=== PATIENT | female | born 1955 | race Caucasian/White ===

== ENCOUNTER → 2016-05-09 | Outpatient (CLI) | payer OTHER ==
[~2016-05-09] MED LIST: AMLO-114 PO; ATV1 PO; CMD75 PO; CYM30 PO; CYM60 PO; OXYC-57 PO; OXYSR10 PO; [UNRECOGNIZED DRUG - CODE] PO
--- NOTE | 2016-05-09 10:58 | DIAGNOSTIC IMAGING REPORT ---
MRI OF THE LUMBAR SPINE WITHOUT IV CONTRAST CLINICAL HISTORY: Low back pain. COMPARISON STUDY: Abdominal CT dated 10/28/2006. TECHNIQUE: MRI of the lumbar spine is performed utilizing various T1 and T2-weighted sequences in the axial and sagittal planes. IV contrast was not administered for this examination. FINDINGS: Lumbar spine: Vertebral body height is maintained throughout the lumbar spine. There is minimal retrolisthesis of L3-L4 and L4-L5. There is minimal anterolisthesis at L2-L3. There is straightening of the lumbar lordosis. Marrow signal intensity is slightly heterogeneous. Chronic degenerative endplate change is present at L4-L5. Mild degenerative endplate edema is seen at L2-L3. No destructive osseous lesion is identified. The transverse and spinous processes appear intact. There is no evidence of spondylolysis. Schmorl's nodes are identified at L3 and L4. Intervertebral discs: There is degenerative disc desiccation and loss of height seen throughout the lumbar spine. Loss of height is greatest from L2-L3 through L4-L5. Spinal cord: The visualized spinal cord is normal in morphology and signal intensity. The conus medullaris terminates at the T12-L1 interspace. The nerve roots of the cauda equina are normal in morphology. L1-L2: Unremarkable. L2-L3: There is posterior disc bulge. In conjunction with hypertrophy of the ligamentum flavum, there is mild to moderate acquired compromise of the central canal. The minimum AP diameter measures up to 7.5 mm. Facet arthropathy causes minimal left-sided neural foraminal stenosis. L3-L4: There is posterior disc bulge with annular fissure. In conjunction with hypertrophy of the ligamentum flavum, this causes mild to moderate acquired compromise of the central canal. The minimum AP diameter measures 7.5 mm. There is bilateral subarticular stenosis. Facet arthropathy is of no consequence. The neural foramina appear clear. L4-L5: There is posterior disc bulge as well as hypertrophy of the ligamentum flavum. There is no significant acquired compromise of the central canal. There is bilateral subarticular stenosis with possible impingement on the exiting bilateral L4 nerve roots. Facet arthropathy causes moderate left and minimal right neural foraminal stenosis. L5-S1: Facet arthropathy is of no consequence. The central canal and neural foramina are patent. Sacrum: Partially imaged sacrum is normal in morphology and signal intensity. Soft tissues: There is moderate fatty atrophy of the paraspinous musculature. The kidneys demonstrate mild cortical atrophy. No retroperitoneal lymphadenopathy is seen. IMPRESSION: 1. Lumbosacral spondylosis as above with mild multilevel acquired compromise of the central canal. See discussion for detailed [id number] analysis. 2. Degenerative disc disease with mild endplate edema at L2-L3. 3. No destructive bony lesion is identified. Dictated: 05/09/2016 10:35 AM Transcribed: 05/09/2016 10:58 AM [facility] Electronically signed by: Shubham Delarosa M.D. 05/09/2016 11:27 AM Dictated Date/Time: 05/09/2016 10:35 AM
== END | disposition home or self-care (01) ==
PROVIDERS: ATTEND Orthopaedic Surgery Orthopaedic Surgery of the Spine
DX: M54.5 Low back pain (principal); M47.817 Spondylosis without myelopathy or radiculopathy, lumbosacral region; M51.36 Other intervertebral disc degeneration, lumbar region

== ENCOUNTER 2021-03-06 14:09 | Inpatient (IN) ==
[2021-03-06] MEDS ORDERED: dexAMETHasone**PF** 10 MG/ML VIAL IV ONE (14:56)
--- NOTE | 2021-03-06 14:57 | XRay Report ---
SINGLE VIEW CHEST CLINICAL HISTORY: Dyspnea. FINDINGS: 2 AP, portable, upright chest radiographs are compared to study dated 02/18/2009. The cardi omediastinal silhouette is unremarkable. Mild patchy airspace consolidation is seen throughout both l ungs, greatest at the lung bases. No large pleural effusion or pneumothorax is seen. The skeletal str uctures are osteopenic. The bony thorax is grossly intact. Calcific tendinopathy is noted in the left shoulder. IMPRESSION: Multifocal airspace consolidation is typical for pneumonia. Clinical correlation will be required and radiographic follow-up to resolution is recommended. ACT 112: Negative or not required by law. Electronically signed by: Shubham Delarosa M.D. 03/06/2021 2:56 PM
[2021-03-06 15:17] LABS: Hematocrit (blood only) 42.8 % (37-47); Hemoglobin 14.1 g/dL (12.0-16.0); Mean Corpuscular Hemoglobin 27.8 pg (25-34); Mean Corpuscular Hgb Conc 32.9 g/dL (32-36); Mean Corpuscular Volume 84.4 fL (80-100); Mean Platelet Volume 9.9 fL (7.4-10.4); Platelet Count 354 K/uL (130-400); RDW Coefficient of Variation 13.8 % (11.5-14.5); RDW Standard Deviation 42.4 fL (36.4-46.3); Red Blood Count 5.07 M/uL (4.2-5.4); White Blood Count 9.78 K/uL (4.8-10.8)
[2021-03-06 15:26] LABS: Partial Thromboplastin Time 25.3 Seconds (21.0-31.0); Prothrombin Time 10.5 Seconds (9.0-12.0)
[2021-03-06 15:28] LABS: Base Excess VBG 2.7 mEq/L; Oxygen Saturation VBG 66.4 %; pH VBG 7.47 (7.36-7.41)
[2021-03-06 15:35] LABS: Alanine Aminotransferase 37 (12-78); Albumin Level 2.8 gm/dl (3.4-5.0); Aspartate Aminotransferase 44 U/L (15-37); BUN Creatinine Ratio 18.8 (10-20); Blood Urea Nitrogen 24 mg/dl (7-18); Calcium 9.7 mg/dl (8.5-10.1); Carbon Dioxide 27 mmol/L (21-32); Chloride 98 mmol/L (98-107); Est GFR (African American) 49.9 ml/min; Glucose 152 mg/dl (70-99); Magnesium 2.1 mg/dl (1.8-2.4); Potassium 3.2 mmol/L (3.5-5.1); Sodium 134 mmol/L (136-145)
[2021-03-06 15:40] LABS: Albumin Globulin Ratio 0.5 (0.9-2); Alkaline Phosphatase 101 U/L (45-117); Bilirubin,Total 0.8 mg/dl (0.2-1); Globulin 5.7 gm/dl (2.5-4.0); Total Protein 8.5 gm/dl (6.4-8.2); Troponin I < 0.015 ng/ml (0-0.045)
[2021-03-06 15:43] LABS: ALC (manual) 3.65 K/uL (1.2-3.4); Basophils # (manual) 0.09 K/uL (0-0.2); Basophils % (manual) 0.9 %; Eosinophils # (manual) 0.17 K/uL (0-0.5); Eosinophils % (manual) 1.7 %; Lymphocytes # (manual) 2.38 K/uL (1.2-3.4); Lymphocytes % (manual) 24.3 %; Monocytes # (manual) 0.51 K/uL (0.11-0.59); Monocytes % (manual) 5.2 %; Myelocytes # (manual) 0.17 K/uL (0-0); Myelocytes % (manual) 1.7 %; Neutrophils % (manual) 53.2 %; Polychromasia 1+; Reactive Lymphocytes # (manual) 1.27 K/uL
[2021-03-06 15:55] LABS: Influenza A virus by PCR Negative (Neg); Influenza B virus by PCR Negative (Neg); RSV by PCR Negative (Neg)
[2021-03-06 16:02] LABS: SARS CoV2 RNA(COVID-19) InHosp POSITIVE (Negative)
--- NOTE | 2021-03-06 16:17 | Electrocardiogram Report ---
Test Reason : Blood Pressure : / mmHG Vent. Rate : 091 BPM Atrial Rate : 091 BPM P-R Int : 138 ms QRS Dur : 086 ms QT Int : 382 ms P-R-T Axes : 004 -24 004 degrees QTc Int : 469 ms Poor data quality, interpretation may be adversely affected Normal sinus rhythm Low voltage QRS Nonspecific ST and T wave abnormality Abnormal ECG When compared with ECG of 18-FEB-2009 17:23, No significant change was found Confirmed by Yosvany Sawyer ([id number]) on 03/06/2021 4:17:35 PM Referred By: REFERRED SELF Confirmed By:Yosvany Sawyer
[2021-03-06] MEDS ORDERED: OPTIRAY 320 125ml IV ONE (16:47)
--- NOTE | 2021-03-06 17:01 | CT Scan Report ---
CT ANGIOGRAM OF THE CHEST CLINICAL HISTORY: Dyspnea. Covid. COMPARISON STUDY: Chest x-ray dated 03/06/2021. Chest CT dated 10/27/2006. TECHNIQUE: Following the IV administration of 120 cc of Optiray 320, CT angiogram of the chest was pe rformed from the upper abdomen to the thoracic inlet utilizing the pulmonary embolus protocol. Images are reviewed in the axial, sagittal, and coronal planes. 3-D MIPS images are created and assessed. I V contrast was administered without complication. A dose lowering technique was utilized adhering to the principles of ALARA. The examination is degraded by motion artifact. CT DOSE: 684.20 mGycm FINDINGS: Thyroid: Imaged portions of the thyroid gland are normal in size and attenuation. Thoracic aorta: The thoracic aorta is normal in caliber and demonstrates standard 3-vessel arch anato my. No dissection is seen. Pulmonary vasculature: The pulmonary trunk is dilated measuring 3.3 cm diameter. This suggests pulmon brittny artery hypertension. There are no filling defects identified in main, lobar, or proximal segmenta l pulmonary branches to suggest pulmonary embolus. Evaluation of the segmental and subsegmental branc hes is significantly degraded by motion artifact. Heart: The heart is mildly enlarged and without pericardial effusion. Lungs and pleural spaces: Evaluation of the lung parenchyma is degraded by motion artifact. There is multifocal groundglass consolidation with a subpleural and lower lobe predominance. No pleural effusi on is identified. The trachea and central airways are clear. Mediastinum: There are numerous subcentimeter mediastinal lymph nodes, likely reactive. Kecia: Mildly enlarged hilar nodes measure up to 13 mm short axis. Axillae: There is no axillary lymphadenopathy. Upper abdomen: The liver is enlarged and steatotic. Cholecystectomy clips are noted. The spleen appea rs enlarged. There is a small hiatal hernia. Skeletal structures: The skeletal structures are osteopenic. Mild degenerative changes noted in the t horacic spine. No lytic or blastic bony lesions are seen. IMPRESSION: 1. Motion compromised examination. 2. There is no evidence of central pulmonary embolus in the main, lobar, or proximal segmental pulmon brittny arteries. 3. Multifocal airspace consolidation is consistent with the reported history of a viral pneumonia. Ra diographic follow-up to resolution is recommended. 4. Mildly enlarged hilar lymph nodes are likely reactive. ACT 112: Negative or not required by law. Electronically signed by: Shubham Delarosa M.D. 03/06/2021 5:00 PM
--- NOTE | 2021-03-06 18:37 | History & Physical Report ---
Date of Service March 06, 2021 Assessment & Plan (1) Pneumonia due to COVID-19 virus: Plan: Started with symptoms on 02/24 so pt is approximately 10 days into the course. Vaccinated x 2 with Pfizer but not boosted. Developed worsening SOB and weakness over past 24 hours and found to by hypoxic in ED. - Admit to PCU with COVID isolation precautions - O2 titrated to maintain sats - Dexamethasone 6 mg IV daily - Not a candidate for remdesivir based on duration of symptoms - Incentive spirometry/flutter valve - Daily labs, check CRP and procalcitonin tonight (2) Hypoxia: Plan: Due to #1 (3) FRANCISCO (acute kidney injury): Plan: Due to dehydration from limited oral intake - Gentle IVF - Oral intake as tolerated - Follow labs (4) Hypokalemia: Plan: Replete with oral KCl - recheck in AM. Mg normal. (5) Type 2 diabetes mellitus: Plan: Diet-controlled - Diabetic diet - Accuchecks with insulin sliding scale - Consult pharm for glycemic management - A1c in AM (6) Hypertension: Plan: HOLD diuretic due to FRANCISCO/clinical dehydration, otherwise continue home meds (7) Anxiety: Plan: - Continue home meds (8) Fibromyalgia: Plan: - Continue home meds (9) Depression: Plan: - Continue home meds Plan: Pt seen and reviewed with collaborating physician, Dr. Raphael. Plan of care discussed and as outlined above. DVT Prophylaxis: Heparin subQ due to FRANCISCO Code Status: Full Code Serg Gibson PA-C History of Present Illness Chief Complaint: Shortness of breath and weakness Primary Care Provider: Talisha Burciaga MD This is a 65 y/o female with a PMH of diet-controlled DM2, diabetic neuropathy, RSD, fibromyalgia, migraine, HTN, depression/anxiety, obesity and psoriasis who presents with progressive SOB and weakness x 10 days. She started on 02/24 with cold/flu symptoms including nasal congestion, MARROQUIN, body aches, sinus pressure and low-grade fever. Fever worsened the next day and continued intermittent until it seemed to break yesterday. Seen for a telemed visit on 02/25 - provider recommended she get COVID testing and to use supportive measures. Pt had COVID test done last week at [facility] but they apparently lost the test so she never got her results. About 3-4 days into course of symptoms, she developed PADRON which has gradually progressed to being SOB even at rest. She notes occasional w heezing. She feels very weak and tired. Appetite is decreased so she is not eating much, trying to push fluids but having difficulty. Continues to have a cough that is intermittently productive - yellow-green mucus, no hemoptysis. Feels nauseated with coughing fits but no vomiting. Stools are soft but not watery. Using Motrin for fevers/aches but not helping. Had [employer] vaccine for COVID x2 in July. Has not had booster yet. Family had similar symptoms but they're all feeling better now - no specific exposure that she's aware of. Allergies Allergy/AdvReac Type Severity Reaction Status Date / Time fosphenytoin Allergy Mild HIVES Verified 03/21/19 15:58 celecoxib Allergy Unknown ITCHINESS Verified 03/21/19 15:58 warfarin [From Coumadin] AdvReac Severe Hemorrhage Verified 03/21/19 15:58 Home Medications Medication Instructions Recorded Confirmed Type atorvastatin 20 mg tablet 20 mg PO DAILY 03/21/19 03/06/21 History hydrochlorothiazide 25 mg tablet 25 mg PO QAM 03/21/19 03/06/21 History propranolol 20 mg tablet 10 mg PO BID 03/21/19 03/06/21 History clonazepam 0.5 mg tablet 0.5 mg PO DAILY PRN 03/06/21 03/06/21 History cyclobenzaprine 10 mg tablet 10 mg PO TID PRN 03/06/21 03/06/21 History duloxetine 30 mg capsule,delayed 30 mg PO DAILY 03/06/21 03/06/21 History release duloxetine 60 mg capsule,delayed 60 mg PO DAILY 03/06/21 03/06/21 History release lamotrigine 25 mg tablet 50 mg PO DAILY 03/06/21 03/06/21 History mirtazapine 30 mg tablet 15 - 30 mg PO HS PRN 03/06/21 03/06/21 History multivitamin 1 tab PO DAILY 03/06/21 03/06/21 History omeprazole 40 mg capsule,delayed 40 mg PO DAILY 03/06/21 03/06/21 History release tolterodine 4 mg capsule,extended 4 mg PO DAILY 03/06/21 03/06/21 History release 24 hr valsartan 80 mg tablet 80 mg PO DAILY 03/06/21 03/06/21 History Past Med/Surg History Medical History (Updated 03/06/21 @ 19:47 by Loerna Gibson PA-C) Anxiety Depression Diabetic neuropathy Fibromyalgia Hypertension Migraine Obesity Psoriasis Reflex sympathetic dystrophy Type 2 diabetes mellitus Surgical History H/O hernia repair History of cholecystectomy History of repair of rotator cuff Status post bilateral knee replacements Family History Father Diabetes Stroke Grandmother (Paternal) Diabetes Mother Lung disease Social History Smoking Status: Never smoker Hx Alcohol Use: No Preferred Language: German Communication Ability: Effective Visual Impairment: No Limitations Hearing Ability: Normal Current Living Situation Comment: Lives with her daughter and granddaughter Feels Safe at Home: Yes Review of Systems Review of Systems: All systems reviewed & are unremarkable except as noted in HPI & below Constitutional: + fever, + chills, + fatigue and + anorexia Eyes: no diplopia and no worsening vision Ear, Nose, Mouth, Throat: + nasal discharge and + nasal obstruction Respiratory: + cough, + chest congestion, + dyspnea, + dyspnea on exertion and + wheezing; no hemoptysis Cardiovascular: no chest pain, no palpitations, no syncope and no edema Gastrointestinal: + nausea; no abdominal pain, no vomiting and no diarrhea/loose stools Genitourinary: no dysuria, no urinary frequency and no hematuria Musculoskeletal: + myalgia; no back pain and no neck pain Integumentary: no rash and no yellowing of the skin Neurologic: + generalized weakness; no dizziness and no syncope Psychiatric: + depression and + anxiety Physical Exam Constitutional: + obese; no acute distress Eyes: + anicteric sclerae Neck: trachea midline Respiratory: no respiratory distress and no labored breathing Auscultation: + diminished lung sounds; no rales, no rhonchi and no wheezes Cardiovascular: Rate/Rhythm: regular rate and regular rhythm Vessels: dorsalis pedis pulses present and radial pulses present Extremities: no pedal edema Gastrointestinal (Abdomen): Inspection/Auscultation: normal bowel sounds; abdomen not distended Percussion/Palpation: abdomen soft; abdomen nontender Musculoskeletal: Head/Neck/Chest: normocephalic, head atraumatic and neck supple Skin: no rashes and no jaundice Neurologic: moves all extremities; no focal motor deficits and not confused Psychiatric: A+Ox3, euthymic affect Results & Data Results & Data ([facility]) Vital Signs (Past 12 Hours) Vital Signs Temp Pulse Pulse Resp BP BP Pulse Ox 03/06/21 18:00 83 26 H 117/58 L 95 03/06/21 17:30 81 25 H 133/52 L 93 03/06/21 17:00 84 25 H 119/53 L 94 03/06/21 16:30 89 24 109/48 L 93 03/06/21 16:14 83 92 03/06/21 15:10 88 101/52 L 93 03/06/21 14:15 36.5 C 100 H 18 109/59 L 96 Laboratory Results Laboratory Results - last 24 hr 03/06/21 03/06/21 03/06/21 14:54 15:05 15:05 WBC 9.78 RBC 5.07 Hgb 14.1 Hct 42.8 MCV 84.4 MCH 27.8 MCHC 32.9 RDW Std Deviation 42.4 RDW Coeff of Maria Elena 13.8 Plt Count 354 MPV 9.9 Neutrophils % (Manual) 53.2 Lymphocytes % (Manual) 24.3 Reactive Lymphs % (Man) 13.0 Monocytes % (Manual) 5.2 Eosinophils % (Manual) 1.7 Basophils % (Manual) 0.9 Myelocytes % (Man) 1.7 Neutrophils # (Manual) 5.20 Total Absolute Neuts 5.20 Lymphocytes # (Manual) 2.38 Reactive Lymphs # 1.27 Total Abs Lymphocytes 3.65 H Monocytes # (Manual) 0.51 Eosinophils # (Manual) 0.17 Basophils # (Manual) 0.09 Myelocytes # (Manual) 0.17 H Polychromasia 1+ PT 10.5 INR 1.0 APTT 25.3 PTT Ratio 1.0 VBG pH VBG pCO2 VBG pO2 VBG HCO3 VBG O2 Saturation VBG Base Excess Barometric Pressure Sodium Potassium Chloride Carbon Dioxide Anion Gap BUN Creatinine Est Cr Clr Drug Dosing Est GFR ( Amer) Est GFR (Non-Af Amer) BUN/Creatinine Ratio Glucose Calcium Magnesium Total Bilirubin AST ALT Alkaline Phosphatase Troponin I C-Reactive Protein Total Protein Albumin Globulin Albumin/Globulin Ratio Procalcitonin SARS-CoV-2 (PCR) POSITIVE A* Influenza Type A (PCR) Negative Influenza Type B (PCR) Negative RSV (RT-PCR) Negative 03/06/21 03/06/21 03/06/21 15:05 15:05 15:07 WBC RBC Hgb Hct MCV MCH MCHC RDW Std Deviation RDW Coeff of Maria Elena Plt Count MPV Neutrophils % (Manual) Lymphocytes % (Manual) Reactive Lymphs % (Man) Monocytes % (Manual) Eosinophils % (Manual) Basophils % (Manual) Myelocytes % (Man) Neutrophils # (Manual) Total Absolute Neuts Lymphocytes # (Manual) Reactive Lymphs # Total Abs Lymphocytes Monocytes # (Manual) Eosinophils # (Manual) Basophils # (Manual) Myelocytes # (Manual) Polychromasia PT INR APTT PTT Ratio VBG pH 7.47 H VBG pCO2 37 L VBG pO2 34 VBG HCO3 26 VBG O2 Saturation 66.4 VBG Base Excess 2.7 Barometric Pressure 723.3 Sodium 134 L Potassium 3.2 L Chloride 98 Carbon Dioxide 27 Anion Gap 9.0 BUN 24 H Creatinine 1.30 H Est Cr Clr Drug Dosing Not Reportable Est GFR ( Amer) 49.9 Est GFR (Non-Af Amer) 43.0 BUN/Creatinine Ratio 18.8 Glucose 152 H Calcium 9.7 Magnesium 2.1 Total Bilirubin 0.8 AST 44 H ALT 37 Alkaline Phosphatase 101 Troponin I < 0.015 C-Reactive Protein 3.63 H Cancelled Total Protein 8.5 H Albumin 2.8 L Globulin 5.7 H Albumin/Globulin Ratio 0.5 L Procalcitonin SARS-CoV-2 (PCR) Influenza Type A (PCR) Influenza Type B (PCR) RSV (RT-PCR) 03/06/21 15:07 WBC RBC Hgb Hct MCV MCH MCHC RDW Std Deviation RDW Coeff of Maria Elena Plt Count MPV Neutrophils % (Manual) Lymphocytes % (Manual) Reactive Lymphs % (Man) Monocytes % (Manual) Eosinophils % (Manual) Basophils % (Manual) Myelocytes % (Man) Neutrophils # (Manual) Total Absolute Neuts Lymphocytes # (Manual) Reactive Lymphs # Total Abs Lymphocytes Monocytes # (Manual) Eosinophils # (Manual) Basophils # (Manual) Myelocytes # (Manual) Polychromasia PT INR APTT PTT Ratio VBG pH VBG pCO2 VBG pO2 VBG HCO3 VBG O2 Saturation VBG Base Excess Barometric Pressure Sodium Potassium Chloride Carbon Dioxide Anion Gap BUN Creatinine Est Cr Clr Drug Dosing Est GFR ( Amer) Est GFR (Non-Af Amer) BUN/Creatinine Ratio Glucose Calcium Magnesium Total Bilirubin AST ALT Alkaline Phosphatase Troponin I C-Reactive Protein Total Protein Albumin Globulin Albumin/Globulin Ratio Procalcitonin 0.25 SARS-CoV-2 (PCR) Influenza Type A (PCR) Influenza Type B (PCR) RSV (RT-PCR) Diagnostic Findings Chest X-ray 03/06/21 - IMPRESSION: Multifocal airspace consolidation is typical for pneumonia. Clinical correlation will be required and radiographic follow-up to resolution is recommended. Chest CTA 03/06/21 - IMPRESSION: 1. Motion compromised examination. 2. There is no evidence of central pulmonary embolus in the main, lobar, or proximal segmental pulmonary arteries. 3. Multifocal airspace consolidation is consistent with the reported history of a viral pneumonia. Radiographic follow-up to resolution is recommended. 4. Mildly enlarged hilar lymph nodes are likely reactive. Medications Administered Discontinued Medications Dexamethasone Sodium Phosphate (DexamethasonePf 10 Mg/Ml Vial) 6 mg IV NOW ONE Stop: 03/06/21 14:57 Last Admin: 03/06/21 15:06 Dose: 6 mg Documented by: [id number] Ioversol (Optiray 320 125ml) 120 ml IV ONCE ONE Stop: 03/06/21 16:48 Last Admin: 03/06/21 16:48 Dose: 120 ml Documented by: [id number] Potassium Chloride (Potassium Chloride Crtab 20 Meq Tabcr) 40 meq PO NOW STA Stop: 03/06/21 18:51 Last Admin: 03/06/21 19:21 Dose: 40 meq Documented by: [id number] Supervising Physician Co-Signing Physician Notes Patient is a 65-year-old female with history of diabetes mellitus, fibromyalgia, depression and anxiety disorder and other medical problems presents with history of cough, shortness of breath, nasal congestion, headache and generalized body ache associated with low-grade fever since about 10 days duration. She admits to having occasional wheezing. Patient got vaccinated for Covid in July. Please review HPI for complete details of presentation. Blood work suggestive of hyponatremia 134, hypokalemia 3.2, FRANCISCO with creatinine elevated at 1.3. She was found to be hypoxic while in ED and currently on 4 L supplemental oxygen. CRP is elevated at 3.63, procalcitonin 0.25. CTA showed no evidence of PE. Findings suggestive of multifocal pneumonia. On exam patient is obese, no apparent distress, normocephalic atraumatic, EOMI, decreased breath sounds, clear to auscultation, S1-S2, no murmur, no pedal edema, abdomen soft, nontender, normal bowel sounds, alert, awake, oriented, grossly no focal deficits. Patient is admitted for management of acute acute respiratory failure secondary to COVID-19 pneumonia. Agree with starting on dexamethasone. Remdesivir likely not beneficial given duration of symptoms. Continue supplemental oxygen. Encouraged to prone. Pulmonary hygiene. Lasix and nebs as needed. Gentle IV fluids given FRANCISCO. Hold HCTZ for today. Replace potassium supplement. I personally reviewed the record. Patient is interviewed and examined at bedside. Patient's care is coordinated with Lorena Gibson PA-C. Please refer to the documentation above for details of patient's presentation and for discussion of other issues.
[2021-03-06] MEDS ORDERED: POTASSIUM CHLORIDE CRTAB 20 MEQ TABCR PO STA (18:50)
[2021-03-06] MEDS ORDERED: guaiFENesin/DEXTROM SYRUP 200MG/20MG 10ML UDC PO PRN (18:51)
[2021-03-06 19:14] LABS: C Reactive Protein 3.63 mg/dl (0-0.29)
--- NOTE | 2021-03-06 19:46 | Emergency Department Note ---
History of Present Illness General Chief Complaint: Shortness of Breath/Dyspnea Stated Complaint: shortness of breath Time Seen by Provider: 03/06/21 14:55 History of Present Illness Provider Complaint: shortness of breath and cough Onset (ago): day(s) (10) Severity: moderate Consistency/Duration: + progressively worsening Maximum Pain Intensity: 0 Current Pain Intensity: 0 Relieved By: + nothing Exacerbated By: + exertion Associated symptoms: + cough, + sputum production and + chest congestion; no chest pain, no fever, no palpitations, no hemoptysis or no nausea/vomiting HPI Narrative: Patient also reports loss of smell Related Data Home oxygen amount: none Home Medications Medication Instructions Recorded Confirmed Type atorvastatin 20 mg tablet 20 mg PO DAILY 03/21/19 03/06/21 History hydrochlorothiazide 25 mg tablet 25 mg PO QAM 03/21/19 03/06/21 History propranolol 20 mg tablet 10 mg PO BID 03/21/19 03/06/21 History clonazepam 0.5 mg tablet 0.5 mg PO DAILY PRN 03/06/21 03/06/21 History cyclobenzaprine 10 mg tablet 10 mg PO TID PRN 03/06/21 03/06/21 History duloxetine 30 mg capsule,delayed 30 mg PO DAILY 03/06/21 03/06/21 History release duloxetine 60 mg capsule,delayed 60 mg PO DAILY 03/06/21 03/06/21 History release lamotrigine 25 mg tablet 50 mg PO DAILY 03/06/21 03/06/21 History mirtazapine 30 mg tablet 15 - 30 mg PO HS PRN 03/06/21 03/06/21 History multivitamin 1 tab PO DAILY 03/06/21 03/06/21 History omeprazole 40 mg capsule,delayed 40 mg PO DAILY 03/06/21 03/06/21 History release tolterodine 4 mg capsule,extended 4 mg PO DAILY 03/06/21 03/06/21 History release 24 hr valsartan 80 mg tablet 80 mg PO DAILY 03/06/21 03/06/21 History Allergies Allergy/AdvReac Type Severity Reaction Status Date / Time fosphenytoin Allergy Mild HIVES Verified 03/21/19 15:58 celecoxib Allergy Unknown ITCHINESS Verified 03/21/19 15:58 warfarin [From Coumadin] AdvReac Severe Hemorrhage Verified 03/21/19 15:58 Past Med/Surg History Medical History (Updated 03/06/21 @ 19:46 by Lorena Gibson PA-C) Anxiety Depression Diabetic neuropathy Fibromyalgia Hypertension Migraine Obesity Psoriasis Reflex sympathetic dystrophy Type 2 diabetes mellitus Surgical History H/O hernia repair History of cholecystectomy History of repair of rotator cuff Status post bilateral knee replacements Family History Father Diabetes Stroke Grandmother (Paternal) Diabetes Mother Lung disease Social History Smoking Status: Never smoker Hx Alcohol Use: No Preferred Language: Portuguese Communication Ability: Effective Visual Impairment: No Limitations Hearing Ability: Normal Current Living Situation Comment: Lives with her daughter and granddaughter Feels Safe at Home: Yes Review of Systems A total of 10 systems reviewed and were otherwise negative Physical Exam Vital Signs: Vital Signs - 24 hr 03/06/21 14:15 03/06/21 15:10 03/06/21 16:14 Temperature 36.5 C Temperature Source Temporal Artery Sc an Pulse Rate 100 H 83 Pulse Rate [Radial ] 88 Pulse Rhythm [Radi al] Regular Respiratory Rate 18 Blood Pressure 109/59 L Blood Pressure [Le ft Arm] 101/52 L Blood Pressure Kalpana n 75 Blood Pressure Kalpana n [Left Arm] 68 Blood Pressure Pos ition [Left Arm] Pulse Oximetry 96 93 92 Oxygen Delivery Me thod Nasal Cannula Nasal Cannula Nasal Cannula Oxygen Flow Rate 86 4 4 Sepsis Recent Feve r Within 48 Hours No Sepsis New/Unexpla ined Change in Men bryan Status No Sepsis Action Take n by Nursing No Action Required Oxygen Flow Rate - Titration 4 03/06/21 16:30 03/06/21 17:00 03/06/21 17:30 Temperature Temperature Source Pulse Rate Pulse Rate [Radial ] 89 84 81 Pulse Rhythm [Radi al] Respiratory Rate 24 25 H 25 H Blood Pressure Blood Pressure [Le ft Arm] 109/48 L 119/53 L 133/52 L Blood Pressure Kalpana n Blood Pressure Kalpana n [Left Arm] 68 75 79 Blood Pressure Pos ition [Left Arm] Pulse Oximetry 93 94 93 Oxygen Delivery Me thod Nasal Cannula Nasal Cannula Nasal Cannula Oxygen Flow Rate 4 4 4 Sepsis Recent Feve r Within 48 Hours Sepsis New/Unexpla ined Change in Men bryan Status Sepsis Action Take n by Nursing Oxygen Flow Rate - Titration 03/06/21 18:00 03/06/21 19:24 Temperature Temperature Source Pulse Rate Pulse Rate [Radial ] 83 93 H Pulse Rhythm [Radi al] Respiratory Rate 26 H 16 Blood Pressure Blood Pressure [Le ft Arm] 117/58 L 103/75 Blood Pressure Kalpana n Blood Pressure Kalpana n [Left Arm] 77 84 Blood Pressure Pos ition [Left Arm] Semi-fowlers Pulse Oximetry 95 96 Oxygen Delivery Me thod Nasal Cannula Nasal Cannula Oxygen Flow Rate 4 4 Sepsis Recent Feve r Within 48 Hours Sepsis New/Unexpla ined Change in Men bryan Status Sepsis Action Take n by Nursing Oxygen Flow Rate - Titration Physical Exam: Physical Exam GENERAL: She is oriented to person, place, and time. She appears well-developed and well-nourished. She does not appear distressed. HENT: Exam performed. -Head: Normocephalic and atraumatic. -Right Ear: External ear normal. No mastoid tenderness. -Left Ear: External ear normal. No mastoid tenderness. -Mouth/Throat: The oropharynx is clear and moist. No trismus in the jaw. No dental abscesses or uvula swelling. No oropharyngeal exudate or tonsillar abscesses. EYES: Conjunctivae and EOM are normal. Pupils are equal, round, and reactive to light. Right eye exhibits no discharge. Left eye exhibits no discharge. No scleral icterus. NECK: Normal range of motion. Neck supple. No JVD present. No spinous process tenderness present. No carotid bruit present. No rigidity. No tracheal deviation and normal range of motion present. No Brudzinski's sign and no Kernig's sign noted. CV: Normal rate, regular rhythm, normal heart sounds and intact distal pulses. There is no peripheral edema. Palpable radial pulses bue. PULM/CHEST: Rhonchi bilaterally she has no rales. -Chest Wall: She exhibits no tenderness. ABD: The abdomen is soft. Bowel sounds are normal. She has no distension. No mass is present. There is no tenderness. There is no rebound, no guarding, no Choi's sign and no tenderness at McBurney's point. Rovsig negative MUSC/SKEL: Normal range of motion. There is no peripheral edema, tenderness or deformity. LYMPH: No cervical adenopathy. NEURO: She is alert and oriented to person, place, and time. She has normal strength. No cranial nerve deficit or sensory deficit. Coordination and gait normal. GCS eye subscore is 4. GCS verbal subscore is 5. GCS motor subscore is 6. Cerebellar tests wnl. SKIN: Skin is warm and dry. She is not diaphoretic. PSYCH: She has a normal mood and affect. Behavior is normal. Judgment and t hought content normal. Course Course 1455: The patient was evaluated in room D8. A complete history and physical exam was performed Cardiac monitoring: An order was placed for continuous cardiac monitoring. The monitor shows a rate of 90 with sinus rhythm Patient was found to be hypoxic. Patient was placed on supplemental oxygen via nasal cannula which improved her oxygen saturation. High clinical concern for COVID-19, Decadron 6 mg ordered empirically for the patient Will obtain labs and imaging. Patient reports she is not on any blood thinners. 1835: Vital signs stable on supplemental oxygen. Labs are within normal up with exception of a positive COVID-[address] of the chest shows no PE but does show bilateral groundglass opacities. [facility]. Administered Medications Discontinued Medications Dexamethasone Sodium Phosphate (DexamethasonePf 10 Mg/Ml Vial) 6 mg IV NOW ONE Stop: 03/06/21 14:57 Last Admin: 03/06/21 15:06 Dose: 6 mg Documented by: [id number] Ioversol (Optiray 320 125ml) 120 ml IV ONCE ONE Stop: 03/06/21 16:48 Last Admin: 03/06/21 16:48 Dose: 120 ml Documented by: [id number] Potassium Chloride (Potassium Chloride Crtab 20 Meq Tabcr) 40 meq PO NOW STA Stop: 03/06/21 18:51 Last Admin: 03/06/21 19:21 Dose: 40 meq Documented by: [id number] Medical Decision Making Laboratory Data Result diagrams: 03/06/21 15:05 03/06/21 15:05 Lab Results 03/06/21 03/06/21 03/06/21 Range/Units 14:54 15:05 15:05 WBC 9.78 (4.8-10.8) K/uL RBC 5.07 (4.2-5.4) M/uL Hgb 14.1 (12.0-16.0) g/dL Hct 42.8 (37-47) % MCV 84.4 (80-100) fL MCH 27.8 (25-34) pg MCHC 32.9 (32-36) g/dL RDW Std Deviation 42.4 (36.4-46.3) fL RDW Coeff of Maria Elena 13.8 (11.5-14.5) % Plt Count 354 (130-400) K/uL MPV 9.9 (7.4-10.4) fL Neutrophils % (Manual) 53.2 % Lymphocytes % (Manual) 24.3 % Reactive Lymphs % (Man) 13.0 % Monocytes % (Manual) 5.2 % Eosinophils % (Manual) 1.7 % Basophils % (Manual) 0.9 % Myelocytes % (Man) 1.7 % Neutrophils # (Manual) 5.20 (1.4-6.5) K/uL Total Absolute Neuts 5.20 (1.4-6.5) K/uL Lymphocytes # (Manual) 2.38 (1.2-3.4) K/uL Reactive Lymphs # 1.27 K/uL Total Abs Lymphocytes 3.65 H (1.2-3.4) K/uL Monocytes # (Manual) 0.51 (0.11-0.59) K/uL Eosinophils # (Manual) 0.17 (0-0.5) K/uL Basophils # (Manual) 0.09 (0-0.2) K/uL Myelocytes # (Manual) 0.17 H (0-0) K/uL Polychromasia 1+ PT 10.5 (9.0-12.0) Seconds INR 1.0 (0.9-1.1) APTT 25.3 (21.0-31.0) Seconds PTT Ratio 1.0 VBG pH (7.36-7.41) VBG pCO2 (38-50) mmHg VBG pO2 mmHg VBG HCO3 mmol/L VBG O2 Saturation % VBG Base Excess mEq/L Barometric Pressure mm/Hg Sodium (136-145) mmol/L Potassium (3.5-5.1) mmol/L Chloride (98-107) mmol/L Carbon Dioxide (21-32) mmol/L Anion Gap (3-11) BUN (7-18) mg/dl Creatinine (0.6-1.2) mg/dl Est Cr Clr Drug Dosing Est GFR ( Amer) ml/min Est GFR (Non-Af Amer) ml/min BUN/Creatinine Ratio (10-20) Glucose (70-99) mg/dl Calcium (8.5-10.1) mg/dl Magnesium (1.8-2.4) mg/dl Total Bilirubin (0.2-1) mg/dl AST (15-37) U/L ALT (12-78) Alkaline Phosphatase (45-117) U/L Troponin I (0-0.045) ng/ml C-Reactive Protein (0-0.29) mg/dl Total Protein (6.4-8.2) gm/dl Albumin (3.4-5.0) gm/dl Globulin (2.5-4.0) gm/dl Albumin/Globulin Ratio (0.9-2) Procalcitonin (0-0.5) ng/ml SARS-CoV-2 (PCR) POSITIVE A* (Negative) Influenza Type A (PCR) Negative (Neg) Influenza Type B (PCR) Negative (Neg) RSV (RT-PCR) Negative (Neg) 03/06/21 03/06/21 03/06/21 Range/Units 15:05 15:05 15:07 WBC (4.8-10.8) K/uL RBC (4.2-5.4) M/uL Hgb (12.0-16.0) g/dL Hct (37-47) % MCV (80-100) fL MCH (25-34) pg MCHC (32-36) g/dL RDW Std Deviation (36.4-46.3) fL RDW Coeff of Maria Elena (11.5-14.5) % Plt Count (130-400) K/uL MPV (7.4-10.4) fL Neutrophils % (Manual) % Lymphocytes % (Manual) % Reactive Lymphs % (Man) % Monocytes % (Manual) % Eosinophils % (Manual) % Basophils % (Manual) % Myelocytes % (Man) % Neutrophils # (Manual) (1.4-6.5) K/uL Total Absolute Neuts (1.4-6.5) K/uL Lymphocytes # (Manual) (1.2-3.4) K/uL Reactive Lymphs # K/uL Total Abs Lymphocytes (1.2-3.4) K/uL Monocytes # (Manual) (0.11-0.59) K/uL Eosinophils # (Manual) (0-0.5) K/uL Basophils # (Manual) (0-0.2) K/uL Myelocytes # (Manual) (0-0) K/uL Polychromasia PT (9.0-12.0) Seconds INR (0.9-1.1) APTT (21.0-31.0) Seconds PTT Ratio VBG pH 7.47 H (7.36-7.41) VBG pCO2 37 L (38-50) mmHg VBG pO2 34 mmHg VBG HCO3 26 mmol/L VBG O2 Saturation 66.4 % VBG Base Excess 2.7 mEq/L Barometric Pressure 723.3 mm/Hg Sodium 134 L (136-145) mmol/L Potassium 3.2 L (3.5-5.1) mmol/L Chloride 98 (98-107) mmol/L Carbon Dioxide 27 (21-32) mmol/L Anion Gap 9.0 (3-11) BUN 24 H (7-18) mg/dl Creatinine 1.30 H (0.6-1.2) mg/dl Est Cr Clr Drug Dosing Not Reportable Est GFR ( Amer) 49.9 ml/min Est GFR (Non-Af Amer) 43.0 ml/min BUN/Creatinine Ratio 18.8 (10-20) Glucose 152 H (70-99) mg/dl Calcium 9.7 (8.5-10.1) mg/dl Magnesium 2.1 (1.8-2.4) mg/dl Total Bilirubin 0.8 (0.2-1) mg/dl AST 44 H (15-37) U/L ALT 37 (12-78) Alkaline Phosphatase 101 (45-117) U/L Troponin I < 0.015 (0-0.045) ng/ml C-Reactive Protein 3.63 H Cancelled (0-0.29) mg/dl Total Protein 8.5 H (6.4-8.2) gm/dl Albumin 2.8 L (3.4-5.0) gm/dl Globulin 5.7 H (2.5-4.0) gm/dl Albumin/Globulin Ratio 0.5 L (0.9-2) Procalcitonin (0-0.5) ng/ml SARS-CoV-2 (PCR) (Negative) Influenza Type A (PCR) (Neg) Influenza Type B (PCR) (Neg) RSV (RT-PCR) (Neg) 03/06/21 Range/Units 15:07 WBC (4.8-10.8) K/uL RBC (4.2-5.4) M/uL Hgb (12.0-16.0) g/dL Hct (37-47) % MCV (80-100) fL MCH (25-34) pg MCHC (32-36) g/dL RDW Std Deviation (36.4-46.3) fL RDW Coeff of Maria Elena (11.5-14.5) % Plt Count (130-400) K/uL MPV (7.4-10.4) fL Neutrophils % (Manual) % Lymphocytes % (Manual) % Reactive Lymphs % (Man) % Monocytes % (Manual) % Eosinophils % (Manual) % Basophils % (Manual) % Myelocytes % (Man) % Neutrophils # (Manual) (1.4-6.5) K/uL Total Absolute Neuts (1.4-6.5) K/uL Lymphocytes # (Manual) (1.2-3.4) K/uL Reactive Lymphs # K/uL Total Abs Lymphocytes (1.2-3.4) K/uL Monocytes # (Manual) (0.11-0.59) K/uL Eosinophils # (Manual) (0-0.5) K/uL Basophils # (Manual) (0-0.2) K/uL Myelocytes # (Manual) (0-0) K/uL Polychromasia PT (9.0-12.0) Seconds INR (0.9-1.1) APTT (21.0-31.0) Seconds PTT Ratio VBG pH (7.36-7.41) VBG pCO2 (38-50) mmHg VBG pO2 mmHg VBG HCO3 mmol/L VBG O2 Saturation % VBG Base Excess mEq/L Barometric Pressure mm/Hg Sodium (136-145) mmol/L Potassium (3.5-5.1) mmol/L Chloride (98-107) mmol/L Carbon Dioxide (21-32) mmol/L Anion Gap (3-11) BUN (7-18) mg/dl Creatinine (0.6-1.2) mg/dl Est Cr Clr Drug Dosing Est GFR ( Amer) ml/min Est GFR (Non-Af Amer) ml/min BUN/Creatinine Ratio (10-20) Glucose (70-99) mg/dl Calcium (8.5-10.1) mg/dl Magnesium (1.8-2.4) mg/dl Total Bilirubin (0.2-1) mg/dl AST (15-37) U/L ALT (12-78) Alkaline Phosphatase (45-117) U/L Troponin I (0-0.045) ng/ml C-Reactive Protein (0-0.29) mg/dl Total Protein (6.4-8.2) gm/dl Albumin (3.4-5.0) gm/dl Globulin (2.5-4.0) gm/dl Albumin/Globulin Ratio (0.9-2) Procalcitonin 0.25 (0-0.5) ng/ml SARS-CoV-2 (PCR) (Negative) Influenza Type A (PCR) (Neg) Influenza Type B (PCR) (Neg) RSV (RT-PCR) (Neg) Imaging Data Radiologist's Impression: Chest X-Ray 03/06/21 14:20 SINGLE VIEW CHEST CLINICAL HISTORY: Dyspnea. FINDINGS: 2 AP, portable, upright chest radiographs are compared to study dated 02/18/2009. The cardiomediastinal silhouette is unremarkable. Mild patchy airspace consolidation is seen throughout both lungs, greatest at the lung bases. No large pleural effusion or pneumothorax is seen. The skeletal structures are osteopenic. The bony thorax is grossly intact. Calcific tendinopathy is noted in the left shoulder. IMPRESSION: Multifocal airspace consolidation is typical for pneumonia. Clinical correlation will be required and radiographic follow-up to resolution is recommended. ACT 112: Negative or not required by law. Electronically signed by: Shubham Delarosa M.D. 03/06/2021 2:56 PM Chest CTA 03/06/21 14:56 CT ANGIOGRAM OF THE CHEST CLINICAL HISTORY: Dyspnea. Covid. COMPARISON STUDY: Chest x-ray dated 03/06/2021. Chest CT dated 10/27/2006. TECHNIQUE: Following the IV administration of 120 cc of Optiray 320, CT angiogram of the chest was performed from the upper abdomen to the thoracic inlet utilizing the pulmonary embolus protocol. Images are reviewed in the axial, sagittal, and coronal planes. 3-D MIPS images are created and assessed. IV contrast was administered without complication. A dose lowering technique was utilized adhering to the principles of ALARA. The examination is degraded by motion artifact. CT DOSE: 684.20 mGycm FINDINGS: Thyroid: Imaged portions of the thyroid gland are normal in size and attenu ation. Thoracic aorta: The thoracic aorta is normal in caliber and demonstrates standard 3-vessel arch anatomy. No dissection is seen. Pulmonary vasculature: The pulmonary trunk is dilated measuring 3.3 cm diameter. This suggests pulmonary artery hypertension. There are no filling defects identi fied in main, lobar, or proximal segmental pulmonary branches to suggest pulmonary embolus. Evaluation of the segmental and subsegmental branches is significantly degraded by motion artifact. Heart: The heart is mildly enlarged and without pericardial effusion. Lungs and pleural spaces: Evaluation of the lung parenchyma is degraded by motion artifact. There is multifocal groundglass consolidation with a subpleural and lower lobe predominance. No pleural effusion is identified. The trachea and central airways are clear. Mediastinum: There are numerous subcentimeter mediastinal lymph nodes, likely reactive. Kecia: Mildly enlarged hilar nodes measure up to 13 mm short axis. Axillae: There is no axillary lymphadenopathy. Upper abdomen: The liver is enlarged and steatotic. Cholecystectomy clips are noted. The spleen appears enlarged. There is a small hiatal hernia. Skeletal structures: The skeletal structures are osteopenic. Mild degenerative changes noted in the thoracic spine. No lytic or blastic bony lesions are seen. IMPRESSION: 1. Motion compromised examination. 2. There is no evidence of central pulmonary embolus in the main, lobar, or proximal segmental pulmonary arteries. 3. Multifocal airspace consolidation is consistent with the reported history of a viral pneumonia. Radiographic follow-up to resolution is recommended. 4. Mildly enlarged hilar lymph nodes are likely reactive. ACT 112: Negative or not required by law. Electronically signed by: Shubham Delarosa M.D. 03/06/2021 5:00 PM ECG Data Interpretation: Sinus rhythm with rate 91. [place] QRS and QTc intervals within normal limits. No ST elevation or ST depression. [facility] Narrative 1455: The patient was evaluated in room D8. A complete history and physical exam was performed Cardiac monitoring: An order was placed for continuous cardiac monitoring. The monitor shows a rate of 90 with sinus rhythm Patient was found to be hypoxic. Patient was placed on supplemental oxygen via nasal cannula which improved her oxygen saturation. High clinical concern for COVID-19, Decadron 6 mg ordered empirically for the patient Will obtain labs and imaging. Patient reports she is not on any blood thinners. 1835: Vital signs stable on supplemental oxygen. Labs are within normal up with exception of a positive COVID-[address] of the chest shows no PE but does show bilateral groundglass opacities. [facility]. Impression & Plan Hypoxia, Pneumonia due to COVID-19 virus Critical Care Time Critical Care Time: Yes Total Critical Care Time: 46 I have personally spent greater than 46 minutes of critical care time in the direct management of this patient. This includes bedside care, interpretation of diagnostic studies, and testing, discussion with consultants, patient, and family members, and other required patient management activities. This 46 minutes is in excess of all separately billable procedures. Discharge Plan Visit Data Chief Complaint: Shortness of Breath/Dyspnea Stated Complaint: shortness of breath Discharge Problem: Hypoxia, Pneumonia due to COVID-19 virus Patient Disposition: Admitted As Inpatient Forms Stand Alone Forms: My [facility] Prescriptions Prescriptions: No Action atorvastatin 20 mg tablet 20 mg PO DAILY RF: 0 hydrochlorothiazide 25 mg tablet 25 mg PO QAM RF: 0 propranolol 20 mg tablet 10 mg PO BID RF: 0 multivitamin Tablet 1 tab PO DAILY RF: 0 cyclobenzaprine 10 mg Tablet 10 mg PO TID PRN (Reason: Muscle Spasm) RF: 0 tolterodine 4 mg capsule,extended release 24hr 4 mg PO DAILY RF: 0 clonazepam 0.5 mg tablet 0.5 mg PO DAILY PRN (Reason: Anxiety) RF: 0 valsartan 80 mg tablet 80 mg PO DAILY RF: 0 omeprazole 40 mg capsule,delayed release(DR/EC) 40 mg PO DAILY RF: 0 lamotrigine 25 mg tablet 50 mg PO DAILY RF: 0 mirtazapine 30 mg tablet 15 - 30 mg PO HS PRN (Reason: Insomnia) RF: 0 duloxetine 30 mg capsule,delayed release(DR/EC) 30 mg PO DAILY RF: 0 duloxetine 60 mg capsule,delayed release(DR/EC) 60 mg PO DAILY RF: 0 Referrals Referrals: Talisha Burciaga MD [Primary Care Provider] -
[2021-03-06] MEDS ORDERED: CARBOHYDRATES FOR HYPOGLYCEMIA PO PRN (22:01)
[2021-03-06] MEDS ORDERED: GLUCOSE 40% GEL 15 GM TUBE PO PRN (22:01)
[2021-03-06] MEDS ORDERED: GLUCOSE 10 TABS/TUBE PO PRN (22:01)
[2021-03-06] MEDS ORDERED: clonazePAM 0.5 MG TAB PO PRN (22:01)
[2021-03-06] MEDS ORDERED: GLUCAGON FOR INJ 1 MG VIAL SQ PRN (22:01)
[2021-03-06] MEDS ORDERED: SODIUM CHLORIDE 0.9% 1000ML 1,000 ML IV SCH (22:01)
[2021-03-06] MEDS ORDERED: ALBUTEROL HFA 8 GM INHALER INH PRN (22:01)
[2021-03-06] MEDS ORDERED: DEXTROSE 50% 50 ML SYRINGE IV PRN (22:01)
[2021-03-06] MEDS ORDERED: PHARMACY GLYCEMIC MGMT CONSULT PRN (22:01)
[2021-03-06] MEDS ORDERED: PATIENT'S HEIGHT AND/OR WEIGHT NEEDED SCH (23:00)
[2021-03-06] MEDS: PROPRANOLOL HCL 10 MG TAB PO SCH (23:09)
[2021-03-06] MEDS: HEPARIN SOD 5,000 UNIT/0.5 ML VIAL SQ SCH (23:11)
[2021-03-06] MEDS: INSULIN ASPART PER UNIT SC SCH (23:27)
[2021-03-07] MEDS ORDERED: INSULIN ASPART PER UNIT SC ONE (04:00)
[2021-03-07] MEDS: HEPARIN SOD 5,000 UNIT/0.5 ML VIAL SQ SCH ×3 (05:43→20:21)
[2021-03-07 06:35] LABS: Hematocrit (blood only) 40.3 % (37-47); Hemoglobin 13.2 g/dL (12.0-16.0); Mean Corpuscular Hemoglobin 27.8 pg (25-34); Mean Corpuscular Hgb Conc 32.8 g/dL (32-36); Platelet Count 312 K/uL (130-400); RDW Coefficient of Variation 13.8 % (11.5-14.5); RDW Standard Deviation 42.8 fL (36.4-46.3); Red Blood Count 4.74 M/uL (4.2-5.4); White Blood Count 8.58 K/uL (4.8-10.8)
[2021-03-07 06:56] LABS: ALC (manual) 2.32 K/uL (1.2-3.4); ANC (manual) 5.41 K/uL (1.4-6.5); Lymphocytes # (manual) 0.77 K/uL (1.2-3.4); Metamyelocytes # (manual) 0.15 K/uL (0-0); Metamyelocytes % (manual) 1.8 %; Monocytes # (manual) 0.69 K/uL (0.11-0.59); Monocytes % (manual) 8.1 %; Neutrophils # (manual) 5.41 K/uL (1.4-6.5); Neutrophils % (manual) 63.1 %; Reactive Lymphocytes # (manual) 1.54 K/uL
[2021-03-07 07:10] LABS: Albumin Level 2.7 gm/dl (3.4-5.0); BUN Creatinine Ratio 23.2 (10-20); Calcium 9.4 mg/dl (8.5-10.1); Creatinine Clr Calc Pharmacy 67.7 ml/min; Est GFR (African American) 58.4 ml/min; Est GFR (Non-African American) 50.4 ml/min; Potassium 3.5 mmol/L (3.5-5.1)
[2021-03-07 07:12] LABS: Albumin Globulin Ratio 0.5 (0.9-2); Bilirubin,Total 0.9 mg/dl (0.2-1); Globulin 5.3 gm/dl (2.5-4.0)
[2021-03-07 07:27] LABS: Estimated Average Glucose 157 mg/dl; Hemoglobin A1C 7.1 % (4.5-5.6)
[2021-03-07] MEDS: VALSARTAN 80 MG TAB PO SCH (08:34)
[2021-03-07] MEDS: PANTOprazole 40 MG TAB PO SCH (08:34)
[2021-03-07] MEDS: DULoxetine HCL 30 MG CAP PO SCH (08:34)
[2021-03-07] MEDS: TOLTERODINE TARTRATE LA 4 MG CAPCR PO SCH (08:35)
[2021-03-07] MEDS: lamoTRIgine 25 MG TAB PO SCH (08:35)
[2021-03-07] MEDS: ATORVASTATIN 20 MG TAB PO SCH (08:35)
[2021-03-07] MEDS: DULoxetine HCL 60 MG CAP PO SCH (08:35)
[2021-03-07] MEDS: dexAMETHasone 6 MG in SYRINGE 0 ML IV SCH (08:35)
[2021-03-07] MEDS: PROPRANOLOL HCL 10 MG TAB PO SCH ×2 (08:36→20:20)
[2021-03-07] MEDS: INSULIN ASPART PER UNIT SC SCH ×4 (10:10→22:53)
--- NOTE | 2021-03-07 10:20 | Hospitalist Progress Note ---
Date of Service March 07, 2021 Assessment & Plan (1) Acute respiratory failure with hypoxia: (2) Pneumonia due to COVID-19 virus: Plan: Started with symptoms on 02/24 so pt is approximately 10 days into the course. Vaccinated x 2 with Pfizer but not boosted. Developed worsening SOB and weakness over past 24 hours and found to by hypoxic in ED. Continue Dexamethasone 6 mg IV daily Not a candidate for remdesivir based on duration of symptoms Monitor-inflammatory markers Continue oxygen supplementation Educated on incentive spirometry, flutter and self proning (3) FRANCISCO (acute kidney injury): Plan: Due to dehydration from limited oral intake Got IVF Cr improved to 1.14 today from 1.3 on admission Stop IVF Oral intake as tolerated (4) Hypokalemia: Plan: Repleted Monitor (5) Type 2 diabetes mellitus: Plan: Diet-controlled Diabetic diet Accuchecks with insulin sliding scale A1c 7.1 (6) Hypertension: Plan: Continue to hold HCTZ for now Continue other antihypertensive meds (7) Anxiety: (8) Fibromyalgia: (9) Depression: Plan: - Continue home meds Plan: Hep sq for DVT ppx Admission and Anticipated Discharge Date Admission Date: March 06, 2021 Subjective 65-year-old woman with history of diet-controlled, fibromyalgia, migraine, hypertension, depression/anxiety, obesity and psoriasis who presented with progressive worsening shortness of breath and weakness. Patient being managed for acute hypoxic respiratory failure due to COVID-19 pneumonia Patient seen and examined. Patient reports cough, shortness of breath, congestion. Denies any headache, dizziness Reports anorexia subsidence of taste or smell Denies any chest pain Denied nausea, vomiting and abd pain Reported loose stool but not increased frequency Denied dysuria, frequency, urgency Reports weakness Physical Exam Constitutional: + well hydrated and + obese; no acute distress Eyes: PERRL, conjunctivae normal, anicteric sclerae ENMT: external ear and nose normal, oropharynx normal Respiratory: On nasal cannula at 10 L/min. Diminished breath sounds globally Cardiovascular: Rate/Rhythm: regular rate and regular rhythm S1-S2 Gastrointestinal (Abdomen): normal bowel sounds, soft, nontender, no hepatosplenomegaly Musculoskeletal: no cyanosis or clubbing, extremities motor strength 5/5 No pedal edema Neurologic: PERRL, EOMI, accommodation nl, no face palsy, no dysarthria Psychiatric: A+Ox3, euthymic affect Results & Data Results & Data ([facility]) Vital Signs (Past 12 Hours) Vital Signs Temp Pulse Pulse Resp BP Pulse Ox 03/07/21 08:30 90 109/59 L 03/07/21 07:12 36.7 C 76 22 98/61 L 92 03/07/21 03:25 37 C 75 22 112/85 94 03/07/21 02:35 77 03/06/21 23:29 36.8 C 92 H 25 H 140/83 92 Laboratory Results Abnormal lab results 03/06/21 03/06/21 03/06/21 Range/Units 14:54 15:05 15:05 Lymphocytes # (Manual) (1.2-3.4) K/uL Total Abs Lymphocytes 3.65 H (1.2-3.4) K/uL Monocytes # (Manual) (0.11-0.59) K/uL Metamyelocytes # (Man) (0-0) K/uL Myelocytes # (Manual) 0.17 H (0-0) K/uL VBG pH (7.36-7.41) VBG pCO2 (38-50) mmHg Sodium 134 L (136-145) mmol/L Potassium 3.2 L (3.5-5.1) mmol/L BUN 24 H (7-18) mg/dl Creatinine 1.30 H (0.6-1.2) mg/dl BUN/Creatinine Ratio (10-20) Glucose 152 H (70-99) mg/dl POC Glucose (70-99) mg/dl Hemoglobin A1c (4.5-5.6) % AST 44 H (15-37) U/L C-Reactive Protein 3.63 H (0-0.29) mg/dl Total Protein 8.5 H (6.4-8.2) gm/dl Albumin 2.8 L (3.4-5.0) gm/dl Globulin 5.7 H (2.5-4.0) gm/dl Albumin/Globulin Ratio 0.5 L (0.9-2) SARS-CoV-2 (PCR) POSITIVE A* (Negative) 03/06/21 03/06/21 03/07/21 Range/Units 15:05 23:16 04:29 Lymphocytes # (Manual) (1.2-3.4) K/uL Total Abs Lymphocytes (1.2-3.4) K/uL Monocytes # (Manual) (0.11-0.59) K/uL Metamyelocytes # (Man) (0-0) K/uL Myelocytes # (Manual) (0-0) K/uL VBG pH 7.47 H (7.36-7.41) VBG pCO2 37 L (38-50) mmHg Sodium (136-145) mmol/L Potassium (3.5-5.1) mmol/L BUN (7-18) mg/dl Creatinine (0.6-1.2) mg/dl BUN/Creatinine Ratio (10-20) Glucose (70-99) mg/dl POC Glucose 152 H 134 H (70-99) mg/dl Hemoglobin A1c (4.5-5.6) % AST (15-37) U/L C-Reactive Protein (0-0.29) mg/dl Total Protein (6.4-8.2) gm/dl Albumin (3.4-5.0) gm/dl Globulin (2.5-4.0) gm/dl Albumin/Globulin Ratio (0.9-2) SARS-CoV-2 (PCR) (Negative) 03/07/21 03/07/21 03/07/21 Range/Units 05:46 05:46 05:46 Lymphocytes # (Manual) 0.77 L (1.2-3.4) K/uL Total Abs Lymphocytes (1.2-3.4) K/uL Monocytes # (Manual) 0.69 H (0.11-0.59) K/uL Metamyelocytes # (Man) 0.15 H (0-0) K/uL Myelocytes # (Manual) (0-0) K/uL VBG pH (7.36-7.41) VBG pCO2 (38-50) mmHg Sodium (136-145) mmol/L Potassium (3.5-5.1) mmol/L BUN 26 H (7-18) mg/dl Creatinine (0.6-1.2) mg/dl BUN/Creatinine Ratio 23.2 H (10-20) Glucose 122 H (70-99) mg/dl POC Glucose (70-99) mg/dl Hemoglobin A1c 7.1 H (4.5-5.6) % AST (15-37) U/L C-Reactive Protein (0-0.29) mg/dl Total Protein (6.4-8.2) gm/dl Albumin 2.7 L (3.4-5.0) gm/dl Globulin 5.3 H (2.5-4.0) gm/dl Albumin/Globulin Ratio 0.5 L (0.9-2) SARS-CoV-2 (PCR) (Negative) 03/07/21 Range/Units 07:26 Lymphocytes # (Manual) (1.2-3.4) K/uL Total Abs Lymphocytes (1.2-3.4) K/uL Monocytes # (Manual) (0.11-0.59) K/uL Metamyelocytes # (Man) (0-0) K/uL Myelocytes # (Manual) (0-0) K/uL VBG pH (7.36-7.41) VBG pCO2 (38-50) mmHg Sodium (136-145) mmol/L Potassium (3.5-5.1) mmol/L BUN (7-18) mg/dl Creatinine (0.6-1.2) mg/dl BUN/Creatinine Ratio (10-20) Glucose (70-99) mg/dl POC Glucose 110 H (70-99) mg/dl Hemoglobin A1c (4.5-5.6) % AST (15-37) U/L C-Reactive Protein (0-0.29) mg/dl Total Protein (6.4-8.2) gm/dl Albumin (3.4-5.0) gm/dl Globulin (2.5-4.0) gm/dl Albumin/Globulin Ratio (0.9-2) SARS-CoV-2 (PCR) (Negative)
--- NOTE | 2021-03-07 11:46 | Pharmacy Report ---
Pharmacy Glycemic Short Note 2 - Date of Service March 07, 2021 - Glycemic Short BSG Results (Last 24 hours): 03/06/21 03/06/21 03/07/21 15:05 23:16 04:29 Glucose 152 H POC Glucose 152 H 134 H 03/07/21 03/07/21 05:46 07:26 Glucose 122 H POC Glucose 110 H OUTPATIENT ANTIDIABETIC REGIMEN: * Diet controlled * A1c = 7.1% 03/07/21 ASSESSMENT: * Type 2 diabetic, well controlled w/ dietary measures alone, admitted for COVID19 viral pneumonia and FRANCISCO * BSGs have been well controlled thus far with no insulin provision. This with while receiving IV dexamethasone for severe COVID19 pneumonia. She has not taken in adequate PO yet to determine if she will become hyperglycemic post- prandial with current insulin orders. Will continue Novolog per "moderate" stress dosing at this time. No basal will be provided as fasting BSG (FBS 110) this AM at goal with no basal on board. PLAN FOR INPATIENT GLYCEMIC CONTROL: * Basal insulin * None at this time. Consider addition of NPH if patient develops steroid inducted post-prandial hyperglycemia as diet advances * Bolus insulin * NovoLog per scale ACHS or Q6hrs while NPO * Goal Range: Low 110 mg/dL - High 140 mg/dL * Correction Factor: 20 mg/dL/unit * Nutritional / Prandial insulin per carb ratio of 1 unit per 6 grams CHO consumed PLAN FOR DISCHARGE: * A1c 7.1% indicates good control with dietary measures. Patient may continue dietary measures on discharge and f/u with PCP/Endocrinology for routine diabetic management.
[2021-03-08] MEDS ORDERED: INSULIN ASPART PER UNIT SC ONE (02:00)
[2021-03-08 06:13] LABS: Hematocrit (blood only) 38.9 % (37-47); Hemoglobin 12.8 g/dL (12.0-16.0); Mean Corpuscular Hemoglobin 28.1 pg (25-34); Mean Corpuscular Hgb Conc 32.9 g/dL (32-36); Mean Corpuscular Volume 85.5 fL (80-100); Nucleated RBC # (auto) 0.02 K/uL (0-0); Nucleated RBC % (auto) 0.1 %; Platelet Count 343 K/uL (130-400); RDW Coefficient of Variation 13.9 % (11.5-14.5); RDW Standard Deviation 42.9 fL (36.4-46.3); Red Blood Count 4.55 M/uL (4.2-5.4)
[2021-03-08 06:36] LABS: Basophils # (auto) 0.04 K/uL (0-0.2); Basophils % (auto) 0.3 %; Eosinophils # (auto) 0.09 K/uL (0-0.5); Eosinophils % (auto) 0.7 %; Immature Granulocytes # (auto) 0.64 K/uL (0.00-0.02); Immature Granulocytes % (auto) 5.2 %; Lymphocytes # (auto) 3.79 K/uL (1.2-3.4); Lymphocytes % (auto) 30.6 %; Monocytes # (auto) 1.37 K/uL (0.11-0.59); Neutrophils # (auto) 6.47 K/uL (1.4-6.5); Neutrophils % (auto) 52.2 %; RBC Morphology Unremarkable
[2021-03-08 06:38] LABS: D Dimer 340 ug/L FEU (0-500)
[2021-03-08] MEDS: HEPARIN SOD 5,000 UNIT/0.5 ML VIAL SQ SCH ×3 (06:40→19:40)
[2021-03-08 06:45] LABS: Albumin Level 2.6 gm/dl (3.4-5.0); BUN Creatinine Ratio 23.2 (10-20); Calcium 9.4 mg/dl (8.5-10.1); Creatinine Clr Calc Pharmacy 76.4 ml/min; Est GFR (African American) 67.7 ml/min; Est GFR (Non-African American) 58.4 ml/min; Potassium 3.2 mmol/L (3.5-5.1)
[2021-03-08 06:51] LABS: Albumin Globulin Ratio 0.5 (0.9-2); Bilirubin,Total 0.5 mg/dl (0.2-1); C Reactive Protein 1.13 mg/dl (0-0.29); Total Protein 7.6 gm/dl (6.4-8.2)
[2021-03-08] MEDS: DULoxetine HCL 30 MG CAP PO SCH (08:01)
[2021-03-08] MEDS: VALSARTAN 80 MG TAB PO SCH (08:01)
[2021-03-08] MEDS: lamoTRIgine 25 MG TAB PO SCH (08:01)
[2021-03-08] MEDS: dexAMETHasone 6 MG in SYRINGE 0 ML IV SCH (08:01)
[2021-03-08] MEDS: PROPRANOLOL HCL 10 MG TAB PO SCH ×2 (08:01→19:40)
[2021-03-08] MEDS: ATORVASTATIN 20 MG TAB PO SCH (08:01)
[2021-03-08] MEDS: DULoxetine HCL 60 MG CAP PO SCH (08:02)
[2021-03-08] MEDS: TOLTERODINE TARTRATE LA 4 MG CAPCR PO SCH (08:02)
[2021-03-08] MEDS: PANTOprazole 40 MG TAB PO SCH (08:02)
[2021-03-08] MEDS: INSULIN ASPART PER UNIT SC SCH ×4 (08:57→19:41)
--- NOTE | 2021-03-08 11:05 | Hospitalist Progress Note ---
Date of Service March 08, 2021 Assessment & Plan (1) Acute respiratory failure with hypoxia: (2) Pneumonia due to COVID-19 virus: Plan: Started with symptoms on 02/24 so pt is approximately 10 days into the course. Vaccinated x 2 with Pfizer but not boosted. Developed worsening SOB and weakness over past 24 hours and found to by hypoxic in ED. Continue Dexamethasone 6 mg IV daily Not a candidate for remdesivir based on duration of symptoms CRP improving Continue oxygen supplementation. Wean as tolerated Continue incentive spirometry, flutter and self proning (3) FRANCISCO (acute kidney injury): Plan: Due to dehydration from limited oral intake Now resolved Cr 1.01 today from 1.3 on admission (4) Hypokalemia: Plan: Replete and monitor (5) Type 2 diabetes mellitus: Plan: Diet-controlled Diabetic diet Accuchecks with insulin sliding scale A1c 7.1 (6) Hypertension: Plan: Continue to hold HCTZ for now Continue other antihypertensive meds (7) Anxiety: (8) Fibromyalgia: (9) Depression: Plan: - Continue home meds Plan: Hep sq for DVT ppx Admission and Anticipated Discharge Date Admission Date: March 06, 2021 Subjective 65-year-old woman with history of diet-controlled, fibromyalgia, migraine, hypertension, depression/anxiety, obesity and psoriasis who presented with progressive worsening shortness of breath and weakness. Patient being managed for acute hypoxic respiratory failure due to COVID-19 pneumonia Patient seen and examined. Patient reports cough and shortness of breath improved today Denies any headache, dizziness Reports anorexia is improving Denies any chest pain Denied nausea, vomiting and abd pain Denied dysuria, frequency, urgency Reports feeling stronger today Physical Exam Constitutional: + well hydrated and + obese; no acute distress Eyes: PERRL, conjunctivae normal, anicteric sclerae ENMT: external ear and nose normal, oropharynx normal Respiratory: On nasal cannula, diminished breath sounds. No crackles Cardiovascular: Rate/Rhythm: regular rate and regular rhythm S1 S2 Gastrointestinal (Abdomen): normal bowel sounds, soft, nontender, no hepatosplenomegaly Musculoskeletal: no cyanosis or clubbing, extremities motor strength 5/5 Neurologic: PERRL, EOMI, accommodation nl, no face palsy, no dysarthria Psychiatric: A+Ox3, euthymic affect Results & Data Results & Data ([facility]) Vital Signs (Past 12 Hours) Vital Signs Temp Pulse Pulse Resp BP Pulse Ox 03/08/21 08:59 60 03/08/21 07:10 36.7 C 68 18 110/67 95 03/08/21 05:33 36.7 C 66 22 109/40 L 95 03/07/21 23:16 36.7 C 74 20 105/56 L 94 Laboratory Results Abnormal lab results 03/07/21 03/07/21 03/08/21 Range/Units 16:27 19:38 02:08 WBC (4.8-10.8) K/uL Lymph # (Auto) (1.2-3.4) K/uL [place] # (Auto) (0.11-0.59) K/uL Immature Gran # (Auto) (0.00-0.02) K/uL Absolute Nucleated RBC (0-0) K/uL Potassium (3.5-5.1) mmol/L BUN (7-18) mg/dl BUN/Creatinine Ratio (10-20) Glucose (70-99) mg/dl POC Glucose 161 H 178 H 123 H (70-99) mg/dl AST (15-37) U/L C-Reactive Protein (0-0.29) mg/dl Albumin (3.4-5.0) gm/dl Globulin (2.5-4.0) gm/dl Albumin/Globulin Ratio (0.9-2) 03/08/21 03/08/21 03/08/21 Range/Units 03:23 05:24 05:24 WBC 12.40 H (4.8-10.8) K/uL Lymph # (Auto) 3.79 H (1.2-3.4) K/uL [place] # (Auto) 1.37 H (0.11-0.59) K/uL Immature Gran # (Auto) 0.64 H (0.00-0.02) K/uL Absolute Nucleated RBC 0.02 H (0-0) K/uL Potassium 3.2 L (3.5-5.1) mmol/L BUN 23 H (7-18) mg/dl BUN/Creatinine Ratio 23.2 H (10-20) Glucose 101 H (70-99) mg/dl POC Glucose 108 H (70-99) mg/dl AST 41 H (15-37) U/L C-Reactive Protein 1.13 H (0-0.29) mg/dl Albumin 2.6 L (3.4-5.0) gm/dl Globulin 5.0 H (2.5-4.0) gm/dl Albumin/Globulin Ratio 0.5 L (0.9-2) 03/08/21 03/08/21 Range/Units 07:58 11:53 WBC (4.8-10.8) K/uL Lymph # (Auto) (1.2-3.4) K/uL [place] # (Auto) (0.11-0.59) K/uL Immature Gran # (Auto) (0.00-0.02) K/uL Absolute Nucleated RBC (0-0) K/uL Potassium (3.5-5.1) mmol/L BUN (7-18) mg/dl BUN/Creatinine Ratio (10-20) Glucose (70-99) mg/dl POC Glucose 101 H 131 H (70-99) mg/dl AST (15-37) U/L C-Reactive Protein (0-0.29) mg/dl Albumin (3.4-5.0) gm/dl Globulin (2.5-4.0) gm/dl Albumin/Globulin Ratio (0.9-2)
[2021-03-08] MEDS ORDERED: POTASSIUM CHLORIDE CRTAB 20 MEQ TABCR PO STA (14:58)
[2021-03-09] MEDS: HEPARIN SOD 5,000 UNIT/0.5 ML VIAL SQ SCH ×3 (06:07→22:17)
[2021-03-09 08:22] LABS: Hematocrit (blood only) 38.8 % (37-47); Hemoglobin 12.5 g/dL (12.0-16.0); Mean Corpuscular Hemoglobin 27.8 pg (25-34); Mean Corpuscular Hgb Conc 32.2 g/dL (32-36); Mean Corpuscular Volume 86.4 fL (80-100); Mean Platelet Volume 9.7 fL (7.4-10.4); Platelet Count 355 K/uL (130-400); RDW Coefficient of Variation 14.2 % (11.5-14.5); RDW Standard Deviation 44.1 fL (36.4-46.3); Red Blood Count 4.49 M/uL (4.2-5.4); White Blood Count 11.15 K/uL (4.8-10.8)
[2021-03-09] MEDS: lamoTRIgine 25 MG TAB PO SCH (08:35)
[2021-03-09] MEDS: dexAMETHasone 6 MG in SYRINGE 0 ML IV SCH (08:35)
[2021-03-09] MEDS: VALSARTAN 80 MG TAB PO SCH (08:35)
[2021-03-09] MEDS: PANTOprazole 40 MG TAB PO SCH (08:36)
[2021-03-09] MEDS: DULoxetine HCL 30 MG CAP PO SCH (08:36)
[2021-03-09] MEDS: ATORVASTATIN 20 MG TAB PO SCH (08:36)
[2021-03-09] MEDS: DULoxetine HCL 60 MG CAP PO SCH (08:36)
[2021-03-09] MEDS: TOLTERODINE TARTRATE LA 4 MG CAPCR PO SCH (08:36)
[2021-03-09] MEDS: PROPRANOLOL HCL 10 MG TAB PO SCH ×2 (08:36→19:38)
[2021-03-09 08:51] LABS: Albumin Level 2.7 gm/dl (3.4-5.0); BUN Creatinine Ratio 23.7 (10-20); Calcium 9.2 mg/dl (8.5-10.1); Creatinine Clr Calc Pharmacy 79.6 ml/min; Est GFR (Non-African American) 61.3 ml/min; Potassium 3.3 mmol/L (3.5-5.1)
[2021-03-09 08:54] LABS: Albumin Globulin Ratio 0.6 (0.9-2); Globulin 4.6 gm/dl (2.5-4.0); Total Protein 7.3 gm/dl (6.4-8.2)
[2021-03-09 08:57] LABS: Basophils # (auto) 0.02 K/uL (0-0.2); Basophils % (auto) 0.2 %; Eosinophils # (auto) 0.22 K/uL (0-0.5); Immature Granulocytes # (auto) 0.58 K/uL (0.00-0.02); Immature Granulocytes % (auto) 5.2 %; Lymphocytes # (auto) 3.93 K/uL (1.2-3.4); Lymphocytes % (auto) 35.2 %; Monocytes # (auto) 1.21 K/uL (0.11-0.59); Monocytes % (auto) 10.9 %; Neutrophils # (auto) 5.19 K/uL (1.4-6.5); Neutrophils % (auto) 46.5 %
[2021-03-09 09:00] LABS: Bilirubin,Total 0.5 mg/dl (0.2-1)
[2021-03-09] MEDS: INSULIN ASPART PER UNIT SC SCH ×4 (09:26→21:21)
[2021-03-09] MEDS ORDERED: POTASSIUM CHLORIDE CRTAB 20 MEQ TABCR PO STA (12:37)
--- NOTE | 2021-03-09 12:39 | Hospitalist Progress Note ---
Date of Service March 09, 2021 Assessment & Plan (1) Acute respiratory failure with hypoxia: (2) Pneumonia due to COVID-19 virus: Plan: Started with symptoms on 02/24 so pt is approximately 10 days into the course. Vaccinated x 2 with Pfizer but not boosted. Developed worsening SOB and weakness over past 24 hours and found to by hypoxic in ED. Continue Dexamethasone 6 mg IV daily Not a candidate for remdesivir based on duration of symptoms CRP improving Continue oxygen supplementation. Wean as tolerated Continue incentive spirometry, flutter and self proning (3) FRANCISCO (acute kidney injury): Plan: Due to dehydration from limited oral intake Now resolved Cr 0.97 today from 1.3 on admission (4) Hypokalemia: Plan: Replete and monitor (5) Type 2 diabetes mellitus: Plan: Diet-controlled Diabetic diet Accuchecks with insulin sliding scale A1c 7.1 (6) Hypertension: Plan: Continue to hold HCTZ for now Continue other antihypertensive meds (7) Anxiety: (8) Fibromyalgia: (9) Depression: Plan: - Continue home meds Plan: Hep sq for DVT ppx Admission and Anticipated Discharge Date Admission Date: March 06, 2021 Subjective 65-year-old woman with history of diet-controlled, fibromyalgia, migraine, hypertension, depression/anxiety, obesity and psoriasis who presented with progressive worsening shortness of breath and weakness. Patient being managed for acute hypoxic respiratory failure due to COVID-19 pneumonia Patient seen and examined. Patient reports cough and shortness of breath continue to improve Denies any headache, dizziness Appetite is improved. Reports taste and smell improving Denies any chest pain Denied nausea, vomiting and abd pain Denied dysuria, frequency, urgency Physical Exam Constitutional: + well hydrated and + obese; no acute distress Eyes: PERRL, conjunctivae normal, anicteric sclerae ENMT: external ear and nose normal, oropharynx normal Respiratory: Reduced to 3l/min NC, sats 91-93%, diminished breath sounds. No crackles Cardiovascular: Rate/Rhythm: regular rate and regular rhythm S1 S2 Gastrointestinal (Abdomen): normal bowel sounds, soft, nontender, no hepatosplenomegaly Musculoskeletal: no cyanosis or clubbing, extremities motor strength 5/5 Neurologic: PERRL, EOMI, accommodation nl, no face palsy, no dysarthria Psychiatric: A+Ox3, euthymic affect Results & Data Results & Data ([facility]) Vital Signs (Past 12 Hours) Vital Signs Temp Pulse Pulse Resp BP Pulse Ox 03/09/21 11:04 36.6 C 80 19 97/61 L 91 03/09/21 09:06 66 03/09/21 07:20 36.6 C 74 17 112/64 93 03/09/21 03:58 36.5 C 70 20 106/49 L 95 Laboratory Results Abnormal lab results 03/08/21 03/08/21 03/09/21 Range/Units 16:28 19:19 08:05 WBC 11.15 H (4.8-10.8) K/uL Lymph # (Auto) 3.93 H (1.2-3.4) K/uL [place] # (Auto) 1.21 H (0.11-0.59) K/uL Immature Gran # (Auto) 0.58 H (0.00-0.02) K/uL Potassium (3.5-5.1) mmol/L BUN (7-18) mg/dl BUN/Creatinine Ratio (10-20) POC Glucose 142 H 124 H (70-99) mg/dl AST (15-37) U/L Albumin (3.4-5.0) gm/dl Globulin (2.5-4.0) gm/dl Albumin/Globulin Ratio (0.9-2) 03/09/21 03/09/21 Range/Units 08:05 11:58 WBC (4.8-10.8) K/uL Lymph # (Auto) (1.2-3.4) K/uL [place] # (Auto) (0.11-0.59) K/uL Immature Gran # (Auto) (0.00-0.02) K/uL Potassium 3.3 L (3.5-5.1) mmol/L BUN 23 H (7-18) mg/dl BUN/Creatinine Ratio 23.7 H (10-20) POC Glucose 127 H (70-99) mg/dl AST 70 H (15-37) U/L Albumin 2.7 L (3.4-5.0) gm/dl Globulin 4.6 H (2.5-4.0) gm/dl Albumin/Globulin Ratio 0.6 L (0.9-2)
[2021-03-10] MEDS: HEPARIN SOD 5,000 UNIT/0.5 ML VIAL SQ SCH ×3 (05:48→22:25)
[2021-03-10 05:53] LABS: Hematocrit (blood only) 39.1 % (37-47); Hemoglobin 12.5 g/dL (12.0-16.0); Mean Corpuscular Hemoglobin 27.7 pg (25-34); Mean Corpuscular Volume 86.5 fL (80-100); Platelet Count 331 K/uL (130-400); RDW Coefficient of Variation 14.1 % (11.5-14.5); RDW Standard Deviation 43.9 fL (36.4-46.3); Red Blood Count 4.52 M/uL (4.2-5.4); White Blood Count 11.09 K/uL (4.8-10.8)
[2021-03-10 06:26] LABS: BUN Creatinine Ratio 22.2 (10-20); Blood Urea Nitrogen 21 mg/dl (7-18); C Reactive Protein < 0.29 mg/dl (0-0.29); Calcium 9.3 mg/dl (8.5-10.1); Carbon Dioxide 25 mmol/L (21-32); Chloride 106 mmol/L (98-107); Creatinine Clr Calc Pharmacy 79.9 ml/min; Est GFR (Non-African American) 61.3 ml/min; Glucose 92 mg/dl (70-99); Magnesium 2.2 mg/dl (1.8-2.4); Phosphorus 4.1 mg/dl (2.5-4.9); Potassium 3.5 mmol/L (3.5-5.1); Sodium 137 mmol/L (136-145)
[2021-03-10] MEDS: VALSARTAN 80 MG TAB PO SCH (07:52)
[2021-03-10] MEDS: lamoTRIgine 25 MG TAB PO SCH (07:52)
[2021-03-10] MEDS: ATORVASTATIN 20 MG TAB PO SCH (07:52)
[2021-03-10] MEDS: DULoxetine HCL 60 MG CAP PO SCH (07:52)
[2021-03-10] MEDS: DULoxetine HCL 30 MG CAP PO SCH (07:53)
[2021-03-10] MEDS: PANTOprazole 40 MG TAB PO SCH (07:53)
[2021-03-10] MEDS: PROPRANOLOL HCL 10 MG TAB PO SCH ×2 (07:53→22:26)
[2021-03-10] MEDS: TOLTERODINE TARTRATE LA 4 MG CAPCR PO SCH (07:54)
[2021-03-10] MEDS: dexAMETHasone 6 MG in SYRINGE 0 ML IV SCH (08:56)
[2021-03-10] MEDS: INSULIN ASPART PER UNIT SC SCH ×4 (09:41→22:46)
--- NOTE | 2021-03-10 13:41 | Hospitalist Progress Note ---
Date of Service March 10, 2021 Assessment & Plan (1) Acute respiratory failure with hypoxia: (2) Pneumonia due to COVID-19 virus: Plan: Started with symptoms on 02/24 so pt is approximately 10 days into the course. Vaccinated x 2 with Pfizer but not boosted. Developed worsening SOB and weakness over past 24 hours and found to by hypoxic in ED. Continue Dexamethasone 6 mg IV daily Not a candidate for remdesivir based on duration of symptoms Plan to wean off oxygen Continue incentive spirometry, flutter and self proning (3) FRANCISCO (acute kidney injury): Plan: Due to dehydration from limited oral intake Now resolved Cr 0.97 today from 1.3 on admission (4) Hypokalemia: Plan: Replete and monitor (5) Type 2 diabetes mellitus: Plan: Diet-controlled Diabetic diet Accuchecks with insulin sliding scale A1c 7.1 (6) Hypertension: Plan: Continue to hold HCTZ for now Continue other antihypertensive meds (7) Anxiety: (8) Fibromyalgia: (9) Depression: Plan: - Continue home meds Plan: Hep sq for DVT ppx 2 step tomorrow for possible dc Admission and Anticipated Discharge Date Admission Date: March 06, 2021 Subjective 65-year-old woman with history of diet-controlled, fibromyalgia, migraine, hypertension, depression/anxiety, obesity and psoriasis who presented with progressive worsening shortness of breath and weakness. Patient being managed for acute hypoxic respiratory failure due to COVID-19 pneumonia Patient seen and examined. Patient reports cough and exertional dyspnea continue to improve Denies any headache, dizziness Anorexa, loss of taste/smell now resolved Denies any chest pain Denied nausea, vomiting and abd pain Denied dysuria, frequency, urgency Physical Exam Constitutional: + well hydrated and + obese; no acute distress Eyes: PERRL, conjunctivae normal, anicteric sclerae ENMT: external ear and nose normal, oropharynx normal Respiratory: On nasal cannula, diminished breath sounds Cardiovascular: Rate/Rhythm: regular rate and regular rhythm S1 S2 Gastrointestinal (Abdomen): normal bowel sounds, soft, nontender, no hepatosplenomegaly Musculoskeletal: no cyanosis or clubbing, extremities motor strength 5/5 Neurologic: PERRL, EOMI, accommodation nl, no face palsy, no dysarthria Psychiatric: A+Ox3, euthymic affect Results & Data Results & Data ([facility]) Vital Signs (Past 12 Hours) Vital Signs Temp Pulse Pulse Resp BP Pulse Ox 03/10/21 11:17 36.9 C 85 19 95/54 L 03/10/21 09:39 55 L 03/10/21 07:10 36.8 C 58 L 18 115/66 95 03/10/21 04:52 36.6 C 72 20 106/55 L 92 Laboratory Results Abnormal lab results 03/09/21 03/09/21 03/10/21 Range/Units 16:50 21:03 05:34 WBC 11.09 H (4.8-10.8) K/uL BUN (7-18) mg/dl BUN/Creatinine Ratio (10-20) POC Glucose 153 H 121 H (70-99) mg/dl 03/10/21 03/10/21 Range/Units 05:34 11:40 WBC (4.8-10.8) K/uL BUN 21 H (7-18) mg/dl BUN/Creatinine Ratio 22.2 H (10-20) POC Glucose 112 H (70-99) mg/dl
[2021-03-10] MEDS ORDERED: POTASSIUM CHLORIDE CRTAB 20 MEQ TABCR PO STA (14:05)
[2021-03-11] MEDS: HEPARIN SOD 5,000 UNIT/0.5 ML VIAL SQ SCH (05:40)
[2021-03-11 06:39] LABS: Hematocrit (blood only) 40.4 % (37-47); Hemoglobin 12.9 g/dL (12.0-16.0); Mean Corpuscular Hemoglobin 27.9 pg (25-34); Mean Corpuscular Hgb Conc 31.9 g/dL (32-36); Mean Corpuscular Volume 87.3 fL (80-100); Mean Platelet Volume 10.8 fL (7.4-10.4); Platelet Count 348 K/uL (130-400); RDW Coefficient of Variation 14.1 % (11.5-14.5); RDW Standard Deviation 44.9 fL (36.4-46.3); Red Blood Count 4.63 M/uL (4.2-5.4); White Blood Count 10.72 K/uL (4.8-10.8)
[2021-03-11 06:58] LABS: Calcium 9.3 mg/dl (8.5-10.1); Creatinine Clr Calc Pharmacy 81.6 ml/min; Est GFR (African American) 72.8 ml/min; Est GFR (Non-African American) 62.9 ml/min; Potassium 3.7 mmol/L (3.5-5.1)
[2021-03-11] MEDS: dexAMETHasone 6 MG in SYRINGE 0 ML IV SCH (08:07)
[2021-03-11] MEDS: DULoxetine HCL 30 MG CAP PO SCH (08:07)
[2021-03-11] MEDS: PANTOprazole 40 MG TAB PO SCH (08:08)
[2021-03-11] MEDS: VALSARTAN 80 MG TAB PO SCH (08:08)
[2021-03-11] MEDS: ATORVASTATIN 20 MG TAB PO SCH (08:08)
[2021-03-11] MEDS: DULoxetine HCL 60 MG CAP PO SCH (08:08)
[2021-03-11] MEDS: lamoTRIgine 25 MG TAB PO SCH (08:09)
[2021-03-11] MEDS: TOLTERODINE TARTRATE LA 4 MG CAPCR PO SCH (08:09)
[2021-03-11] MEDS: PROPRANOLOL HCL 10 MG TAB PO SCH (08:09)
[2021-03-11] MEDS: INSULIN ASPART PER UNIT SC SCH (09:15)
--- NOTE | 2021-03-11 10:52 | Discharge Summary ---
Date of Service March 11, 2021 Admission HPI Per Admitting Provider This is a 65 y/o female with a PMH of diet-controlled DM2, diabetic neuropathy, RSD, fibromyalgia, migraine, HTN, depression/anxiety, obesity and psoriasis who presents with progressive SOB and weakness x 10 days. She started on 02/24 with cold/flu symptoms including nasal congestion, MARR[place], body aches, sinus pressure and low-grade fever. Fever worsened the next day and continued intermittent until it seemed to break yesterday. Seen for a telemed visit on 02/25 - provider recommended she get COVID testing and to use supportive measures. Pt had COVID test done last week at [email or web address] but they apparently lost the test so she never got her results. About 3-4 days into course of symptoms, she developed PADRON which has gradually progressed to being SOB even at rest. She notes occasional wheezing. She feels very weak and tired. Appetite is decreased so she is not eating much, trying to push fluids but having difficulty. Continues to have a cough that is intermittently productive - yellow-green mucus, no hemoptysis. Feels nauseated with coughing fits but no vomiting. Stools are soft but not watery. Using Motrin for fevers/aches but not helping. Had [employer] vaccine for COVID x2 in July. Has not had booster yet. Family had similar symptoms but they're all feeling better now - no specific exposure that she's aware of. Admission Exam Per Admitting Provider Constitutional: + obese; no acute distress Eyes: + anicteric sclerae Neck: trachea midline Respiratory: no respiratory distress and no labored breathing Auscultation: + diminished lung sounds; no rales, no rhonchi and no wheezes Cardiovascular: Rate/Rhythm: regular rate and regular rhythm Vessels: dorsalis pedis pulses present and radial pulses present Extremities: no pedal edema Gastrointestinal (Abdomen): Inspection/Auscultation: normal bowel sounds; abdomen not distended Percussion/Palpation: abdomen soft; abdomen nontender Musculoskeletal: Head/Neck/Chest: normocephalic, head atraumatic and neck supple Skin: no rashes and no jaundice Neurologic: moves all extremities; no focal motor deficits and not confused Psychiatric: A+Ox3, euthymic affect Principal Diagnosis Acute hypoxic respiratory failure due to COVID-19 pneumonia Acute kidney injury Discharge Exam Constitutional + well hydrated and + obese; no acute distress Eyes PERRL, conjunctivae normal, anicteric sclerae ENMT external ear and nose normal, oropharynx normal Respiratory normal respiratory effort, lungs clear to auscultation Cardiovascular Rate/Rhythm: regular rate and regular rhythm S1 S2 Gastrointestinal (Abdomen) normal bowel sounds, soft, nontender, no hepatosplenomegaly Musculoskeletal no cyanosis or clubbing, extremities motor strength 5/5 Neurologic PERRL, EOMI, accommodation nl, no face palsy, no dysarthria Psychiatric A+Ox3, euthymic affect Discharge Data Allergies Allergy/AdvReac Type Severity Reaction Status Date / Time fosphenytoin Allergy Mild HIVES Verified 03/21/19 15:58 celecoxib Allergy Unknown ITCHINESS Verified 03/21/19 15:58 warfarin [From Coumadin] AdvReac Severe Hemorrhage Verified 03/21/19 15:58 Consultations 03/06/21 18:35 ED Decision to Admit Stat Ordered Studies 03/06/21 14:56 CT angio chest PE protocol Stat Thyroid: Imaged portions of the thyroid gland are normal in size and attenuation. Thoracic aorta: The thoracic aorta is normal in caliber and demonstrates standard 3-vessel arch anatomy. No dissection is seen. Pulmonary vasculature: The pulmonary trunk is dilated measuring 3.3 cm diameter. This suggests pulmonary artery hypertension. There are no filling defects identified in main, lobar, or proximal segmental pulmonary branches to suggest pulmonary embolus. Evaluation of the segmental and subsegmental branches is significantly degraded by motion artifact. Heart: The heart is mildly enlarged and without pericardial effusion. Lungs and pleural spaces: Evaluation of the lung parenchyma is degraded by motion artifact. There is multifocal groundglass consolidation with a subpleural and lower lobe predominance. No pleural effusion is identified. The trachea and central airways are clear. Mediastinum: There are numerous subcentimeter mediastinal lymph nodes, likely reactive. Kecia: Mildly enlarged hilar nodes measure up to 13 mm short axis. Axillae: There is no axillary lymphadenopathy. Upper abdomen: The liver is enlarged and steatotic. Cholecystectomy clips are noted. The spleen appears enlarged. There is a small hiatal hernia. Skeletal structures: The skeletal structures are osteopenic. Mild degenerative changes noted in the thoracic spine. No lytic or blastic bony lesions are seen. IMPRESSION: 1. Motion compromised examination. 2. There is no evidence of central pulmonary embolus in the main, lobar, or proximal segmental pulmonary arteries. 3. Multifocal airspace consolidation is consistent with the reported history of a viral pneumonia. Radiographic follow-up to resolution is recommended. 4. Mildly enlarged hilar lymph nodes are likely reactive. Hospital Course (1) Acute respiratory failure with hypoxia: (2) Pneumonia due to COVID-19 virus: Started with symptoms on 02/24 so pt is approximately 10 days into the course. Vaccinated x 2 with Pfizer but not boosted. Developed worsening SOB and weakness over past 24 hours and found to by hypoxic in ED. Patient was started on oxygen supplementation and dexamethasone Not a candidate for remdesivir based on duration of symptoms Patient was successfully weaned off oxygen. 2 Step today did not show any need for oxygen with activity Patient's loss of taste and smell resolved (3) FRANCISCO (acute kidney injury): Due to dehydration from limited oral intake Cr was 1.3 on admission FRANCISCO now resolved (4) Hypokalemia: K was 3.2 on admission Repleted (5) Type 2 diabetes mellitus: Diet-controlled Diabetic diet A1c 7.1 (6) Hypertension: Continue home medications (7) Anxiety: (8) Fibromyalgia: (9) Depression: - Continue home meds Total Time Total Time Spent Total Time Spent (In Minutes): 40 Total Time Includes: Examination of the Patient, Discharge Planning and Medication Reconciliation Discharge Plan Discharge Items Patient Disposition: Home - Self-Care Reason For Visit: Cough and shortness of breath Discharge Diagnosis: Acute hypoxic respiratory failure due to COVID-19 pneumonia Acute kidney injury Activity: Resume your previous activity Non-emergency contact: Primary Care Provider Call non-emergency contact if: you have any medication questions and your symptoms worsen Follow-up/Referrals: Talisha Burciaga MD [Primary Care Provider] - 03/14/21 2:20 pm (Date & Time 03/14/2021 2:20 PM Provider Kassidy Wolf MD Department General Internal Medicine [facility] PLEASE NOTE THAT THIS IS A TELEHEALTH VIDEO APPOINTMENT. PLEASE FOLLOW THE INSTRUCTIONS PROVIDED IN YOUR EMAIL. IF YOU HAVE ANY QUESTIONS REGARDING THIS APPOINTMENT, PLEASE CALL ) Diet: Heart Healthy Addtl Attending Provider Instructions: Mrs Verma You came to the hospital complaining of cough and shortness of breath. You were evaluated and found to have acute respiratory failure due to COVID-19 pneumonia as well as acute kidney injury. You were started on treatment. Your symptoms resolved. You required oxygen initially but was weaned off. You are being discharged home. Please ensure continue to take your medications as prescribed and follow-up with your primary doctor. It was a pleasure taking care of you Pending Studies at Discharge: No Stand-Alone Forms: My [facility], Smoking Cessation Medications and DC Order Prescriptions: New Robitussin Cough-Chest Ambrose DM 5-100 mg/5 mL Liquid 10 ml PO Q6H PRN (Reason: cough) Qty: 355 RF: 0 Continued atorvastatin 20 mg tablet 20 mg PO DAILY RF: 0 hydrochlorothiazide 25 mg tablet 25 mg PO QAM RF: 0 propranolol 20 mg tablet 10 mg PO BID RF: 0 multivitamin Tablet 1 tab PO DAILY RF: 0 cyclobenzaprine 10 mg Tablet 10 mg PO TID PRN (Reason: Muscle Spasm) RF: 0 tolterodine 4 mg capsule,extended release 24hr 4 mg PO DAILY RF: 0 clonazepam 0.5 mg tablet 0.5 mg PO DAILY PRN (Reason: Anxiety) RF: 0 valsartan 80 mg tablet 80 mg PO DAILY RF: 0 omeprazole 40 mg capsule,delayed release(DR/EC) 40 mg PO DAILY RF: 0 lamotrigine 25 mg tablet 50 mg PO DAILY RF: 0 mirtazapine 30 mg tablet 15 - 30 mg PO HS PRN (Reason: Insomnia) RF: 0 duloxetine 30 mg capsule,delayed release(DR/EC) 30 mg PO DAILY RF: 0 duloxetine 60 mg capsule,delayed release(DR/EC) 60 mg PO DAILY RF: 0 Discharge Orders: Discharge Order (Routine); Ordered 03/11/21 Ordered By: Yadi Carbajal/Other Patient Handouts: A1C, Managing Type 2 Diabetes, 5 Steps for Eating Healthier Admission Data Admit Date/Time: 03/06/21 18:53 Attending Provider: Yadi Molina I. Admit Provider: Heriberto Raphael Primary Care Provider: Talisha Burciaga Other Providers: Heriberto Raphael Other Interventions: Discharge Summary Assessment (RN) Last Done: 03/11/21 11:08
== END 2021-03-11 12:32 | disposition home or self-care (01) | DRG 177 ==
LOC: ED 14:09 → EDINP 18:53 → SUATTDRO 18:53 → 2E 22:03

== ENCOUNTER 2022-05-16 04:09 | Inpatient (IN) ==
[2022-05-16] MEDS ORDERED: SODIUM CHLORIDE 0.9% 1000ML 1,000 ML IV ONE (04:51)
[2022-05-16] MEDS ORDERED: ACETAMINOPHEN 500 MG TAB PO STA (04:51)
[2022-05-16 05:10] LABS: Basophils # (auto) 0.05 K/uL (0-0.2); Basophils % (auto) 0.3 %; Eosinophils # (auto) 0.05 K/uL (0-0.50); Eosinophils % (auto) 0.3 %; Hematocrit (blood only) 42.5 % (37.0-47.0); Hemoglobin 13.9 g/dl (12.0-16.0); Immature Granulocytes # (auto) 0.14 K/uL (0.01-0.20); Immature Granulocytes % (auto) 0.8 %; Lymphocytes # (auto) 2.64 K/uL (1.2-3.4); Lymphocytes % (auto) 14.7 %; Mean Corpuscular Hemoglobin 25.9 pg (25.0-34.0); Mean Corpuscular Hgb Conc 32.7 g/dL (32.0-36.0); Mean Corpuscular Volume 79.1 fL (80.0-100.0); Mean Platelet Volume 10.6 fL (9.4-12.4); Monocytes # (auto) 1.44 K/uL (0.11-0.59); Neutrophils # (auto) 13.63 K/uL (1.40-6.50); Neutrophils % (auto) 75.9 %; Platelet Count 216 K/uL (130-400); RDW Coefficient of Variation 14.6 % (11.5-14.5); RDW Standard Deviation 41.9 fL (36.4-46.3); Red Blood Count 5.37 M/uL (4.20-5.40); White Blood Count 17.95 K/ul (4.8-10.8)
[2022-05-16 05:27] LABS: Albumin Level 3.9 gm/dl (3.4-5.0); BUN Creatinine Ratio 13.5 (10-20); Bilirubin Direct 0.1 mg/dl (0-0.2); Bilirubin,Total 0.9 mg/dl (0.2-1.0); Calcium 9.4 mg/dl (8.5-10.1); Creatinine Clr Calc Pharmacy 103.1 ml/min; Est GFR (African American) 97.8 ml/min; Est GFR (Non-African American) 84.4 ml/min; Magnesium 1.8 mg/dl (1.7-2.4); Potassium 3.8 mmol/L (3.5-5.1); Total Protein 7.9 gm/dl (6.0-8.3)
--- NOTE | 2022-05-16 05:30 | Emergency Department Note ---
Impression & Plan Sepsis, Hypoxia, Pneumonia, Elevated troponin Admit to the [facility] ED Provider Note NAME: KRISSY THAKKAR AGE: 66 SEX: F ARRIVES VIA: Ambulance INFORMANT: Patient ED PROVIDER(S): Amy Horvath DO CHIEF COMPLAINT: Increasing shortness of breath PLAN: Disposition: Admit to the [facility] Condition: Guarded MEDICAL DECISION MAKING: This is a 66-year-old female patient who presents to the emergency department with increasing shortness of breath and cough productive of green mucus. The patient was noted to be hypoxic upon presentation on room air. She was placed on supplemental oxygen. A septic protocol was performed. Patient was thought to be septic as she had a white blood cell count of 17.9, lactic acid of 2.2, was febrile, and was significantly tachycardic at 118. She was treated with IV Zosyn for what looks like a right lower lobe pneumonia. She was bolused with 1 L of normal saline solution but did not receive 30 mL/kg of IV fluids as I am concerned for the possibility of congestive heart failure as she does have an elevated troponin and previous history of respiratory failure. Patient was negative for COVID-19, RSV and influenza. The patient was evaluated by the [facility] and will be admitted to the hospital. Triage Nursing notes reviewed and agree with them. External records were reviewed from previous admissions Vital Signs: reviewed and remarkable for hypoxia and tachycardia Differential diagnosis: COVID-19, pneumonia, bronchitis, PE, STEMI, NSTEMI ER treatment provided: monitoring analyst Twelve-lead EKG Supplemental oxygen IV normal saline bolus IV Zosyn Diagnostics interpreted by me: ECG: Sinus tachycardia at [address] segment elevation or signs of ischemia. There is no ectopy Cardiac Monitoring: Sinus tachycardia at 109 Laboratory studies: See below Imaging studies: As per my independent interpretation Portable chest x-ray: Right-sided pulmonary opacity in the mid to lower lobe concerning for pneumonia. HPI: 66/F arrives for evaluation of shortness of breath. Patient has developed increasing shortness of breath over the past 24 to 36 hours. She has developed an increasing cough productive of green mucus. She describes significant postnasal drip which is made her nauseated. Patient is vaccinated against COVID-19. Her last positive COVID test was 1 year ago. She does describe some chest discomfort associated with her cough. ROS: See above HPI for pertinent positives & negatives. A total of 10 systems reviewed and were otherwise negative. PAST MEDICAL HISTORY:See Below PAST SURGICAL HISTORY:See Below FAMILY HISTORY:See Below SOCIAL HISTORY:See Below HOME MEDICATIONS:See list ALLERGIES:See list VITALS:See Below PHYSICAL EXAMINATION: HEENT: Head - normocephalic and atraumatic. Pupils are equal, round, and reactive to light. Extraocular eye muscles are intact, and sclera are anicteric. Nose - moist nasal mucosa without discharge. Mouth -extremely dry buccal mucosa. Oropharynx is nonerythematous and there is no tonsillar exudate or edema noted. Neck: Supple; no cervical lymphadenopathy appreciated. Heart: Tachycardic rate and regular rhythm. There is a normal S1 and S2 with no murmurs, clicks, or gallops appreciated. Lungs: Clear to auscultation bilaterally with no wheezes, rales, or rhonchi. Abdomen: Soft, completely nontender, nondistended, with good bowel sounds. There are no palpable pulsatile masses or hepatosplenomegaly. There is no guarding, rigidity, or rebound noted. Extremities: No evidence of cyanosis, clubbing, or edema. There are easily palpable peripheral pulses. Skin: warm and dry with poor turgor and no rashes. ED COURSE: Times/Reassessments: 420: The patient was evaluated in room A-9. A complete history and physical was performed. A septic protocol was performed. An IV lock was initiated and labs were drawn as above. A twelve-lead EKG was obtained as described above. An order was placed for continuous cardiac monitoring. Patient is in a sinus tachycardia at 109. The patient was bolused with a liter of normal saline solution. Blood cultures were obtained. Portable chest x-ray was performed. Nasopharyngeal swab was obtained. Patient was thought to have pneumonia and was started on IV antibiotics. I have personally spent greater than 30 minutes of critical care time in the direct management of this patient. This includes bedside care, interpretation of diagnostic studies, and testing, discussion with consultants, patient, and family members, and other required patient management activities. This 30 minutes is in excess of all separately billable procedures. Amy Horvath DO Past Med/Surg History Medical History (Updated 05/16/22 @ 08:15 by Amy Horvath DO) Anxiety Depression Diabetic neuropathy Fibromyalgia Hypertension Migraine Obesity Psoriasis Reflex sympathetic dystrophy Type 2 diabetes mellitus Surgical History H/O hernia repair History of cholecystectomy History of repair of rotator cuff Status post bilateral knee replacements Family History Father Diabetes Stroke Grandmother (Paternal) Diabetes Mother Lung disease Social History Smoking Status: Never smoker Hx Alcohol Use: No Hx Substance Use: No Preferred Language: Hebrew Communication Ability: Effective Visual Impairment: No Limitations Hearing Ability: Normal Bath Solution Maker Required: No Beliefs That Will Affect Care: None Current Living Situation: Family Current Living Situation Comment: Lives with her daughter and granddaughter Feels Safe at Home: Yes Assistive Devices: Oxygen - Continuous Allergies Allergies Allergy/AdvReac Type Severity Reaction Status Date / Time fosphenytoin Allergy Mild HIVES Verified 03/21/19 15:58 celecoxib Allergy Unknown ITCHINESS Verified 03/21/19 15:58 warfarin [From Coumadin] AdvReac Severe Hemorrhage Verified 03/21/19 15:58 Home Meds Home Medications Medication Instructions Recorded Confirmed atorvastatin 20 mg tablet 20 mg PO DAILY 03/21/19 03/06/21 hydrochlorothiazide 25 mg tablet 25 mg PO QAM 03/21/19 03/06/21 propranolol 20 mg tablet 10 mg PO BID 03/21/19 03/06/21 clonazepam 0.5 mg tablet 0.5 mg PO DAILY PRN Anxiety 03/06/21 03/06/21 cyclobenzaprine 10 mg tablet 10 mg PO TID PRN Muscle Spasm 03/06/21 03/06/21 duloxetine 30 mg capsule,delayed 30 mg PO DAILY 03/06/21 03/06/21 release duloxetine 60 mg capsule,delayed 60 mg PO DAILY 03/06/21 03/06/21 release lamotrigine 25 mg tablet 50 mg PO DAILY 03/06/21 03/06/21 mirtazapine 30 mg tablet 15 - 30 mg PO HS PRN Insomnia 03/06/21 03/06/21 multivitamin 1 tab PO DAILY 03/06/21 03/06/21 omeprazole 40 mg capsule,delayed 40 mg PO DAILY 03/06/21 03/06/21 release tolterodine 4 mg capsule,extended 4 mg PO DAILY 03/06/21 03/06/21 release 24 hr valsartan 80 mg tablet 80 mg PO DAILY 03/06/21 03/06/21 Previous Rx's Medication Instructions Recorded dextromethorphan-guaifenesin 5 10 ml PO Q6H PRN cough #355 mL 03/11/21 mg-100 mg/5 mL oral liquid (Robitussin Cough-Chest Congestion DM) Results & Data (ED) Vital Signs Vital Signs - 24 hr 05/16/22 04:24 05/16/22 04:28 05/16/22 04:25 Temperature 38.6 C H Temperature Source Oral Pulse Rate 117 H 115 H Pulse Rate from SpO2 Sensor Respiratory Rate 20 Respiratory Effort / Characteristics SOB on Exertion Respiratory Depth Normal Respiratory Pattern Regular Blood Pressure 142/77 H Blood Pressure Mean 98 Blood Pressure Position Semi-fowlers Pulse Oximetry 89 L 89 L Oxygen Delivery Method Room Air Nasal Cannula Oxygen Flow Rate 0 Sepsis Recent Fever Within 48 Hours Yes Sepsis New/Unexplained Change in Mental Status N/A Sepsis Action Taken by Nursing Physician Notified Oxygen Flow Rate - Titration 4 Pulse Oximetry Post Tiitration 93 05/16/22 05:20 05/16/22 05:16 05/16/22 05:30 Temperature Temperature Source Pulse Rate 109 H 101 H Pulse Rate from SpO2 Sensor Respiratory Rate 16 14 Respiratory Effort / Characteristics Respiratory Depth Respiratory Pattern Blood Pressure 147/63 H 134/58 L Blood Pressure Mean 91 83 Blood Pressure Position Pulse Oximetry 97 97 99 Oxygen Delivery Method Nasal Cannula Nasal Cannula Oxygen Flow Rate 4 4 4 Sepsis Recent Fever Within 48 Hours Sepsis New/Unexplained Change in Mental Status Sepsis Action Taken by Nursing Oxygen Flow Rate - Titration Pulse Oximetry Post Tiitration 05/16/22 06:10 05/16/22 06:48 05/16/22 07:00 Temperature 37.6 C H Temperature Source Oral Pulse Rate 103 H Pulse Rate from SpO2 Sensor Respiratory Rate 16 Respiratory Effort / Characteristics Respiratory Depth Respiratory Pattern Blood Pressure 125/66 112/56 L Blood Pressure Mean 85 74 Blood Pressure Position Pulse Oximetry 94 Oxygen Delivery Method Nasal Cannula Oxygen Flow Rate 3 Sepsis Recent Fever Within 48 Hours Sepsis New/Unexplained Change in Mental Status Sepsis Action Taken by Nursing Oxygen Flow Rate - Titration Pulse Oximetry Post Tiitration 05/16/22 07:00 Temperature Temperature Source Pulse Rate 97 H Pulse Rate from SpO2 Sensor 96 H Respiratory Rate 23 Respiratory Effort / Characteristics Respiratory Depth Respiratory Pattern Blood Pressure Blood Pressure Mean Blood Pressure Position Pulse Oximetry 92 Oxygen Delivery Method Oxygen Flow Rate Sepsis Recent Fever Within 48 Hours Sepsis New/Unexplained Change in Mental Status Sepsis Action Taken by Nursing Oxygen Flow Rate - Titration Pulse Oximetry Post Tiitration Laboratory Data 05/16/22 04:00 05/16/22 04:00 Lab Results 05/16/22 05/16/22 05/16/22 Range/Units 04:00 04:00 04:00 WBC 17.95 H (4.8-10.8) K/ul RBC 5.37 (4.20-5.40) M/uL Hgb 13.9 (12.0-16.0) g/dl Hct 42.5 (37.0-47.0) % MCV 79.1 L (80.0-100.0) fL MCH 25.9 (25.0-34.0) pg MCHC 32.7 (32.0-36.0) g/dL RDW Std Deviation 41.9 (36.4-46.3) fL RDW Coeff of Maria Elena 14.6 H (11.5-14.5) % Plt Count 216 (130-400) K/uL MPV 10.6 (9.4-12.4) fL Immature Gran % (Auto) 0.8 % Neut % (Auto) 75.9 % Lymph % (Auto) 14.7 % [place] % (Auto) 8.0 % Eos % (Auto) 0.3 % Baso % (Auto) 0.3 % Neut # (Auto) 13.63 H (1.40-6.50) K/uL Lymph # (Auto) 2.64 (1.2-3.4) K/uL [place] # (Auto) 1.44 H (0.11-0.59) K/uL Eos # (Auto) 0.05 (0-0.50) K/uL Baso # (Auto) 0.05 (0-0.2) K/uL Immature Gran # (Auto) 0.14 (0.01-0.20) K/uL Sodium 132 L (136-145) mmol/L Potassium 3.8 (3.5-5.1) mmol/L Chloride 101 (98-107) mmol/L Carbon Dioxide 19 L (21-32) mmol/L Anion Gap 12 H (3-11) BUN 10 (6-23) mg/dl Creatinine 0.74 (0.6-1.2) mg/dl Est Cr Clr Drug Dosing 103.1 ml/min Est GFR ( Amer) 97.8 ml/min Est GFR (Non-Af Amer) 84.4 ml/min BUN/Creatinine Ratio 13.5 (10-20) Glucose 202 H (70-99(Fasting)) mg/dl Lactate (0.4-2.0) mmol/L Calcium 9.4 (8.5-10.1) mg/dl Magnesium 1.8 (1.7-2.4) mg/dl Total Bilirubin 0.9 (0.2-1.0) mg/dl Direct Bilirubin 0.1 (0-0.2) mg/dl AST 12 L (13-39) U/L ALT 8 (7-52) U/L Alkaline Phosphatase 125 H (34-104) U/L Troponin I High Sens 18.1 H (0-14) pg/ml Total Protein 7.9 (6.0-8.3) gm/dl Albumin 3.9 (3.4-5.0) gm/dl Procalcitonin 0.26 (0-0.5) ng/ml SARS-CoV-2 (PCR) (Negative) Influenza Type A (PCR) (Neg) Influenza Type B (PCR) (Neg) RSV (RT-PCR) (Neg) 05/16/22 05/16/22 05/16/22 Range/Units 05:14 05:15 07:12 WBC (4.8-10.8) K/ul RBC (4.20-5.40) M/uL Hgb (12.0-16.0) g/dl Hct (37.0-47.0) % MCV (80.0-100.0) fL MCH (25.0-34.0) pg MCHC (32.0-36.0) g/dL RDW Std Deviation (36.4-46.3) fL RDW Coeff of Maria Elena (11.5-14.5) % Plt Count (130-400) K/uL MPV (9.4-12.4) fL Immature Gran % (Auto) % Neut % (Auto) % Lymph % (Auto) % [place] % (Auto) % Eos % (Auto) % Baso % (Auto) % Neut # (Auto) (1.40-6.50) K/uL Lymph # (Auto) (1.2-3.4) K/uL [place] # (Auto) (0.11-0.59) K/uL Eos # (Auto) (0-0.50) K/uL Baso # (Auto) (0-0.2) K/uL Immature Gran # (Auto) (0.01-0.20) K/uL Sodium (136-145) mmol/L Potassium (3.5-5.1) mmol/L Chloride (98-107) mmol/L Carbon Dioxide (21-32) mmol/L Anion Gap (3-11) BUN (6-23) mg/dl Creatinine (0.6-1.2) mg/dl Est Cr Clr Drug Dosing ml/min Est GFR ( Amer) ml/min Est GFR (Non-Af Amer) ml/min BUN/Creatinine Ratio (10-20) Glucose (70-99(Fasting)) mg/dl Lactate 2.2 H* 1.5 (0.4-2.0) mmol/L Calcium (8.5-10.1) mg/dl Magnesium (1.7-2.4) mg/dl Total Bilirubin (0.2-1.0) mg/dl Direct Bilirubin (0-0.2) mg/dl AST (13-39) U/L ALT (7-52) U/L Alkaline Phosphatase (34-104) U/L Troponin I High Sens (0-14) pg/ml Total Protein (6.0-8.3) gm/dl Albumin (3.4-5.0) gm/dl Procalcitonin (0-0.5) ng/ml SARS-CoV-2 (PCR) NEGATIVE (Negative) Influenza Type A (PCR) Negative (Neg) Influenza Type B (PCR) Negative (Neg) RSV (RT-PCR) Negative (Neg) Administered Medications Discontinued Medications Acetaminophen (Acetaminophen 500 Mg Tab) 1,000 mg PO NOW STA Stop: 05/16/22 04:52 Last Admin: 05/16/22 05:11 Dose: 1,000 mg Documented By: TED Sodium Chloride (Nss 1000ml) 1,000 mls @ 999 mls/hr IV .Q1H1M ONE Stop: 05/16/22 05:51 Last Infusion: 05/16/22 06:12 Dose: 0 mls/hr Documented By: Admin: 05/16/22 05:11 Dose: 999 mls/hr Documented By: TED Piperacillin Sod/Tazobactam Sod (Zosyn) 4.5 gm in 120 mls @ 240 mls/hr IV NOW ONE Stop: 05/16/22 07:09 Last Infusion: 05/16/22 07:30 Dose: 0 mls/hr Documented By: Admin: 05/16/22 06:47 Dose: 240 mls/hr Documented By: TED Imaging Data Radiologist's Impression: Chest X-Ray 05/16/22 04:50 XR chest 1V portable HISTORY: 66 years-old Female Sepsis acute sepsis COMPARISON: Chest radiograph 03/06/2021 TECHNIQUE: AP view of the chest FINDINGS: Cardiac silhouette is mildly enlarged. Eventration of the right hemidiaphragm. No pneumothorax. Ill-defined mid to lower lung zone predominant interstitial opacities are most pronounced within the right midlung. Bones appear grossly intact with degenerative changes of the shoulders and spine. IMPRESSION: Mild ill-defined mid to lower lung zone predominant pulmonary opacities. Findings may represent postinflammatory scarring versus an infectious or inflammatory pneumonitis. ACT 112: Negative or not required by law. The above report was generated using voice recognition software. It may contain grammatical, syntax or spelling errors. Electronically signed by: Francisco Zaidi M.D. 05/16/2022 7:42 AM Discharge Plan Visit Data Chief Complaint: Illness Stated Complaint: illness, productive cough ED Provider: Amy Horvath Discharge Problem: Sepsis, Hypoxia, Pneumonia, Elevated troponin Forms Stand Alone Forms: My [facility] [employer] Prescriptions Prescriptions: No Action atorvastatin 20 mg tablet 20 mg PO DAILY hydrochlorothiazide 25 mg tablet 25 mg PO QAM propranolol 20 mg tablet 10 mg PO BID multivitamin Tablet 1 tab PO DAILY cyclobenzaprine 10 mg Tablet 10 mg PO TID PRN (Reason: Muscle Spasm) tolterodine 4 mg capsule,extended release 24hr 4 mg PO DAILY clonazepam 0.5 mg tablet 0.5 mg PO DAILY PRN (Reason: Anxiety) valsartan 80 mg tablet 80 mg PO DAILY omeprazole 40 mg capsule,delayed release(DR/EC) 40 mg PO DAILY lamotrigine 25 mg tablet 50 mg PO DAILY Rx Instructions: 50 MG FOR TWO WEEKS THEN INCREASING TO 100 MG DAILY mirtazapine 30 mg tablet 15 - 30 mg PO HS PRN (Reason: Insomnia) duloxetine 30 mg capsule,delayed release(DR/EC) 30 mg PO DAILY Rx Instructions: WITH 60 MG FOR 90 MG DAILY DOSE duloxetine 60 mg capsule,delayed release(DR/EC) 60 mg PO DAILY Rx Instructions: WITH 30 MG FOR 90 MG DAILY Robitussin Cough-Chest [place] DM 5-100 mg/5 mL Liquid 10 ml PO Q6H PRN (Reason: cough) Qty: 355 0RF Referrals Referrals: Talisha Burciaga MD [Primary Care Provider] - Sepsis Qualifiers: Sepsis type: sepsis due to unspecified organism Sepsis acute organ dysfunction status: unspecified Qualified Code(s): A41.9 - Sepsis, unspecified organism Pneumonia Qualifiers: Pneumonia type: due to unspecified organism Laterality: right Lung location: lower lobe of lung Qualified Code(s): J18.9 - Pneumonia, unspecified organism
[2022-05-16 05:34] LABS: Troponin I High Sensitivity 18.1 pg/ml (0-14)
[2022-05-16 06:14] LABS: Influenza A virus by PCR Negative (Neg); Influenza B virus by PCR Negative (Neg); RSV by PCR Negative (Neg); SARS CoV2 RNA(COVID-19) Ceph NEGATIVE (Negative)
[2022-05-16] MEDS ORDERED: PIPERACILLIN/TAZOBACTAM 4.5 GM/120 ML BAG IV ONE (06:40)
--- NOTE | 2022-05-16 07:43 | XRay Report ---
XR chest 1V portable HISTORY: 66 years-old Female Sepsis acute sepsis COMPARISON: Chest radiograph 03/06/2021 TECHNIQUE: AP view of the chest FINDINGS: Cardiac silhouette is mildly enlarged. Eventration of the right hemidiaphragm. No pneumothorax. Ill-d efined mid to lower lung zone predominant interstitial opacities are most pronounced within the right midlung. Bones appear grossly intact with degenerative changes of the shoulders and spine. IMPRESSION: Mild ill-defined mid to lower lung zone predominant pulmonary opacities. Findings may rep resent postinflammatory scarring versus an infectious or inflammatory pneumonitis. ACT 112: Negative or not required by law. The above report was generated using voice recognition software. It may contain grammatical, syntax o r spelling errors. Electronically signed by: Francisco Zaidi M.D. 05/16/2022 7:42 AM
[2022-05-16] MEDS ORDERED: ONDANSETRON INJ 2 MG/ML 2 ML VIAL IV PRN (08:34)
[2022-05-16] MEDS ORDERED: MAGNESIUM HYDROXIDE SUSP 30 ML UDC PO PRN (08:34)
[2022-05-16] MEDS ORDERED: ALUMINUM/MAGNESIUM SUSP 30 ML UDC PO PRN (08:34)
[2022-05-16] MEDS ORDERED: POLYETHYLENE (MIRALAX) 17 GM PACK PO PRN (08:34)
--- NOTE | 2022-05-16 08:48 | History & Physical Report ---
Date of Service May 16, 2022 Assessment & Plan (1) Sepsis: (2) Pneumonia: (3) Hypoxia: (4) Type 2 diabetes mellitus: (5) Hypertension: (6) Anxiety: (7) Depression: (8) HLD (hyperlipidemia): (9) Overactive bladder: Plan 66-year-old female presented to the ED with shortness of breath requiring supplemental oxygen. History of cough with green sputum. Tachycardia with leukocytosis and hypoxia in ED. CXR suggests right lower lobe pneumonia . Pt. meeting sepsis criteria in the setting of pneumonia. Sepsis work-up complete lactic acid trending down with fluid resuscitation. Started on Rocephin and Doxy. Awaiting blood and sputum culture results. Pro-Sascha negative. Sepsis: Pneumonia: Hypoxia: -Leukocytosis WBC 17.95, tachycardic in 115-118 range on arrival to ED, Febrile 38.6 -CXR: postinflammatory scarring versus an infectious or inflammatory pneumonitis; suspect RLL PNA.repeat in a.m. -Lactic acid 2.2; responded to fluid resuscitation now 1.5 -Mag 1.8 -Procalcitonin negative -IV Zosyn given in ED; started on Rocephin plus doxycycline; adjust based on blood and sputum culture results -UA pending -Phos pending -Started Mucinex -IVF 0.9% @ 80mL/hour; adjust based on BNP -ISB; pulmonary toilet Type 2 diabetes mellitus: -A1c 03/15/22: 7.1 -Not compliant with Dexcom at home -Takes Jardiance; hold while here -Prescribed Trulicity but does not take it -We will order FSBS ACHS + SSI; glycemic consultation Hypertension: -Takes Valsartan; continue -Question of heart failure in her history; BNP pending -Takes Propranolol; patient states for HTN; I suspect for Anxiety/depression; continue Dyslipidemia: -lipid panel: 03/15/22: T, HDL 39, LDL 88 -Takes Atorvastatin; continue Anxiety and depression: -Significant stressors at home including raising her 8-month-old great grandson with special physical needs -Currently lives with daughter -Quite tearful with conversation about home life -Discussed code status; patient was clear she would want to be a DNR/DNI in the setting of a cardiac or respiratory arrest; she was receptive to BiPAP or CPAP in the event of her respiratory decline. 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 -Takes Propranolol; patient states for HTN; I suspect for Anxiety/depression; continue -Takes Duloxetine; continue Overactive bladder: -Reports foul-smelling urine over past few days -Takes Detrol; continue Disposition: PCP: Dr. Burciaga CODE STATUS: DNR.DNI VTE prophylaxis: Lovenox subcu I spent a total of 87 minutes coordinating, documenting, and providing care for this patient excluding time spent in the performance of separately billed services. All of the aforementioned completed while collaborating with the assigned attending physician for a full treatment plan. Please see their addendum for further details. History of Present Illness Chief Complaint: Shortness of breath Primary Care Provider: Talisha Burciaga MD Bianca is a 66-year-old female that presented to the ED with shortness of breath, tachycardia, fever and productive cough that has been going on for the past 4 to 5 days. Over the past 24 hours her cough has become thicker with green sputum. She notes decreased appetite over the past week and has been trying to drink boost and Gatorade but otherwise not successful with nutrition. Chest x-ray revealed pulmonary opacities with postinflammatory scarring versus infection or pneumonitis. Patient did have COVID March 2021. Patient lives at home with her daughter and is raising her great grandson who is 8 months old with physical special needs. She said that he has a double ear infection right now and feels she became sick from him. Lactic acid initially 2.2 however with fluid resuscitation decreased to 1.5. Troponin 18.1; will trend x1 however do not suspect that this is cardiac in nature rather in response to ischemic demand. EKG revealed sinus tachycardia without ectopy or ischemic change. Procalcitonin negative. Creatinine 0.74. Glucose elevated at 202; patient admits to not being compliant with glucose monitoring; last A1c 7.01/22. Patient was given 1 dose of IV Zosyn in the ED. blood cultures and sputum cultures pending. Additional past medical history includes HTN, HLD, respiratory failure, overactive bladder, psoriasis, diabetes mellitus type 2, fibromyalgia, anxiety and depression, and GERD. Patient denies tobacco, alcohol or recreational drug use. Patient denies headache, dizziness, visual or auditory changes, chest pain, swelling, recent falls or trauma, abdominal pain, nausea vomiting diarrhea. She reports that her urine has had an odor over the past few days. As stated patient currently lives with her daughter and is quite tearful through conversation about her home life and stressors. She has been raising her 8-month-old great grandson and he recently was removed from her by her granddaughters boyfriend. When we were discussing CODE STATUS the patient was clear she would not want to be resuscitated in the setting of a cardiac or respiratory arrest however she is receptive to BiPAP or CPAP in the event of a respiratory decline. 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 She is listed as DNR/DNI currently however think that some of her comments may be driven from a depression standpoint and she may benefit from a behavioral health liaison interview. Patient receptive to admission for further evaluation and management. Please see A/P for further details. Allergies Allergy/AdvReac Type Severity Reaction Status Date / Time fosphenytoin Allergy Mild HIVES Verified 03/21/19 15:58 celecoxib Allergy Unknown ITCHINESS Verified 03/21/19 15:58 warfarin [From Coumadin] AdvReac Severe Hemorrhage Verified 03/21/19 15:58 Home Medications Medication Instructions Recorded Confirmed Type atorvastatin 20 mg tablet 20 mg PO DAILY 03/21/19 05/16/22 History propranolol 20 mg tablet 10 mg PO BID 03/21/19 05/16/22 History cyclobenzaprine 10 mg tablet 10 mg PO TID PRN Muscle Spasm 03/06/21 05/16/22 History duloxetine 30 mg capsule,delayed 30 mg PO DAILY 03/06/21 05/16/22 History release duloxetine 60 mg capsule,delayed 60 mg PO DAILY 03/06/21 05/16/22 History release lamotrigine 25 mg tablet 100 mg PO BID 03/06/21 05/16/22 History omeprazole 40 mg capsule,delayed 40 mg PO DAILY 03/06/21 05/16/22 History release tolterodine 4 mg capsule,extended 4 mg PO DAILY 03/06/21 05/16/22 History release 24 hr valsartan 80 mg tablet 80 mg PO DAILY 03/06/21 05/16/22 History empagliflozin 25 mg tablet 25 mg PO QAM 05/16/22 05/16/22 History (Jardiance) famotidine 20 mg tablet 20 mg BID 05/16/22 05/16/22 History Past Med/Surg History Medical History (Updated 05/16/22 @ 09:57 by STEF Campbell) Anxiety Depression Diabetic neuropathy Fibromyalgia HLD (hyperlipidemia) Hypertension Migraine Obesity Overactive bladder Psoriasis Reflex sympathetic dystrophy Type 2 diabetes mellitus Surgical History H/O hernia repair History of cholecystectomy History of repair of rotator cuff Status post bilateral knee replacements Family History Father Diabetes Stroke Grandmother (Paternal) Diabetes Mother Lung disease Social History Smoking Status: Never smoker Second Hand Exposure: No; Do You Dip or Chew Tobacco: No; Tobacco Cessation Education Requested by Patient: No Hx Alcohol Use: No Hx Substance Use: No Preferred Language: Serbian Communication Ability: Effective Visual Impairment: No Limitations Hearing Ability: Normal Spinning Lathe Operator Required: No Beliefs That Will Affect Care: None Current Living Situation: Family Current Living Situation Comment: lives with daughter Other Information That Helps Us Care for You: No Feels Safe at Home: Yes Safety Concerns: Feels Safe At This Time Assistive Devices: Cane, Denture - Upper, Denture - Lower, Glasses and Walker Review of Systems Review of Systems: Neuro: (-) Falls, trauma, slurred speech HEENT: (-) [place], dizziness, dysphagia, visual or auditory changes CV: (-) CP, palpitations, swelling Resp: (+) SOB GI: (-) appetite changes, N/V/D, bowel changes : (+) urinary changes Skin: (-) rashes Psych: (-) anxiety, depression Physical Exam Physical Exam: Neuro: AAOx4, PERRLA, no aphagia, memory changes, CNII-XII grossly intact HEENT: head normocephalic, moist mucus membranes, TM pearly sanches without erythematous ear canal. Enlarged tonsils. CV: S1/S2, (-) M/G/R, (-) edema, cap refill < 3 seconds Resp: Lungs coarse anterior and posterior throughout; 3LNC. GI: Abdomen S/NT/ND, Ax4 bowel sounds, (-) CVA tenderness Musculoskeletal: 5/5 B/L UE strength, 5/5 B/L LE strength. No gait disturbance Skin: (-) rashes , (-) erythema. Psych: tearful yet euthemic mood Results & Data Results & Data Vital Signs (Past 12 Hours) Vital Signs Temp Pulse Resp BP Pulse Ox O2 Del Method O2 Flow Rate 05/16/22 07:00 97 H 23 92 05/16/22 07:00 112/56 L 05/16/22 06:48 103 H 16 125/66 94 Nasal Cannula 3 05/16/22 06:10 37.6 C H 05/16/22 05:30 101 H 14 134/58 L 99 Nasal Cannula 4 05/16/22 05:16 109 H 16 147/63 H 97 4 05/16/22 05:20 97 Nasal Cannula 4 05/16/22 04:25 89 L Nasal Cannula 0 05/16/22 04:28 115 H 05/16/22 04:24 38.6 C H 117 H 20 142/77 H 89 L Room Air Laboratory Results Short CBC 05/16/22 Range/Units 04:00 WBC 17.95 H (4.8-10.8) K/ul Hgb 13.9 (12.0-16.0) g/dl Hct 42.5 (37.0-47.0) % Plt Count 216 (130-400) K/uL BMP 05/16/22 04:00 Sodium 132 L Potassium 3.8 Chloride 101 Carbon Dioxide 19 L BUN 10 Creatinine 0.74 Glucose 202 H Calcium 9.4 Liver Function 05/16/22 Range/Units 04:00 Total Bilirubin 0.9 (0.2-1.0) mg/dl Direct Bilirubin 0.1 (0-0.2) mg/dl AST 12 L (13-39) U/L ALT 8 (7-52) U/L Alkaline Phosphatase 125 H (34-104) U/L Albumin 3.9 (3.4-5.0) gm/dl Diagnostic Findings Chest X-Ray 05/16/22 04:50 XR chest 1V portable HISTORY: 66 years-old Female Sepsis acute sepsis COMPARISON: Chest radiograph 03/06/2021 TECHNIQUE: AP view of the chest FINDINGS: Cardiac silhouette is mildly enlarged. Eventration of the right hemidiaphragm. No pneumothorax. Ill-defined mid to lower lung zone predominant interstitial opacities are most pronounced within the right midlung. Bones appear grossly intact with degenerative changes of the shoulders and spine. IMPRESSION: Mild ill-defined mid to lower lung zone predominant pulmonary opacities. Findings may represent postinflammatory scarring versus an infectious or inflammatory pneumonitis. ACT 112: Negative or not required by law. The above report was generated using voice recognition software. It may contain grammatical, syntax or spelling errors. Electronically signed by: Francisco Zaidi M.D. 05/16/2022 7:42 AM Code Status & VTE Plan Code Status Full code in the event of cardiac or respiratory arrest VTE Prophylaxis Plan VTE Prophylaxis will be ordered: Yes Supervising Physician Co-Signing Physician Notes Pt seen and examined by me, care coordinated w/ E. STEF Monge, pls refer to her note above for further detail. Pt is a 66 yo F who presents with shortness of breath, tachycardia, fever and productive cough that has been going on for the past 4 to 5 days. Found to be hypoxic in ED, currently on 3L of O2. She reports her grandson has been sick and she became sick from him. WBC elevated at 17K. Patient received 1 dose of IV Zosyn in the ED. blood cultures and sputum cultures pending. Biofire obtained and positive for adenovirus and parainfluenza 3. She is awake alert oriented answering questions appropriately. Continues to require supplemental oxygen. Rhonchi noted on lung exam, especially at right lower lobe. Slightly tachycardic. Abdomen soft obese nontender nondistended with positive bowel sounds. No lower extremity edema noted. Patient is obese, with BMI of 43. Skin is warm dry. Continue antibiotics, add Mucinex, flutter valve, incentive spirometer. Continue supplemental oxygen as needed. Breathing treatments. Continue to closely monitor. MD Mary (1) Sepsis Sepsis acute organ dysfunction status: unspecified Sepsis type: sepsis due to unspecified organism Qualified Code(s): A41.9 - Sepsis, unspecified organism (2) Pneumonia Laterality: right Lung location: lower lobe of lung Pneumonia type: due to unspecified organism Qualified Code(s): J18.9 - Pneumonia, unspecified organism
[2022-05-16] MEDS ORDERED: CYCLOBENZAPRINE HCL 10 MG TAB PO PRN (09:25)
[2022-05-16] MEDS ORDERED: GLUCOSE 40% GEL 15 GM TUBE PO PRN (09:43)
[2022-05-16] MEDS ORDERED: GLUCAGON FOR INJ 1 MG VIAL SQ PRN (09:43)
[2022-05-16] MEDS ORDERED: GLUCOSE 10 TAB/TUBE PO PRN (09:43)
[2022-05-16] MEDS ORDERED: PHARMACY GLYCEMIC MGMT CONSULT PRN (09:43)
[2022-05-16] MEDS ORDERED: DEXTROSE 50% 50 ML SYRINGE IV PRN (09:43)
[2022-05-16] MEDS ORDERED: CARBOHYDRATES FOR HYPOGLYCEMIA PO PRN (09:43)
[2022-05-16 10:10] LABS: Bordetella parapertussis PCR Not Detected (NotDetected); Bordetella pertussis PCR Not Detected (NotDetected); Chlamydia pneumoniae PCR Not Detected (NotDetected); Coronavirus 229E PCR Not Detected (NotDetected); Coronavirus CoV-2 (COVID19)PCR Not Detected (NotDetected); Coronavirus HKU1 PCR Not Detected (NotDetected); Coronavirus NL63 PCR Not Detected (NotDetected); Coronavirus OC43PCR Not Detected (NotDetected); Human Metapneumovirus PCR Not Detected (NotDetected); Influenza A PCR Not Detected (NotDetected); Influenza B PCR Not Detected (NotDetected); Mycoplasma pneumoniae PCR Not Detected (NotDetected); Parainfluenza Virus 1 PCR Not Detected (NotDetected); Parainfluenza Virus 2 PCR Not Detected (NotDetected); Parainfluenza Virus 4 PCR Not Detected (NotDetected); Respiratory Syncytial VirusPCR Not Detected (NotDetected); Rhinovirus/Enterovirus PCR Not Detected (NotDetected)
[2022-05-16 10:22] LABS: Adenovirus PCR DETECTED (NotDetected)
[2022-05-16 10:23] LABS: Parainfluenza Virus 3 PCR DETECTED (NotDetected)
[2022-05-16] MEDS: DOXYCYCLINE HYCLATE 100 MG in DEXTROSE 5% 100 ML IV SCH ×2 (10:30→21:35)
[2022-05-16] MEDS: cefTRIAXone SODIUM 2,000 MG in DEXTROSE 5% 50 ML IV SCH (10:30)
[2022-05-16] MEDS: SODIUM CHLORIDE 0.9% 1000ML 1,000 ML IV SCH ×2 (12:40→21:36)
--- NOTE | 2022-05-16 13:31 | Pharmacy Report ---
Pharmacy Glycemic Short Note 2 - Date of Service May 16, 2022 - Glycemic Short BSG Results (Last 24 hours): 05/16/22 05/16/22 04:00 12:35 Glucose 202 H POC Glucose 174 H OUTPATIENT ANTIDIABETIC REGIMEN: * Jardiance 25 mg daily ASSESSMENT: * Obdulia Verma is a 66 year old patient with T2DM who presents with pneumonia. Patient's most recent A1C is 7.1% from 03/15/22 and is managed outpatient with Jardiance 25 mg daily. Fasting BSG was 202 mg/dL and lunchtime BSG was 174 mg/dL today. * Will give Lantus 15 units at lunchtime. Further basal insulin dosing dependent on following BSGs. * Current bolus insulin regimen: CF:20, CR:6 PLAN FOR INPATIENT GLYCEMIC CONTROL: * Hold outpatient oral diabetes medications * Basal insulin * Lantus 15 units SQ at lunchtime today * Bolus insulin * NovoLog per scale ACHS or Q6hrs while NPO * Goal Range: Low 120 mg/dL - High 160 mg/dL * Correction Factor: 20 mg/dL/unit * Nutritional / Prandial insulin per carb ratio of 1 unit per 6 grams CHO consumed
[2022-05-16] MEDS: INSULIN ASPART PER UNIT CHARGE SC SCH ×3 (13:35→21:00)
[2022-05-16] MEDS ORDERED: LANTUS PER UNIT CHARGE SQ ONE (13:45)
[2022-05-16 14:30] LABS: Appearance Urine Clear (Clear); Bacteria Urine Automated Negative (Negative); Bilirubin Urine Negative (Negative); Blood Urine 2+ (Negative); Cast Urine Automated 0 /lpf (0-5); Color Urine Yellow; Glucose Urine UA 3+ (Negative); Ketones Urine 3+ (Negative); Leukocyte Esterase Urine Negative (Negative); Nitrite Urine Negative (Negative); Protein Urine 1+ (Negative); Specific Gravity Urine 1.038 (1.000-1.030); Urobilinogen Urine Negative (Negative)
[2022-05-16] MEDS: ACETAMINOPHEN 325 MG TAB PO PRN (14:59)
[2022-05-16] MEDS: FAMOTIDINE 20 MG TAB PO SCH (17:30)
[2022-05-16] MEDS: PROPRANOLOL HCL 10 MG TAB PO SCH (17:31)
[2022-05-16] MEDS: lamoTRIgine 100 MG TAB PO SCH (17:31)
[2022-05-16 19:43] LABS: BUN Creatinine Ratio 13.3 (10-20); Calcium 9.1 mg/dl (8.5-10.1); Creatinine Clr Calc Pharmacy 91.4 ml/min; Est GFR (African American) 85.2 ml/min; Est GFR (Non-African American) 73.5 ml/min; Phosphorus 3.1 mg/dl (2.5-4.9); Potassium 3.8 mmol/L (3.5-5.1)
[2022-05-16] MEDS ORDERED: LANTUS PER UNIT CHARGE SQ SCH (21:00)
[2022-05-16] MEDS: guaiFENesin 600 MG TABCR PO SCH (21:08)
--- NOTE | 2022-05-17 02:04 | Electrocardiogram Report ---
Test Reason : Blood Pressure : / mmHG Vent. Rate : 118 BPM Atrial Rate : 118 BPM P-R Int : 138 ms QRS Dur : 076 ms QT Int : 306 ms P-R-T Axes : -17 -51 014 degrees QTc Int : 428 ms Poor data quality, interpretation may be adversely affected Sinus tachycardia Left axis deviation Low voltage QRS Nonspecific T wave abnormality Abnormal ECG When compared with ECG of 06-MAR-2021 14:58, No significant change was found Confirmed by Des Mitchell ([id number]) on 05/17/2022 2:03:55 AM Referred By: REFERRED SELF Confirmed By:Des Mitchell
[2022-05-17] MEDS: ACETAMINOPHEN 325 MG TAB PO PRN ×2 (05:00→23:17)
--- NOTE | 2022-05-17 07:20 | XRay Report ---
XR chest 1V portable CLINICAL HISTORY: Pneumonia. COMPARISON STUDY: Chest CT March and chest radiograph May 16, 2022. FINDINGS: Patient is rotated. No pneumothorax or pleural effusion is present. Right midlung airspace opacity persists. There is apparent slight asymmetric interstitial thickening and hazy opacity within the left lung. This may be artifactual. No evidence for pulmonary edema. IMPRESSION: Persistent right midlung airspace opacity suggestive of pneumonia. Radiographic follow-u p to ensure resolution is recommended. ACT 112: Negative or not required by law. Electronically signed by: Dom Nunes M.D. 05/17/2022 7:19 AM
[2022-05-17 07:45] LABS: Hematocrit (blood only) 39.3 % (37.0-47.0); Hemoglobin 12.5 g/dl (12.0-16.0); Mean Corpuscular Hemoglobin 25.8 pg (25.0-34.0); Mean Corpuscular Hgb Conc 31.8 g/dL (32.0-36.0); Mean Corpuscular Volume 81.2 fL (80.0-100.0); Mean Platelet Volume 10.1 fL (9.4-12.4); Platelet Count 184 K/uL (130-400); RDW Coefficient of Variation 14.8 % (11.5-14.5); RDW Standard Deviation 43.2 fL (36.4-46.3); Red Blood Count 4.84 M/uL (4.20-5.40)
[2022-05-17 08:16] LABS: Calcium 8.7 mg/dl (8.5-10.1); Creatinine Clr Calc Pharmacy 101.3 ml/min; Est GFR (African American) 96.3 ml/min; Est GFR (Non-African American) 83.1 ml/min; Magnesium 1.9 mg/dl (1.7-2.4); Phosphorus 2.5 mg/dl (2.5-4.9); Potassium 3.6 mmol/L (3.5-5.1)
[2022-05-17] MEDS: INSULIN ASPART PER UNIT CHARGE SC SCH ×4 (08:44→20:00)
[2022-05-17] MEDS ORDERED: VALSARTAN 80 MG TAB PO SCH (09:00)
[2022-05-17] MEDS: cefTRIAXone SODIUM 2,000 MG in DEXTROSE 5% 50 ML IV SCH (09:04)
[2022-05-17] MEDS ORDERED: ALBUT/IPRATROP 3MG/0.5MG NEB 3 ML VIAL NEB PRN (09:34)
[2022-05-17] MEDS ORDERED: POTASSIUM CHLORIDE PWD 20 MEQ PACK PO ONE (09:48)
[2022-05-17] MEDS: ENOXAPARIN INJ 40 MG/0.4 ML SYR SQ SCH ×2 (09:58→21:35)
[2022-05-17] MEDS: DOXYCYCLINE HYCLATE 100 MG in DEXTROSE 5% 100 ML IV SCH ×2 (09:58→21:35)
[2022-05-17] MEDS: PANTOprazole 40 MG TAB PO SCH (09:59)
[2022-05-17] MEDS: DULoxetine HCL 60 MG CAP PO SCH (09:59)
[2022-05-17] MEDS: TOLTERODINE TARTRATE LA 4 MG CAPCR PO SCH (09:59)
[2022-05-17] MEDS: ATORVASTATIN 20 MG TAB PO SCH (09:59)
[2022-05-17] MEDS: FAMOTIDINE 20 MG TAB PO SCH ×2 (09:59→21:35)
[2022-05-17] MEDS: SACCHAROMYCES BOULARDII 250 MG CAP PO SCH (09:59)
[2022-05-17] MEDS: DULoxetine HCL 30 MG CAP PO SCH (09:59)
[2022-05-17] MEDS: guaiFENesin 600 MG TABCR PO SCH ×2 (09:59→21:35)
[2022-05-17] MEDS: PROPRANOLOL HCL 10 MG TAB PO SCH ×2 (09:59→21:35)
[2022-05-17] MEDS: lamoTRIgine 100 MG TAB PO SCH ×2 (09:59→21:35)
--- NOTE | 2022-05-17 10:05 | Hospitalist Progress Note ---
Date of Service May 17, 2022 Assessment & Plan (1) Sepsis: (2) Pneumonia: (3) Hypoxia: (4) Type 2 diabetes mellitus: (5) Hypertension: (6) Anxiety: (7) Depression: (8) HLD (hyperlipidemia): (9) Overactive bladder: Plan 66 yo F presents with shortness of breath, productive cough, tachycardia, and requiring supplemental oxygen. Leukocytosis w/ WBC of 17K on admission. CXR suggests right lower lobe pneumonia. Biofire positive for adenovirus and parainfluenza 3. Pt meeting sepsis criteria in the setting of pneumonia. Acute hypoxic resp failure Sepsis: Pneumonia - viral w/likely bacterial pna superimposed Hypoxia: -Leukocytosis WBC 17.95, tachycardic in 115-118 range on arrival to ED, Febrile 38.6 C -CXR: postinflammatory scarring versus an infectious or inflammatory pneumonitis; suspect RLL PNA.repeat in a.m. -Biofire positive for adenovirus and parainfluenza 3 -Lactic acid 2.2; responded to fluid resuscitation now 1.5 -Procalcitonin negative -IV Zosyn given in ED; started on Rocephin plus doxycycline; adjust based on blood and sputum culture results -UA pending -Mucinex, ISB, flutter valve - breathing treatments prn Type 2 diabetes mellitus: -A1c 03/15/22: 7.1 -Not compliant with Dexcom at home -Takes Jardiance; hold while here -Prescribed Trulicity but does not take it -We will order FSBS ACHS + SSI; glycemic consultation Hypertension: -Takes Valsartan; hold for now -Question of heart failure in her history; BNP normal -Takes Propranolol; patient states for HTN; ? for Anxiety/depression; continue Dyslipidemia: -lipid panel: 03/15/22: T, HDL 39, LDL 88 -Takes Atorvastatin; continue Anxiety and depression: -Significant stressors at home including raising her 8-month-old great grandson with special physical needs -Currently lives with daughter -Discussed code status; patient was clear she would want to be a DNR/DNI in the setting of a cardiac or respiratory arrest; she was receptive to BiPAP or CPAP in the event of her respiratory decline. 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 -Takes Propranolol; patient states for HTN; ?for Anxiety/depression; continue -Takes Duloxetine; continue Overactive bladder: -Reports foul-smelling urine over past few days -ua/ucultx pending -Takes Detrol; continue Disposition: PCP: Dr. Burciaga CODE STATUS: DNR/DNI VTE prophylaxis: Lovenox subcu Admission and Anticipated Discharge Date Admission Date: May 16, 2022 Subjective Pt seen in follow up of acute hypoxic resp. failure d/t pneumonia Currently laying in bed, in no acute distress Reports she continues to have productive cough, feeling somewhat better, continues to need supplemental oxygen No chest pain, no abdominal pain, no nausea vomiting Review of Systems Review of Systems: All systems reviewed & are unremarkable except as noted in Subjective Physical Exam Physical Exam: General: morbidly obese F in NAD, on suppl. O2 HEENT: NC/AT. EOMI. moist mucus membranes,+Enlarged tonsils. CV: S1/S2, rrr, (-) M/G/R, (-) edema Resp: diffuse wheezing, rhonchi, on 2L suppl. O2 GI: Abdomen S/NT/ND, Ax4 bowel sounds, obese Musculoskeletal: moves extremities Neuro: AAOx4, PE Skin: Awake alert oriented, answering appropriately, no facial asymmetry, speech fluent, moves extremities Results & Data Results & Data Vital Signs (Past 12 Hours) Vital Signs Temp Pulse Pulse Resp BP BP Pulse Ox 05/17/22 08:19 05/17/22 06:00 36.7 C 84 20 130/76 94 05/17/22 05:00 05/17/22 04:30 38.0 C H 90 18 136/79 94 05/16/22 22:00 87 05/16/22 22:00 37.1 C 94 H 18 136/82 93 Pulse Ox O2 Del Method O2 Del Method O2 Flow Rate 05/17/22 08:19 Nasal Cannula 2 05/17/22 06:00 Nasal Cannula 2 05/17/22 05:00 94 Nasal Cannula 05/17/22 04:30 Nasal Cannula 3 05/16/22 22:00 05/16/22 22:00 Nasal Cannula 4 Laboratory Results 05/17/22 05/17/22 05/17/22 Range/Units 07:20 07:12 07:12 WBC 14.20 H (4.8-10.8) K/ul RBC 4.84 (4.20-5.40) M/uL Hgb 12.5 (12.0-16.0) g/dl Hct 39.3 (37.0-47.0) % MCV 81.2 (80.0-100.0) fL MCH 25.8 (25.0-34.0) pg MCHC 31.8 L (32.0-36.0) g/dL RDW Std Deviation 43.2 (36.4-46.3) fL RDW Coeff of Maria Elena 14.8 H (11.5-14.5) % Plt Count 184 (130-400) K/uL MPV 10.1 (9.4-12.4) fL Sodium 134 L (136-145) mmol/L Potassium 3.6 (3.5-5.1) mmol/L Chloride 104 (98-107) mmol/L Carbon Dioxide 25 (21-32) mmol/L Anion Gap 5 (3-11) BUN 12 (6-23) mg/dl Creatinine 0.75 (0.6-1.2) mg/dl Est Cr Clr Drug Dosing 101.3 ml/min Est GFR ( Amer) 96.3 ml/min Est GFR (Non-Af Amer) 83.1 ml/min BUN/Creatinine Ratio 16.0 (10-20) Glucose 104 H (70-99(Fasting)) mg/dl POC Glucose 104 H (70-99) mg/dl Calcium 8.7 (8.5-10.1) mg/dl Phosphorus 2.5 (2.5-4.9) mg/dl Magnesium 1.9 (1.7-2.4) mg/dl Troponin I High Sens (0-14) pg/ml B-Natriuretic Peptide (0-100) pg/ml Urine Color Urine Appearance (Clear) Urine pH (4.5-7.5) Ur Specific [place] (1.000-1.030) Urine Protein (Negative) Urine Glucose (UA) (Negative) Urine Ketones (Negative) Urine Blood (Negative) Urine Nitrite (Negative) Urine Bilirubin (Negative) Urine Urobilinogen (Negative) Ur Leukocyte Esterase (Negative) Urine WBC (Auto) (0-5) /hpf Urine RBC (Auto) (0-4) /hpf U Hyaline Cast (Auto) (0-5) /lpf U Epithel Cells (Auto) (0-5) /lpf Urine Bacteria (Auto) (Negative) Urine Yeast (None Prsent) Adenovirus (PCR) (NotDetected) B. pertussis DNA (PCR) (NotDetected) B.parapertussis DNA PCR (NotDetected) C. pneumoniae DNA (PCR) (NotDetected) Coronavirus OC43 (PCR) (NotDetected) Coronavirus HKU1 (PCR) (NotDetected) Coronavirus 229E (PCR) (NotDetected) SARS-CoV-2 (PCR) (NotDetected) Coronavirus NL63 (PCR) (NotDetected) Human Metapneumovir PCR (NotDetected) Influenza Type A (PCR) (NotDetected) Influenza Type B (PCR) (NotDetected) M. pneumoniae (PCR) (NotDetected) Parainfluenza 1 (PCR) (NotDetected) Parainfluenza 2 (PCR) (NotDetected) Parainfluenza 3 (PCR) (NotDetected) Parainfluenza 4 (PCR) (NotDetected) RSV (PCR) (NotDetected) Entero/Rhino (PCR) (NotDetected) 05/16/22 05/16/22 05/16/22 Range/Units 20:11 18:50 16:56 WBC (4.8-10.8) K/ul RBC (4.20-5.40) M/uL Hgb (12.0-16.0) g/dl Hct (37.0-47.0) % MCV (80.0-100.0) fL MCH (25.0-34.0) pg MCHC (32.0-36.0) g/dL RDW Std Deviation (36.4-46.3) fL RDW Coeff of Maria Elena (11.5-14.5) % Plt Count (130-400) K/uL MPV (9.4-12.4) fL Sodium 135 L (136-145) mmol/L Potassium 3.8 (3.5-5.1) mmol/L Chloride 104 (98-107) mmol/L Carbon Dioxide 23 (21-32) mmol/L Anion Gap 8 (3-11) BUN 11 (6-23) mg/dl Creatinine 0.83 (0.6-1.2) mg/dl Est Cr Clr Drug Dosing 91.4 ml/min Est GFR ( Amer) 85.2 ml/min Est GFR (Non-Af Amer) 73.5 ml/min BUN/Creatinine Ratio 13.3 (10-20) Glucose 116 H (70-99(Fasting)) mg/dl POC Glucose 151 H 200 H (70-99) mg/dl Calcium 9.1 (8.5-10.1) mg/dl Phosphorus 3.1 (2.5-4.9) mg/dl Magnesium 2.0 (1.7-2.4) mg/dl Troponin I High Sens (0-14) pg/ml B-Natriuretic Peptide (0-100) pg/ml Urine Color Urine Appearance (Clear) Urine pH (4.5-7.5) Ur Specific [place] (1.000-1.030) Urine Protein (Negative) Urine Glucose (UA) (Negative) Urine Ketones (Negative) Urine Blood (Negative) Urine Nitrite (Negative) Urine Bilirubin (Negative) Urine Urobilinogen (Negative) Ur Leukocyte Esterase (Negative) Urine WBC (Auto) (0-5) /hpf Urine RBC (Auto) (0-4) /hpf U Hyaline Cast (Auto) (0-5) /lpf U Epithel Cells (Auto) (0-5) /lpf Urine Bacteria (Auto) (Negative) Urine Yeast (None Prsent) Adenovirus (PCR) (NotDetected) B. pertussis DNA (PCR) (NotDetected) B.parapertussis DNA PCR (NotDetected) C. pneumoniae DNA (PCR) (NotDetected) Coronavirus OC43 (PCR) (NotDetected) Coronavirus HKU1 (PCR) (NotDetected) Coronavirus 229E (PCR) (NotDetected) SARS-CoV-2 (PCR) (NotDetected) Coronavirus NL63 (PCR) (NotDetected) Human Metapneumovir PCR (NotDetected) Influenza Type A (PCR) (NotDetected) Influenza Type B (PCR) (NotDetected) M. pneumoniae (PCR) (NotDetected) Parainfluenza 1 (PCR) (NotDetected) Parainfluenza 2 (PCR) (NotDetected) Parainfluenza 3 (PCR) (NotDetected) Parainfluenza 4 (PCR) (NotDetected) RSV (PCR) (NotDetected) Entero/Rhino (PCR) (NotDetected) 05/16/22 05/16/22 05/16/22 Range/Units 13:59 12:35 10:01 WBC (4.8-10.8) K/ul RBC (4.20-5.40) M/uL Hgb (12.0-16.0) g/dl Hct (37.0-47.0) % MCV (80.0-100.0) fL MCH (25.0-34.0) pg MCHC (32.0-36.0) g/dL RDW Std Deviation (36.4-46.3) fL RDW Coeff of Maria Elena (11.5-14.5) % Plt Count (130-400) K/uL MPV (9.4-12.4) fL Sodium (136-145) mmol/L Potassium (3.5-5.1) mmol/L Chloride (98-107) mmol/L Carbon Dioxide (21-32) mmol/L Anion Gap (3-11) BUN (6-23) mg/dl Creatinine (0.6-1.2) mg/dl Est Cr Clr Drug Dosing ml/min Est GFR ( Amer) ml/min Est GFR (Non-Af Amer) ml/min BUN/Creatinine Ratio (10-20) Glucose (70-99(Fasting)) mg/dl POC Glucose 174 H (70-99) mg/dl Calcium (8.5-10.1) mg/dl Phosphorus (2.5-4.9) mg/dl Magnesium (1.7-2.4) mg/dl Troponin I High Sens 19.4 H (0-14) pg/ml B-Natriuretic Peptide (0-100) pg/ml Urine Color Yellow Urine Appearance Clear (Clear) Urine pH 6.0 (4.5-7.5) Ur Specific [place] 1.038 H (1.000-1.030) Urine Protein 1+ H (Negative) Urine Glucose (UA) 3+ H (Negative) Urine Ketones 3+ H (Negative) Urine Blood 2+ H (Negative) Urine Nitrite Negative (Negative) Urine Bilirubin Negative (Negative) Urine Urobilinogen Negative (Negative) Ur Leukocyte Esterase Negative (Negative) Urine WBC (Auto) 1-5 (0-5) /hpf Urine RBC (Auto) 5-10 H (0-4) /hpf U Hyaline Cast (Auto) 0 (0-5) /lpf U Epithel Cells (Auto) 5-10 H (0-5) /lpf Urine Bacteria (Auto) Negative (Negative) Urine Yeast Present A (None Prsent) Adenovirus (PCR) (NotDetected) B. pertussis DNA (PCR) (NotDetected) B.parapertussis DNA PCR (NotDetected) C. pneumoniae DNA (PCR) (NotDetected) Coronavirus OC43 (PCR) (NotDetected) Coronavirus HKU1 (PCR) (NotDetected) Coronavirus 229E (PCR) (NotDetected) SARS-CoV-2 (PCR) (NotDetected) Coronavirus NL63 (PCR) (NotDetected) Human Metapneumovir PCR (NotDetected) Influenza Type A (PCR) (NotDetected) Influenza Type B (PCR) (NotDetected) M. pneumoniae (PCR) (NotDetected) Parainfluenza 1 (PCR) (NotDetected) Parainfluenza 2 (PCR) (NotDetected) Parainfluenza 3 (PCR) (NotDetected) Parainfluenza 4 (PCR) (NotDetected) RSV (PCR) (NotDetected) Entero/Rhino (PCR) (NotDetected) 05/16/22 05/16/22 Range/Units 10:01 08:18 WBC (4.8-10.8) K/ul RBC (4.20-5.40) M/uL Hgb (12.0-16.0) g/dl Hct (37.0-47.0) % MCV (80.0-100.0) fL MCH (25.0-34.0) pg MCHC (32.0-36.0) g/dL RDW Std Deviation (36.4-46.3) fL RDW Coeff of Maria Elena (11.5-14.5) % Plt Count (130-400) K/uL MPV (9.4-12.4) fL Sodium (136-145) mmol/L Potassium (3.5-5.1) mmol/L Chloride (98-107) mmol/L Carbon Dioxide (21-32) mmol/L Anion Gap (3-11) BUN (6-23) mg/dl Creatinine (0.6-1.2) mg/dl Est Cr Clr Drug Dosing ml/min Est GFR ( Amer) ml/min Est GFR (Non-Af Amer) ml/min BUN/Creatinine Ratio (10-20) Glucose (70-99(Fasting)) mg/dl POC Glucose (70-99) mg/dl Calcium (8.5-10.1) mg/dl Phosphorus (2.5-4.9) mg/dl Magnesium (1.7-2.4) mg/dl Troponin I High Sens (0-14) pg/ml B-Natriuretic Peptide 132 H (0-100) pg/ml Urine Color Urine Appearance (Clear) Urine pH (4.5-7.5) Ur Specific [place] (1.000-1.030) Urine Protein (Negative) Urine Glucose (UA) (Negative) Urine Ketones (Negative) Urine Blood (Negative) Urine Nitrite (Negative) Urine Bilirubin (Negative) Urine Urobilinogen (Negative) Ur Leukocyte Esterase (Negative) Urine WBC (Auto) (0-5) /hpf Urine RBC (Auto) (0-4) /hpf U Hyaline Cast (Auto) (0-5) /lpf U Epithel Cells (Auto) (0-5) /lpf Urine Bacteria (Auto) (Negative) Urine Yeast (None Prsent) Adenovirus (PCR) DETECTED A* (NotDetected) B. pertussis DNA (PCR) Not Detected (NotDetected) B.parapertussis DNA PCR Not Detected (NotDetected) C. pneumoniae DNA (PCR) Not Detected (NotDetected) Coronavirus OC43 (PCR) Not Detected (NotDetected) Coronavirus HKU1 (PCR) Not Detected (NotDetected) Coronavirus 229E (PCR) Not Detected (NotDetected) SARS-CoV-2 (PCR) Not Detected (NotDetected) Coronavirus NL63 (PCR) Not Detected (NotDetected) Human Metapneumovir PCR Not Detected (NotDetected) Influenza Type A (PCR) Not Detected (NotDetected) Influenza Type B (PCR) Not Detected (NotDetected) M. pneumoniae (PCR) Not Detected (NotDetected) Parainfluenza 1 (PCR) Not Detected (NotDetected) Parainfluenza 2 (PCR) Not Detected (NotDetected) Parainfluenza 3 (PCR) DETECTED A* (NotDetected) Parainfluenza 4 (PCR) Not Detected (NotDetected) RSV (PCR) Not Detected (NotDetected) Entero/Rhino (PCR) Not Detected (NotDetected) Medications Administered Current Inpatient Medications Acetaminophen (Acetaminophen 325 Mg Tab) 650 mg PO Q4H PRN PRN Reason: Pain or Fever Stop: 06/15/22 08:33 Last Admin: 05/17/22 05:00 Dose: 650 mg Al Hydrox/Mg Hydrox/Simethicone (Aluminum/Magnesium Susp 30 Ml Udc) 15 ml PO Q4H PRN PRN Reason: Dyspepsia Stop: 06/15/22 08:33 Albuterol (Albut/Ipratrop 3mg/0.5mg Neb 3 Ml Vial) 3 ml NEB Q4R PRN; Protocol PRN Reason: Shortness Of Breath Or Wheezing Stop: 06/16/22 10:59 Atorvastatin Calcium (Atorvastatin 20 Mg Tab) 20 mg PO DAILY BABAK Stop: 06/16/22 08:59 Last Admin: 05/17/22 09:59 Dose: 20 mg Cyclobenzaprine HCl (Cyclobenzaprine Hcl 10 Mg Tab) 10 mg PO TID PRN PRN Reason: Muscle Spasm Stop: 06/15/22 09:24 Dextrose (Dextrose 50% 50 Ml Syringe) 25 - 50 ml IV UD PRN; Protocol PRN Reason: Hypoglycemia Protocol Stop: 06/15/22 09:42 Duloxetine HCl (Duloxetine Hcl 30 Mg Cap) 30 mg PO DAILY BABAK Stop: 06/16/22 08:59 Last Admin: 05/17/22 09:59 Dose: 30 mg Duloxetine HCl (Duloxetine Hcl 60 Mg Cap) 60 mg PO DAILY BABAK Stop: 06/16/22 08:59 Last Admin: 03/18/23 09:59 Dose: 60 mg Enoxaparin Sodium (Enoxaparin Inj 40 Mg/0.4 Ml Syr) 40 mg SQ BID BABAK Stop: 06/16/22 08:59 Last Admin: 05/17/22 09:58 Dose: 40 mg Famotidine (Famotidine 20 Mg Tab) 20 mg PO BID [facility] Stop: 06/15/22 20:59 Last Admin: 05/17/22 09:59 Dose: 20 mg Glucagon (Glucagon For Inj 1 Mg Vial) 1 mg SQ UD PRN; Protocol PRN Reason: Hypoglycemia Protocol Stop: 06/15/22 09:42 Glucose (Glucose 10 Tab/Tube) 4 - 8 tab PO UD PRN; Protocol PRN Reason: Hypoglycemia Treatment Stop: 06/15/22 09:42 Glucose (Glucose 40% Gel 15 Gm Tube) 15 - 30 gm PO UD PRN; Protocol PRN Reason: Hypoglycemia Protocol Stop: 06/15/22 09:42 Guaifenesin (Guaifenesin 600 Mg Tabcr) 1,200 mg PO Q12 [facility]AK Stop: 06/15/22 20:59 Last Admin: 05/17/22 09:59 Dose: 1,200 mg Ceftriaxone Sodium 2,000 mg/ (Dextrose) 70 mls @ 100 mls/hr IV Q24H [facility]; Protocol Stop: 05/23/22 08:59 Last Infusion: 05/17/22 10:00 Dose: Infused Doxycycline Hyclate 100 mg/ (Dextrose) 110 mls @ 50 mls/hr IV Q12H [facility] Stop: 05/23/22 08:59 Last Admin: 05/17/22 09:58 Dose: 50 mls/hr Insulin Aspart (Insulin Aspart Per Unit) 0 units SC ACHS BABAK Stop: 06/15/22 12:04 Last Admin: 05/17/22 08:44 Dose: 10 units Insulin Glargine (Lantus Per Unit Charge) 10 units SQ QAM [facility]AK Stop: 06/17/22 09:29 Lamotrigine (Lamotrigine 100 Mg Tab) 100 mg PO BID [facility] Stop: 06/15/22 20:59 Last Admin: 05/17/22 09:59 Dose: 100 mg Magnesium Hydroxide (Magnesium Hydroxide Susp 30 Ml Udc) 30 ml PO Q12H PRN PRN Reason: Constipation Stop: 06/15/22 08:33 Miscellaneous (Carbohydrates For Hypoglycemia ) 15 - 30 gm PO UD PRN PRN Reason: Hypoglycemia Protocol Stop: 06/15/22 09:42 Miscellaneous Information (Pharmacy Glycemic Mgmt Consult) 1 each N/A UD PRN PRN Reason: Consult Stop: 06/15/22 09:42 Ondansetron HCl (Ondansetron Inj 2 Mg/Ml 2 Ml Vial) 4 mg IV Q6H PRN PRN Reason: Nausea Stop: 06/15/22 08:33 Pantoprazole Sodium (Pantoprazole 40 Mg Tab) 40 mg PO DAILY BABAK Stop: 06/16/22 08:59 Last Admin: 05/17/22 09:59 Dose: 40 mg Polyethylene Glycol (Polyethylene (Miralax) 17 Gm Pack) 17 gm PO DAILY PRN PRN Reason: Constipation Stop: 06/15/22 08:33 Propranolol HCl (Propranolol Hcl 10 Mg Tab) 10 mg PO BID [facility] Stop: 06/15/22 20:59 Last Admin: 05/17/22 09:59 Dose: 10 mg Saccharomyces Boulardii (Saccharomyces Boulardii 250 Mg Cap) 250 mg PO DAILY [facility]ABAK Stop: 06/16/22 08:59 Last Admin: 05/17/22 09:59 Dose: 250 mg Tolterodine Tartrate (Tolterodine Tartrate La 4 Mg Capcr) 4 mg PO DAILY [facility] Stop: 06/16/22 08:59 Last Admin: 05/17/22 09:59 Dose: 4 mg Valsartan (Valsartan 80 Mg Tab) 80 mg PO DAILY [facility] Stop: 06/16/22 08:59 (1) Sepsis Sepsis acute organ dysfunction status: unspecified Sepsis type: sepsis due to unspecified organism Qualified Code(s): A41.9 - Sepsis, unspecified organism (2) Pneumonia Laterality: right Lung location: lower lobe of lung Pneumonia type: due to unspecified organism Qualified Code(s): J18.9 - Pneumonia, unspecified organism
[2022-05-18 07:04] LABS: Hematocrit (blood only) 38.5 % (37.0-47.0); Mean Corpuscular Hemoglobin 25.4 pg (25.0-34.0); Mean Corpuscular Hgb Conc 31.2 g/dL (32.0-36.0); Mean Corpuscular Volume 81.4 fL (80.0-100.0); Mean Platelet Volume 10.2 fL (9.4-12.4); Platelet Count 193 K/uL (130-400); RDW Coefficient of Variation 14.8 % (11.5-14.5); RDW Standard Deviation 43.9 fL (36.4-46.3); Red Blood Count 4.73 M/uL (4.20-5.40); White Blood Count 11.01 K/ul (4.8-10.8)
[2022-05-18 07:41] LABS: BUN Creatinine Ratio 22.4 (10-20); Calcium 9.3 mg/dl (8.5-10.1); Creatinine Clr Calc Pharmacy 113.4 ml/min; Est GFR (African American) 106.2 ml/min; Est GFR (Non-African American) 91.6 ml/min; Potassium 3.7 mmol/L (3.5-5.1)
--- NOTE | 2022-05-18 07:41 | Hospitalist Progress Note ---
Date of Service May 18, 2022 Assessment & Plan (1) Sepsis: (2) Pneumonia: (3) Hypoxia: (4) Type 2 diabetes mellitus: (5) Hypertension: (6) Anxiety: (7) Depression: (8) HLD (hyperlipidemia): (9) Overactive bladder: Plan 66 yo F presents with shortness of breath, productive cough, tachycardia, and requiring supplemental oxygen. Leukocytosis w/ WBC of 17K on admission. CXR suggests right lower lobe pneumonia. Biofire positive for adenovirus and parainfluenza 3. Pt meeting sepsis criteria in the setting of pneumonia. Acute hypoxic resp failure Sepsis: Pneumonia - viral w/likely bacterial pna superimposed Hypoxia: -Leukocytosis WBC 17.95, tachycardic in 115-118 range on arrival to ED, Febrile 38.6 C -CXR: postinflammatory scarring versus an infectious or inflammatory pneumonitis; suspect RLL PNA.repeat in a.m. -Biofire positive for adenovirus and parainfluenza 3 -Lactic acid 2.2; responded to fluid resuscitation now 1.5 -Procalcitonin negative -IV Zosyn given in ED; started on Rocephin plus doxycycline; adjust based on blood and sputum culture results - blood cultx - negative in 48 hrs -sputum cultx - Group A beta strep -Mucinex, ISB, flutter valve - breathing treatments prn Type 2 diabetes mellitus: -A1c 03/15/22: 7.1 -Not compliant with Dexcom at home -Takes Jardiance; hold while here -Prescribed Trulicity but does not take it -We will order FSBS ACHS + SSI; glycemic consultation Hypertension: -Takes Valsartan; hold for now -Question of heart failure in her history; BNP normal -Takes Propranolol; patient states for HTN; ? for Anxiety/depression; continue Dyslipidemia: -lipid panel: 03/15/22: T, HDL 39, LDL 88 -Takes Atorvastatin; continue Anxiety and depression: -Significant stressors at home including raising her 8-month-old great grandson with special physical needs -Currently lives with daughter -Discussed code status; patient was clear she would want to be a DNR/DNI in the setting of a cardiac or respiratory arrest; she was receptive to BiPAP or CPAP in the event of her respiratory decline. 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 -Takes Propranolol; patient states for HTN; ?for Anxiety/depression; continue -Takes Duloxetine; continue Overactive bladder: -Reports foul-smelling urine over past few days -ua/ucultx - mixed gloria -Takes Detrol; continue Disposition: PCP: Dr. Burciaga CODE STATUS: DNR/DNI VTE prophylaxis: Lovenox subcu Admission and Anticipated Discharge Date Admission Date: May 16, 2022 Subjective Pt seen in follow up of acute hypoxic resp. failure d/t pneumonia Currently sitting up in bed, in no acute distress, on suppl. O2, having lunch Reports she continues to have productive cough, feeling better overall No chest pain, no abdominal pain, no nausea vomiting Review of Systems Review of Systems: All systems reviewed & are unremarkable except as noted in Subjective Physical Exam Physical Exam: General: morbidly obese F in NAD, on suppl. O2 HEENT: NC/AT. EOMI. moist mucus membranes,+Enlarged tonsils. CV: S1/S2, rrr, (-) M/G/R, (-) edema Resp: diffuse wheezing, rhonchi, on 2L suppl. O2 GI: Abdomen S/NT/ND, Ax4 bowel sounds, obese Musculoskeletal: moves extremities Neuro: AAOx4, PE Skin: Awake alert oriented, answering appropriately, no facial asymmetry, speech fluent, moves extremities Results & Data Results & Data Vital Signs (Past 12 Hours) Vital Signs Temp Pulse Resp BP Pulse Ox O2 Del Method O2 Flow Rate 05/18/22 03:44 36.5 C 78 14 113/72 95 Room Air 05/17/22 23:04 36.7 C 78 18 118/59 L 94 Room Air 05/17/22 21:30 Nasal Cannula 2 Laboratory Results 05/18/22 05/18/22 05/18/22 Range/Units 11:21 07:22 06:21 WBC (4.8-10.8) K/ul RBC (4.20-5.40) M/uL Hgb (12.0-16.0) g/dl Hct (37.0-47.0) % MCV (80.0-100.0) fL MCH (25.0-34.0) pg MCHC (32.0-36.0) g/dL RDW Std Deviation (36.4-46.3) fL RDW Coeff of Maria Elena (11.5-14.5) % Plt Count (130-400) K/uL MPV (9.4-12.4) fL Sodium 137 (136-145) mmol/L Potassium 3.7 (3.5-5.1) mmol/L Chloride 105 (98-107) mmol/L Carbon Dioxide 25 (21-32) mmol/L Anion Gap 7 (3-11) BUN 15 (6-23) mg/dl Creatinine 0.67 (0.6-1.2) mg/dl Est Cr Clr Drug Dosing 113.4 ml/min Est GFR ( Amer) 106.2 ml/min Est GFR (Non-Af Amer) 91.6 ml/min BUN/Creatinine Ratio 22.4 H (10-20) Glucose 112 H (70-99(Fasting)) mg/dl POC Glucose 166 H 106 H (70-99) mg/dl Calcium 9.3 (8.5-10.1) mg/dl Phosphorus 3.0 (2.5-4.9) mg/dl Magnesium 2.0 (1.7-2.4) mg/dl 05/18/22 05/17/22 05/17/22 Range/Units 06:21 19:38 16:12 WBC 11.01 H (4.8-10.8) K/ul RBC 4.73 (4.20-5.40) M/uL Hgb 12.0 (12.0-16.0) g/dl Hct 38.5 (37.0-47.0) % MCV 81.4 (80.0-100.0) fL MCH 25.4 (25.0-34.0) pg MCHC 31.2 L (32.0-36.0) g/dL RDW Std Deviation 43.9 (36.4-46.3) fL RDW Coeff of Maria Elena 14.8 H (11.5-14.5) % Plt Count 193 (130-400) K/uL MPV 10.2 (9.4-12.4) fL Sodium (136-145) mmol/L Potassium (3.5-5.1) mmol/L Chloride (98-107) mmol/L Carbon Dioxide (21-32) mmol/L Anion Gap (3-11) BUN (6-23) mg/dl Creatinine (0.6-1.2) mg/dl Est Cr Clr Drug Dosing ml/min Est GFR ( Amer) ml/min Est GFR (Non-Af Amer) ml/min BUN/Creatinine Ratio (10-20) Glucose (70-99(Fasting)) mg/dl POC Glucose 110 H 114 H (70-99) mg/dl Calcium (8.5-10.1) mg/dl Phosphorus (2.5-4.9) mg/dl Magnesium (1.7-2.4) mg/dl Medications Administered Current Inpatient Medications Acetaminophen (Acetaminophen 325 Mg Tab) 650 mg PO Q4H PRN PRN Reason: Pain or Fever Stop: 06/15/22 08:33 Last Admin: 05/17/22 23:17 Dose: 650 mg Al Hydrox/Mg Hydrox/Simethicone (Aluminum/Magnesium Susp 30 Ml Udc) 15 ml PO Q4H PRN PRN Reason: Dyspepsia Stop: 06/15/22 08:33 Albuterol (Albut/Ipratrop 3mg/0.5mg Neb 3 Ml Vial) 3 ml NEB Q4R PRN; Protocol PRN Reason: Shortness Of Breath Or Wheezing Stop: 06/16/22 10:59 Last Admin: 05/17/22 10:05 Dose: 3 ml Atorvastatin Calcium (Atorvastatin 20 Mg Tab) 20 mg PO DAILY [facility] Stop: 06/16/22 08:59 Last Admin: 05/17/22 09:59 Dose: 20 mg Cyclobenzaprine HCl (Cyclobenzaprine Hcl 10 Mg Tab) 10 mg PO TID PRN PRN Reason: Muscle Spasm Stop: 06/15/22 09:24 Dextrose (Dextrose 50% 50 Ml Syringe) 25 - 50 ml IV UD PRN; Protocol PRN Reason: Hypoglycemia Protocol Stop: 06/15/22 09:42 Duloxetine HCl (Duloxetine Hcl 30 Mg Cap) 30 mg PO DAILY [facility] Stop: 06/16/22 08:59 Last Admin: 05/17/22 09:59 Dose: 30 mg Duloxetine HCl (Duloxetine Hcl 60 Mg Cap) 60 mg PO DAILY [facility] Stop: 06/16/22 08:59 Last Admin: 05/17/22 09:59 Dose: 60 mg Enoxaparin Sodium (Enoxaparin Inj 40 Mg/0.4 Ml Syr) 40 mg SQ BID [facility] Stop: 06/16/22 08:59 Last Admin: 05/17/22 21:35 Dose: 40 mg Famotidine (Famotidine 20 Mg Tab) 20 mg PO BID [facility] Stop: 06/15/22 20:59 Last Admin: 05/17/22 21:35 Dose: 20 mg Glucagon (Glucagon For Inj 1 Mg Vial) 1 mg SQ UD PRN; Protocol PRN Reason: Hypoglycemia Protocol Stop: 06/15/22 09:42 Glucose (Glucose 10 Tab/Tube) 4 - 8 tab PO UD PRN; Protocol PRN Reason: Hypoglycemia Treatment Stop: 06/15/22 09:42 Glucose (Glucose 40% Gel 15 Gm Tube) 15 - 30 gm PO UD PRN; Protocol PRN Reason: Hypoglycemia Protocol Stop: 06/15/22 09:42 Guaifenesin (Guaifenesin 600 Mg Tabcr) 1,200 mg PO Q12 [facility] Stop: 06/15/22 20:59 Last Admin: 05/17/22 21:35 Dose: 1,200 mg Ceftriaxone Sodium 2,000 mg/ (Dextrose) 70 mls @ 100 mls/hr IV Q24H [facility]; Protocol Stop: 05/23/22 08:59 Last Infusion: 05/17/22 10:00 Dose: Infused Doxycycline Hyclate 100 mg/ (Dextrose) 110 mls @ 50 mls/hr IV Q12H [facility] Stop: 05/23/22 08:59 Last Infusion: 05/17/22 23:50 Dose: Infused Insulin Aspart (Insulin Aspart Per Unit) 0 units SC ACHS [facility] Stop: 06/15/22 12:04 Last Admin: 05/17/22 20:00 Dose: Not Given Insulin Glargine (Lantus Per Unit Charge) 10 units SQ QAM [facility] Stop: 06/17/22 09:29 Lamotrigine (Lamotrigine 100 Mg Tab) 100 mg PO BID [facility] Stop: 06/15/22 20:59 Last Admin: 05/17/22 21:35 Dose: 100 mg Magnesium Hydroxide (Magnesium Hydroxide Susp 30 Ml Udc) 30 ml PO Q12H PRN PRN Reason: Constipation Stop: 06/15/22 08:33 Miscellaneous (Carbohydrates For Hypoglycemia ) 15 - 30 gm PO UD PRN PRN Reason: Hypoglycemia Protocol Stop: 06/15/22 09:42 Miscellaneous Information (Pharmacy Glycemic Mgmt Consult) 1 each N/A UD PRN PRN Reason: Consult Stop: 06/15/22 09:42 Ondansetron HCl (Ondansetron Inj 2 Mg/Ml 2 Ml Vial) 4 mg IV Q6H PRN PRN Reason: Nausea Stop: 06/15/22 08:33 Pantoprazole Sodium (Pantoprazole 40 Mg Tab) 40 mg PO DAILY [facility] Stop: 06/16/22 08:59 Last Admin: 05/17/22 09:59 Dose: 40 mg Polyethylene Glycol (Polyethylene (Miralax) 17 Gm Pack) 17 gm PO DAILY PRN PRN Reason: Constipation Stop: 06/15/22 08:33 Propranolol HCl (Propranolol Hcl 10 Mg Tab) 10 mg PO BID [facility] Stop: 06/15/22 20:59 Last Admin: 05/17/22 21:35 Dose: 10 mg Saccharomyces Boulardii (Saccharomyces Boulardii 250 Mg Cap) 250 mg PO DAILY [facility] Stop: 06/16/22 08:59 Last Admin: 05/17/22 09:59 Dose: 250 mg Tolterodine Tartrate (Tolterodine Tartrate La 4 Mg Capcr) 4 mg PO DAILY [facility] Stop: 06/16/22 08:59 Last Admin: 05/17/22 09:59 Dose: 4 mg Valsartan (Valsartan 80 Mg Tab) 80 mg PO DAILY [facility] Stop: 06/16/22 08:59 (1) Sepsis Sepsis acute organ dysfunction status: unspecified Sepsis type: sepsis due to unspecified organism Qualified Code(s): A41.9 - Sepsis, unspecified organism (2) Pneumonia Laterality: right Lung location: lower lobe of lung Pneumonia type: due to unspecified organism Qualified Code(s): J18.9 - Pneumonia, unspecified organism
--- NOTE | 2022-05-18 07:48 | Electrocardiogram Report ---
Test Reason : Blood Pressure : / mmHG Vent. Rate : 082 BPM Atrial Rate : 082 BPM P-R Int : 128 ms QRS Dur : 082 ms QT Int : 344 ms P-R-T Axes : 000 -43 -20 degrees QTc Int : 401 ms Normal sinus rhythm Left axis deviation Nonspecific ST and T wave abnormality Abnormal ECG When compared with ECG of 16-MAY-2022 04:15, Nonspecific T wave abnormality, worse in Anterior leads Confirmed by Antony Maki ([id number]) on 05/18/2022 7:47:35 AM Referred By: REFERRED SELF Confirmed By:Andrew Maki
[2022-05-18] MEDS: INSULIN ASPART PER UNIT CHARGE SC SCH ×4 (08:40→20:27)
[2022-05-18] MEDS: LANTUS PER UNIT CHARGE SQ SCH (08:41)
[2022-05-18] MEDS: cefTRIAXone SODIUM 2,000 MG in DEXTROSE 5% 50 ML IV SCH (08:46)
[2022-05-18] MEDS: PANTOprazole 40 MG TAB PO SCH (08:46)
[2022-05-18] MEDS: SACCHAROMYCES BOULARDII 250 MG CAP PO SCH (08:46)
[2022-05-18] MEDS: ATORVASTATIN 20 MG TAB PO SCH (08:46)
[2022-05-18] MEDS: PROPRANOLOL HCL 10 MG TAB PO SCH ×2 (08:47→20:00)
[2022-05-18] MEDS: lamoTRIgine 100 MG TAB PO SCH ×2 (08:47→20:01)
[2022-05-18] MEDS: TOLTERODINE TARTRATE LA 4 MG CAPCR PO SCH (08:47)
[2022-05-18] MEDS: FAMOTIDINE 20 MG TAB PO SCH ×2 (08:47→20:01)
[2022-05-18] MEDS: guaiFENesin 600 MG TABCR PO SCH ×2 (08:47→20:00)
[2022-05-18] MEDS: DULoxetine HCL 60 MG CAP PO SCH (08:47)
[2022-05-18] MEDS: DULoxetine HCL 30 MG CAP PO SCH (08:47)
[2022-05-18] MEDS: ENOXAPARIN INJ 40 MG/0.4 ML SYR SQ SCH ×2 (08:48→19:59)
[2022-05-18] MEDS: DOXYCYCLINE HYCLATE 100 MG in DEXTROSE 5% 100 ML IV SCH ×2 (10:32→19:59)
--- NOTE | 2022-05-18 10:36 | Electrocardiogram Report ---
Test Reason : Blood Pressure : / mmHG Vent. Rate : 073 BPM Atrial Rate : 073 BPM P-R Int : 150 ms QRS Dur : 082 ms QT Int : 398 ms P-R-T Axes : 033 -14 028 degrees QTc Int : 438 ms Sinus rhythm with Premature supraventricular complexes Low voltage QRS Borderline ECG When compared with ECG of 17-MAY-2022 06:36, Premature supraventricular complexes are now Present Confirmed by Antony Maki ([id number]) on 05/18/2022 10:35:39 AM Referred By: REFERRED SELF Confirmed By:Andrew Maki
[2022-05-19 07:35] LABS: Hematocrit (blood only) 35.9 % (37.0-47.0); Hemoglobin 11.4 g/dl (12.0-16.0); Mean Corpuscular Hemoglobin 25.4 pg (25.0-34.0); Mean Corpuscular Hgb Conc 31.8 g/dL (32.0-36.0); Mean Corpuscular Volume 80.1 fL (80.0-100.0); Mean Platelet Volume 10.1 fL (9.4-12.4); Platelet Count 205 K/uL (130-400); RDW Coefficient of Variation 14.6 % (11.5-14.5); RDW Standard Deviation 42.6 fL (36.4-46.3); Red Blood Count 4.48 M/uL (4.20-5.40); White Blood Count 10.46 K/ul (4.8-10.8)
[2022-05-19 08:00] LABS: BUN Creatinine Ratio 19.4 (10-20); Calcium 9.1 mg/dl (8.5-10.1); Creatinine Clr Calc Pharmacy 105.2 ml/min; Est GFR (African American) 101.1 ml/min; Est GFR (Non-African American) 87.3 ml/min; Magnesium 1.9 mg/dl (1.7-2.4); Phosphorus 3.9 mg/dl (2.5-4.9)
[2022-05-19] MEDS: INSULIN ASPART PER UNIT CHARGE SC SCH ×4 (08:52→21:35)
[2022-05-19] MEDS: LANTUS PER UNIT CHARGE SQ SCH (08:52)
[2022-05-19] MEDS: guaiFENesin 600 MG TABCR PO SCH ×2 (08:58→21:43)
[2022-05-19] MEDS: lamoTRIgine 100 MG TAB PO SCH ×2 (08:58→21:43)
[2022-05-19] MEDS: FAMOTIDINE 20 MG TAB PO SCH ×2 (08:58→22:06)
[2022-05-19] MEDS: PROPRANOLOL HCL 10 MG TAB PO SCH ×2 (08:58→21:45)
[2022-05-19] MEDS: SACCHAROMYCES BOULARDII 250 MG CAP PO SCH (08:59)
[2022-05-19] MEDS: DULoxetine HCL 30 MG CAP PO SCH (08:59)
[2022-05-19] MEDS: ENOXAPARIN INJ 40 MG/0.4 ML SYR SQ SCH ×2 (08:59→21:40)
[2022-05-19] MEDS: TOLTERODINE TARTRATE LA 4 MG CAPCR PO SCH (08:59)
[2022-05-19] MEDS: DULoxetine HCL 60 MG CAP PO SCH (08:59)
[2022-05-19] MEDS: ATORVASTATIN 20 MG TAB PO SCH (08:59)
[2022-05-19] MEDS: PANTOprazole 40 MG TAB PO SCH (09:00)
[2022-05-19] MEDS: cefTRIAXone SODIUM 2,000 MG in DEXTROSE 5% 50 ML IV SCH (09:05)
--- NOTE | 2022-05-19 09:20 | Hospitalist Progress Note ---
Date of Service May 19, 2022 Assessment & Plan (1) Sepsis: (2) Pneumonia: (3) Hypoxia: (4) Type 2 diabetes mellitus: (5) Hypertension: (6) Anxiety: (7) Depression: (8) HLD (hyperlipidemia): (9) Overactive bladder: Plan 66 yo F presents with shortness of breath, productive cough, tachycardia, and requiring supplemental oxygen. Leukocytosis w/ WBC of 17K on admission. CXR suggests right lower lobe pneumonia. Biofire positive for adenovirus and parainfluenza 3. Pt meeting sepsis criteria in the setting of pneumonia. Acute hypoxic resp failure Sepsis: Pneumonia - viral w/likely bacterial pna superimposed Hypoxia: -Leukocytosis WBC 17.95, tachycardic in 115-118 range on arrival to ED, Febrile 38.6 C -CXR: postinflammatory scarring versus an infectious or inflammatory pneumonitis; suspect RLL PNA.repeat in a.m. -Biofire positive for adenovirus and parainfluenza 3 -Lactic acid 2.2; responded to fluid resuscitation now 1.5 -Procalcitonin negative -IV Zosyn given in ED; started on Rocephin plus doxycycline - blood cultx - negative in 48 hrs -sputum cultx - Group A beta strep -Mucinex, ISB, flutter valve - breathing treatments prn 05/19 clinically much improved now. Currently on room air. Not dyspneic anymore while trying to hold a conversation. Type 2 diabetes mellitus: -A1c 03/15/22: 7.1 -Not compliant with Dexcom at home -Takes Jardiance; hold while here -Prescribed Trulicity but does not take it -We will order FSBS ACHS + SSI; glycemic consultation Hypertension: -Takes Valsartan; hold for now -Question of heart failure in her history; BNP normal -Takes Propranolol; patient states for HTN; ? for Anxiety/depression; continue Dyslipidemia: -lipid panel: 03/15/22: T, HDL 39, LDL 88 -Takes Atorvastatin; continue Anxiety and depression: -Significant stressors at home including raising her 8-month-old great grandson with special physical needs -Currently lives with daughter -Discussed code status; patient was clear she would want to be a DNR/DNI in the setting of a cardiac or respiratory arrest; she was receptive to BiPAP or CPAP in the event of her respiratory decline. 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 -Takes Propranolol; patient states for HTN; ?for Anxiety/depression; continue -Takes Duloxetine; continue Overactive bladder: -Reports foul-smelling urine over past few days -ua/ucultx - mixed gloria -Takes Detrol; continue Disposition: PCP: Dr. Burciaga CODE STATUS: DNR/DNI VTE prophylaxis: Lovenox subcu Admission and Anticipated Discharge Date Admission Date: May 16, 2022 Subjective Pt seen in follow up of acute hypoxic resp. failure d/t pneumonia Currently sitting up in bed, in no acute distress, on RA feeling better overall, not dyspneic any more when trying to hold a conversation No chest pain, no abdominal pain, no nausea vomiting No fevers, chills Review of Systems Review of Systems: All systems reviewed & are unremarkable except as noted in Subjective Physical Exam Physical Exam: General: morbidly obese F in NAD HEENT: NC/AT. EOMI. moist mucus membranes CV: S1/S2, rrr, (-) M/G/R, (-) edema Resp: + diffuse rhonchi GI: Abdomen S/NT/ND, Ax4 bowel sounds, obese Musculoskeletal: moves extremities Neuro: Awake alert oriented, answering appropriately, no facial asymmetry, speech fluent, moves extremities Skin: warm, dry Results & Data Results & Data Vital Signs (Past 12 Hours) Vital Signs Temp Pulse Pulse Resp BP BP Pulse Ox 05/19/22 07:58 72 05/19/22 07:38 36.4 C L 81 19 105/69 94 05/19/22 05:00 05/19/22 02:43 36.6 C 74 22 108/67 93 05/18/22 22:35 36.5 C 77 19 117/76 95 O2 Del Method O2 Del Method O2 Flow Rate 05/19/22 07:58 05/19/22 07:38 Room Air 05/19/22 05:00 Room Air 05/19/22 02:43 Room Air 05/18/22 22:35 Nasal Cannula 1 Laboratory Results 05/19/22 05/19/22 05/19/22 Range/Units 07:35 07:18 07:18 WBC 10.46 (4.8-10.8) K/ul RBC 4.48 (4.20-5.40) M/uL Hgb 11.4 L (12.0-16.0) g/dl Hct 35.9 L (37.0-47.0) % MCV 80.1 (80.0-100.0) fL MCH 25.4 (25.0-34.0) pg MCHC 31.8 L (32.0-36.0) g/dL RDW Std Deviation 42.6 (36.4-46.3) fL RDW Coeff of Maria Elena 14.6 H (11.5-14.5) % Plt Count 205 (130-400) K/uL MPV 10.1 (9.4-12.4) fL Sodium 139 (136-145) mmol/L Potassium 4.0 (3.5-5.1) mmol/L Chloride 106 (98-107) mmol/L Carbon Dioxide 28 (21-32) mmol/L Anion Gap 5 (3-11) BUN 14 (6-23) mg/dl Creatinine 0.72 (0.6-1.2) mg/dl Est Cr Clr Drug Dosing 105.2 ml/min Est GFR ( Amer) 101.1 ml/min Est GFR (Non-Af Amer) 87.3 ml/min BUN/Creatinine Ratio 19.4 (10-20) Glucose 107 H (70-99(Fasting)) mg/dl POC Glucose 105 H (70-99) mg/dl Calcium 9.1 (8.5-10.1) mg/dl Phosphorus 3.9 (2.5-4.9) mg/dl Magnesium 1.9 (1.7-2.4) mg/dl 05/18/22 05/18/22 05/18/22 Range/Units 20:15 16:18 11:21 WBC (4.8-10.8) K/ul RBC (4.20-5.40) M/uL Hgb (12.0-16.0) g/dl Hct (37.0-47.0) % MCV (80.0-100.0) fL MCH (25.0-34.0) pg MCHC (32.0-36.0) g/dL RDW Std Deviation (36.4-46.3) fL RDW Coeff of Maria Elena (11.5-14.5) % Plt Count (130-400) K/uL MPV (9.4-12.4) fL Sodium (136-145) mmol/L Potassium (3.5-5.1) mmol/L Chloride (98-107) mmol/L Carbon Dioxide (21-32) mmol/L Anion Gap (3-11) BUN (6-23) mg/dl Creatinine (0.6-1.2) mg/dl Est Cr Clr Drug Dosing ml/min Est GFR ( Amer) ml/min Est GFR (Non-Af Amer) ml/min BUN/Creatinine Ratio (10-20) Glucose (70-99(Fasting)) mg/dl POC Glucose 118 H 104 H 166 H (70-99) mg/dl Calcium (8.5-10.1) mg/dl Phosphorus (2.5-4.9) mg/dl Magnesium (1.7-2.4) mg/dl Medications Administered Current Inpatient Medications Acetaminophen (Acetaminophen 325 Mg Tab) 650 mg PO Q4H PRN PRN Reason: Pain or Fever Stop: 06/15/22 08:33 Last Admin: 05/17/22 23:17 Dose: 650 mg Al Hydrox/Mg Hydrox/Simethicone (Aluminum/Magnesium Susp 30 Ml Udc) 15 ml PO Q4H PRN PRN Reason: Dyspepsia Stop: 06/15/22 08:33 Albuterol (Albut/Ipratrop 3mg/0.5mg Neb 3 Ml Vial) 3 ml NEB Q4R PRN; Protocol PRN Reason: Shortness Of Breath Or Wheezing Stop: 06/16/22 10:59 Last Admin: 05/17/22 10:05 Dose: 3 ml Atorvastatin Calcium (Atorvastatin 20 Mg Tab) 20 mg PO DAILY [facility] Stop: 06/16/22 08:59 Last Admin: 05/19/22 08:59 Dose: 20 mg Cyclobenzaprine HCl (Cyclobenzaprine Hcl 10 Mg Tab) 10 mg PO TID PRN PRN Reason: Muscle Spasm Stop: 06/15/22 09:24 Dextrose (Dextrose 50% 50 Ml Syringe) 25 - 50 ml IV UD PRN; Protocol PRN Reason: Hypoglycemia Protocol Stop: 06/15/22 09:42 Duloxetine HCl (Duloxetine Hcl 30 Mg Cap) 30 mg PO DAILY [facility] Stop: 06/16/22 08:59 Last Admin: 05/19/22 08:59 Dose: 30 mg Duloxetine HCl (Duloxetine Hcl 60 Mg Cap) 60 mg PO DAILY [facility] Stop: 06/16/22 08:59 Last Admin: 05/19/22 08:59 Dose: 60 mg Enoxaparin Sodium (Enoxaparin Inj 40 Mg/0.4 Ml Syr) 40 mg SQ BID [facility] Stop: 06/16/22 08:59 Last Admin: 05/19/22 08:59 Dose: 40 mg Famotidine (Famotidine 20 Mg Tab) 20 mg PO BID [facility] Stop: 06/15/22 20:59 Last Admin: 05/19/22 08:58 Dose: 20 mg Glucagon (Glucagon For Inj 1 Mg Vial) 1 mg SQ UD PRN; Protocol PRN Reason: Hypoglycemia Protocol Stop: 06/15/22 09:42 Glucose (Glucose 10 Tab/Tube) 4 - 8 tab PO UD PRN; Protocol PRN Reason: Hypoglycemia Treatment Stop: 06/15/22 09:42 Glucose (Glucose 40% Gel 15 Gm Tube) 15 - 30 gm PO UD PRN; Protocol PRN Reason: Hypoglycemia Protocol Stop: 06/15/22 09:42 Guaifenesin (Guaifenesin 600 Mg Tabcr) 1,200 mg PO Q12 [facility] Stop: 06/15/22 20:59 Last Admin: 05/19/22 08:58 Dose: 1,200 mg Ceftriaxone Sodium 2,000 mg/ (Dextrose) 70 mls @ 100 mls/hr IV Q24H [facility]; Protocol Stop: 05/23/22 08:59 Last Admin: 05/19/22 09:05 Dose: 50 mls/hr Doxycycline Hyclate 100 mg/ (Dextrose) 110 mls @ 50 mls/hr IV Q12H [facility] Stop: 05/23/22 08:59 Last Infusion: 05/18/22 22:17 Dose: Infused Insulin Aspart (Insulin Aspart Per Unit) 0 units SC ACHS [facility] Stop: 06/15/22 12:04 Last Admin: 05/19/22 08:52 Dose: 5 units Insulin Glargine (Lantus Per Unit Charge) 10 units SQ QAM [facility] Stop: 06/17/22 09:29 Last Admin: 05/19/22 08:52 Dose: 10 units Lamotrigine (Lamotrigine 100 Mg Tab) 100 mg PO BID [facility] Stop: 06/15/22 20:59 Last Admin: 05/19/22 08:58 Dose: 100 mg Magnesium Hydroxide (Magnesium Hydroxide Susp 30 Ml Udc) 30 ml PO Q12H PRN PRN Reason: Constipation Stop: 06/15/22 08:33 Miscellaneous (Carbohydrates For Hypoglycemia ) 15 - 30 gm PO UD PRN PRN Reason: Hypoglycemia Protocol Stop: 06/15/22 09:42 Miscellaneous Information (Pharmacy Glycemic Mgmt Consult) 1 each N/A UD PRN PRN Reason: Consult Stop: 06/15/22 09:42 Ondansetron HCl (Ondansetron Inj 2 Mg/Ml 2 Ml Vial) 4 mg IV Q6H PRN PRN Reason: Nausea Stop: 06/15/22 08:33 Pantoprazole Sodium (Pantoprazole 40 Mg Tab) 40 mg PO DAILY [facility] Stop: 06/16/22 08:59 Last Admin: 05/19/22 09:00 Dose: 40 mg Polyethylene Glycol (Polyethylene (Miralax) 17 Gm Pack) 17 gm PO DAILY PRN PRN Reason: Constipation Stop: 06/15/22 08:33 Propranolol HCl (Propranolol Hcl 10 Mg Tab) 10 mg PO BID [facility] Stop: 06/15/22 20:59 Last Admin: 05/19/22 08:58 Dose: 10 mg Saccharomyces Boulardii (Saccharomyces Boulardii 250 Mg Cap) 250 mg PO DAILY [facility] Stop: 06/16/22 08:59 Last Admin: 05/19/22 08:59 Dose: 250 mg Tolterodine Tartrate (Tolterodine Tartrate La 4 Mg Capcr) 4 mg PO DAILY [facility] Stop: 06/16/22 08:59 Last Admin: 05/19/22 08:59 Dose: 4 mg Valsartan (Valsartan 80 Mg Tab) 80 mg PO DAILY [facility] Stop: 06/16/22 08:59 (1) Sepsis Sepsis acute organ dysfunction status: unspecified Sepsis type: sepsis due to unspecified organism Qualified Code(s): A41.9 - Sepsis, unspecified organism (2) Pneumonia Laterality: right Lung location: lower lobe of lung Pneumonia type: due to unspecified organism Qualified Code(s): J18.9 - Pneumonia, unspecified organism
[2022-05-19] MEDS: DOXYCYCLINE HYCLATE 100 MG in DEXTROSE 5% 100 ML IV SCH ×2 (09:56→22:03)
--- NOTE | 2022-05-19 12:50 | Pharmacy Report ---
Pharmacy Glycemic Short Note 2 - Date of Service May 19, 2022 - Glycemic Short BSG Results (Last 24 hours): 05/18/22 05/18/22 05/19/22 16:18 20:15 07:18 Glucose 107 H POC Glucose 104 H 118 H 05/19/22 05/19/22 07:35 11:22 Glucose POC Glucose 105 H 116 H OUTPATIENT ANTIDIABETIC REGIMEN: * Jardiance 25 mg daily ASSESSMENT: 05/19/22: * Over the past few days, BSG's have been well-maintained in respect to the patient's goal range. * 10 units of Lantus daily has rendered fasting BSG's of ~105 mg/dL every day. * Current NovoLog parameters effective at covering consumed carbohydrates and safely correcting hyperglycemia. * No new stressors to glycemic management noted on chart review. Initial Assessment( 05/16/22): * Obdulia Verma is a 66 year old patient with T2DM who presents with pneumonia. Patient's most recent A1C is 7.1% from 03/15/22 and is managed outpatient with Jardiance 25 mg daily. Fasting BSG was 202 mg/dL and lunchtime BSG was 174 mg/dL today. * Will give Lantus 15 units at lunchtime. Further basal insulin dosing dependent on following BSGs. * Current bolus insulin regimen: CF:20, CR:6 PLAN FOR INPATIENT GLYCEMIC CONTROL: * Hold outpatient oral diabetes medications * Basal insulin * Lantus 10 units SQ daily. * Bolus insulin * NovoLog per scale ACHS or Q6hrs while NPO * Goal Range: Low 120 mg/dL - High 160 mg/dL * Correction Factor: 20 mg/dL/unit * Nutritional / Prandial insulin per carb ratio of 1 unit per 6 grams CHO consumed
[2022-05-20 07:59] LABS: Hematocrit (blood only) 36.4 % (37.0-47.0); Hemoglobin 11.5 g/dl (12.0-16.0); Mean Corpuscular Hemoglobin 25.6 pg (25.0-34.0); Mean Corpuscular Hgb Conc 31.6 g/dL (32.0-36.0); Mean Corpuscular Volume 80.9 fL (80.0-100.0); Platelet Count 228 K/uL (130-400); RDW Coefficient of Variation 14.8 % (11.5-14.5); RDW Standard Deviation 43.4 fL (36.4-46.3); White Blood Count 9.65 K/ul (4.8-10.8)
[2022-05-20 08:12] LABS: BUN Creatinine Ratio 21.5 (10-20); Calcium 9.2 mg/dl (8.5-10.1); Creatinine Clr Calc Pharmacy 116.7 ml/min; Est GFR (African American) 107.2 ml/min; Est GFR (Non-African American) 92.5 ml/min; Magnesium 1.8 mg/dl (1.7-2.4); Phosphorus 4.2 mg/dl (2.5-4.9); Potassium 4.1 mmol/L (3.5-5.1)
[2022-05-20] MEDS: INSULIN ASPART PER UNIT CHARGE SC SCH ×2 (08:13→12:25)
[2022-05-20] MEDS: LANTUS PER UNIT CHARGE SQ SCH (08:18)
[2022-05-20] MEDS: FAMOTIDINE 20 MG TAB PO SCH (08:21)
[2022-05-20] MEDS: ENOXAPARIN INJ 40 MG/0.4 ML SYR SQ SCH (08:21)
[2022-05-20] MEDS: ATORVASTATIN 20 MG TAB PO SCH (08:22)
[2022-05-20] MEDS: SACCHAROMYCES BOULARDII 250 MG CAP PO SCH (08:22)
[2022-05-20] MEDS: DULoxetine HCL 30 MG CAP PO SCH (08:22)
[2022-05-20] MEDS: PROPRANOLOL HCL 10 MG TAB PO SCH (08:23)
[2022-05-20] MEDS: DULoxetine HCL 60 MG CAP PO SCH (08:23)
[2022-05-20] MEDS: guaiFENesin 600 MG TABCR PO SCH (08:23)
[2022-05-20] MEDS: lamoTRIgine 100 MG TAB PO SCH (08:24)
[2022-05-20] MEDS: TOLTERODINE TARTRATE LA 4 MG CAPCR PO SCH (08:24)
[2022-05-20] MEDS: cefTRIAXone SODIUM 2,000 MG in DEXTROSE 5% 50 ML IV SCH ×2 (08:25→08:42)
[2022-05-20] MEDS: PANTOprazole 40 MG TAB PO SCH (08:25)
[2022-05-20] MEDS: DOXYCYCLINE HYCLATE 100 MG in DEXTROSE 5% 100 ML IV SCH (08:43)
--- NOTE | 2022-05-20 08:49 | Discharge Summary ---
Date of Service May 20, 2022 Admission HPI Per Admitting Provider Bianca is a 66-year-old female that presented to the ED with shortness of breath, tachycardia, fever and productive cough that has been going on for the past 4 to 5 days. Over the past 24 hours her cough has become thicker with green sputum. She notes decreased appetite over the past week and has been trying to drink boost and Gatorade but otherwise not successful with nutrition. Chest x-ray revealed pulmonary opacities with postinflammatory scarring versus infection or pneumonitis. Patient did have COVID March 2021. Patient lives at home with her daughter and is raising her great grandson who is 8 months old with physical special needs. She said that he has a double ear infection right now and feels she became sick from him. Lactic acid initially 2.2 however with fluid resuscitation decreased to 1.5. Troponin 18.1; will trend x1 however do not suspect that this is cardiac in nature rather in response to ischemic demand. EKG revealed sinus tachycardia without ectopy or ischemic change. Procalcitonin negative. Creatinine 0.74. Glucose elevated at 202; patient admits to not being compliant with glucose monitoring; last A1c 7.01/22. Patient was given 1 dose of IV Zosyn in the ED. blood cultures and sputum cultures pending. Additional past medical history includes HTN, HLD, respiratory failure, overactive bladder, psoriasis, diabetes mellitus type 2, fibromyalgia, anxiety and depression, and GERD. Patient denies tobacco, alcohol or recreational drug use. Patient denies headache, dizziness, visual or auditory changes, chest pain, swelling, recent falls or trauma, abdominal pain, nausea vomiting diarrhea. She reports that her urine has had an odor over the past few days. As stated patient currently lives with her daughter and is quite tearful through conversation about her home life and stressors. She has been raising her 8-month-old great grandson and he recently was removed from her by her granddaughters boyfriend. When we were discussing CODE STATUS the patient was clear she would not want to be resuscitated in the setting of a cardiac or respiratory arrest however she is receptive to BiPAP or CPAP in the event of a respiratory decline. 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 She is listed as DNR/DNI currently however think that some of her comments may be driven from a depression standpoint and she may benefit from a behavioral health liaison interview. Patient receptive to admission for further evaluation and management. Please see A/P for further details. Admission Exam Per Admitting Provider Neuro: AAOx4, PERRLA, no aphagia, memory changes, CNII-XII grossly intact HEENT: head normocephalic, moist mucus membranes, TM pearly sanches without erythematous ear canal. Enlarged tonsils. CV: S1/S2, (-) M/G/R, (-) edema, cap refill < 3 seconds Resp: Lungs coarse anterior and posterior throughout; 3LNC. GI: Abdomen S/NT/ND, Ax4 bowel sounds, (-) CVA tenderness Musculoskeletal: 5/5 B/L UE strength, 5/5 B/L LE strength. No gait disturbance Skin: (-) rashes , (-) erythema. Psych: tearful yet euthymic mood Principal Diagnosis Acute hypoxic respiratory failure Pneumonia, viral with superimposed bacterial Discharge Exam General: morbidly obese F in NAD HEENT: NC/AT. EOMI. moist mucus membranes CV: S1/S2, rrr, (-) M/G/R, (-) edema Resp: + diffuse rhonchi GI: Abdomen S/NT/ND, Ax4 bowel sounds, obese Musculoskeletal: moves extremities Neuro: Awake alert oriented, answering appropriately, no facial asymmetry, speech fluent, moves extremities Skin: warm, dry Discharge Data Allergies Allergy/AdvReac Type Severity Reaction Status Date / Time fosphenytoin Allergy Mild HIVES Verified 03/21/19 15:58 celecoxib Allergy Unknown ITCHINESS Verified 03/21/19 15:58 warfarin [From Coumadin] AdvReac Severe Hemorrhage Verified 03/21/19 15:58 Consultations 05/16/22 07:41 ED Decision to Admit Stat Hospital Course (1) Sepsis: (2) Pneumonia: (3) Hypoxia: (4) Type 2 diabetes mellitus: (5) Hypertension: (6) Anxiety: (7) Depression: (8) HLD (hyperlipidemia): (9) Overactive bladder: Plan 66 yo F presents with shortness of breath, productive cough, tachycardia, and requiring supplemental oxygen. Leukocytosis w/ WBC of 17K on admission. CXR suggests right lower lobe pneumonia. Biofire positive for adenovirus and parainfluenza 3. Pt meeting sepsis criteria in the setting of pneumonia. Acute hypoxic resp failure Sepsis: Pneumonia - viral w/likely bacterial pna superimposed Hypoxia: -Leukocytosis WBC 17.95, tachycardic in 115-118 range on arrival to ED, Febrile 38.6 C -CXR: postinflammatory scarring versus an infectious or inflammatory pneumonitis; suspect RLL PNA.repeat in a.m. -Biofire positive for adenovirus and parainfluenza 3 -Lactic acid 2.2; responded to fluid resuscitation now 1.5 -Procalcitonin negative -IV Zosyn given in ED; started on Rocephin plus doxycycline - blood cultx - negative in 48 hrs -sputum cultx - Group A beta strep -Mucinex, ISB, flutter valve - breathing treatments prn 05/19 clinically much improved now. Currently on room air. Not dyspneic anymore while trying to hold a conversation. 05/20 plan to DC on PO abx, and mucinex Type 2 diabetes mellitus: -A1c 03/15/22: 7.1 -Not compliant with Dexcom at home -Takes Jardiance; hold while here -Prescribed Trulicity but does not take it -We will order FSBS ACHS + SSI; glycemic consultation Hypertension: -Takes Valsartan; hold for now, plan to resume on DC -Question of heart failure in her history; BNP normal -Takes Propranolol; patient states for HTN; ? for Anxiety/depression; continue Dyslipidemia: -lipid panel: 03/15/22: T, HDL 39, LDL 88 -Takes Atorvastatin; continue Anxiety and depression: -Significant stressors at home including raising her 8-month-old great grandson with special physical needs -Currently lives with daughter -Discussed code status; patient was clear she would want to be a DNR/DNI in the setting of a cardiac or respiratory arrest; she was receptive to BiPAP or CPAP in the event of her respiratory decline. 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 -Takes Propranolol; patient states for HTN; ?for Anxiety/depression; continue -Takes Duloxetine; continue Overactive bladder: -Reports foul-smelling urine over past few days -ua/ucultx - mixed gloria -Takes Detrol; continue Total Time Total Time Spent Total Time Spent (In Minutes): 40 Discharge Plan Discharge Items Patient Disposition: Home - Self-Care Reason For Visit: SOB Discharge Diagnosis: Acute hypoxic respiratory failure Pneumonia, viral with superimposed bacterial Activity: Per Instructions section Non-emergency contact: Primary Care Provider Call non-emergency contact if: you have any medication questions and your symptoms worsen Follow-up/Referrals: Talisha Burciaga MD [Primary Care Provider] - (Date & Time 05/27/2022 11:00 AM Provider Talisha Burciaga MD Department General Internal Medicine [facility] ) Diet: Carb Consistent or DM2 and Heart Healthy Addtl Attending Provider Instructions: Follow-up with your primary care provider, the appointment was scheduled for you for 05/27/2022. Finish antibiotic treatment, as prescribed. While on antibiotics, do not take Pepcid/famotidine and omeprazole. Continue using flutter valve and incentive spirometer. Pending Studies at Discharge: Yes Studies:: Final results of all cultures Stand-Alone Forms: My [facility], Smoking Cessation Medications and DC Order Prescriptions: New doxycycline hyclate 100 mg Capsule 100 mg PO BID 3 Days Qty: 6 0RF cefuroxime axetil 500 mg Tablet 500 mg PO BID 3 Days Qty: 6 0RF guaifenesin [Mucinex] 600 mg Tablet Extended Release 12hr 600 mg PO Q12 5 Days Qty: 10 0RF Saccharomyces boulardii [Florastor] 250 mg Capsule 250 mg PO DAILY 5 Days Qty: 5 0RF Continued atorvastatin 20 mg tablet 20 mg PO DAILY propranolol 20 mg tablet 10 mg PO BID cyclobenzaprine 10 mg Tablet 10 mg PO TID PRN (Reason: Muscle Spasm) tolterodine 4 mg capsule,extended release 24hr 4 mg PO DAILY valsartan 80 mg tablet 80 mg PO DAILY omeprazole 40 mg capsule,delayed release(DR/EC) 40 mg PO DAILY lamotrigine 25 mg tablet 100 mg PO BID duloxetine 30 mg capsule,delayed release(DR/EC) 30 mg PO DAILY Rx Instructions: WITH 60 MG FOR 90 MG DAILY DOSE duloxetine 60 mg capsule,delayed release(DR/EC) 60 mg PO DAILY Rx Instructions: WITH 30 MG FOR 90 MG DAILY famotidine 20 mg tablet 20 mg BID Jardiance 25 mg Tablet 25 mg PO QAM Discharge Orders: Discharge Order (Routine); Ordered 05/20/22 Ordered By: Darryn Hernandez Admission Data Admit Date/Time: 05/16/22 08:34 Attending Provider: Darryn Hernandez Admit Provider: Darryn Hernandez Primary Care Provider: Talisha Burciaga Other Providers: Baljit Dunn
[2022-05-20] MEDS ORDERED: cefUROXime axetil 500 MG TAB PO SCH (09:00)
[2022-05-20] MEDS ORDERED: DOXYCYCLINE HYCLATE 100 MG CAP PO SCH (09:00)
== END 2022-05-20 16:49 | disposition home or self-care (01) | DRG 871 ==
LOC: ED 04:09 → EDINP 08:34 → 2S 12:14

== ENCOUNTER 2022-06-09 07:55 | Inpatient (IN) ==
--- NOTE | 2022-06-09 08:31 | Emergency Department Note ---
History of Present Illness General Chief complaint: Shortness of Breath/Dyspnea Stated complaint: SOB Time Seen by Provider: 06/09/22 08:22 Source: patient, RN notes reviewed and old records reviewed (I have reviewed her recent hospitalization) Mode of arrival: ambulatory Limitations: no limitations History of Present Illness Maximum Pain Intensity: 4 This patient is a 66-year-old female who had recent pneumonia and was discharged about 10 days ago comes in after increasing shortness of breath since last night she has been coughing with some greenish phlegm no fever at home although she does have fever here. Denies chest pain no nausea vomiting or diarrhea no abdominal pain. No blood or melena in her stool no blood thinners. Denies history of cardiac or lung disease Home Medications Medication Instructions Recorded Confirmed Type atorvastatin 20 mg tablet 20 mg PO DAILY 03/21/19 06/09/22 History propranolol 20 mg tablet 10 mg PO BID 03/21/19 06/09/22 History cyclobenzaprine 10 mg tablet 10 mg PO TID PRN Muscle Spasm 03/06/21 06/09/22 History duloxetine 30 mg capsule,delayed 30 mg PO DAILY 03/06/21 06/09/22 History release duloxetine 60 mg capsule,delayed 60 mg PO DAILY 03/06/21 06/09/22 History release lamotrigine 25 mg tablet 100 mg PO BID 03/06/21 06/09/22 History omeprazole 40 mg capsule,delayed 40 mg PO DAILY 03/06/21 06/09/22 History release tolterodine 4 mg capsule,extended 4 mg PO DAILY 03/06/21 06/09/22 History release 24 hr valsartan 80 mg tablet 80 mg PO DAILY 03/06/21 06/09/22 History empagliflozin 25 mg tablet 25 mg PO QAM 05/16/22 06/09/22 History (Jardiance) famotidine 20 mg tablet 20 mg BID 05/16/22 06/09/22 History Allergies Allergy/AdvReac Type Severity Reaction Status Date / Time fosphenytoin Allergy Mild HIVES Verified 03/21/19 15:58 celecoxib Allergy Unknown ITCHINESS Verified 03/21/19 15:58 warfarin [From Coumadin] AdvReac Severe Hemorrhage Verified 03/21/19 15:58 Past Med/Surg History Medical History (Updated 06/09/22 @ 15:02 by Doe De Dios MD) Acute respiratory failure with hypoxia Anxiety Depression Diabetic neuropathy Fibromyalgia HLD (hyperlipidemia) Hypertension Migraine Obesity Overactive bladder Psoriasis Reflex sympathetic dystrophy Type 2 diabetes mellitus Surgical History H/O hernia repair History of cholecystectomy History of repair of rotator cuff Status post bilateral knee replacements Family History Father Diabetes Stroke Grandmother (Paternal) Diabetes Mother Lung disease Social History Smoking Status: Never smoker Second Hand Exposure: No; Hx Alcohol Use: No Hx Substance Use: No Preferred Language: Maltese Communication Ability: Effective Visual Impairment: No Limitations Hearing Ability: Normal Podiatrist Assistant Required: No Beliefs That Will Affect Care: None Current Living Situation: Family Current Living Situation Comment: lives with daughter Feels Safe at Home: Yes Assistive Devices: None Review of Systems A total of 10 systems reviewed and were otherwise negative Physical Exam Vital Signs Vital Signs - 24 hr 06/09/22 07:54 06/09/22 07:54 06/09/22 07:54 Temperature 37.7 C H Temperature Source Oral Pulse Rate 115 H Pulse Rate from SpO2 Sensor Pulse Rhythm Regular Respiratory Rate 26 H Respiratory Effort / Characteristics Non-Labored Spontaneous Spontaneous Labored Short of Breath Respiratory Depth Normal Respiratory Pattern Regular Blood Pressure 185/84 H Blood Pressure Mean 117 Pulse Oximetry 89 L 89 L Oxygen Delivery Method Room Air Nasal Cannula Nasal Cannula Oxygen Flow Rate 4 0 Sepsis Recent Fever Within 48 Hours No Sepsis New/Unexplained Change in Mental Status No Sepsis Action Taken by Nursing No Action Required Oxygen Flow Rate - Titration 4 Pulse Oximetry Post Tiitration 94 06/09/22 08:20 06/09/22 08:03 06/09/22 08:04 Temperature Temperature Source Pulse Rate 105 H 112 H 116 H Pulse Rate from SpO2 Sensor 111 H 114 H Pulse Rhythm Respiratory Rate 22 18 Respiratory Effort / Characteristics Respiratory Depth Respiratory Pattern Blood Pressure Blood Pressure Mean Pulse Oximetry 91 89 L Oxygen Delivery Method Oxygen Flow Rate Sepsis Recent Fever Within 48 Hours Sepsis New/Unexplained Change in Mental Status Sepsis Action Taken by Nursing Oxygen Flow Rate - Titration Pulse Oximetry Post Tiitration 06/09/22 08:04 06/09/22 08:30 06/09/22 08:30 Temperature Temperature Source Pulse Rate 107 H Pulse Rate from SpO2 Sensor 107 H Pulse Rhythm Respiratory Rate 21 Respiratory Effort / Characteristics Respiratory Depth Respiratory Pattern Blood Pressure 185/84 H 156/93 H Blood Pressure Mean 117 114 Pulse Oximetry 94 Oxygen Delivery Method Oxygen Flow Rate Sepsis Recent Fever Within 48 Hours Sepsis New/Unexplained Change in Mental Status Sepsis Action Taken by Nursing Oxygen Flow Rate - Titration Pulse Oximetry Post Tiitration 06/09/22 09:00 06/09/22 09:01 06/09/22 09:01 Temperature Temperature Source Pulse Rate 104 H 106 H Pulse Rate from SpO2 Sensor 104 H 106 H Pulse Rhythm Respiratory Rate 28 H 24 Respiratory Effort / Characteristics Respiratory Depth Respiratory Pattern Blood Pressure 110/72 Blood Pressure Mean 84 Pulse Oximetry 96 97 Oxygen Delivery Method Oxygen Flow Rate Sepsis Recent Fever Within 48 Hours Sepsis New/Unexplained Change in Mental Status Sepsis Action Taken by Nursing Oxygen Flow Rate - Titration Pulse Oximetry Post Tiitration 06/09/22 09:30 06/09/22 09:30 06/09/22 09:32 Temperature Temperature Source Pulse Rate 100 H Pulse Rate from SpO2 Sensor 100 H Pulse Rhythm Respiratory Rate 29 H Respiratory Effort / Characteristics Respiratory Depth Respiratory Pattern Blood Pressure 150/84 H 157/61 H Blood Pressure Mean 106 93 Pulse Oximetry 96 Oxygen Delivery Method Oxygen Flow Rate Sepsis Recent Fever Within 48 Hours Sepsis New/Unexplained Change in Mental Status Sepsis Action Taken by Nursing Oxygen Flow Rate - Titration Pulse Oximetry Post Tiitration 06/09/22 09:32 Temperature Temperature Source Pulse Rate 100 H Pulse Rate from SpO2 Sensor 100 H Pulse Rhythm Respiratory Rate 23 Respiratory Effort / Characteristics Respiratory Depth Respiratory Pattern Blood Pressure Blood Pressure Mean Pulse Oximetry 96 Oxygen Delivery Method Oxygen Flow Rate Sepsis Recent Fever Within 48 Hours Sepsis New/Unexplained Change in Mental Status Sepsis Action Taken by Nursing Oxygen Flow Rate - Titration Pulse Oximetry Post Tiitration General: Well developed well nourished mildly ill-appearing middle-age female who appears in no acute distress, breathing comfortably on room air. Normal speech HEENT: Normal cephalic atraumatic. Pupils are equal round and reactive to light. Extraocular movements are intact. Oropharynx is pink with moist mucous membranes. No swelling of the mouth lips or tongue. Neck: Supple with a midline trachea. No meningeal signs or stiffness, no JVD or bruits. No Stridor. Chest: She does have crackles to auscultation in the lower right base. No wheezes or rhonchi. No increased work of breathing. Heart: Regular rate and rhythm without murmurs or gallops. Abdomen: Soft nontender, nondistended without rebound guarding or rigidity. Extremities: No cyanosis clubbing or edema. No calf tenderness or assymetry Spine/Back. Non tender to palpation. No CVA tenderness Skin: Good turgor without rashes. Neurologic exam: Cranial nerves two through 12 are intact. Motor and sensation are intact and symmetrical throughout. Course Administered Medications Discontinued Medications Piperacillin Sod/Tazobactam Sod (Zosyn) 4.5 gm in 120 mls @ 240 mls/hr IV NOW STA Stop: 06/09/22 10:48 Last Infusion: 06/09/22 11:41 Dose: 0 mls/hr Documented By: Admin: 06/09/22 10:29 Dose: 240 mls/hr Documented By: HS Sodium Chloride (Nss 1000ml) 1,000 mls @ 999 mls/hr IV .Q1H1M ONE Stop: 06/09/22 11:26 Last Infusion: 06/09/22 11:41 Dose: 0 mls/hr Documented By: Admin: 06/09/22 10:29 Dose: 999 mls/hr Documented By: HS Ioversol (Optiray 320 500ml) 110 ml IV ONCE ONE Stop: 06/09/22 10:17 Last Admin: 06/09/22 10:17 Dose: 110 ml Documented By: SEBASTIÁN Medical Decision Making Differential Diagnosis Pneumonia, sepsis, CHF, acute coronary syndrome, arrhythmia Medical Records Attestation: I reviewed the patient's medical records. Home Medications Current Medication List: was personally reviewed by me Laboratory Data Attestation: I reviewed the patient's lab results. 06/09/22 08:06 06/09/22 08:06 Lab Results 06/09/22 06/09/22 06/09/22 Range/Units 08:06 08:06 08:06 WBC 17.78 H (4.8-10.8) K/ul RBC 5.31 (4.20-5.40) M/uL Hgb 13.5 (12.0-16.0) g/dl Hct 42.4 (37.0-47.0) % MCV 79.8 L (80.0-100.0) fL MCH 25.4 (25.0-34.0) pg MCHC 31.8 L (32.0-36.0) g/dL RDW Std Deviation 44.2 (36.4-46.3) fL RDW Coeff of Maria Elena 15.4 H (11.5-14.5) % Plt Count 225 (130-400) K/uL MPV 11.0 (9.4-12.4) fL Immature Gran % (Auto) 0.6 % Neut % (Auto) 74.3 % Lymph % (Auto) 16.9 % George % (Auto) 7.4 % Eos % (Auto) 0.5 % Baso % (Auto) 0.3 % Neut # (Auto) 13.22 H (1.40-6.50) K/uL Lymph # (Auto) 3.01 (1.2-3.4) K/uL George # (Auto) 1.31 H (0.11-0.59) K/uL Eos # (Auto) 0.09 (0-0.50) K/uL Baso # (Auto) 0.05 (0-0.2) K/uL Immature Gran # (Auto) 0.10 (0.01-0.20) K/uL PT 10.9 (9.0-12.0) Seconds INR 1.0 (0.9-1.1) APTT 28.6 (21.0-31.0) Seconds PTT Ratio 1.0 Sodium 134 L (136-145) mmol/L Potassium 4.4 (3.5-5.1) mmol/L Chloride 102 (98-107) mmol/L Carbon Dioxide 22 (21-32) mmol/L Anion Gap 10 (3-11) BUN 19 (6-23) mg/dl Creatinine 0.76 (0.6-1.2) mg/dl Est Cr Clr Drug Dosing 101.7 ml/min Est GFR ( Amer) 94.7 ml/min Est GFR (Non-Af Amer) 81.7 ml/min BUN/Creatinine Ratio 25.0 H (10-20) Glucose 184 H (70-99(Fasting)) mg/dl Lactate (0.4-2.0) mmol/L Calcium 9.6 (8.6-10.3) mg/dl Total Bilirubin 0.6 (0.2-1.0) mg/dl AST 14 (13-39) U/L ALT 14 (7-52) U/L Alkaline Phosphatase 113 H (34-104) U/L Troponin I High Sens 10.5 (0-14) pg/ml B-Natriuretic Peptide (0-100) pg/ml Total Protein 7.2 (6.0-8.3) gm/dl Albumin 3.8 (3.4-5.0) gm/dl Globulin 3.4 (2.5-4.0) gm/dl Albumin/Globulin Ratio 1.1 (0.9-2) Procalcitonin (0-0.5) ng/ml Adenovirus (PCR) (NotDetected) B. pertussis DNA (PCR) (NotDetected) B.parapertussis DNA PCR (NotDetected) C. pneumoniae DNA (PCR) (NotDetected) Coronavirus OC43 (PCR) (NotDetected) Coronavirus HKU1 (PCR) (NotDetected) Coronavirus 229E (PCR) (NotDetected) SARS-CoV-2 (PCR) (NotDetected) Coronavirus NL63 (PCR) (NotDetected) Human Metapneumovir PCR (NotDetected) Influenza Type A (PCR) (NotDetected) Influenza Type B (PCR) (NotDetected) M. pneumoniae (PCR) (NotDetected) Parainfluenza 1 (PCR) (NotDetected) Parainfluenza 2 (PCR) (NotDetected) Parainfluenza 3 (PCR) (NotDetected) Parainfluenza 4 (PCR) (NotDetected) RSV (PCR) (NotDetected) Entero/Rhino (PCR) (NotDetected) 06/09/22 06/09/22 06/09/22 Range/Units 08:06 08:06 08:06 WBC (4.8-10.8) K/ul RBC (4.20-5.40) M/uL Hgb (12.0-16.0) g/dl Hct (37.0-47.0) % MCV (80.0-100.0) fL MCH (25.0-34.0) pg MCHC (32.0-36.0) g/dL RDW Std Deviation (36.4-46.3) fL RDW Coeff of Maria Elena (11.5-14.5) % Plt Count (130-400) K/uL MPV (9.4-12.4) fL Immature Gran % (Auto) % Neut % (Auto) % Lymph % (Auto) % George % (Auto) % Eos % (Auto) % Baso % (Auto) % Neut # (Auto) (1.40-6.50) K/uL Lymph # (Auto) (1.2-3.4) K/uL George # (Auto) (0.11-0.59) K/uL Eos # (Auto) (0-0.50) K/uL Baso # (Auto) (0-0.2) K/uL Immature Gran # (Auto) (0.01-0.20) K/uL PT (9.0-12.0) Seconds INR (0.9-1.1) APTT (21.0-31.0) Seconds PTT Ratio Sodium (136-145) mmol/L Potassium (3.5-5.1) mmol/L Chloride (98-107) mmol/L Carbon Dioxide (21-32) mmol/L Anion Gap (3-11) BUN (6-23) mg/dl Creatinine (0.6-1.2) mg/dl Est Cr Clr Drug Dosing ml/min Est GFR ( Amer) ml/min Est GFR (Non-Af Amer) ml/min BUN/Creatinine Ratio (10-20) Glucose (70-99(Fasting)) mg/dl Lactate 2.2 H* (0.4-2.0) mmol/L Calcium (8.6-10.3) mg/dl Total Bilirubin (0.2-1.0) mg/dl AST (13-39) U/L ALT (7-52) U/L Alkaline Phosphatase (34-104) U/L Troponin I High Sens (0-14) pg/ml B-Natriuretic Peptide (0-100) pg/ml Total Protein (6.0-8.3) gm/dl Albumin (3.4-5.0) gm/dl Globulin (2.5-4.0) gm/dl Albumin/Globulin Ratio (0.9-2) Procalcitonin 0.16 (0-0.5) ng/ml Adenovirus (PCR) Not Detected (NotDetected) B. pertussis DNA (PCR) Not Detected (NotDetected) B.parapertussis DNA PCR Not Detected (NotDetected) C. pneumoniae DNA (PCR) Not Detected (NotDetected) Coronavirus OC43 (PCR) Not Detected (NotDetected) Coronavirus HKU1 (PCR) Not Detected (NotDetected) Coronavirus 229E (PCR) Not Detected (NotDetected) SARS-CoV-2 (PCR) Not Detected (NotDetected) Coronavirus NL63 (PCR) Not Detected (NotDetected) Human Metapneumovir PCR Not Detected (NotDetected) Influenza Type A (PCR) Not Detected (NotDetected) Influenza Type B (PCR) Not Detected (NotDetected) M. pneumoniae (PCR) Not Detected (NotDetected) Parainfluenza 1 (PCR) Not Detected (NotDetected) Parainfluenza 2 (PCR) Not Detected (NotDetected) Parainfluenza 3 (PCR) Not Detected (NotDetected) Parainfluenza 4 (PCR) Not Detected (NotDetected) RSV (PCR) Not Detected (NotDetected) Entero/Rhino (PCR) Not Detected (NotDetected) 06/09/22 Range/Units 08:46 WBC (4.8-10.8) K/ul RBC (4.20-5.40) M/uL Hgb (12.0-16.0) g/dl Hct (37.0-47.0) % MCV (80.0-100.0) fL MCH (25.0-34.0) pg MCHC (32.0-36.0) g/dL RDW Std Deviation (36.4-46.3) fL RDW Coeff of Maria Elena (11.5-14.5) % Plt Count (130-400) K/uL MPV (9.4-12.4) fL Immature Gran % (Auto) % Neut % (Auto) % Lymph % (Auto) % George % (Auto) % Eos % (Auto) % Baso % (Auto) % Neut # (Auto) (1.40-6.50) K/uL Lymph # (Auto) (1.2-3.4) K/uL George # (Auto) (0.11-0.59) K/uL Eos # (Auto) (0-0.50) K/uL Baso # (Auto) (0-0.2) K/uL Immature Gran # (Auto) (0.01-0.20) K/uL PT (9.0-12.0) Seconds INR (0.9-1.1) APTT (21.0-31.0) Seconds PTT Ratio Sodium (136-145) mmol/L Potassium (3.5-5.1) mmol/L Chloride (98-107) mmol/L Carbon Dioxide (21-32) mmol/L Anion Gap (3-11) BUN (6-23) mg/dl Creatinine (0.6-1.2) mg/dl Est Cr Clr Drug Dosing ml/min Est GFR ( Amer) ml/min Est GFR (Non-Af Amer) ml/min BUN/Creatinine Ratio (10-20) Glucose (70-99(Fasting)) mg/dl Lactate (0.4-2.0) mmol/L Calcium (8.6-10.3) mg/dl Total Bilirubin (0.2-1.0) mg/dl AST (13-39) U/L ALT (7-52) U/L Alkaline Phosphatase (34-104) U/L Troponin I High Sens (0-14) pg/ml B-Natriuretic Peptide 53 (0-100) pg/ml Total Protein (6.0-8.3) gm/dl Albumin (3.4-5.0) gm/dl Globulin (2.5-4.0) gm/dl Albumin/Globulin Ratio (0.9-2) Procalcitonin (0-0.5) ng/ml Adenovirus (PCR) (NotDetected) B. pertussis DNA (PCR) (NotDetected) B.parapertussis DNA PCR (NotDetected) C. pneumoniae DNA (PCR) (NotDetected) Coronavirus OC43 (PCR) (NotDetected) Coronavirus HKU1 (PCR) (NotDetected) Coronavirus 229E (PCR) (NotDetected) SARS-CoV-2 (PCR) (NotDetected) Coronavirus NL63 (PCR) (NotDetected) Human Metapneumovir PCR (NotDetected) Influenza Type A (PCR) (NotDetected) Influenza Type B (PCR) (NotDetected) M. pneumoniae (PCR) (NotDetected) Parainfluenza 1 (PCR) (NotDetected) Parainfluenza 2 (PCR) (NotDetected) Parainfluenza 3 (PCR) (NotDetected) Parainfluenza 4 (PCR) (NotDetected) RSV (PCR) (NotDetected) Entero/Rhino (PCR) (NotDetected) Imaging Data Attestation: I personally reviewed and interpreted this imaging study as follows: My Impression: Chest x-rayno acute infiltrate, failure, pneumothorax seen Radiologist's Impression: Chest X-Ray 06/09/22 08:20 XR chest 1V portable HISTORY: 66 years-old Female Chest pain, nonspecific acute chest pain COMPARISON: 05/17/2022 TECHNIQUE: AP view of the chest FINDINGS: Cardiomediastinal and hilar silhouettes are within normal limits. There is no pneumothorax, pleural effusion, airspace consolidation or pulmonary edema. Degenerative changes of the shoulders and spine. IMPRESSION: No acute process. ACT 112: Negative or not required by law. The above report was generated using voice recognition software. It may contain grammatical, syntax or spelling errors. Electronically signed by: Francisco Zaidi M.D. 06/09/2022 8:57 AM Chest CTA 06/09/22 09:42 CT ANGIOGRAM OF THE CHEST CLINICAL HISTORY: Dyspnea. Cough. COMPARISON STUDY: Chest x-ray dated 06/09/2022. Chest CT dated 03/06/2021. TECHNIQUE: Following the IV administration of 110 cc of Optiray 320, CT angiogram of the chest was performed from the upper abdomen to the thoracic inlet utilizing the pulmonary embolus protocol. Images are reviewed in the axial, sagittal, and coronal planes. 3-D MIPS images are created and assessed. IV contrast was administered without complication. A dose lowering technique was utilized adhering to the principles of ALARA. The examination is degraded by motion artifact. There is also streak artifact from the left arm which could not be elevated above the abdomen. CT DOSE: 955.12 mGy.cm FINDINGS: Thyroid: Imaged portions of the thyroid gland are normal in size and at tenuation. Thoracic aorta: The thoracic aorta is normal in caliber and demonstrates standard 3-vessel arch anatomy. No dissection is seen. Pulmonary vasculature: The pulmonary trunk is dilated measuring 3.7 cm in diameter. This suggests pulmonary artery hypertension. There are no filling defects identified in main, lobar, or proximal segmental pulmonary branches to suggest pulmonary embolus. Evaluation of the segmental and subsegmental branches is significantly degraded by motion artifact. Heart: The heart is mildly enlarged and without pericardial effusion. There are scattered coronary artery calcifications. Lungs and pleural spaces: Evaluation of the lung parenchyma is significantly de graded by motion artifact. There is no airspace consolidation typical for pneumonia or pleural effusion. The trachea and central airways are clear. Scattered foci of parenchymal scarring are seen bilaterally. Mediastinum: There are numerous subcentimeter mediastinal lymph nodes, likely reactive. Kecia: Mildly enlarged hilar nodes measure up to 13 mm short axis. Axillae: There is no axillary lymphadenopathy. Upper abdomen: The liver is enlarged and steatotic. Cholecystectomy clips are noted. The spleen is enlarged, measuring 15 cm in length. There is a small hiatal hernia. Skeletal structures: The skeletal structures are osteopenic. Mild degenerative change is noted in the thoracic spine and shoulders. No lytic or blastic bony lesions are seen. IMPRESSION: 1. Streak and motion compromised examination. 2. There is no evidence of central pulmonary embolus in the main, lobar, or proximal segmental pulmonary arteries. 3. There is no airspace consolidation typical for pneumonia or pleural effusion. 4. Hepatic steatosis and splenomegaly. 5. Additional findings as above. ACT 112: Negative or not required by law. Electronically signed by: Shubham Delarosa M.D. 06/09/2022 10:25 AM ECG Data Attestation: I personally reviewed and interpreted this ECG as follows: Indication: + SOB/dyspnea Rate (beats per minute): 114 Rhythm: + sinus tachycardia ECG Intervals/blocks: + Normal QRS and + Normal QT ECG [place]: + Normal ECG ST segments: + Normal ST segments ECG Findings: no PACs or no PVCs Comparison ECG Date: from (05/18/22) [facility] Narrative This patient comes in as described above. She was placed on a nuclear monitoring technician and B7. She had recent pneumonia and now has shortness of breath. I did a full sepsis type work-up she had a bio fire swab. She does have a temperature 37.7 and is hypoxemic with O2 sat of 89% she was placed on nasal cannula. She does have crackles in the right base. Blood work including blood cultures and lactic acid was obtained with a full sepsis type work-up. EKG shows tachycardia without any definite ischemic changes. Troponin is not elevated. She has no chest pain. She seems to doing better with oxygen. I do think she sounds crackly on the right lung field. I did give her Zosyn IV after discussing this with her ED pharmacist in consultation. White count is also elevated at 17 and lactic acid is mildly elevated in light of this I did give her 1 L IV normal saline bolus. I was concerned she could have congestive heart failure component and her pressure was normal so she did not receive 30 cc/kg. Her D-dimer was mildly elevated CT angiography of her chest there is no evidence of PE in fact they do not actually see any pneumonia. It may be more of a bronchitis or potential other etiology cannot including cardiac for symptoms. I do think she needs to be admitted for further treatment and evaluation. I have discussed the patient in consultation with the [facility] hospitalist and she will be admitted/ observed Continuous cardiac monitoring: Orders placed in EMR for continuous cardiac monitoring upon my evaluation she was noted to be in sinus tachycardia with a rate of 105. Impression & Plan Hypoxia, Fibromyalgia, SOB (shortness of breath), Lab test negative for COVID- 19 virus, Cough Discharge Plan Visit Data Chief Complaint: Shortness of Breath/Dyspnea Stated Complaint: SOB ED Provider: Doe De Dios Discharge Problem: Hypoxia, Fibromyalgia, SOB (shortness of breath), Lab test negative for COVID- 19 virus, Cough Patient Disposition: Admitted As Inpatient Discharge Instructions Interventions: ED Discharge Assessment Last Done: 06/09/22 12:20
--- NOTE | 2022-06-09 08:58 | XRay Report ---
XR chest 1V portable HISTORY: 66 years-old Female Chest pain, nonspecific acute chest pain COMPARISON: 05/17/2022 TECHNIQUE: AP view of the chest FINDINGS: Cardiomediastinal and hilar silhouettes are within normal limits. There is no pneumothorax, pleural e ffusion, airspace consolidation or pulmonary edema. Degenerative changes of the shoulders and spine. IMPRESSION: No acute process. ACT 112: Negative or not required by law. The above report was generated using voice recognition software. It may contain grammatical, syntax o r spelling errors. Electronically signed by: Francisco Zaidi M.D. 06/09/2022 8:57 AM
[2022-06-09 09:16] LABS: Basophils # (auto) 0.05 K/uL (0-0.2); Basophils % (auto) 0.3 %; Eosinophils # (auto) 0.09 K/uL (0-0.50); Eosinophils % (auto) 0.5 %; Hematocrit (blood only) 42.4 % (37.0-47.0); Hemoglobin 13.5 g/dl (12.0-16.0); Immature Granulocytes % (auto) 0.6 %; Lymphocytes # (auto) 3.01 K/uL (1.2-3.4); Lymphocytes % (auto) 16.9 %; Mean Corpuscular Hemoglobin 25.4 pg (25.0-34.0); Mean Corpuscular Hgb Conc 31.8 g/dL (32.0-36.0); Mean Corpuscular Volume 79.8 fL (80.0-100.0); Monocytes # (auto) 1.31 K/uL (0.11-0.59); Monocytes % (auto) 7.4 %; Neutrophils # (auto) 13.22 K/uL (1.40-6.50); Neutrophils % (auto) 74.3 %; Platelet Count 225 K/uL (130-400); RDW Coefficient of Variation 15.4 % (11.5-14.5); RDW Standard Deviation 44.2 fL (36.4-46.3); Red Blood Count 5.31 M/uL (4.20-5.40); White Blood Count 17.78 K/ul (4.8-10.8)
[2022-06-09 09:33] LABS: Albumin Globulin Ratio 1.1 (0.9-2); Albumin Level 3.8 gm/dl (3.4-5.0); Bilirubin,Total 0.6 mg/dl (0.2-1.0); Calcium 9.6 mg/dl (8.6-10.3); Creatinine Clr Calc Pharmacy 101.7 ml/min; Est GFR (African American) 94.7 ml/min; Est GFR (Non-African American) 81.7 ml/min; Globulin 3.4 gm/dl (2.5-4.0); Potassium 4.4 mmol/L (3.5-5.1); Total Protein 7.2 gm/dl (6.0-8.3)
[2022-06-09 09:37] LABS: Troponin I High Sensitivity 10.5 pg/ml (0-14)
[2022-06-09 09:39] LABS: Partial Thromboplastin Time 28.6 Seconds (21.0-31.0); Prothrombin Time 10.9 Seconds (9.0-12.0)
[2022-06-09 09:50] LABS: Adenovirus PCR Not Detected (NotDetected); Bordetella parapertussis PCR Not Detected (NotDetected); Bordetella pertussis PCR Not Detected (NotDetected); Chlamydia pneumoniae PCR Not Detected (NotDetected); Coronavirus 229E PCR Not Detected (NotDetected); Coronavirus CoV-2 (COVID19)PCR Not Detected (NotDetected); Coronavirus HKU1 PCR Not Detected (NotDetected); Coronavirus NL63 PCR Not Detected (NotDetected); Coronavirus OC43PCR Not Detected (NotDetected); Human Metapneumovirus PCR Not Detected (NotDetected); Influenza A PCR Not Detected (NotDetected); Influenza B PCR Not Detected (NotDetected); Mycoplasma pneumoniae PCR Not Detected (NotDetected); Parainfluenza Virus 1 PCR Not Detected (NotDetected); Parainfluenza Virus 2 PCR Not Detected (NotDetected); Parainfluenza Virus 3 PCR Not Detected (NotDetected); Parainfluenza Virus 4 PCR Not Detected (NotDetected); Respiratory Syncytial VirusPCR Not Detected (NotDetected); Rhinovirus/Enterovirus PCR Not Detected (NotDetected)
[2022-06-09] MEDS ORDERED: OPTIRAY 320 500ml IV ONE (10:16)
[2022-06-09] MEDS ORDERED: PIPERACILLIN/TAZOBACTAM 4.5 GM/120 ML BAG IV STA (10:19)
[2022-06-09] MEDS ORDERED: SODIUM CHLORIDE 0.9% 1000ML 1,000 ML IV ONE (10:26)
--- NOTE | 2022-06-09 10:26 | CT Scan Report ---
CT ANGIOGRAM OF THE CHEST CLINICAL HISTORY: Dyspnea. Cough. COMPARISON STUDY: Chest x-ray dated 06/09/2022. Chest CT dated 03/06/2021. TECHNIQUE: Following the IV administration of 110 cc of Optiray 320, CT angiogram of the chest was pe rformed from the upper abdomen to the thoracic inlet utilizing the pulmonary embolus protocol. Images are reviewed in the axial, sagittal, and coronal planes. 3-D MIPS images are created and assessed. I V contrast was administered without complication. A dose lowering technique was utilized adhering to the principles of ALARA. The examination is degraded by motion artifact. There is also streak artifa ct from the left arm which could not be elevated above the abdomen. CT DOSE: 955.12 mGy.cm FINDINGS: Thyroid: Imaged portions of the thyroid gland are normal in size and attenuation. Thoracic aorta: The thoracic aorta is normal in caliber and demonstrates standard 3-vessel arch anato my. No dissection is seen. Pulmonary vasculature: The pulmonary trunk is dilated measuring 3.7 cm in diameter. This suggests pul monary artery hypertension. There are no filling defects identified in main, lobar, or proximal segme ntal pulmonary branches to suggest pulmonary embolus. Evaluation of the segmental and subsegmental br anches is significantly degraded by motion artifact. Heart: The heart is mildly enlarged and without pericardial effusion. There are scattered coronary ar eric calcifications. Lungs and pleural spaces: Evaluation of the lung parenchyma is significantly degraded by motion artif act. There is no airspace consolidation typical for pneumonia or pleural effusion. The trachea and ce ntral airways are clear. Scattered foci of parenchymal scarring are seen bilaterally. Mediastinum: There are numerous subcentimeter mediastinal lymph nodes, likely reactive. Kecia: Mildly enlarged hilar nodes measure up to 13 mm short axis. Axillae: There is no axillary lymphadenopathy. Upper abdomen: The liver is enlarged and steatotic. Cholecystectomy clips are noted. The spleen is en larged, measuring 15 cm in length. There is a small hiatal hernia. Skeletal structures: The skeletal structures are osteopenic. Mild degenerative change is noted in the thoracic spine and shoulders. No lytic or blastic bony lesions are seen. IMPRESSION: 1. Streak and motion compromised examination. 2. There is no evidence of central pulmonary embolus in the main, lobar, or proximal segmental pulmon brittny arteries. 3. There is no airspace consolidation typical for pneumonia or pleural effusion. 4. Hepatic steatosis and splenomegaly. 5. Additional findings as above. ACT 112: Negative or not required by law. Electronically signed by: Shubham Delarosa M.D. 06/09/2022 10:25 AM
--- NOTE | 2022-06-09 11:06 | History & Physical Report ---
Date of Service June 09, 2022 Assessment & Plan (1) Acute respiratory failure with hypoxia: (2) Type 2 diabetes mellitus: (3) HLD (hyperlipidemia): (4) Depression: (5) Anxiety: (6) Overactive bladder: Plan 66 y/o with persistent SOB and green sputum despite abx treatment. recent admission 03/06-03/11 for COVID PNA and on 05/16-05/20 for sepsis PNA. CXR negative for PNA; possible sinusitis vs throat infection; consider Pulm for possible bronch. WBC 17.78, slight tachycardia, fevers on/offbut does not appear septic. Resolution of lactate from 2.2 --> 1.6. Complete URI work up. Acute Respiratory Failure: -Leukocytosis WBC 17.78 tachycardic in 100-105 range on arrival to ED -CXR negative -Chest CTA: negative for PE; however does suggest some dilatation which may be suggestive of pHTN; ECHO ordered -EKG pending -Biofire negative -Lactic acid 2.2; resolved 1.6 post fluid resuscitation; hold additional fluids for now; patient euvolemic -Procalcitonin pending -IV Zosyn given in ED; continue. Recent completion of Cefuroxine and Doxy completed 05/31 -Blood Cultures pending -sputum culture - Group A beta strep previously; will obtain a new culture -ordered throat culture and MRSA screen -Mucinex, ISB -Mg+ and Phos+ pending, UA negative. -Pulmonary Consultation for evaluation for possible bronchoscopy Type 2 diabetes mellitus: -A1c 03/15/22: 7.1; recheck while here; pending -Not compliant with Dexcom at home -Takes Jardiance; hold while here -Prescribed Trulicity but does not take it -We will order FSBS ACHS + SSI Hypertension: -Takes Valsartan; continue; hemodynamically stable -Question of heart failure in her history; BNP normal at 53; obtain ECHO as outlined above -Takes Propranolol; takes for anxiety and depression as well. Dyslipidemia: -lipid panel: 03/15/22: T, HDL 39, LDL 88; recheck panel while here -Takes Atorvastatin; continue Anxiety and depression: -Significant stressors at home including raising her 8-month-old great grandson with special physical needs -Currently lives with daughter -Discussed code status; patient was clear she would want to be a DNR/DNI in the setting of a cardiac or respiratory arrest; she was receptive to BiPAP or CPAP in the event of her respiratory decline. 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 -Takes Propranolol; continue -Takes Duloxetine; continue Overactive bladder: -Takes Detrol; continue Disposition: PCP: Dr. Burciaga CODE STATUS: DNR/DNI VTE prophylaxis: Lovenox SQ I spent a total of 87 minutes coordinating, documenting, and providing care for this patient excluding time spent in the performance of separately billed services. All of the aforementioned completed while collaborating with the assigned attending physician for a full treatment plan. Please see their addendum for further details. History of Present Illness Chief Complaint: SOB Primary Care Provider: Talisha Burciaga MD Ms. Vemra is a 66-year-old female who presented to the [facility] ED today with shortness of breath that began overnight acutely. Associated with her SOB she reported that she had anterior pain across her chest with discomfort radiating in her left shoulder to elbow; however, she was not alarmed by this due to her history of fibromyalgia. Patient was recently admitted 05/16 to 05/20 with sepsis pneumonia and previously with COVID-pneumonia 03/06 to 03/11 this year. Patient states that she has completed her oral antibiotics after her recent discharge with the completion date being May 31. Since then, she reports that her sputum has remained green and thick. She did not do anything over the holiday weekend that would have caused increasing fatigue. Chest x-ray negative for acute cardiac pulmonary disease. Chest CTA performed negative for PE, coronary artery calcifications and's hepatic splenomegaly. Patient did have COVID March 2021. Patient lives at home with her daughter and is raising her great grandson who is 8 months old with physical special needs. Additional past medical history includes HTN, HLD, respiratory failure, overactive bladder, psoriasis, diabetes mellitus type 2, fibromyalgia, anxiety and depression, and GERD. Patient denies tobacco, alcohol or recreational drug use. Leukocytosis 17.78, Lactic acid initially 2.2; will trend after fluid resuscitation. Troponin 10.5. EKG reveals ST; Do not suspect ACS at this time. Procalcitonin pending. Creatinine 0.76. Glucose elevated at 184; patient historically not compliant with glucose monitoring; last A1c 7.02 March 2022; will trend while here. Patient was given 1 dose of Zosyn IV in the ED. Blood cultures and sputum cultures pending. Otherwise, hemodynamically stable. M Her most recent ECHO was as an OPT in 2011; unable to review the results; however, while her Troponin is negative and I do not suspect ACS; feel that an ECHO may be beneficial as her chest CTA does indicate some coronary artery calcifications and signs of pHTN. May consider Pulmonary consultation for evaluation for possible bronchoscopy. Patient denies dizziness, abdominal pain, visual or auditory changes, recent falls or trauma. Patient does report having intermittent frontal headaches. She On exam patient is AAOx3 and in no apparent distress is able to ambulate to the bathroom without assistance but does become dyspnic with activity. She does appear less toxic to me than prior admission. She was talking on the phone when I entered the room and was able to speak in complete sentences, but does appear that she was using more accessory muscles to breath; resolved at rest. As stated patient currently lives with her daughter and is quite tearful through conversation about her home life and stressors. She has been raising her 8-month-old great grandson and he recently was removed from her by her granddaughters boyfriend. When we were discussing CODE STATUS the patient was clear she would not want to be resuscitated in the setting of a cardiac or respiratory arrest however she is receptive to BiPAP or CPAP in the event of a respiratory decline. 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 Patient receptive to admission for further evaluation and management. Please see A/P for further details. Allergies Allergy/AdvReac Type Severity Reaction Status Date / Time fosphenytoin Allergy Mild HIVES Verified 03/21/19 15:58 celecoxib Allergy Unknown ITCHINESS Verified 03/21/19 15:58 warfarin [From Coumadin] AdvReac Severe Hemorrhage Verified 03/21/19 15:58 Home Medications Medication Instructions Recorded Confirmed Type atorvastatin 20 mg tablet 20 mg PO DAILY 03/21/19 06/09/22 History propranolol 20 mg tablet 10 mg PO BID 03/21/19 06/09/22 History cyclobenzaprine 10 mg tablet 10 mg PO TID PRN Muscle Spasm 03/06/21 06/09/22 History duloxetine 30 mg capsule,delayed 30 mg PO DAILY 03/06/21 06/09/22 History release duloxetine 60 mg capsule,delayed 60 mg PO DAILY 03/06/21 06/09/22 History release lamotrigine 25 mg tablet 100 mg PO BID 03/06/21 06/09/22 History omeprazole 40 mg capsule,delayed 40 mg PO DAILY 03/06/21 06/09/22 History release tolterodine 4 mg capsule,extended 4 mg PO DAILY 03/06/21 06/09/22 History release 24 hr valsartan 80 mg tablet 80 mg PO DAILY 03/06/21 06/09/22 History empagliflozin 25 mg tablet 25 mg PO QAM 05/16/22 06/09/22 History (Jardiance) famotidine 20 mg tablet 20 mg BID 05/16/22 06/09/22 History Past Med/Surg History Medical History Acute respiratory failure with hypoxia Anxiety Depression Diabetic neuropathy Fibromyalgia HLD (hyperlipidemia) Hypertension Migraine Obesity Overactive bladder Psoriasis Reflex sympathetic dystrophy Type 2 diabetes mellitus Surgical History H/O hernia repair History of cholecystectomy History of repair of rotator cuff Status post bilateral knee replacements Family History Father Diabetes Stroke Grandmother (Paternal) Diabetes Mother Lung disease Social History Smoking Status: Never smoker Second Hand Exposure: No; Do You Dip or Chew Tobacco: No; Tobacco Cessation Education Requested by Patient: No Hx Alcohol Use: No Hx Substance Use: No Preferred Language: [place] Communication Ability: Effective Visual Impairment: No Limitations Hearing Ability: Normal Acid Conditioning Worker Required: No Beliefs That Will Affect Care: None Current Living Situation: Family Current Living Situation Comment: lives with daughter Other Information That Helps Us Care for You: No Feels Safe at Home: Yes Safety Concerns: Feels Safe At This Time Assistive Devices: Cane, Denture - Upper, Denture - Lower and Glasses Assistive Devices Comment: Dentures not with patient at this time Review of Systems Review of Systems: Neuro: (-) Falls, trauma, slurred speech HEENT: (+) [place], (-) dizziness, dysphagia, visual or auditory changes CV: (-) CP, palpitations, swelling Resp: (-) SOB GI: (-) appetite changes, N/V/D, bowel changes : (-) urinary changes Skin: (-) rashes Psych: (-) anxiety, depression Physical Exam Physical Exam: Neuro: AAOx4, PERRLA, no aphagia, memory changes, CNII-XII grossly intact HEENT: head normocephalic, moist mucus membranes CV: S1/S2, (-) M/G/R, (-) edema, cap refill < 3 seconds chest tenderness with palpation r/t fibromyalgia Resp: Lungs CTA in all driscoll. On RA GI: Abdomen S/NT/ND, Ax4 bowel sounds, (-) CVA tenderness Musculoskeletal: 5/5 B/L UE strength, 5/5 B/L LE strength. No gait disturbance Skin: (-) rashes , (-) erythema. Psych: euthymic mood Results & Data Results & Data Vital Signs (Past 12 Hours) Vital Signs Temp Pulse Resp BP Pulse Ox O2 Del Method O2 Flow Rate 06/09/22 09:32 100 H 23 96 06/09/22 09:32 157/61 H 06/09/22 09:30 100 H 29 H 96 06/09/22 09:30 150/84 H 06/09/22 09:01 106 H 24 97 06/09/22 09:01 110/72 06/09/22 09:00 104 H 28 H 96 06/09/22 08:30 107 H 21 94 06/09/22 08:30 156/93 H 06/09/22 08:04 185/84 H 06/09/22 08:04 116 H 18 89 L 06/09/22 08:03 112 H 22 91 06/09/22 08:20 105 H 06/09/22 07:54 89 L Nasal Cannula 0 06/09/22 07:54 Nasal Cannula 4 06/09/22 07:54 37.7 C H 115 H 26 H 185/84 H 89 L Room Air Laboratory Results Short CBC 06/09/22 Range/Units 08:06 WBC 17.78 H (4.8-10.8) K/ul Hgb 13.5 (12.0-16.0) g/dl Hct 42.4 (37.0-47.0) % Plt Count 225 (130-400) K/uL BMP 06/09/22 08:06 Sodium 134 L Potassium 4.4 Chloride 102 Carbon Dioxide 22 BUN 19 Creatinine 0.76 Glucose 184 H Calcium 9.6 Liver Function 06/09/22 Range/Units 08:06 Total Bilirubin 0.6 (0.2-1.0) mg/dl AST 14 (13-39) U/L ALT 14 (7-52) U/L Alkaline Phosphatase 113 H (34-104) U/L Albumin 3.8 (3.4-5.0) gm/dl Diagnostic Findings Chest X-Ray 06/09/22 08:20 XR chest 1V portable HISTORY: 66 years-old Female Chest pain, nonspecific acute chest pain COMPARISON: 05/17/2022 TECHNIQUE: AP view of the chest FINDINGS: Cardiomediastinal and hilar silhouettes are within normal limits. There is no pneumothorax, pleural effusion, airspace consolidation or pulmonary edema. Degenerative changes of the shoulders and spine. IMPRESSION: No acute process. ACT 112: Negative or not required by law. The above report was generated using voice recognition software. It may contain grammatical, syntax or spelling errors. Electronically signed by: Francisco Zaidi M.D. 06/09/2022 8:57 AM Chest CTA 06/09/22 09:42 CT ANGIOGRAM OF THE CHEST CLINICAL HISTORY: Dyspnea. Cough. COMPARISON STUDY: Chest x-ray dated 06/09/2022. Chest CT dated 03/06/2021. TECHNIQUE: Following the IV administration of 110 cc of Optiray 320, CT angiogram of the chest was performed from the upper abdomen to the thoracic inlet utilizing the pulmonary embolus protocol. Images are reviewed in the axial, sagittal, and coronal planes. 3-D MIPS images are created and assessed. IV contrast was administered without complication. A dose lowering technique was utilized adhering to the principles of ALARA. The examination is degraded by motion artifact. There is also streak artifact from the left arm which could not be elevated above the abdomen. CT DOSE: 955.12 mGy.cm FINDINGS: Thyroid: Imaged portions of the thyroid gland are normal in size and attenuation. Thoracic aorta: The thoracic aorta is normal in caliber and demonstrates standard 3-vessel arch anatomy. No dissection is seen. Pulmonary vasculature: The pulmonary trunk is dilated measuring 3.7 cm in diameter. This suggests pulmonary artery hypertension. There are no filling defects identified in main, lobar, or proximal segmental pulmonary branches to suggest pulmonary embolus. Evaluation of the segmental and subsegmental branches is significantly degraded by motion artifact. Heart: The heart is mildly enlarged and without pericardial effusion. There are scattered coronary artery calcifications. Lungs and pleural spaces: Evaluation of the lung parenchyma is significantly degraded by motion artifact. There is no airspace consolidation typical for pneumonia or pleural effusion. The trachea and central airways are clear. Scattered foci of parenchymal scarring are seen bilaterally. Mediastinum: There are numerous subcentimeter mediastinal lymph nodes, likely reactive. Kecia: Mildly enlarged hilar nodes measure up to 13 mm short axis. Axillae: There is no axillary lymphadenopathy. Upper abdomen: The liver is enlarged and steatotic. Cholecystectomy clips are noted. The spleen is enlarged, measuring 15 cm in length. There is a small hiatal hernia. Skeletal structures: The skeletal structures are osteopenic. Mild degenerative change is noted in the thoracic spine and shoulders. No lytic or blastic bony lesions are seen. IMPRESSION: 1. Streak and motion compromised examination. 2. There is no evidence of central pulmonary embolus in the main, lobar, or proximal segmental pulmonary arteries. 3. There is no airspace consolidation typical for pneumonia or pleural effusion. 4. Hepatic steatosis and splenomegaly. 5. Additional findings as above. ACT 112: Negative or not required by law. Electronically signed by: Shubham Delarosa M.D. 06/09/2022 10:25 AM Code Status & VTE Plan VTE Prophylaxis Plan VTE Prophylaxis will be ordered: Yes Supervising Physician Co-Signing Physician Notes I have seen and examined the patient and have discussed the case with the provider above. I agree with the assessment and plan as stated with the following exceptions. Patient is a 66-year-old female with diabetes who presents approximately 10 days post discharge from the hospital where she was admitted for 4 days with sepsis secondary to pneumonia. She received appropriate oral antibiotics and was able to complete the regimen at home. She reports a reaction for 2 days with fevers and malaise in response to a Pneumovax vaccine but recovered from this. Since returning home she has not felt completely resolved and yesterday reports acute worsening of shortness of breath. Today on presentation she has an elevated leukocytosis of 17,000 and she is hypoxic. A chest CTA ruled out PE and there is no airspace consolidation typical for pneumonia or pleural effusion present. She has no gross evidence of pericardial effusion on chest CT with echo pending. She did have a mild lactic acidosis. Electrolytes were within normal limits and glucose was controlled at 101. Procalcitonin is negative. Troponin is negative at 10.5. EKG reveals no acute ischemic changes. She is in sinus rhythm. Glucosuria without infection is seen on urinalysis. Bio fire respiratory panel is negative. On physical exam she is oxygenating well on 4 L via nasal cannula. She does not have any muffled voice drooling stridor or respiratory distress that would be indicative of a severe pharyngitis infection. She is afebrile. She does have enlarged pitted tonsils without clear exudates. She is reporting tender cervical lymph nodes and has tender cervical lymphadenopathy. Lungs are clear to auscultation throughout. Cardiac exam reveals S1-S2 heard without any murmurs. She is tachycardic with a regular rhythm. Abdomen is soft nontender nondistended. She does have multiple tender points along her chest wall and along her left arm consistent with fibromyalgia history. She is mentating clearly. 1. Acute hypoxia 2. Acute pharyngitis 3. Type 2 diabetes myelitis 4. Morbid Obesity Acute shortness of breath with new hypoxia with unclear etiology. She doesn't appear to have any persistent pneumonia on chest imaging, no pulmonary edema or other obstruction, no clear lung disease or PE is present. Agree with continued workup with echo with bubble study along with further investigation of hypoxia with ABG. No clear clinical evidence of cyanide poisoning, however, this has been seen with supplements that may include amygdalin so will screen here. Urine tox screen ordered, also. Pt has evidence of GAS on sputum culture from 05/16 and now with clinical evidence of pharyngitis. This should have been adequately treated with recent course of abx given last admission and at home, however, agree with Zosyn for now and will await pulm recommendations. DO Figueroa
[2022-06-09] MEDS ORDERED: MAGNESIUM HYDROXIDE SUSP 30 ML UDC PO PRN (11:13)
[2022-06-09] MEDS ORDERED: ONDANSETRON INJ 2 MG/ML 2 ML VIAL IV PRN (11:13)
[2022-06-09] MEDS ORDERED: ALUMINUM/MAGNESIUM SUSP 30 ML UDC PO PRN (11:13)
[2022-06-09] MEDS ORDERED: POLYETHYLENE (MIRALAX) 17 GM PACK PO PRN (11:13)
[2022-06-09 12:19] LABS: Appearance Urine Clear (Clear); Bilirubin Urine Negative (Negative); Blood Urine 1+ (Negative); Color Urine Yellow; Glucose Urine UA 3+ (Negative); Ketones Urine Negative (Negative); Leukocyte Esterase Urine Negative (Negative); Nitrite Urine Negative (Negative); Protein Urine Negative (Negative); Urobilinogen Urine Negative (Negative)
[2022-06-09] MEDS ORDERED: CYCLOBENZAPRINE HCL 10 MG TAB PO PRN (12:20)
[2022-06-09] MEDS ORDERED: DEXTROSE 50% 50 ML SYRINGE IV PRN (12:22)
[2022-06-09] MEDS ORDERED: GLUCOSE 10 TAB/TUBE PO PRN (12:22)
[2022-06-09] MEDS ORDERED: GLUCAGON FOR INJ 1 MG VIAL SQ PRN (12:22)
[2022-06-09] MEDS ORDERED: GLUCOSE 40% GEL 15 GM TUBE PO PRN (12:22)
[2022-06-09] MEDS ORDERED: CARBOHYDRATES FOR HYPOGLYCEMIA PO PRN (12:22)
[2022-06-09 12:24] LABS: Epithelial Cell Urine 0-5 /lpf (0-5); RBC Urine 0-4 /hpf (0-4)
[2022-06-09 12:25] LABS: Bacteria Urine Negative (Negative); WBC Urine 0-5 /hpf (0-5)
[2022-06-09] MEDS: PIPERACILLIN/TAZOBACTAM 3.375 GM in DEXTROSE 5% 100 ML IV SCH ×2 (16:10→22:54)
[2022-06-09 17:12] LABS: Base Excess ABG -0.3 mEq/L (-9-1.8); HCO3 ABG 23 mmol/L (19-24); Oxygen Saturation ABG 97.5 % (90-95); PCO2 ABG 32 mmHg (35-46); PO2 ABG 86 mmHg (80-95); pH ABG 7.46 (7.35-7.45)
[2022-06-09 17:13] LABS: Carboxyhemoglobin 1.9 % THgb; Methemoglobin 0.9 % (0.0-1.5)
[2022-06-09] MEDS: INSULIN ASPART PER UNIT CHARGE SC SCH ×2 (17:23→20:25)
[2022-06-09] MEDS: ACETAMINOPHEN 325 MG TAB PO PRN (17:25)
[2022-06-09] MEDS ORDERED: COUGH DROP (SUGAR FREE) LOZ 24 LOZ/1 BOX BUCCAL PRN (18:09)
[2022-06-09] MEDS ORDERED: COUGH DROP (SUGAR FREE) LOZ 24 LOZ/1 BOX BUCCAL STA (18:09)
[2022-06-09] MEDS ORDERED: traMADol HCL 50 MG TABLET PO PRN (18:12)
[2022-06-09 18:35] LABS: Allen Test Pos (Pos)
[2022-06-09 18:43] LABS: Amphetamines+Metham, Urine Neg (Neg); Barbiturates, Urine Neg (Neg); Benzodiazepine, Urine Neg (Neg); Cocaine, Urine Neg (Neg); MDMA (Ecstacy), Urine Neg (Neg); Methadone, Urine Neg (Neg); Opiate, Urine Neg (Neg); Phencyclidine, Urine Neg (Neg)
[2022-06-09] MEDS: guaiFENesin 600 MG TABCR PO SCH (20:21)
[2022-06-09] MEDS: FAMOTIDINE 20 MG TAB PO SCH (20:21)
[2022-06-09] MEDS: lamoTRIgine 100 MG TAB PO SCH (20:22)
[2022-06-09] MEDS: PROPRANOLOL HCL 10 MG TAB PO SCH (20:22)
[2022-06-09] MEDS: LANTUS PER UNIT CHARGE SQ SCH (20:34)
[2022-06-10] MEDS: ACETAMINOPHEN 325 MG TAB PO PRN (01:11)
--- NOTE | 2022-06-10 06:02 | Electrocardiogram Report ---
Test Reason : Blood Pressure : / mmHG Vent. Rate : 114 BPM Atrial Rate : 114 BPM P-R Int : 138 ms QRS Dur : 082 ms QT Int : 304 ms P-R-T Axes : -14 -55 019 degrees QTc Int : 419 ms Poor data quality, interpretation may be adversely affected Sinus tachycardia Left axis deviation Low voltage QRS Nonspecific T wave abnormality Abnormal ECG When compared with ECG of 18-MAY-2022 05:45, Premature supraventricular complexes are no longer Present Vent. rate has increased BY 41 BPM Confirmed by Des Mitchell ([id number]) on 06/10/2022 6:02:09 AM Referred By: REFERRED SELF Confirmed By:Des Mitchell
[2022-06-10 07:08] LABS: Magnesium 2.2 mg/dl (1.7-2.4); Phosphorus 4.4 mg/dl (2.5-4.9)
--- NOTE | 2022-06-10 07:09 | Pulmonary Consultation ---
Date of Consultation June 10, 2022 Assessment & Plan (1) SOB (shortness of breath): (2) Acute respiratory failure with hypoxia: (3) Morbid obesity: (4) Elevated diaphragm: Plan CT chest 06/09/2022 personally reviewed: Motion degraded study, very minimal pa tchy opacities in the bilateral upper lobes likely residual from COVID-pneumonia which occurred in March 2021 Elevated right hemidiaphragm minimal dependent otitis bilateral lower lobes No significant mediastinal lymphadenopathy -- Acute respiratory failure with hypoxia Etiology is not clear CT chest does not show any significant pulmonary abnormality She does have elevated right hemidiaphragm and minimal dependent atelectasis bilateral lower lobes Would recommend 2D echo to look at the right-sided pressures along with bubble study Procalcitonin negative BNP 53 Respiratory bio fire negative on 06/09/2022 Patient did have parainfluenza and adenovirus last month on 05/16/2022 --Elevated right hemidiaphragm Idiopathic Continue with incentive spirometry --Obesity with probable BANDAR/OHS BiPAP nightly and as needed shortness of breath Recommend outpatient polysomnography Plan: Incentive spirometry will beneficial Recommend 2D echo with bubble study to look at the right-sided pressures I do not see any clear signs of pneumonia on the CT chest Try to titrate off oxygen Keep the goal oxygen saturation around 90-92% Try to keep the patient euvolemic. BiPAP nightly and as needed shortness of breath Please note the above document was generated using voice recognition software. It may contain grammatical, syntax or spelling errors.Any formal questions or concerns about the content, text or information contained within the body of this dictation should be directly addressed to the provider for clarification. History of Present Illness Attending Physician: Saira Marti DO History of Present Illness 66-year-old female presented to the hospital for shortness of breath Past medical history: Dyslipidemia, anxiety/depression, hypertension Pulmonary consulted for hypoxia At the time of examination patient was saturating 97-98% on 2 L nasal cannula. I went down to 1 and half liters Patient stated that she has been having exertional shortness of breath which has been going on for a while. She woke up in the middle of the night to go to the bathroom at this point she got short of breath Denied any chest pain, no chest tightness, no wheezing at that time She is not on any oxygen at home. Better denies any fever or chills No dysuria, no diarrhea No headache, no blurry vision Patient is actually lost approximately 70 pounds intentionally. She is trying to lose more. No personal or family history of any autoimmune disease like lupus, sarcoid, Sjogren's, rheumatoid. No history of pulmonary hypertension in the family Social history: Lifetime non-smoker. Used to work as an RN. Has a dog at home. Allergies Allergy/AdvReac Type Severity Reaction Status Date / Time fosphenytoin Allergy Mild HIVES Verified 03/21/19 15:58 celecoxib Allergy Unknown ITCHINESS Verified 03/21/19 15:58 warfarin [From Coumadin] AdvReac Severe Hemorrhage Verified 03/21/19 15:58 Home Medications Medication Instructions Recorded Confirmed Type atorvastatin 20 mg tablet 20 mg PO DAILY 03/21/19 06/09/22 History propranolol 20 mg tablet 10 mg PO BID 03/21/19 06/09/22 History cyclobenzaprine 10 mg tablet 10 mg PO TID PRN Muscle Spasm 03/06/21 06/09/22 History duloxetine 30 mg capsule,delayed 30 mg PO DAILY 03/06/21 06/09/22 History release duloxetine 60 mg capsule,delayed 60 mg PO DAILY 03/06/21 06/09/22 History release lamotrigine 25 mg tablet 100 mg PO BID 03/06/21 06/09/22 History omeprazole 40 mg capsule,delayed 40 mg PO DAILY 03/06/21 06/09/22 History release tolterodine 4 mg capsule,extended 4 mg PO DAILY 03/06/21 06/09/22 History release 24 hr valsartan 80 mg tablet 80 mg PO DAILY 03/06/21 06/09/22 History empagliflozin 25 mg tablet 25 mg PO QAM 05/16/22 06/09/22 History (Jardiance) famotidine 20 mg tablet 20 mg BID 05/16/22 06/09/22 History Patient History Medical History Acute respiratory failure with hypoxia Anxiety Depression Diabetic neuropathy Fibromyalgia HLD (hyperlipidemia) Hypertension Migraine Obesity Overactive bladder Psoriasis Reflex sympathetic dystrophy Type 2 diabetes mellitus Surgical History H/O hernia repair History of cholecystectomy History of repair of rotator cuff Status post bilateral knee replacements Family History Father Diabetes Stroke Grandmother (Paternal) Diabetes Mother Lung disease Social History Smoking Status: Never smoker Second Hand Exposure: No; Do You Dip or Chew Tobacco: No; Tobacco Cessation Education Requested by Patient: No Hx Alcohol Use: No Hx Substance Use: No Preferred Language: Bulgarian Communication Ability: Effective Visual Impairment: No Limitations Hearing Ability: Normal Microbiology Technician Required: No Beliefs That Will Affect Care: None Current Living Situation: Family Current Living Situation Comment: lives with daughter Other Information That Helps Us Care for You: No Feels Safe at Home: Yes Safety Concerns: Feels Safe At This Time Assistive Devices: Cane, Denture - Upper, Denture - Lower and Glasses Assistive Devices Comment: Dentures not with patient at this time Review of Systems Review of Systems: All systems reviewed & are unremarkable except as noted in HPI & below Physical Exam Physical Exam: Constitutional: No acute distress HEENT: EOMI, PERRLA, thick neck Respiratory system: Good air entry bilaterally, no wheeze, no rhonchi, no crackles CVS: S1-S2 positive, no murmurs or gallops, accentuated P2 Abdomen: Soft, nontender, nondistended, positive bowel sounds x4, obese Extremities: +2 pulses bilaterally radialis/ dorsalis pedis, no cyanosis, no edema Neuro: Awake alert oriented x3 Psych: Normal mood and affect G/U: No Marie Skin: no rashes, warm and dry Lymphatic: no cervical or axillary lymphadenopathy Results & Data Results & Data Vital Signs (Past 12 Hours) Vital Signs Temp Pulse Pulse Resp BP Pulse Ox O2 Del Method 06/10/22 03:00 36.7 C 67 18 97/60 L 96 Nasal Cannula 06/10/22 00:11 76 06/09/22 20:00 Nasal Cannula 06/09/22 23:20 36.5 C 75 18 109/70 95 Nasal Cannula 06/09/22 19:14 36.7 C 95 H 18 124/74 93 Nasal Cannula O2 Flow Rate 06/10/22 03:00 4 06/10/22 00:11 06/09/22 20:00 4.5 06/09/22 23:20 5 06/09/22 19:14 4 Laboratory Results 06/09/22 08:06 06/09/22 08:06 PG Care Time/CCT Total # of Minutes Spent Total Time Spent with Patient: Total time spent is greater than 50% in coordination of care (as documented) at patient's floor/unit and/or counseling patient: Coding Level of Care Code 42861 INT INP/OBS CARE 3/75MIN Diagnoses SOB (shortness of breath) R06.02 Acute respiratory failure with hypoxia J96.01 Morbid obesity E66.01 Elevated diaphragm J98.6
[2022-06-10] MEDS: PIPERACILLIN/TAZOBACTAM 3.375 GM in DEXTROSE 5% 100 ML IV SCH ×3 (07:54→22:24)
[2022-06-10] MEDS: INSULIN ASPART PER UNIT CHARGE SC SCH ×4 (07:59→21:22)
[2022-06-10] MEDS: FAMOTIDINE 20 MG TAB PO SCH ×3 (08:02→20:45)
[2022-06-10] MEDS: VALSARTAN 80 MG TAB PO SCH (08:02)
[2022-06-10] MEDS: PANTOprazole 40 MG TAB PO SCH (08:02)
[2022-06-10] MEDS: lamoTRIgine 100 MG TAB PO SCH ×2 (08:02→20:45)
[2022-06-10] MEDS: TOLTERODINE TARTRATE LA 4 MG CAPCR PO SCH (08:02)
[2022-06-10] MEDS: ATORVASTATIN 20 MG TAB PO SCH (08:03)
[2022-06-10] MEDS: DULoxetine HCL 30 MG CAP PO SCH (08:03)
[2022-06-10] MEDS: guaiFENesin 600 MG TABCR PO SCH ×2 (08:03→20:45)
[2022-06-10] MEDS: DULoxetine HCL 60 MG CAP PO SCH (08:03)
[2022-06-10] MEDS: PROPRANOLOL HCL 10 MG TAB PO SCH ×2 (08:08→20:45)
[2022-06-10] MEDS: ENOXAPARIN INJ 40 MG/0.4 ML SYR SQ SCH (08:09)
[2022-06-10] MEDS: LANTUS PER UNIT CHARGE SQ SCH ×2 (08:15→21:22)
[2022-06-10 10:50] LABS: Hematocrit (blood only) 39.7 % (37.0-47.0); Hemoglobin 12.3 g/dl (12.0-16.0); Mean Corpuscular Hemoglobin 25.1 pg (25.0-34.0); Mean Corpuscular Volume 80.9 fL (80.0-100.0); Mean Platelet Volume 10.4 fL (9.4-12.4); Platelet Count 165 K/uL (130-400); RDW Coefficient of Variation 15.7 % (11.5-14.5); RDW Standard Deviation 45.5 fL (36.4-46.3); Red Blood Count 4.91 M/uL (4.20-5.40); White Blood Count 13.62 K/ul (4.8-10.8)
[2022-06-10 11:02] LABS: BUN Creatinine Ratio 21.9 (10-20); Calcium 9.2 mg/dl (8.6-10.3); Creatinine Clr Calc Pharmacy 123.5 ml/min; Est GFR (African American) 107.8 ml/min
--- NOTE | 2022-06-10 14:45 | Hospitalist Progress Note ---
Date of Service June 10, 2022 Assessment & Plan (1) Acute respiratory failure with hypoxia: (2) Type 2 diabetes mellitus: (3) HLD (hyperlipidemia): (4) Depression: (5) Anxiety: (6) Overactive bladder: Plan 66 y/o with persistent SOB and green sputum despite abx treatment. recent admission 03/06-03/11 for COVID PNA and on 05/16-05/20 for sepsis PNA. CXR negative for PNA. Seen by pulm. Echo done- report pending. CTA chest 1. Streak and motion compromised examination. 2. There is no evidence of central pulmonary embolus in the main, lobar, or proximal segmental pulmonary arteries. 3. There is no airspace consolidation typical for pneumonia or pleural effusion. 4. Hepatic steatosis and splenomegaly. 5. Additional findings as above. Acute Respiratory Failure with hypoxia: No clear etiology. No PE or pneumonia. Respiratory bio fire negative (did have parainfl and adenovirus last month). ABG 7.46/32/86 on 4 L NC. COHb 1.9%. UDS negative. WBC 17->13. Procal negative. BNP 53. Echo report pending. Seen by pulmonology. On empiric zosyn- will continue for now. IS. Wean off oxygen as tolerated. Goal saturation 90-92% Type 2 diabetes mellitus: -A1c 03/15/22: 7.1; Not compliant with Dexcom at home. Holding home jardiance for now. She is not taking her trulicity at home. -Continue SSI, lantus Hypertension: Continue valsartan, propranolol with hold parameters Dyslipidemia: On Atorvastatin Anxiety and depression: - Significant stressors at home including raising her 8-month-old great grandson with special physical needs (club feet) and following up at [place]. Car broke down. Her daughter's new boyfriend took the baby and would not let her see him. - Had televisit with psych today and has televisit with therapist tomorrow - Sees psych q2 months and therapist every week - Continue Duloxetine, lamictal Overactive bladder:-Takes Detrol; continue Obesity with probable OHS/BANDAR- BIPAP hs and prn. OP sleep study recommended. Disposition: PCP: Dr. Burciaga CODE STATUS: DNR/DNI VTE prophylaxis: Lovenox SQ Admission and Anticipated Discharge Date Admission Date: June 09, 2022 Subjective Patient was seen and examined bedside Review of Systems Review of Systems: All systems reviewed & are unremarkable except as noted in Subjective Results & Data Results & Data Vital Signs (Past 12 Hours) Vital Signs Temp Pulse Pulse Resp BP Pulse Ox O2 Del Method 06/10/22 11:09 36.7 C 74 20 111/72 95 Nasal Cannula 06/10/22 08:18 Nasal Cannula 06/10/22 06:45 71 06/10/22 07:28 36.4 C L 74 20 112/69 96 Nasal Cannula 06/10/22 03:00 36.7 C 67 18 97/60 L 96 Nasal Cannula O2 Flow Rate 06/10/22 11:09 3 06/10/22 08:18 4 06/10/22 06:45 06/10/22 07:28 3 06/10/22 03:00 4
--- NOTE | 2022-06-10 17:47 | XCELERA ---
[id number] \\[id number]___[id number]
--- NOTE | 2022-06-11 05:53 | Electrocardiogram Report ---
Test Reason : Blood Pressure : / mmHG Vent. Rate : 103 BPM Atrial Rate : 103 BPM P-R Int : 146 ms QRS Dur : 080 ms QT Int : 316 ms P-R-T Axes : 004 -49 019 degrees QTc Int : 413 ms Sinus tachycardia Left axis deviation Low voltage QRS Nonspecific T wave abnormality Abnormal ECG When compared with ECG of 09-JUN-2022 08:02, No significant change was found Confirmed by Des Mitchell ([id number]) on 06/11/2022 5:53:14 AM Referred By: REFERRED SELF Confirmed By:Des Mitchell
[2022-06-11 06:20] LABS: Hematocrit (blood only) 36.8 % (37.0-47.0); Hemoglobin 11.6 g/dl (12.0-16.0); Mean Corpuscular Hemoglobin 25.3 pg (25.0-34.0); Mean Corpuscular Hgb Conc 31.5 g/dL (32.0-36.0); Mean Corpuscular Volume 80.2 fL (80.0-100.0); Mean Platelet Volume 10.5 fL (9.4-12.4); Platelet Count 176 K/uL (130-400); RDW Coefficient of Variation 15.6 % (11.5-14.5); Red Blood Count 4.59 M/uL (4.20-5.40); White Blood Count 10.45 K/ul (4.8-10.8)
[2022-06-11] MEDS: PIPERACILLIN/TAZOBACTAM 3.375 GM in DEXTROSE 5% 100 ML IV SCH ×3 (06:21→23:47)
[2022-06-11 06:31] LABS: BUN Creatinine Ratio 21.7 (10-20); Calcium 9.1 mg/dl (8.6-10.3); Creatinine Clr Calc Pharmacy 108.6 ml/min; Est GFR (African American) 105.1 ml/min; Est GFR (Non-African American) 90.7 ml/min
[2022-06-11] MEDS: lamoTRIgine 100 MG TAB PO SCH ×2 (08:20→20:56)
[2022-06-11] MEDS: TOLTERODINE TARTRATE LA 4 MG CAPCR PO SCH (08:21)
[2022-06-11] MEDS: DULoxetine HCL 60 MG CAP PO SCH (08:21)
[2022-06-11] MEDS: DULoxetine HCL 30 MG CAP PO SCH (08:21)
[2022-06-11] MEDS: VALSARTAN 80 MG TAB PO SCH (08:21)
[2022-06-11] MEDS: PROPRANOLOL HCL 10 MG TAB PO SCH ×2 (08:21→20:52)
[2022-06-11] MEDS: ATORVASTATIN 20 MG TAB PO SCH (08:21)
[2022-06-11] MEDS: FAMOTIDINE 20 MG TAB PO SCH ×2 (08:21→20:56)
[2022-06-11] MEDS: PANTOprazole 40 MG TAB PO SCH (08:22)
[2022-06-11] MEDS: ENOXAPARIN INJ 40 MG/0.4 ML SYR SQ SCH (08:22)
[2022-06-11] MEDS: guaiFENesin 600 MG TABCR PO SCH ×2 (08:22→20:56)
[2022-06-11] MEDS: LANTUS PER UNIT CHARGE SQ SCH ×2 (08:26→20:41)
[2022-06-11] MEDS: INSULIN ASPART PER UNIT CHARGE SC SCH ×4 (08:26→20:40)
--- NOTE | 2022-06-11 09:51 | Hospitalist Progress Note ---
Date of Service June 11, 2022 Assessment & Plan (1) Acute respiratory failure with hypoxia: (2) Type 2 diabetes mellitus: (3) HLD (hyperlipidemia): (4) Depression: (5) Anxiety: (6) Overactive bladder: Plan 66 y/o with persistent SOB and green sputum despite abx treatment. recent admission 03/06-03/11 for COVID PNA and on 05/16-05/20 for sepsis PNA. CXR negative for PNA. Seen by pulm. Echo obtained. CTA chest 1. Streak and motion compromised examination. 2. There is no evidence of central pulmonary embolus in the main, lobar, or proximal segmental pulmonary arteries. 3. There is no airspace consolidation typical for pneumonia or pleural effusion. 4. Hepatic steatosis and splenomegaly. 5. Additional findings as above. Acute Respiratory Failure with hypoxia: No clear etiology. No PE or pneumonia. Respiratory bio fire negative (did have parainfl and adenovirus last month). ABG 7.46/32/86 on 4 L NC. COHb 1.9%. UDS negative. WBC 17->13. Procal negative. BNP 53. Echo obtained. Seen by pulmonology. On empiric zosyn- will continue for now. IS. Wean off oxygen as tolerated. Goal saturation 90-92% Currently on 1.5L of suppl. O2 Communicated w/ pulm. medicine - will obtain 2 step study. Polysomnography recommended. Type 2 diabetes mellitus: -A1c 03/15/22: 7.1; Not compliant with Dexcom at home. Holding home jardiance for now. She is not taking her trulicity at home. -Continue SSI, lantus Hypertension: Continue valsartan, propranolol with hold parameters Dyslipidemia: On Atorvastatin Anxiety and depression: - Significant stressors at home including raising her 8-month-old great grandson with special physical needs (club feet) and following up at [place]. Car broke down. Her daughter's new boyfriend took the baby and would not let her see him. - Had televisit with psych and has televisit with therapist - Sees psych q2 months and therapist every week - Continue Duloxetine, lamictal Overactive bladder:-Takes Detrol; continue Obesity with probable OHS/BANDAR- BIPAP hs and prn. OP sleep study recommended. Disposition: PCP: Dr. Burciaga CODE STATUS: DNR/DNI VTE prophylaxis: Lovenox SQ Admission and Anticipated Discharge Date Admission Date: June 09, 2022 Subjective Patient seen in follow up of acute hypoxic resp. failure recently admitted and treated for pneumonia On current imaging no signs of pna and pulmonary medicine was consulted Currently patient is laying in bed, in no acute distress, still using 1.5 L supplemental oxygen Has occasional cough, sputum production Overall states that she feels better Communicated with pulmonary medicine, will obtain 2 step study Review of Systems Review of Systems: All systems reviewed & are unremarkable except as noted in Subjective Physical Exam Physical Exam: General: obese eld erly F in NAD, on suppl. O2 HEENT: h ead normocephalic, moist mucus membr anes CV: S1/S2, (- ) M/G/R, (-) edema Resp: Lungs CTA. On suppl. O2 GI: A bdomen S/NT/ND,obe se, + bowel sounds , (-) CVA tenderne ss Musculoskeletal : moves extremitie s Skin: (-) rashes , (-) erythema. N euro: AAOx3, PERRL ,speech fluent, mo ves extremities Results & Data Results & Data Vital Signs (Past 12 Hours) Vital Signs Temp Pulse Pulse Resp BP Pulse Ox O2 Del Method 06/11/22 08:30 Nasal Cannula 06/11/22 07:51 36.6 C 70 20 106/71 95 Nasal Cannula 06/11/22 07:23 68 06/11/22 04:00 36.6 C 70 18 104/60 95 Nasal Cannula 06/11/22 00:15 Nasal Cannula 06/10/22 23:00 36.7 C 80 18 120/72 94 Nasal Cannula O2 Flow Rate 06/11/22 08:30 1.5 06/11/22 07:51 1.5 06/11/22 07:23 06/11/22 04:00 1.5 06/11/22 00:15 2.5 06/10/22 23:00 1.5 Laboratory Results 06/11/22 06/11/22 06/11/22 Range/Units 07:38 05:31 05:31 WBC 10.45 (4.8-10.8) K/ul RBC 4.59 (4.20-5.40) M/uL Hgb 11.6 L (12.0-16.0) g/dl Hct 36.8 L (37.0-47.0) % MCV 80.2 (80.0-100.0) fL MCH 25.3 (25.0-34.0) pg MCHC 31.5 L (32.0-36.0) g/dL RDW Std Deviation 45.0 (36.4-46.3) fL RDW Coeff of Maria Elena 15.6 H (11.5-14.5) % Plt Count 176 (130-400) K/uL MPV 10.5 (9.4-12.4) fL Sodium 139 (136-145) mmol/L Potassium 4.0 (3.5-5.1) mmol/L Chloride 107 (98-107) mmol/L Carbon Dioxide 27 (21-32) mmol/L Anion Gap 5 (3-11) BUN 15 (6-23) mg/dl Creatinine 0.69 (0.6-1.2) mg/dl Est Cr Clr Drug Dosing 108.6 ml/min Est GFR ( Amer) 105.1 ml/min Est GFR (Non-Af Amer) 90.7 ml/min BUN/Creatinine Ratio 21.7 H (10-20) Glucose 118 H (70-99(Fasting)) mg/dl POC Glucose 132 H (70-99) mg/dl Calcium 9.1 (8.6-10.3) mg/dl 06/10/22 06/10/22 06/10/22 Range/Units 20:37 16:25 11:26 WBC (4.8-10.8) K/ul RBC (4.20-5.40) M/uL Hgb (12.0-16.0) g/dl Hct (37.0-47.0) % MCV (80.0-100.0) fL MCH (25.0-34.0) pg MCHC (32.0-36.0) g/dL RDW Std Deviation (36.4-46.3) fL RDW Coeff of Maria Elena (11.5-14.5) % Plt Count (130-400) K/uL MPV (9.4-12.4) fL Sodium (136-145) mmol/L Potassium (3.5-5.1) mmol/L Chloride (98-107) mmol/L Carbon Dioxide (21-32) mmol/L Anion Gap (3-11) BUN (6-23) mg/dl Creatinine (0.6-1.2) mg/dl Est Cr Clr Drug Dosing ml/min Est GFR ( Amer) ml/min Est GFR (Non-Af Amer) ml/min BUN/Creatinine Ratio (10-20) Glucose (70-99(Fasting)) mg/dl POC Glucose 108 H 96 100 H (70-99) mg/dl Calcium (8.6-10.3) mg/dl 06/10/22 06/10/22 Range/Units 10:19 10:19 WBC 13.62 H (4.8-10.8) K/ul RBC 4.91 (4.20-5.40) M/uL Hgb 12.3 (12.0-16.0) g/dl Hct 39.7 (37.0-47.0) % MCV 80.9 (80.0-100.0) fL MCH 25.1 (25.0-34.0) pg MCHC 31.0 L (32.0-36.0) g/dL RDW Std Deviation 45.5 (36.4-46.3) fL RDW Coeff of Maria Elena 15.7 H (11.5-14.5) % Plt Count 165 (130-400) K/uL MPV 10.4 (9.4-12.4) fL Sodium 138 (136-145) mmol/L Potassium 4.0 (3.5-5.1) mmol/L Chloride 106 (98-107) mmol/L Carbon Dioxide 26 (21-32) mmol/L Anion Gap 6 (3-11) BUN 14 (6-23) mg/dl Creatinine 0.64 (0.6-1.2) mg/dl Est Cr Clr Drug Dosing 123.5 ml/min Est GFR ( Amer) 107.8 ml/min Est GFR (Non-Af Amer) 93.0 ml/min BUN/Creatinine Ratio 21.9 H (10-20) Glucose 141 H (70-99(Fasting)) mg/dl POC Glucose (70-99) mg/dl Calcium 9.2 (8.6-10.3) mg/dl Medications Administered Current Inpatient Medications Acetaminophen (Acetaminophen 325 Mg Tab) 650 mg PO Q4H PRN PRN Reason: Pain or Fever Stop: 07/09/22 11:12 Last Admin: 06/10/22 01:11 Dose: 650 mg Al Hydrox/Mg Hydrox/Simethicone (Aluminum/Magnesium Susp 30 Ml Udc) 15 ml PO Q4H PRN PRN Reason: Dyspepsia Stop: 07/09/22 11:12 Atorvastatin Calcium (Atorvastatin 20 Mg Tab) 20 mg PO DAILY BABAK Stop: 07/10/22 08:59 Last Admin: 06/11/22 08:21 Dose: 20 mg Cyclobenzaprine HCl (Cyclobenzaprine Hcl 10 Mg Tab) 10 mg PO TID PRN PRN Reason: Muscle Spasm Stop: 07/09/22 12:19 Dextrose (Dextrose 50% 50 Ml Syringe) 25 - 50 ml IV UD PRN; Protocol PRN Reason: Hypoglycemia Protocol Stop: 07/09/22 12:21 Duloxetine HCl (Duloxetine Hcl 30 Mg Cap) 30 mg PO DAILY BABAK Stop: 07/10/22 08:59 Last Admin: 06/11/22 08:21 Dose: 30 mg Duloxetine HCl (Duloxetine Hcl 60 Mg Cap) 60 mg PO DAILY [facility]AK Stop: 07/10/22 08:59 Last Admin: 06/11/22 08:21 Dose: 60 mg Enoxaparin Sodium (Enoxaparin Inj 40 Mg/0.4 Ml Syr) 40 mg SQ QAM [facility] Stop: 07/10/22 08:59 Last Admin: 06/11/22 08:22 Dose: 40 mg Famotidine (Famotidine 20 Mg Tab) 20 mg PO BID [facility] Stop: 07/09/22 20:59 Last Admin: 06/11/22 08:21 Dose: 20 mg Glucagon (Glucagon For Inj 1 Mg Vial) 1 mg SQ UD PRN; Protocol PRN Reason: Hypoglycemia Protocol Stop: 07/09/22 12:21 Glucose (Glucose 40% Gel 15 Gm Tube) 15 - 30 gm PO UD PRN; Protocol PRN Reason: Hypoglycemia Protocol Stop: 07/09/22 12:21 Glucose (Glucose 10 Tab/Tube) 4 - 8 tab PO UD PRN; Protocol PRN Reason: Hypoglycemia Treatment Stop: 07/09/22 12:21 Guaifenesin (Guaifenesin 600 Mg Tabcr) 1,200 mg PO Q12 [facility]AK Stop: 07/09/22 20:59 Last Admin: 06/11/22 08:22 Dose: 1,200 mg Piperacillin Sod/Tazobactam (Sod 3.375 gm/ Dextrose) 115 mls @ 28.75 mls/hr IV Q8H [facility]; Protocol Stop: 06/16/22 14:59 Last Admin: 06/11/22 06:21 Dose: 28.8 mls/hr Insulin Aspart (Insulin Aspart Per Unit Charge) 0 units SC ACHS [facility] Stop: 07/09/22 16:29 Last Admin: 06/11/22 08:26 Dose: 7 units Insulin Glargine (Lantus Per Unit Charge) 0 units SQ BID [facility] Stop: 07/09/22 20:59 Last Admin: 06/11/22 08:26 Dose: 5 units Lamotrigine (Lamotrigine 100 Mg Tab) 100 mg PO BID [facility] Stop: 07/09/22 20:59 Last Admin: 06/11/22 08:20 Dose: 100 mg Magnesium Hydroxide (Magnesium Hydroxide Susp 30 Ml Udc) 30 ml PO Q12H PRN PRN Reason: Constipation Stop: 07/09/22 11:12 Menthol (Cough Drop (Sugar Free) Angely 24 Angely/1 Box) 1 angely BUCCAL Q2H PRN PRN Reason: Sore Throat Stop: 07/09/22 18:08 Miscellaneous (Carbohydrates For Hypoglycemia ) 15 - 30 gm PO UD PRN PRN Reason: Hypoglycemia Protocol Stop: 07/09/22 12:21 Ondansetron HCl (Ondansetron Inj 2 Mg/Ml 2 Ml Vial) 4 mg IV Q6H PRN PRN Reason: Nausea Stop: 07/09/22 11:12 Pantoprazole Sodium (Pantoprazole 40 Mg Tab) 40 mg PO DAILY [facility] Stop: 07/10/22 08:59 Last Admin: 06/11/22 08:22 Dose: 40 mg Polyethylene Glycol (Polyethylene (Miralax) 17 Gm Pack) 17 gm PO DAILY PRN PRN Reason: Constipation Stop: 07/09/22 11:12 Propranolol HCl (Propranolol Hcl 10 Mg Tab) 10 mg PO BID [facility] Stop: 07/09/22 20:59 Last Admin: 06/11/22 08:21 Dose: 10 mg Tolterodine Tartrate (Tolterodine Tartrate La 4 Mg Capcr) 4 mg PO DAILY [facility] Stop: 07/10/22 08:59 Last Admin: 06/11/22 08:21 Dose: 4 mg Tramadol HCl (Tramadol Hcl 50 Mg Tablet) 50 mg PO Q4H PRN PRN Reason: severe pain (7-10) Stop: 07/09/22 18:11 Valsartan (Valsartan 80 Mg Tab) 80 mg PO DAILY [facility] Stop: 07/10/22 08:59 Last Admin: 06/11/22 08:21 Dose: 80 mg
--- NOTE | 2022-06-11 10:02 | Pulmonology Progress Note ---
Date of Service June 11, 2022 Assessment & Plan (1) SOB (shortness of breath): (2) Acute respiratory failure with hypoxia: (3) Morbid obesity: (4) Elevated diaphragm: Plan CT chest 06/09/2022 personally reviewed: Motion degraded study, very minimal patc hy opacities in the bilateral upper lobes likely residual from COVID-pneumonia which occurred in March 2021 Elevated right hemidiaphragm minimal dependent otitis bilateral lower lobes No significant mediastinal lymphadenopathy 2D echo 06/10/2022: Grade 1 diastolic dysfunction, EF greater than 70%, normal estimated right-sided pressure, RV not well visualized -- Acute respiratory failure with hypoxia Etiology is not clear CT chest does not show any significant pulmonary abnormality She does have elevated right hemidiaphragm and minimal dependent atelectasis bilateral lower lobes 2D echo shows normal EF with grade 1 diastolic dysfunction, RV not well visualized Procalcitonin negative BNP 53 Respiratory bio fire negative on 06/09/2022 Patient did have parainfluenza and adenovirus last month on 05/16/2022 --Elevated right hemidiaphragm Idiopathic Continue with incentive spirometry --Obesity with probable BANDAR/OHS BiPAP nightly and as needed shortness of breath Recommend outpatient polysomnography Plan: Recommend outpatient polysomnography. There is high likelihood patient has sleep apnea Incentive spirometry even at home 2D echo was normal, CT chest does not show any significant pulmonary alveolar abnormalities. Recommend to step prior to discharge. If the patient does get hypoxic on walking then would recommend right heart cath which can be done as an outpatient to look at the right-sided heart pressures. Case was discussed with Dr. Hernandez No further recommendation from pulmonary perspective. We will sign off Please call directly with any questions Please note the above document was generated using voice recognition software. It may contain grammatical, syntax or spelling errors.Any formal questions or concerns about the content, text or information contained within the body of this dictation should be directly addressed to the provider for clarification. Admission and Anticipated Discharge Date Admission Date: June 09, 2022 Subjective Patient seen and examined at bedside. No acute distress, no adverse events overnight. Patient was saturating 95 to 96% on 1 and half liters. Denied any headache. Overall patient says that she is feeling much better. She did not use the BiPAP overnight as she is claustrophobic. No chest pain, no nausea vomiting Fair appetite Review of Systems Review of Systems: All systems reviewed & are unremarkable except as noted in Subjective Physical Exam Physical Exam: Constitutional: No acute distress HEENT: EOMI, PERRLA, thick neck Respiratory system: Good air entry bilaterally, no wheeze, no rhonchi, no crackles CVS: S1-S2 positive, no murmurs or gallops, accentuated P2 Abdomen: Soft, nontender, nondistended, positive bowel sounds x4, obese Extremities: +2 pulses bilaterally radialis/ dorsalis pedis, no cyanosis, no edema Neuro: Awake alert oriented x3 Psych: Normal mood and affect G/U: No Marie Skin: no rashes, warm and dry Lymphatic: no cervical or axillary lymphadenopathy Results & Data Results & Data Vital Signs (Past 12 Hours) Vital Signs Temp Pulse Pulse Resp BP Pulse Ox O2 Del Method 06/11/22 08:30 Nasal Cannula 06/11/22 07:51 36.6 C 70 20 106/71 95 Nasal Cannula 06/11/22 07:23 68 06/11/22 04:00 36.6 C 70 18 104/60 95 Nasal Cannula 06/11/22 00:15 Nasal Cannula 06/10/22 23:00 36.7 C 80 18 120/72 94 Nasal Cannula O2 Flow Rate 06/11/22 08:30 1.5 06/11/22 07:51 1.5 06/11/22 07:23 06/11/22 04:00 1.5 06/11/22 00:15 2.5 06/10/22 23:00 1.5 Laboratory Results 06/11/22 05:31 06/11/22 05:31 PG Care Time/CCT Total # of Minutes Spent Total Time Spent with Patient: Total time spent is greater than 50% in coordination of care (as documented) at patient's floor/unit and/or counseling patient: Coding Level of Care Code 50888 SUB INP/OBS CARE 2/35MIN Diagnoses SOB (shortness of breath) R06.02 Acute respiratory failure with hypoxia J96.01 Morbid obesity E66.01 Elevated diaphragm J98.6
[2022-06-11] MEDS: ADVANCED PROBIOTIC 1250 MG CAPSULE PO SCH (17:15)
[2022-06-11] MEDS: ACETAMINOPHEN 325 MG TAB PO PRN (20:56)
[2022-06-12] MEDS: PIPERACILLIN/TAZOBACTAM 3.375 GM in DEXTROSE 5% 100 ML IV SCH ×2 (06:21→13:47)
[2022-06-12 07:28] LABS: Hematocrit (blood only) 36.6 % (37.0-47.0); Hemoglobin 11.6 g/dl (12.0-16.0); Mean Corpuscular Hemoglobin 25.2 pg (25.0-34.0); Mean Corpuscular Hgb Conc 31.7 g/dL (32.0-36.0); Mean Corpuscular Volume 79.6 fL (80.0-100.0); Mean Platelet Volume 10.2 fL (9.4-12.4); Nucleated RBC # (auto) 0.02 K/uL (0-0.12); Nucleated RBC % (auto) 0.3 %; Platelet Count 188 K/uL (130-400); RDW Coefficient of Variation 15.1 % (11.5-14.5); RDW Standard Deviation 43.8 fL (36.4-46.3); White Blood Count 7.21 K/ul (4.8-10.8)
[2022-06-12 07:50] LABS: BUN Creatinine Ratio 21.5 (10-20); Calcium 9.2 mg/dl (8.6-10.3); Creatinine Clr Calc Pharmacy 95.3 ml/min; Est GFR (African American) 90.4 ml/min; Phosphorus 4.5 mg/dl (2.5-4.9)
[2022-06-12] MEDS: LANTUS PER UNIT CHARGE SQ SCH (08:46)
[2022-06-12] MEDS: INSULIN ASPART PER UNIT CHARGE SC SCH ×2 (08:47→12:33)
--- NOTE | 2022-06-12 09:12 | Discharge Summary ---
Date of Service June 12, 2022 Admission HPI Per Admitting Provider Ms. Verma is a 66-year-old female who presented to the [facility] ED today with shortness of breath that began overnight acutely. Associated with her SOB she reported that she had anterior pain across her chest with discomfort radiating in her left shoulder to elbow; however, she was not alarmed by this due to her history of fibromyalgia. Patient was recently admitted 05/16 to 05/20 with sepsis pneumonia and previously with COVID-pneumonia 03/06 to 03/11 this year. Patient states that she has completed her oral antibiotics after her recent discharge with the completion date being May 31. Since then, she reports that her sputum has remained green and thick. She did not do anything over the holiday weekend that would have caused increasing fatigue. Chest x-ray negative for acute cardiac pulmonary disease. Chest CTA performed negative for PE, coronary artery calcifications and's hepatic splenomegaly. Patient did have COVID March 2021. Patient lives at home with her daughter and is raising her great grandson who is 8 months old with physical special needs. Additional past medical history includes HTN, HLD, respiratory failure, overactive bladder, psoriasis, diabetes mellitus type 2, fibromyalgia, anxiety and depression, and GERD. Patient denies tobacco, alcohol or recreational drug use. Leukocytosis 17.78, Lactic acid initially 2.2; will trend after fluid resuscitation. Troponin 10.5. EKG reveals ST; Do not suspect ACS at this time. Procalcitonin pending. Creatinine 0.76. Glucose elevated at 184; patient historically not compliant with glucose monitoring; last A1c 7.02 March 2022; will trend while here. Patient was given 1 dose of Zosyn IV in the ED. Blood cultures and sputum cultures pending. Otherwise, hemodynamically stable. M Her most recent ECHO was as an OPT in 2011; unable to review the results; however, while her Troponin is negative and I do not suspect ACS; feel that an ECHO may be beneficial as her chest CTA does indicate some coronary artery calcifications and signs of pHTN. May consider Pulmonary consultation for evaluation for possible bronchoscopy. Patient denies dizziness, abdominal pain, visual or auditory changes, recent falls or trauma. Patient does report having intermittent frontal headaches. She On exam patient is AAOx3 and in no apparent distress is able to ambulate to the bathroom without assistance but does become dyspnic with activity. She does appear less toxic to me than prior admission. She was talking on the phone when I entered the room and was able to speak in complete sentences, but does appear that she was using more accessory muscles to breath; resolved at rest. As stated patient currently lives with her daughter and is quite tearful through conversation about her home life and stressors. She has been raising her 8-month-old great grandson and he recently was removed from her by her granddaughters boyfriend. When we were discussing CODE STATUS the patient was clear she would not want to be resuscitated in the setting of a cardiac or respiratory arrest however she is receptive to BiPAP or CPAP in the event of a respiratory decline. 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 Patient receptive to admission for further evaluation and management. Please see A/P for further details. Admission Exam Per Admitting Provider Neuro: AAOx4, PERRLA, no aphagia, memory changes, CNII-XII grossly intact HEENT: head normocephalic, moist mucus membranes CV: S1/S2, (-) M/G/R, (-) edema, cap refill < 3 seconds chest tenderness with palpation r/t fibromyalgia Resp: Lungs CTA in all driscoll. On RA GI: Abdomen S/NT/ND, Ax4 bowel sounds, (-) CVA tenderness Musculoskeletal: 5/5 B/L UE strength, 5/5 B/L LE strength. No gait disturbance Skin: (-) rashes , (-) erythema. Psych: euthymic mood Principal Diagnosis Shortness of breath, hypoxia, recent history of pneumonia Obesity w/ probable BANDAR/OHS Discharge Exam General: obese elderly F in NAD, on RA HEENT: head normocephalic, moist mucus membranes CV: S1/S2, (-) M/G/R, (-) edema Resp: Lungs CTA. On RA sat. 94% GI: Abdomen S/NT/ND,obese, + bowel sounds, (-) CVA tenderness Musculoskeletal: moves extremities Skin: (-) rashes , (-) erythema. Neuro: AAOx3, PERRL,speech fluent, moves extremities Discharge Data Allergies Allergy/AdvReac Type Severity Reaction Status Date / Time fosphenytoin Allergy Mild HIVES Verified 03/21/19 15:58 celecoxib Allergy Unknown ITCHINESS Verified 03/21/19 15:58 warfarin [From Coumadin] AdvReac Severe Hemorrhage Verified 03/21/19 15:58 Consultations 06/09/22 10:58 ED Decision to Admit Stat 06/10/22 08:00 Consult Pulmonology Routine Ordered Studies 06/09/22 09:42 CT angio chest PE protocol Stat FINDINGS: Thyroid: Imaged portions of the thyroid gland are normal in size and attenuation. Thoracic aorta: The thoracic aorta is normal in caliber and demonstrates standard 3-vessel arch anatomy. No dissection is seen. Pulmonary vasculature: The pulmonary trunk is dilated measuring 3.7 cm in diameter. This suggests pulmonary artery hypertension. There are no filling defects identified in main, lobar, or proximal segmental pulmonary branches to suggest pulmonary embolus. Evaluation of the segmental and subsegmental branches is significantly degraded by motion artifact. Heart: The heart is mildly enlarged and without pericardial effusion. There are scattered coronary artery calcifications. Lungs and pleural spaces: Evaluation of the lung parenchyma is significantly degraded by motion artifact. There is no airspace consolidation typical for pneumonia or pleural effusion. The trachea and central airways are clear. Scattered foci of parenchymal scarring are seen bilaterally. Mediastinum: There are numerous subcentimeter mediastinal lymph nodes, likely reactive. Kecia: Mildly enlarged hilar nodes measure up to 13 mm short axis. Axillae: There is no axillary lymphadenopathy. Upper abdomen: The liver is enlarged and steatotic. Cholecystectomy clips are noted. The spleen is enlarged, measuring 15 cm in length. There is a small hiatal hernia. Skeletal structures: The skeletal structures are osteopenic. Mild degenerative change is noted in the thoracic spine and shoulders. No lytic or blastic bony lesions are seen. IMPRESSION: 1. Streak and motion compromised examination. 2. There is no evidence of central pulmonary embolus in the main, lobar, or proximal segmental pulmonary arteries. 3. There is no airspace consolidation typical for pneumonia or pleural effusion. 4. Hepatic steatosis and splenomegaly. 5. Additional findings as above. Hospital Course (1) Acute respiratory failure with hypoxia: (2) Type 2 diabetes mellitus: (3) HLD (hyperlipidemia): (4) Depression: (5) Anxiety: (6) Overactive bladder: Plan 66 y/o with persistent SOB and green sputum despite abx treatment. recent admi ssion 03/06-03/11 for COVID PNA and on 05/16-05/20 for sepsis PNA. CXR negative for PNA. Seen by pulm. Echo obtained. CTA chest 1. Streak and motion compromised examination. 2. There is no evidence of central pulmonary embolus in the main, lobar, or proximal segmental pulmonary arteries. 3. There is no airspace consolidation typical for pneumonia or pleural effusion. 4. Hepatic steatosis and splenomegaly. 5. Additional findings as above. Acute Respiratory Failure with hypoxia: No clear etiology. No PE or pneumonia. Respiratory bio fire negative (did have parainfl and adenovirus last month). ABG 7.46/32/86 on 4 L NC. COHb 1.9%. UDS negative. WBC 17->13. Procal negative. BNP 53. Echo obtained. Seen by pulmonology. On empiric zosyn- will continue for now. IS. Wean off oxygen as tolerated. Goal saturation 90-92% Currently on 1.5L of suppl. O2 Communicated w/ pulm. medicine - obtained 2 step study - does not require suppl. O2. Also nocturnal hypoxia done - and pt does not requite oxygen per study here. Outpatient Polysomnography recommended. Cont. incentive spirometer at home. Type 2 diabetes mellitus: -A1c 03/15/22: 7.1; Not compliant with Dexcom at home. Holding home jardiance for now. She is not taking her trulicity at home. -Continue SSI, lantus Hypertension: Continue valsartan, propranolol with hold parameters Dyslipidemia: On Atorvastatin Anxiety and depression: - Significant stressors at home including raising her 8-month-old great grandson with special physical needs (club feet) and following up at [place]. Car broke down. Her daughter's new boyfriend took the baby and would not let her see him. - Had televisit with psych and has televisit with therapist - Sees psych q2 months and therapist every week - Continue Duloxetine, lamictal Overactive bladder:-Takes Detrol; continue Obesity with probable OHS/BANDAR- BIPAP hs and prn. OP sleep study recommended. did not tolerate bipap here. Total Time Total Time Spent Total Time Spent (In Minutes): 40 Discharge Plan Discharge Items Patient Disposition: Home - Self-Care Reason For Visit: SOB Discharge Diagnosis: Shortness of breath, hypoxia, recent history of pneumonia Obesity w/ probable BANDAR/OHS Activity: Per Instructions section Non-emergency contact: Primary Care Provider Call non-emergency contact if: you have any medication questions and your symptoms worsen Follow-up/Referrals: Kassidy Wolf MD [Outside Practitioners] - (Date & Time 06/16/2022 11:00 AM Provider Kassidy Wlof MD Department General Internal Medicine [facility] ) Diet: Carb Consistent or DM2 and Heart Healthy Addtl Attending Provider Instructions: Follow-up with your primary care doctor, the appointment was scheduled for you for June 16. It is also recommended that you have a sleep study done as outpatient. Continue using incentive spirometer at home, and guaifenesin for next several days. Also recommend taking probiotics for next few days. Pending Studies at Discharge: Yes Studies:: Final blood culture results, sputum culture results, throat culture results Stand-Alone Forms: [facility], Smoking Cessation Medications and DC Order Prescriptions: New Advanced Probiotic 625 mg (10 billion cell) Capsule 2 cap PO DAILY Qty: 10 0RF guaifenesin [Mucinex] 600 mg Tablet Extended Release 12hr 600 mg PO Q12 Qty: 10 0RF Continued atorvastatin 20 mg tablet 20 mg PO DAILY propranolol 20 mg tablet 10 mg PO BID cyclobenzaprine 10 mg Tablet 10 mg PO TID PRN (Reason: Muscle Spasm) tolterodine 4 mg capsule,extended release 24hr 4 mg PO DAILY valsartan 80 mg tablet 80 mg PO DAILY omeprazole 40 mg capsule,delayed release(DR/EC) 40 mg PO DAILY lamotrigine 25 mg tablet 100 mg PO BID duloxetine 30 mg capsule,delayed release(DR/EC) 30 mg PO DAILY Rx Instructions: WITH 60 MG FOR 90 MG DAILY DOSE duloxetine 60 mg capsule,delayed release(DR/EC) 60 mg PO DAILY Rx Instructions: WITH 30 MG FOR 90 MG DAILY famotidine 20 mg tablet 20 mg BID Jardiance 25 mg Tablet 25 mg PO QAM Discharge Orders: Discharge Order (Routine); Ordered 06/12/22 Ordered By: Darryn Hernandez Admission Data Admit Date/Time: 06/09/22 11:13 Attending Provider: Darryn Hernandez Admit Provider: Saira Marti Primary Care Provider: Talisha Burciaga Other Providers: Saira Marti ; Elder Phan ; Joaquin Natarajan
--- NOTE | 2022-06-12 09:34 | Pulmonology Progress Note ---
Date of Service June 12, 2022 Assessment & Plan (1) SOB (shortness of breath): (2) Acute respiratory failure with hypoxia: (3) Morbid obesity: (4) Elevated diaphragm: Plan CT chest 06/09/2022 personally reviewed: Motion degraded study, very minimal patc hy opacities in the bilateral upper lobes likely residual from COVID-pneumonia which occurred in March 2021 Elevated right hemidiaphragm minimal dependent otitis bilateral lower lobes No significant mediastinal lymphadenopathy 2D echo 06/10/2022: Grade 1 diastolic dysfunction, EF greater than 70%, normal estimated right-sided pressure, RV not well visualized -- Acute respiratory failure with hypoxia Etiology is not clear CT chest does not show any significant pulmonary abnormality She does have elevated right hemidiaphragm and minimal dependent atelectasis bilateral lower lobes 2D echo shows normal EF with grade 1 diastolic dysfunction, RV not well visualized Procalcitonin negative BNP 53 Respiratory bio fire negative on 06/09/2022 Patient did have parainfluenza and adenovirus last month on 05/16/2022 --Elevated right hemidiaphragm Idiopathic Continue with incentive spirometry --Obesity with probable BANDAR/OHS BiPAP nightly and as needed shortness of breath Recommend outpatient polysomnography Plan: Recommend outpatient polysomnography. There is high likelihood patient has sleep apnea Continue with incentive spirometry even at home Case was discussed with Dr. Hernandez No further recommendation from pulmonary perspective. We will sign off Please call directly with any questions Please note the above document was generated using voice recognition software. It may contain grammatical, syntax or spelling errors.Any formal questions or concerns about the content, text or information contained within the body of this dictation should be directly addressed to the provider for clarification. Admission and Anticipated Discharge Date Admission Date: June 09, 2022 Subjective Patient seen and examined at bedside. No acute distress, no adverse events overnight She was saturating 91-92% when I started the examination. On asking her to take deep breaths with surgery she would have to 98%. Denies any chest pain, no headache, no nausea, no vomiting Has been afebrile. Physical Exam Physical Exam: Constitutional: No acute distress HEENT: EOMI, PERRLA, thick neck Respiratory system: Good air entry bilaterally, no wheeze, no rhonchi, no crackles CVS: S1-S2 positive, no murmurs or gallops, accentuated P2 Abdomen: Soft, nontender, nondistended, positive bowel sounds x4, obese Extremities: +2 pulses bilaterally radialis/ dorsalis pedis, no cyanosis, no edema Neuro: Awake alert oriented x3 Psych: Normal mood and affect G/U: No Marie Skin: no rashes, warm and dry Lymphatic: no cervical or axillary lymphadenopathy Results & Data Results & Data Vital Signs (Past 12 Hours) Vital Signs Temp Pulse Pulse Pulse Pulse Pulse Resp 06/12/22 07:45 105 H 98 H 90 06/12/22 02:37 36.4 C L 93 H 18 06/12/22 02:28 73 06/11/22 23:30 06/11/22 22:00 76 06/11/22 22:00 06/11/22 22:18 36.6 C 78 18 Resp Resp Resp BP BP Pulse Ox Pulse Ox 06/12/22 07:45 22 20 18 93 06/12/22 02:37 119/73 93 06/12/22 02:28 06/11/22 23:30 06/11/22 22:00 06/11/22 22:00 06/11/22 22:18 105/67 91 Pulse Ox Pulse Ox O2 Del Method O2 Del Method 06/12/22 07:45 94 94 06/12/22 02:37 Room Air 06/12/22 02:28 95 Room Air 06/11/22 23:30 90 Room Air 06/11/22 22:00 06/11/22 22:00 Room Air 06/11/22 22:18 Room Air Laboratory Results 06/12/22 06:59 06/12/22 06:59 PG Care Time/CCT Total # of Minutes Spent Total Time Spent with Patient: Total time spent is greater than 50% in coordination of care (as documented) at patient's floor/unit and/or counseling patient: Coding Level of Care Code 30513 SUB INP/OBS CARE 2/35MIN Diagnoses SOB (shortness of breath) R06.02 Acute respiratory failure with hypoxia J96.01 Morbid obesity E66.01 Elevated diaphragm J98.6
[2022-06-12] MEDS: PROPRANOLOL HCL 10 MG TAB PO SCH (09:52)
[2022-06-12] MEDS: PANTOprazole 40 MG TAB PO SCH (09:54)
[2022-06-12] MEDS: guaiFENesin 600 MG TABCR PO SCH (09:54)
[2022-06-12] MEDS: FAMOTIDINE 20 MG TAB PO SCH (09:54)
[2022-06-12] MEDS: TOLTERODINE TARTRATE LA 4 MG CAPCR PO SCH (09:54)
[2022-06-12] MEDS: DULoxetine HCL 60 MG CAP PO SCH (09:54)
[2022-06-12] MEDS: lamoTRIgine 100 MG TAB PO SCH (09:54)
[2022-06-12] MEDS: ADVANCED PROBIOTIC 1250 MG CAPSULE PO SCH (09:54)
[2022-06-12] MEDS: VALSARTAN 80 MG TAB PO SCH (09:55)
[2022-06-12] MEDS: ENOXAPARIN INJ 40 MG/0.4 ML SYR SQ SCH (09:55)
[2022-06-12] MEDS: ATORVASTATIN 20 MG TAB PO SCH (09:55)
[2022-06-12] MEDS: DULoxetine HCL 30 MG CAP PO SCH (09:55)
[2022-06-12] MEDS ORDERED: AMOXICILLIN 500 MG CAP PO STA (12:10)
== END 2022-06-12 16:30 | disposition home or self-care (01) | DRG 189 ==
LOC: ED 07:55 → EDINP 11:13 → SUATTDRO 11:13 → 2N 12:20

== ENCOUNTER 2022-08-27 16:46 | Inpatient (IN) ==
--- NOTE | 2022-08-27 16:56 | ED Triage Note ---
Date of Service August 27, 2022 History of Present Illness This patient was briefly evaluated while in triage. An abbreviated physical exam was performed. This patient is a 66-year-old Female who presents to the ED for evaluation of SOB symptoms. Arrives via EMS. Got Solumedrol and Duoneb en route. Recent hx pneumonia. 88% on RA for EMS, improved on 3L O2. Physical Exam Limited Triage Exam: VITALS: Vitals are noted on the nurse's note and reviewed by myself. Vital signs stable. GENERAL: White female, who is seated in a wheelchair. Patient is cooperative with the examination. HEART: Regular rate and rhythm without murmurs gallops or rubs. LUNGS: Scattered rhonchi throughout NEURO: Patient was alert and oriented to person place and time. CN II through XII grossly intact. Initial orders for labs and / or imaging were placed and patient was placed in the waiting area until a bed is available. Please see further documentation for the full ED course. MDM / Impression Impression Impression: Hypoxia, Pneumonia Impression: Pneumonia Qualifiers: Pneumonia type: due to unspecified organism Laterality: unspecified laterality Lung location: unspecified part of lung Qualified Code(s): J18.9 - Pneumonia, unspecified organism
--- NOTE | 2022-08-27 17:23 | XRay Report ---
XR chest 1V portable CLINICAL HISTORY: cough TECHNIQUE: Single frontal radiograph of the chest was obtained. Comparison: Comparison is made to chest radiograph 06/09/2022 FINDINGS: No lines and tubes are seen. Cardiomegaly is noted. The lungs are clear. No evidence of pleural effus ion or pneumothorax. IMPRESSION: No acute abnormalities and in particular no radiographic evidence of pneumonia. ACT 112: Negative or not required by law. Electronically signed by: Moise Richardson M.D. 08/27/2022 5:22 PM
[2022-08-27 17:28] LABS: Base Excess VBG 0.3 mEq/L; HCO3 VBG 25 mmol/L; Oxygen Saturation VBG 68.6 %; PCO2 VBG 38 mmHg (38-50); PO2 VBG 44 mmHg; pH VBG 7.42 (7.36-7.41)
[2022-08-27 17:41] LABS: Basophils # (auto) 0.06 K/uL (0-0.2); Basophils % (auto) 0.4 %; Eosinophils # (auto) 0.53 K/uL (0-0.50); Eosinophils % (auto) 3.1 %; Hematocrit (blood only) 41.5 % (37.0-47.0); Immature Granulocytes # (auto) 0.07 K/uL (0.01-0.20); Immature Granulocytes % (auto) 0.4 %; Lymphocytes # (auto) 3.87 K/uL (1.2-3.4); Lymphocytes % (auto) 22.7 %; Mean Corpuscular Hemoglobin 24.3 pg (25.0-34.0); Mean Corpuscular Hgb Conc 31.3 g/dL (32.0-36.0); Mean Corpuscular Volume 77.4 fL (80.0-100.0); Mean Platelet Volume 10.6 fL (9.4-12.4); Monocytes # (auto) 1.45 K/uL (0.11-0.59); Monocytes % (auto) 8.5 %; Neutrophils # (auto) 11.08 K/uL (1.40-6.50); Neutrophils % (auto) 64.9 %; Platelet Count 247 K/uL (130-400); RDW Coefficient of Variation 15.5 % (11.5-14.5); RDW Standard Deviation 42.5 fL (36.4-46.3); Red Blood Count 5.36 M/uL (4.20-5.40); White Blood Count 17.06 K/ul (4.8-10.8)
[2022-08-27 17:57] LABS: Alanine Aminotransferase 11 U/L (7-52); Albumin Level 3.7 gm/dl (3.4-5.0); Alkaline Phosphatase 116 U/L (34-104); Anion Gap 8 (3-11); Aspartate Aminotransferase 12 U/L (13-39); BUN Creatinine Ratio 12.3 (10-20); Bilirubin,Total 0.6 mg/dl (0.2-1.0); Blood Urea Nitrogen 10 mg/dl (6-23); Calcium 9.1 mg/dl (8.6-10.3); Carbon Dioxide 23 mmol/L (21-32); Chloride 104 mmol/L (98-107); Est GFR (African American) 87.7 ml/min; Est GFR (Non-African American) 75.7 ml/min; Globulin 3.6 gm/dl (2.5-4.0); Glucose 160 mg/dl (70-99(Fasting)); Magnesium 1.8 mg/dl (1.7-2.4); Potassium 3.9 mmol/L (3.5-5.1); Sodium 135 mmol/L (136-145); Total Protein 7.3 gm/dl (6.0-8.3)
[2022-08-27 18:02] LABS: Troponin I High Sensitivity 4.7 pg/ml (0-14)
[2022-08-27 18:06] LABS: Partial Thromboplastin Time 27.3 Seconds (21.0-31.0); Prothrombin Time 11.4 Seconds (9.0-12.0)
[2022-08-27] MEDS ORDERED: OPTIRAY 320 100ml IV ONE (18:46)
[2022-08-27 18:55] LABS: Influenza A virus by PCR Negative (Neg); Influenza B virus by PCR Negative (Neg); RSV by PCR Negative (Neg); SARS CoV2 RNA(COVID-19) Ceph NEGATIVE (Negative)
--- NOTE | 2022-08-27 19:22 | CT Scan Report ---
Exam(s): CTA CHEST IV Amt: 119 ml optiray 320 EXAM: CT Angiography Chest With Intravenous Contrast CLINICAL HISTORY: Reason for exam: ro PE. TECHNIQUE: Axial computed tomographic angiography images of the chest with intravenous contrast. CTDI is 28.14 mGy and DLP is 889.38 mGy-cm. Automated exposure control was utilized for the study. A dose lowering technique was utilized adhering to the principles of ALARA. MIP reconstructed images were created and reviewed. COMPARISON: No relevant prior studies available. FINDINGS: Pulmonary arteries: No pulmonary embolus. Aorta: Unremarkable. Lungs: Mild patchy bilateral infiltrates/pneumonitis. Pleural space: No effusion. No pneumothorax. Heart: No cardiomegaly. No pericardial effusion. Mediastinum: Small hiatal hernia. Mild mediastinal and hilar adenopathy. Bones/joints: No acute fracture. Soft tissues: Unremarkable. Gallbladder and bile ducts: Cholecystectomy. IMPRESSION: 1. No pulmonary embolus. 2. Mild patchy bilateral infiltrates/pneumonitis. Electronically signed by: Jak Rodriguez M.D. 08/27/22 19:21 PM
[2022-08-27] MEDS ORDERED: VANCOMYCIN CONSULT ACTIVE PRN (19:33)
[2022-08-27] MEDS ORDERED: PIPERACILLIN/TAZOBACTAM 4.5 GM/120 ML BAG IV ONE (19:33)
[2022-08-27] MEDS ORDERED: VANCOMYCIN HCL 2,500 MG in SODIUM CHLORIDE 0.9% 500 ML IV ONE (19:33)
--- NOTE | 2022-08-27 19:50 | Emergency Department Note ---
History of Present Illness General Chief Complaint: Shortness of Breath/Dyspnea Stated Complaint: SHORTNESS OF BREATH Time Seen by Provider: 08/27/22 17:05 History of Present Illness Provider Complaint: shortness of breath and cough Onset (ago): day(s) (2) Relieved By: + nothing Exacerbated By: + exertion and + coughing Context: + recent illness (Recently admitted for pneumonia in May) Associated symptoms: + fever, + cough, + sputum production, + chest congestion and + other (Myalgias); no paresthesias, no hemoptysis, no nausea/vomiting or no rash Related Data Home oxygen amount: none Home Medications Medication Instructions Recorded Confirmed Type atorvastatin 20 mg tablet 20 mg PO DAILY 03/21/19 06/09/22 History propranolol 20 mg tablet 10 mg PO BID 03/21/19 06/09/22 History cyclobenzaprine 10 mg tablet 10 mg PO TID PRN Muscle Spasm 03/06/21 06/09/22 History duloxetine 30 mg capsule,delayed 30 mg PO DAILY 03/06/21 06/09/22 History release duloxetine 60 mg capsule,delayed 60 mg PO DAILY 03/06/21 06/09/22 History release lamotrigine 25 mg tablet 100 mg PO BID 03/06/21 06/09/22 History omeprazole 40 mg capsule,delayed 40 mg PO DAILY 03/06/21 06/09/22 History release tolterodine 4 mg capsule,extended 4 mg PO DAILY 03/06/21 06/09/22 History release 24 hr valsartan 80 mg tablet 80 mg PO DAILY 03/06/21 06/09/22 History empagliflozin 25 mg tablet 25 mg PO QAM 05/16/22 06/09/22 History (Jardiance) famotidine 20 mg tablet 20 mg BID 05/16/22 06/09/22 History L.acidop,casei,lactis,rham-B.lact,kendal 2 cap PO DAILY #10 caps 06/12/22 Rx 625 mg (10 billion cell) capsule (Advanced Probiotic) guaifenesin 600 mg tablet, 600 mg PO Q12 #10 tabs 06/12/22 Rx extended release 12 hr (Mucinex) Allergies Allergy/AdvReac Type Severity Reaction Status Date / Time adhesive Allergy Severe Blister Unverified 08/27/22 19:45 fosphenytoin Allergy Mild HIVES Verified 08/27/22 19:45 celecoxib Allergy Unknown ITCHINESS Verified 08/27/22 19:45 warfarin [From Coumadin] AdvReac Severe Hemorrhage Verified 08/27/22 19:45 Past Med/Surg History Medical History Acute respiratory failure with hypoxia Anxiety Depression Diabetic neuropathy Fibromyalgia HLD (hyperlipidemia) Hypertension Migraine Obesity Overactive bladder Psoriasis Reflex sympathetic dystrophy Type 2 diabetes mellitus Surgical History H/O hernia repair History of cholecystectomy History of repair of rotator cuff Status post bilateral knee replacements Family History Father Diabetes Stroke Grandmother (Paternal) Diabetes Mother Lung disease Social History Smoking Status: Never smoker Second Hand Exposure: No; Do You Dip or Chew Tobacco: No; Hx Alcohol Use: No Hx Substance Use: No Preferred Language: Niuean Communication Ability: Effective Visual Impairment: No Limitations Hearing Ability: Normal Mosaicist Required: No Beliefs That Will Affect Care: None Current Living Situation: Family Current Living Situation Comment: lives with daughter Feels Safe at Home: Yes Assistive Devices: Cane Physical Exam Vital Signs: Vital Signs - 24 hr 08/27/22 16:52 08/27/22 17:06 08/27/22 18:00 Temperature 37.0 C Temperature Source Temporal Artery Sc an Pulse Rate 108 H 102 H Pulse Rate [Right Finger] Pulse Rate from Sp O2 Sensor Respiratory Rate 20 Respiratory Effort / Characteristics Respiratory Depth Normal Respiratory Patter n Blood Pressure 96/52 L Blood Pressure [Ri ght Arm] Blood Pressure Kalpana n 66 Blood Pressure Kalpana n [Right Arm] Pulse Oximetry 89 L 93 Oxygen Delivery Me thod Nasal Cannula Room Air Oxygen Flow Rate 3 4 Sepsis Recent Feve r Within 48 Hours No Sepsis New/Unexpla ined Change in Men bryan Status N/A Sepsis Action Take n by Nursing No Action Required 08/27/22 18:00 08/27/22 19:02 08/27/22 17:59 Temperature Temperature Source Pulse Rate 98 H Pulse Rate [Right Finger] 99 H Pulse Rate from Sp O2 Sensor 98 H Respiratory Rate 17 20 Respiratory Effort / Characteristics Non-Labored Sponta neous Respiratory Depth Normal Respiratory Patter n Regular Blood Pressure 135/63 Blood Pressure [Ri ght Arm] 135/63 Blood Pressure Kalpana n 87 Blood Pressure Kalpana n [Right Arm] 87 Pulse Oximetry 93 90 91 Oxygen Delivery Me thod Nasal Cannula Nasal Cannula Oxygen Flow Rate 4 4 Sepsis Recent Feve r Within 48 Hours Sepsis New/Unexpla ined Change in Men bryan Status Sepsis Action Take n by Nursing 08/27/22 18:57 Temperature Temperature Source Pulse Rate 96 H Pulse Rate [Right Finger] Pulse Rate from Sp O2 Sensor 96 H Respiratory Rate 22 Respiratory Effort / Characteristics Respiratory Depth Respiratory Patter n Blood Pressure 115/70 Blood Pressure [Ri ght Arm] Blood Pressure Kalpana n 85 Blood Pressure Kalpana n [Right Arm] Pulse Oximetry 93 Oxygen Delivery Me thod Oxygen Flow Rate Sepsis Recent Feve r Within 48 Hours Sepsis New/Unexpla ined Change in Men bryan Status Sepsis Action Take n by Nursing Physical Exam: Physical Exam GENERAL: oriented to person, place, and time. appears well-developed and well- nourished. HENT: Exam performed. - Head: Normocephalic and atraumatic. EYES: Conjunctivae and EOM are normal. Right eye exhibits no discharge. Left eye exhibits no discharge. No scleral icterus. NECK: Normal range of motion. Neck supple. No JVD present. CV: Normal rate, regular rhythm, normal heart sounds and intact distal pulses. There is no peripheral edema. Palpable radial pulses bue. PULM/CHEST: Effort normal and breath sounds normal. No respiratory distress. No stridor. no wheezes. no rales. ABD: The abdomen is soft and obese. There is no tenderness. NEURO: Motor and sensation grossly intact. SKIN: Skin is warm and dry. He is not diaphoretic. PSYCH: normal mood and affect. Behavior is normal. Judgment and thought content normal. Course Course 1704: The patient was evaluated in room B12. A complete history and physical exam was performed Cardiac monitoring: An order was placed for continuous cardiac monitoring. The monitor shows a rate of 90 with sinus rhythm interpreted by me Patient found to be hypoxic on room air. Supplemental oxygen was applied via nasal cannula which improved the patient's oxygen saturation. 1957: Vital signs stable on supplemental oxygen via nasal cannula. Labs show leukocytosis 17. Imaging shows no pulmonary embolus but does show bilateral infiltrates. Lactic acid within normal limits. BioFire swab negative. Patient will be treated with broad-spectrum antibiotics Zosyn and vancomycin. Discussed case with Dr. [facility] hospitalist who will admit the patient under her service. Administered Medications Piperacillin Sod/Tazobactam Sod (Zosyn) 4.5 gm in 120 mls @ 240 mls/hr IV NOW ONE Stop: 08/27/22 20:02 Last Admin: 08/27/22 19:40 Dose: 240 mls/hr Documented By: NRB Discontinued Medications Ioversol (Optiray 320 100ml) 119 ml IV ONCE ONE Stop: 08/27/22 18:47 Last Admin: 08/27/22 18:47 Dose: 119 ml Documented By: TEJAL Medical Decision Making Laboratory Data Attestation: I reviewed the patient's lab results. 08/27/22 17:10 08/27/22 17:10 Lab Results 08/27/22 08/27/22 08/27/22 Range/Units 17:10 17:10 17:10 WBC 17.06 H (4.8-10.8) K/ul RBC 5.36 (4.20-5.40) M/uL Hgb 13.0 (12.0-16.0) g/dl Hct 41.5 (37.0-47.0) % MCV 77.4 L (80.0-100.0) fL MCH 24.3 L (25.0-34.0) pg MCHC 31.3 L (32.0-36.0) g/dL RDW Std Deviation 42.5 (36.4-46.3) fL RDW Coeff of Maria Elena 15.5 H (11.5-14.5) % Plt Count 247 (130-400) K/uL MPV 10.6 (9.4-12.4) fL Immature Gran % (Auto) 0.4 % Neut % (Auto) 64.9 % Lymph % (Auto) 22.7 % [place] % (Auto) 8.5 % Eos % (Auto) 3.1 % Baso % (Auto) 0.4 % Neut # (Auto) 11.08 H (1.40-6.50) K/uL Lymph # (Auto) 3.87 H (1.2-3.4) K/uL [place] # (Auto) 1.45 H (0.11-0.59) K/uL Eos # (Auto) 0.53 H (0-0.50) K/uL Baso # (Auto) 0.06 (0-0.2) K/uL Immature Gran # (Auto) 0.07 (0.01-0.20) K/uL PT 11.4 (9.0-12.0) Seconds INR 1.0 (0.9-1.1) APTT 27.3 (21.0-31.0) Seconds PTT Ratio 1.0 VBG pH (7.36-7.41) VBG pCO2 (38-50) mmHg VBG pO2 mmHg VBG HCO3 mmol/L VBG O2 Saturation % VBG Base Excess mEq/L Sodium 135 L (136-145) mmol/L Potassium 3.9 (3.5-5.1) mmol/L Chloride 104 (98-107) mmol/L Carbon Dioxide 23 (21-32) mmol/L Anion Gap 8 (3-11) BUN 10 (6-23) mg/dl Creatinine 0.81 (0.6-1.2) mg/dl Est Cr Clr Drug Dosing Not Reportable Est GFR ( Amer) 87.7 ml/min Est GFR (Non-Af Amer) 75.7 ml/min BUN/Creatinine Ratio 12.3 (10-20) Glucose 160 H (70-99(Fasting)) mg/dl Lactate (0.4-2.0) mmol/L Calcium 9.1 (8.6-10.3) mg/dl Magnesium 1.8 (1.7-2.4) mg/dl Total Bilirubin 0.6 (0.2-1.0) mg/dl AST 12 L (13-39) U/L ALT 11 (7-52) U/L Alkaline Phosphatase 116 H (34-104) U/L Troponin I High Sens 4.7 (0-14) pg/ml Total Protein 7.3 (6.0-8.3) gm/dl Albumin 3.7 (3.4-5.0) gm/dl Globulin 3.6 (2.5-4.0) gm/dl Albumin/Globulin Ratio 1.0 (0.9-2) Procalcitonin (0-0.5) ng/ml SARS-CoV-2 (PCR) (Negative) Influenza Type A (PCR) (Neg) Influenza Type B (PCR) (Neg) RSV (RT-PCR) (Neg) 08/27/22 08/27/22 08/27/22 Range/Units 17:10 17:10 17:10 WBC (4.8-10.8) K/ul RBC (4.20-5.40) M/uL Hgb (12.0-16.0) g/dl Hct (37.0-47.0) % MCV (80.0-100.0) fL MCH (25.0-34.0) pg MCHC (32.0-36.0) g/dL RDW Std Deviation (36.4-46.3) fL RDW Coeff of Maria Elena (11.5-14.5) % Plt Count (130-400) K/uL MPV (9.4-12.4) fL Immature Gran % (Auto) % Neut % (Auto) % Lymph % (Auto) % [place] % (Auto) % Eos % (Auto) % Baso % (Auto) % Neut # (Auto) (1.40-6.50) K/uL Lymph # (Auto) (1.2-3.4) K/uL [place] # (Auto) (0.11-0.59) K/uL Eos # (Auto) (0-0.50) K/uL Baso # (Auto) (0-0.2) K/uL Immature Gran # (Auto) (0.01-0.20) K/uL PT (9.0-12.0) Seconds INR (0.9-1.1) APTT (21.0-31.0) Seconds PTT Ratio VBG pH 7.42 H (7.36-7.41) VBG pCO2 38 (38-50) mmHg VBG pO2 44 mmHg VBG HCO3 25 mmol/L VBG O2 Saturation 68.6 % VBG Base Excess 0.3 mEq/L Sodium (136-145) mmol/L Potassium (3.5-5.1) mmol/L Chloride (98-107) mmol/L Carbon Dioxide (21-32) mmol/L Anion Gap (3-11) BUN (6-23) mg/dl Creatinine (0.6-1.2) mg/dl Est Cr Clr Drug Dosing Est GFR ( Amer) ml/min Est GFR (Non-Af Amer) ml/min BUN/Creatinine Ratio (10-20) Glucose (70-99(Fasting)) mg/dl Lactate 2.0 (0.4-2.0) mmol/L Calcium (8.6-10.3) mg/dl Magnesium (1.7-2.4) mg/dl Total Bilirubin (0.2-1.0) mg/dl AST (13-39) U/L ALT (7-52) U/L Alkaline Phosphatase (34-104) U/L Troponin I High Sens (0-14) pg/ml Total Protein (6.0-8.3) gm/dl Albumin (3.4-5.0) gm/dl Globulin (2.5-4.0) gm/dl Albumin/Globulin Ratio (0.9-2) Procalcitonin 0.09 (0-0.5) ng/ml SARS-CoV-2 (PCR) (Negative) Influenza Type A (PCR) (Neg) Influenza Type B (PCR) (Neg) RSV (RT-PCR) (Neg) 08/27/22 Range/Units 18:01 WBC (4.8-10.8) K/ul RBC (4.20-5.40) M/uL Hgb (12.0-16.0) g/dl Hct (37.0-47.0) % MCV (80.0-100.0) fL MCH (25.0-34.0) pg MCHC (32.0-36.0) g/dL RDW Std Deviation (36.4-46.3) fL RDW Coeff of Maria Elena (11.5-14.5) % Plt Count (130-400) K/uL MPV (9.4-12.4) fL Immature Gran % (Auto) % Neut % (Auto) % Lymph % (Auto) % [place] % (Auto) % Eos % (Auto) % Baso % (Auto) % Neut # (Auto) (1.40-6.50) K/uL Lymph # (Auto) (1.2-3.4) K/uL [place] # (Auto) (0.11-0.59) K/uL Eos # (Auto) (0-0.50) K/uL Baso # (Auto) (0-0.2) K/uL Immature Gran # (Auto) (0.01-0.20) K/uL PT (9.0-12.0) Seconds INR (0.9-1.1) APTT (21.0-31.0) Seconds PTT Ratio VBG pH (7.36-7.41) VBG pCO2 (38-50) mmHg VBG pO2 mmHg VBG HCO3 mmol/L VBG O2 Saturation % VBG Base Excess mEq/L Sodium (136-145) mmol/L Potassium (3.5-5.1) mmol/L Chloride (98-107) mmol/L Carbon Dioxide (21-32) mmol/L Anion Gap (3-11) BUN (6-23) mg/dl Creatinine (0.6-1.2) mg/dl Est Cr Clr Drug Dosing Est GFR ( Amer) ml/min Est GFR (Non-Af Amer) ml/min BUN/Creatinine Ratio (10-20) Glucose (70-99(Fasting)) mg/dl Lactate (0.4-2.0) mmol/L Calcium (8.6-10.3) mg/dl Magnesium (1.7-2.4) mg/dl Total Bilirubin (0.2-1.0) mg/dl AST (13-39) U/L ALT (7-52) U/L Alkaline Phosphatase (34-104) U/L Troponin I High Sens (0-14) pg/ml Total Protein (6.0-8.3) gm/dl Albumin (3.4-5.0) gm/dl Globulin (2.5-4.0) gm/dl Albumin/Globulin Ratio (0.9-2) Procalcitonin (0-0.5) ng/ml SARS-CoV-2 (PCR) NEGATIVE (Negative) Influenza Type A (PCR) Negative (Neg) Influenza Type B (PCR) Negative (Neg) RSV (RT-PCR) Negative (Neg) Imaging Data Attestation: I personally reviewed and interpreted this imaging study as follows: My Impression: Chest x-ray negative. Airway clear. No pneumothorax. No consolidation. No cardiomegaly or cephalization.. No free air under the diaphragm. No fractures of the skeletal structures. Radiologist's Impression: Chest X-Ray 08/27/22 17:06 XR chest 1V portable CLINICAL HISTORY: cough TECHNIQUE: Single frontal radiograph of the chest was obtained. Comparison: Comparison is made to chest radiograph 06/09/2022 FINDINGS: No lines and tubes are seen. Cardiomegaly is noted. The lungs are clear. No evidence of pleural effusion or pneumothorax. IMPRESSION: No acute abnormalities and in particular no radiographic evidence of pneumonia. ACT 112: Negative or not required by law. Electronically signed by: Moise Richardson M.D. 08/27/2022 5:22 PM Chest CTA 08/27/22 17:42 Exam(s): CTA CHEST IV Amt: 119 ml optiray 320 EXAM: CT Angiography Chest With Intravenous Contrast CLINICAL HISTORY: Reason for exam: ro PE. TECHNIQUE: Axial computed tomographic angiography images of the chest with intravenous contrast. CTDI is 28.14 mGy and DLP is 889.38 mGy-cm. Automated exposure control was utilized for the study. A dose lowering technique was utilized adhering to the principles of ALARA. MIP reconstructed images were created and reviewed. COMPARISON: No relevant prior studies available. FINDINGS: Pulmonary arteries: No pulmonary embolus. Aorta: Unremarkable. Lungs: Mild patchy bilateral infiltrates/pneumonitis. Pleural space: No effusion. No pneumothorax. Heart: No cardiomegaly. No pericardial effusion. Mediastinum: Small hiatal hernia. Mild mediastinal and hilar adenopathy. Bones/joints: No acute fracture. Soft tissues: Unremarkable. Gallbladder and bile ducts: Cholecystectomy. IMPRESSION: 1. No pulmonary embolus. 2. Mild patchy bilateral infiltrates/pneumonitis. Electronically signed by: Jak Rodriguez M.D. 08/27/22 19:21 PM ECG Data Attestation: I personally reviewed and interpreted this ECG as follows: Interpretation: Sinus rhythm with rate 97. VA QRS intervals are within normal limits. QTc 502. No ST elevation or ST depression MDM Narrative 1705: The patient was evaluated in room B12. A complete history and physical exam was performed Cardiac monitoring: An order was placed for continuous cardiac monitoring. The monitor shows a rate of 90 with sinus rhythm interpreted by me Patient found to be hypoxic on room air. Supplemental oxygen was applied via nasal cannula which improved the patient's oxygen saturation. 1957: Vital signs stable on supplemental oxygen via nasal cannula. Labs show leukocytosis 17. Imaging shows no pulmonary embolus but does show bilateral infiltrates. Lactic acid within normal limits. BioFire swab negative. Patient will be treated with broad-spectrum antibiotics Zosyn and vancomycin. Discussed case with Dr. [facility] hospitalist who will admit the patient under her service. Impression & Plan Hypoxia, Pneumonia Critical Care Time Critical Care Time: Yes Total Critical Care Time: 60 I have personally spent greater than 60 minutes of critical care time in the direct management of this patient. This includes bedside care, interpretation of diagnostic studies, and testing, discussion with consultants, patient, and family members, and other required patient management activities. This 60 minutes is in excess of all separately billable procedures. Discharge Plan Visit Data Chief Complaint: Shortness of Breath/Dyspnea Stated Complaint: SHORTNESS OF BREATH ED Provider: Robbie Woods Discharge Problem: Hypoxia, Pneumonia Patient Disposition: Admitted As Inpatient Forms Stand Alone Forms: My [facility] Prescriptions Prescriptions: No Action atorvastatin 20 mg tablet 20 mg PO DAILY propranolol 20 mg tablet 10 mg PO BID Advanced Probiotic 625 mg (10 billion cell) Capsule 2 cap PO DAILY Qty: 10 0RF guaifenesin [Mucinex] 600 mg Tablet Extended Release 12hr 600 mg PO Q12 Qty: 10 0RF cyclobenzaprine 10 mg Tablet 10 mg PO TID PRN (Reason: Muscle Spasm) tolterodine 4 mg capsule,extended release 24hr 4 mg PO DAILY valsartan 80 mg tablet 80 mg PO DAILY omeprazole 40 mg capsule,delayed release(DR/EC) 40 mg PO DAILY lamotrigine 25 mg tablet 100 mg PO BID duloxetine 30 mg capsule,delayed release(DR/EC) 30 mg PO DAILY Rx Instructions: WITH 60 MG FOR 90 MG DAILY DOSE duloxetine 60 mg capsule,delayed release(DR/EC) 60 mg PO DAILY Rx Instructions: WITH 30 MG FOR 90 MG DAILY famotidine 20 mg tablet 20 mg BID Jardiance 25 mg Tablet 25 mg PO QAM Referrals Referrals: Cassie Rojas PA-C [Primary Care Provider] -
--- NOTE | 2022-08-27 21:14 | History & Physical Report ---
Date of Service August 27, 2022 Assessment & Plan (1) Pneumonia: Plan: 66 yo female with PMHx of anxiety, depression, HLD, fibromyalgia, GERD, DM2, HTN, idiopathic elevated R diaphragm, BANDAR/OHS, and overactive bladder presents with shortness of breath. #Pneumonia #Acute respiratory failure with hypoxia #Sepsis -presented with 1 day sob and cough. H/o pneumonia with last hospitalization May 2022. Suspect hospital acquired vs community acquired pneumonia, cannot exclude atypical. Does meet sepsis criteria with 2/4 SIRS (leukocytosis, tachycardia). Procal neg. Blood cx pending. -CXR unremarkable -CTA: no PE, mild patchy bilateral infiltrates -started on zosyn and vanc in ED. Will continue abx coverage with cefepime and azithromycin. MRSA nares neg. -duonebs prn, incentive spirometer, flutter valve #BANDAR/OHA -cont. bipap hs -follows with pulmonology #Oral thrush -h/o recurrent thrush likely 2/2 DM2. Presented with posterior tongue pain. -started on nystatin QID x10 days #DM2 -cont. Jardiance -started on SSI #HTN -cont. propranolol, losartan #Anxiety #Depression #Fibromyalgia -cont. duloxetine, lamotrigine, propranolol #Overactive Bladder -cont. tolteridine #GERD -cont. famotidine, omeprazole #HLD -cont. statin DVT ppx: Lovenox FEN/GI: DM2 Code Status: DNI/DNR Dispo: med tele (2) Acute respiratory failure with hypoxia: (3) SOB (shortness of breath): (4) Elevated diaphragm: (5) Overactive bladder: (6) HLD (hyperlipidemia): (7) Depression: (8) Fibromyalgia: (9) Type 2 diabetes mellitus: (10) Hypertension: (11) Anxiety: (12) GERD (gastroesophageal reflux disease): History of Present Illness Chief Complaint: shortness of breath Primary Care Provider: Cassie Rojas PA-C 66 yo female with PMHx of anxiety, depression, HLD, fibromyalgia, GERD, DM2, HTN, idiopathic elevated R diaphragm, BANDAR/OHS on bipap, and overactive bladder presents with shortness of breath. Last night patient started experiencing shortness of breath and cough with yellow sputum. Some associated headache and nausea. Denies fever, chest pain, dysuria, constipation, diarrhea, vomiting, abnormal fatigue. She does have a history of recurrent pneumonia with her last episode being back in May which did require hospitalization. She also does state that she was at [place] with her grandson few days ago for 1 to 2 hours. Unrelated, she does endorse posterior oropharynx pain which she states is due to the rash which she gets frequently and treats with nystatin at home. Allergies Allergy/AdvReac Type Severity Reaction Status Date / Time adhesive Allergy Severe Blister Unverified 08/27/22 19:45 fosphenytoin Allergy Mild HIVES Verified 08/27/22 19:45 celecoxib Allergy Unknown ITCHINESS Verified 08/27/22 19:45 warfarin [From Coumadin] AdvReac Severe Hemorrhage Verified 08/27/22 19:45 Home Medications Medication Instructions Recorded Confirmed Type atorvastatin 20 mg tablet 20 mg PO DAILY 03/21/19 08/27/22 History propranolol 20 mg tablet 10 mg PO BID 03/21/19 08/27/22 History cyclobenzaprine 10 mg tablet 10 mg PO TID PRN Muscle Spasm 03/06/21 08/27/22 History duloxetine 30 mg capsule,delayed 30 mg PO DAILY 03/06/21 08/27/22 History release duloxetine 60 mg capsule,delayed 60 mg PO DAILY 03/06/21 08/27/22 History release omeprazole 40 mg capsule,delayed 40 mg PO QAM 03/06/21 08/27/22 History release tolterodine 4 mg capsule,extended 4 mg PO DAILY 03/06/21 08/27/22 History release 24 hr valsartan 80 mg tablet 80 mg PO DAILY 03/06/21 08/27/22 History empagliflozin 25 mg tablet 25 mg PO QAM 05/16/22 08/27/22 History (Jardiance) famotidine 20 mg tablet 20 mg PO HS 05/16/22 08/27/22 History L.acidop,casei,lactis,rham-B.lact,kendal 2 cap PO DAILY #10 caps 06/12/22 08/27/22 Rx 625 mg (10 billion cell) capsule (Advanced Probiotic) clonazepam 0.5 mg tablet 0.5 mg PO BID PRN Anxiety 08/27/22 08/27/22 History hydroxyzine HCl 10 mg tablet See Rx Instructions .Route 08/27/22 08/27/22 History .COMPLEX PRN Anxiety lamotrigine 100 mg tablet 100 mg PO BID 08/27/22 08/27/22 History Past Med/Surg History Medical History Acute respiratory failure with hypoxia Anxiety Depression Diabetic neuropathy Fibromyalgia HLD (hyperlipidemia) Hypertension Migraine Obesity Overactive bladder Psoriasis Reflex sympathetic dystrophy Type 2 diabetes mellitus Surgical History H/O hernia repair History of cholecystectomy History of repair of rotator cuff Status post bilateral knee replacements Family History Father Diabetes Stroke Grandmother (Paternal) Diabetes Mother Lung disease Social History Smoking Status: Never smoker Second Hand Exposure: No; Do You Dip or Chew Tobacco: No; Hx Alcohol Use: No Hx Substance Use: No Preferred Language: Sammarinese Communication Ability: Effective Visual Impairment: No Limitations Hearing Ability: Normal [employer] Required: No Beliefs That Will Affect Care: None Current Living Situation: Family Current Living Situation Comment: Daughter Other Information That Helps Us Care for You: No Feels Safe at Home: Yes Safety Concerns: Feels Safe At This Time Assistive Devices: Cane Assistive Devices Comment: Dentures not with patient at this time Review of Systems Review of Systems: All systems reviewed & are unremarkable except as noted in HPI & below Physical Exam Physical Exam: Constitutional: in no acute distress, pleasant and normal affect, intact memory. AOx.3 Vitals as above. HEENT: No scleral injection or discharge. Moist mucous membranes. +yellow leukoplakia posterior tongue. Neck: Supple without lymphadenopathy or thyromegaly. Trachea midline. Lungs: +wheezes R>L. No rales/rhonchi. Good air flow. Cardiac: Regular rate and rhythm. No murmurs. No extremity edema. 2+distal p eripheral pulses. Abdomen: Bowel sounds present. Soft, nontender, and nondistended.No guarding. No hepatosplenomegaly. MSK: No cyanosis or clubbing. Extremities motor strength 5/5. Skin: No rashes, warm, dry. Neurologic: no focal deficits Results & Data Results & Data Vital Signs (Past 12 Hours) Vital Signs Temp Pulse Pulse Resp BP BP Pulse Ox 08/27/22 18:57 96 H 22 115/70 93 08/27/22 17:59 98 H 20 135/63 91 08/27/22 19:02 90 08/27/22 18:00 99 H 17 135/63 93 08/27/22 18:00 93 08/27/22 17:06 102 H 08/27/22 16:52 37.0 C 108 H 20 96/52 L 89 L O2 Del Method O2 Flow Rate 08/27/22 18:57 08/27/22 17:59 08/27/22 19:02 Nasal Cannula 4 08/27/22 18:00 Nasal Cannula 4 08/27/22 18:00 Room Air 4 08/27/22 17:06 08/27/22 16:52 Nasal Cannula 3 Laboratory Results Laboratory Results WBC 17.06 K/ul (4.8-10.8) H 08/27/22 17:10 RBC 5.36 M/uL (4.20-5.40) 08/27/22 17:10 Hgb 13.0 g/dl (12.0-16.0) 08/27/22 17:10 Hct 41.5 % (37.0-47.0) 08/27/22 17:10 MCV 77.4 fL (80.0-100.0) L 08/27/22 17:10 MCH 24.3 pg (25.0-34.0) L 08/27/22 17:10 MCHC 31.3 g/dL (32.0-36.0) L 08/27/22 17:10 RDW Std Deviation 42.5 fL (36.4-46.3) 08/27/22 17:10 RDW Coeff of Maria Elena 15.5 % (11.5-14.5) H 08/27/22 17:10 Plt Count 247 K/uL (130-400) 08/27/22 17:10 MPV 10.6 fL (9.4-12.4) 08/27/22 17:10 Immature Gran % (Auto) 0.4 % 08/27/22 17:10 Neut % (Auto) 64.9 % 08/27/22 17:10 Lymph % (Auto) 22.7 % 08/27/22 17:10 [place] % (Auto) 8.5 % 08/27/22 17:10 Eos % (Auto) 3.1 % 08/27/22 17:10 Baso % (Auto) 0.4 % 08/27/22 17:10 Neut # (Auto) 11.08 K/uL (1.40-6.50) H 08/27/22 17:10 Lymph # (Auto) 3.87 K/uL (1.2-3.4) H 08/27/22 17:10 [place] # (Auto) 1.45 K/uL (0.11-0.59) H 08/27/22 17:10 Eos # (Auto) 0.53 K/uL (0-0.50) H 08/27/22 17:10 Baso # (Auto) 0.06 K/uL (0-0.2) 08/27/22 17:10 Immature Gran # (Auto) 0.07 K/uL (0.01-0.20) 08/27/22 17:10 PT 11.4 Seconds (9.0-12.0) 08/27/22 17:10 INR 1.0 (0.9-1.1) 08/27/22 17:10 APTT 27.3 Seconds (21.0-31.0) 08/27/22 17:10 PTT Ratio 1.0 08/27/22 17:10 VBG pH 7.42 (7.36-7.41) H 08/27/22 17:10 VBG pCO2 38 mmHg (38-50) 08/27/22 17:10 VBG pO2 44 mmHg 08/27/22 17:10 VBG HCO3 25 mmol/L 08/27/22 17:10 VBG O2 Saturation 68.6 % 08/27/22 17:10 VBG Base Excess 0.3 mEq/L 08/27/22 17:10 Sodium 135 mmol/L (136-145) L 08/27/22 17:10 Potassium 3.9 mmol/L (3.5-5.1) 08/27/22 17:10 Chloride 104 mmol/L (98-107) 08/27/22 17:10 Carbon Dioxide 23 mmol/L (21-32) 08/27/22 17:10 Anion Gap 8 (3-11) 08/27/22 17:10 BUN 10 mg/dl (6-23) 08/27/22 17:10 Creatinine 0.81 mg/dl (0.6-1.2) 08/27/22 17:10 Est Cr Clr Drug Dosing Not Reportable 08/27/22 17:10 Est GFR ( Amer) 87.7 ml/min 08/27/22 17:10 Est GFR (Non-Af Amer) 75.7 ml/min 08/27/22 17:10 BUN/Creatinine Ratio 12.3 (10-20) 08/27/22 17:10 Glucose 160 mg/dl (70-99(Fasting)) H 08/27/22 17:10 Lactate 2.0 mmol/L (0.4-2.0) 08/27/22 17:10 Calcium 9.1 mg/dl (8.6-10.3) 08/27/22 17:10 Magnesium 1.8 mg/dl (1.7-2.4) 08/27/22 17:10 Total Bilirubin 0.6 mg/dl (0.2-1.0) 08/27/22 17:10 AST 12 U/L (13-39) L 08/27/22 17:10 ALT 11 U/L (7-52) 08/27/22 17:10 Alkaline Phosphatase 116 U/L (34-104) H 08/27/22 17:10 Troponin I High Sens 4.7 pg/ml (0-14) 08/27/22 17:10 Total Protein 7.3 gm/dl (6.0-8.3) 08/27/22 17:10 Albumin 3.7 gm/dl (3.4-5.0) 08/27/22 17:10 Globulin 3.6 gm/dl (2.5-4.0) 08/27/22 17:10 Albumin/Globulin Ratio 1.0 (0.9-2) 08/27/22 17:10 Procalcitonin 0.09 ng/ml (0-0.5) 08/27/22 17:10 SARS-CoV-2 (PCR) NEGATIVE (Negative) 08/27/22 18:01 Influenza Type A (PCR) Negative (Neg) 08/27/22 18:01 Influenza Type B (PCR) Negative (Neg) 08/27/22 18:01 RSV (RT-PCR) Negative (Neg) 08/27/22 18:01 Impressions Chest X-Ray 08/27/22 17:06 XR chest 1V portable CLINICAL HISTORY: cough TECHNIQUE: Single frontal radiograph of the chest was obtained. Comparison: Comparison is made to chest radiograph 06/09/2022 FINDINGS: No lines and tubes are seen. Cardiomegaly is noted. The lungs are clear. No evidence of pleural effusion or pneumothorax. IMPRESSION: No acute abnormalities and in particular no radiographic evidence of pneumonia. ACT 112: Negative or not required by law. Electronically signed by: Moise Richardson M.D. 08/27/2022 5:22 PM Chest CTA 08/27/22 17:42 Exam(s): CTA CHEST IV Amt: 119 ml optiray 320 EXAM: CT Angiography Chest With Intravenous Contrast CLINICAL HISTORY: Reason for exam: ro PE. TECHNIQUE: Axial computed tomographic angiography images of the chest with intravenous contrast. CTDI is 28.14 mGy and DLP is 889.38 mGy-cm. Automated exposure control was utilized for the study. A dose lowering technique was utilized adhering to the principles of ALARA. MIP reconstructed images were created and reviewed. COMPARISON: No relevant prior studies available. FINDINGS: Pulmonary arteries: No pulmonary embolus. Aorta: Unremarkable. Lungs: Mild patchy bilateral infiltrates/pneumonitis. Pleural space: No effusion. No pneumothorax. Heart: No cardiomegaly. No pericardial effusion. Mediastinum: Small hiatal hernia. Mild mediastinal and hilar adenopathy. Bones/joints: No acute fracture. Soft tissues: Unremarkable. Gallbladder and bile ducts: Cholecystectomy. IMPRESSION: 1. No pulmonary embolus. 2. Mild patchy bilateral infiltrates/pneumonitis. Electronically signed by: Jak Rodriguez M.D. 08/27/22 19:21 PM Code Status & VTE Plan VTE Prophylaxis Plan VTE Prophylaxis will be ordered: Yes Supervising Physician Co-Signing Physician Notes Patietn seen and examined, chart reviewed, case discussed with Dr. Maki at time of admission and I agree with the assessment and plan as above. In brief, patient is a 66yo female presenting with SOB, cough productive for yellow sputum. Patient with several episodes of PNA in the past. She reports having a mild case of Covid in the past. She did have Omicron as well and reports she was fairly sick with that - was hospitalized for several days. She subsequently has had two cases of PNA. Parainfluenza and Adenovirus in April 2022. No known pulmonary disease. No history of tobacco use or environmental exposures. She has been seen by Pulmonary in the past. Reports that she coughs sometimes when she eats. Has also been on emt intermediate PPI and H2 rené therapy On exam she is resting comfortably, NAD SKin - no rash HEENT- MMM, Neck supple Heart - +S1/S2, regular Lungs - coarse breath sounds bilaterally Abd - soft, NT/ND Ext - no edema Labs and images reviewed Admit to medical Treatment with Cefepime and Azithromycin Check MRSA nares - NEGATIVE DuoNebs as needed, incentive spirometer an dflutter valve Consider Swallow evaluation - patient reports coughing with meals and drinking at times Consider weaning off H2 rené and PPI - outpatient - if feasible Remainder of plan as above Resident Activity Tracking Resident Involvement: Resident Care Provided Care Provided: Adult Hospital Medicine (1) Pneumonia Laterality: unspecified laterality Lung location: unspecified part of lung Pneumonia type: due to unspecified organism Qualified Code(s): J18.9 - Pneumonia, unspecified organism
[2022-08-27] MEDS ORDERED: ACETAMINOPHEN 325 MG TAB PO PRN (23:42)
[2022-08-27] MEDS ORDERED: ALBUT/IPRATROP 3MG/0.5MG NEB 3 ML VIAL NEB PRN (23:42)
[2022-08-27] MEDS ORDERED: GLUCOSE 10 TAB/TUBE PO PRN (23:42)
[2022-08-27] MEDS ORDERED: GLUCAGON FOR INJ 1 MG VIAL SQ PRN (23:42)
[2022-08-27] MEDS ORDERED: POLYETHYLENE (MIRALAX) 17 GM PACK PO PRN (23:42)
[2022-08-27] MEDS ORDERED: CARBOHYDRATES FOR HYPOGLYCEMIA PO PRN (23:42)
[2022-08-27] MEDS ORDERED: GLUCOSE 40% GEL 15 GM TUBE PO PRN (23:42)
[2022-08-27] MEDS ORDERED: ONDANSETRON 4 MG OD TAB PO PRN (23:42)
[2022-08-27] MEDS ORDERED: DEXTROSE 50% 50 ML SYRINGE IV PRN (23:42)
[2022-08-27] MEDS ORDERED: AZITHROMYCIN 250 MG TAB PO ONE (23:42)
[2022-08-28] MEDS: ENOXAPARIN INJ 40 MG/0.4 ML SYR SQ SCH ×3 (00:46→20:34)
[2022-08-28] MEDS: CEFEPIME 2,000 MG in SYRINGE 0 ML IV SCH ×2 (00:46→08:26)
[2022-08-28] MEDS: INSULIN ASPART PER UNIT CHARGE SC SCH ×5 (00:46→20:35)
[2022-08-28] MEDS: FAMOTIDINE 20 MG TAB PO SCH ×2 (00:47→20:36)
[2022-08-28] MEDS: PROPRANOLOL HCL 10 MG TAB PO SCH ×3 (00:47→20:34)
[2022-08-28] MEDS: lamoTRIgine 100 MG TAB PO SCH ×3 (00:47→20:36)
[2022-08-28 04:17] LABS: Appearance Urine Clear (Clear); Bacteria Urine Automated Negative (Negative); Bilirubin Urine Negative (Negative); Blood Urine Trace (Negative); Cast Urine Automated 0 /lpf (0-5); Color Urine Yellow; Glucose Urine UA 3+ (Negative); Ketones Urine Trace (Negative); Leukocyte Esterase Urine Negative (Negative); Nitrite Urine Negative (Negative); Protein Urine Negative (Negative); Specific Gravity Urine > 1.045 (1.000-1.030); Urobilinogen Urine Negative (Negative); pH Urine 6.5 (4.5-7.5)
[2022-08-28 08:19] LABS: Basophils # (auto) 0.02 K/uL (0-0.2); Basophils % (auto) 0.1 %; Hematocrit (blood only) 38.5 % (37.0-47.0); Hemoglobin 11.9 g/dl (12.0-16.0); Immature Granulocytes # (auto) 0.08 K/uL (0.01-0.20); Immature Granulocytes % (auto) 0.5 %; Lymphocytes # (auto) 3.22 K/uL (1.2-3.4); Lymphocytes % (auto) 21.1 %; Mean Corpuscular Hemoglobin 24.2 pg (25.0-34.0); Mean Corpuscular Hgb Conc 30.9 g/dL (32.0-36.0); Mean Corpuscular Volume 78.4 fL (80.0-100.0); Mean Platelet Volume 10.4 fL (9.4-12.4); Monocytes # (auto) 0.53 K/uL (0.11-0.59); Monocytes % (auto) 3.5 %; Neutrophils # (auto) 11.38 K/uL (1.40-6.50); Neutrophils % (auto) 74.8 %; Platelet Count 229 K/uL (130-400); RDW Coefficient of Variation 15.8 % (11.5-14.5); RDW Standard Deviation 44.8 fL (36.4-46.3); Red Blood Count 4.91 M/uL (4.20-5.40); White Blood Count 15.23 K/ul (4.8-10.8)
[2022-08-28] MEDS: NYSTATIN 500,000 UNIT TAB PO SCH ×4 (08:27→20:37)
[2022-08-28] MEDS: OXYBUTYNIN CHLORIDE XL 5 MG TABCR PO SCH (08:27)
[2022-08-28] MEDS: VALSARTAN 80 MG TAB PO SCH (08:27)
[2022-08-28] MEDS: ATORVASTATIN 20 MG TAB PO SCH (08:28)
[2022-08-28] MEDS: DULoxetine HCL 30 MG CAP PO SCH (08:28)
[2022-08-28] MEDS: DULoxetine HCL 60 MG CAP PO SCH (08:28)
[2022-08-28] MEDS: EMPAGLIFLOZIN 25 MG TAB PO SCH (08:28)
[2022-08-28] MEDS: PANTOprazole 40 MG TAB PO SCH (08:28)
[2022-08-28 08:31] LABS: Albumin Level 3.5 gm/dl (3.4-5.0); BUN Creatinine Ratio 22.1 (10-20); Bilirubin,Total 0.4 mg/dl (0.2-1.0); Calcium 9.2 mg/dl (8.6-10.3); Creatinine Clr Calc Pharmacy 87.6 ml/min; Est GFR (African American) 81.6 ml/min; Est GFR (Non-African American) 70.4 ml/min; Globulin 3.5 gm/dl (2.5-4.0); Potassium 4.4 mmol/L (3.5-5.1)
--- NOTE | 2022-08-28 08:45 | Electrocardiogram Report ---
Test Reason : Blood Pressure : / mmHG Vent. Rate : 097 BPM Atrial Rate : 097 BPM P-R Int : 134 ms QRS Dur : 082 ms QT Int : 396 ms P-R-T Axes : -02 -43 -14 degrees QTc Int : 502 ms Normal sinus rhythm Left axis deviation Low voltage QRS Nonspecific T wave abnormality Abnormal ECG When compared with ECG of 09-JUN-2022 11:56, No significant change Confirmed by Yaya Morales ([id number]) on 08/28/2022 8:44:56 AM Referred By: REFERRED SELF Confirmed By:Yaya Morales
[2022-08-28] MEDS ORDERED: LACTATED RINGER'S 500 ML IV ONE (08:53)
--- NOTE | 2022-08-28 13:56 | Hospitalist Progress Note ---
Date of Service August 28, 2022 Assessment & Plan (1) Pneumonia: Plan: 66 yo female with PMHx of anxiety, depression, HLD, fibromyalgia, GERD, DM2, HTN, idiopathic elevated R diaphragm, BANDAR/OHS, and overactive bladder presents with pneumonia requiring O2. #Pneumonia #Sepsis #acute hypoxic respiratory failure Presented with 1 day sob and cough. H/o pneumonia with last hospitalization May 2022. Blood cx pending. -CTA: no PE, mild patchy bilateral infiltrates -Transferred from cefepime to ceftriaxone (08/28) with the intent to move to PO cefdinir tomorrow (08/29) in preparation for discharge. -Continue azithromycin. -Currently on 2L of O2, will continue to wean and see how pt tolerates. -Duonebs prn, incentive spirometer, flutter valve Chronic Conditions: #BANDAR/OHA -Cont. bipap hs -Follows with pulmonology #Oral thrush h/o recurrent thrush likely 2/2 DM2. -started on nystatin QID x10 days #DM2 -cont. Jardiance -started on SSI #HTN -cont. propranolol, losartan #Anxiety #Depression #Fibromyalgia -cont. duloxetine, lamotrigine, propranolol #Overactive Bladder -cont. tolteridine #GERD -cont. famotidine, omeprazole #HLD -cont. statin DVT ppx: Lovenox FEN/GI: DM2 Code Status: DNI/DNR Dispo: med tele (2) Depression: (3) Fibromyalgia: (4) Anxiety: (5) Hypertension: (6) GERD (gastroesophageal reflux disease): (7) Diabetes mellitus: (8) Oral thrush: (9) Overactive bladder: (10) HLD (hyperlipidemia): (11) Sepsis: Admission and Anticipated Discharge Date Admission Date: August 27, 2022 Supervising Physician Co-Signing Physician Notes Medical Student Supervision Note: I was personally present during medical student patient encounter and independently interviewed and examined the patient and verified the abarca history and physical, reviewed labs and image studies, discussed the case with Jaleesa Donohue and agree with the findings and care plan. acute hypoxic respiratory failure sec to pneumonia (CAP) sepsis OHS -cultures pending. -switch cefepime to ceftriaxone. continue azithromycine. -continue NC O2 - might need 2 step in am before possible discharge Subjective 66 yo female with PMHx of anxiety, depression, HLD, fibromyalgia, GERD, DM2, HTN, idiopathic elevated R diaphragm, BANDAR/OHS, and overactive bladder presents with shortness of breath. No acute events overnight. Today she endorses a mild cough without shortness of breath on oxygen. She denies chest pain, fever, rash, abdominal pain, or headache. She denied tongue pain today. Review of Systems Constitutional: Denied fever, night sweats, fatigue, weakness, dizziness Eyes: Denied blurry vision Respiratory: Denied shortness of breath. Cardiovascular: Additional Comments: Denied chest pain, palpitations Gastrointestinal: Denied nausea, vomiting, diarrhea, abdominal pain. Neurologic: Denied weaknesss, numbness, or tingling. Physical Exam Constitutional: Alert and oriented x3 in hopsital bed Neck: Respiratory: CTA, no increased work of breathing, mild cough. Cardiovascular: Normal rate and regular rhythmn. S1 S2, No r/m/g. Radial pulses equal b/l. Gastrointestinal (Abdomen): Nondistended, nontender, normoactive bowel sounds. Musculoskeletal: Can move all extremities independently Skin: Warm dry, no apparent rashed. Psychiatric: Appropriate mood and affect. Lymphatic: No lymphadenopathy in the neck and cervical region. Results & Data Results & Data Vital Signs (Past 12 Hours) Vital Signs Temp Pulse Resp BP Pulse Ox O2 Del Method O2 Flow Rate 08/28/22 08:00 Nasal Cannula 4 08/28/22 11:22 36.6 C 79 18 104/68 92 Nasal Cannula 4 08/28/22 09:31 36.7 C 83 18 97/63 L 90 Nasal Cannula 4 08/28/22 10:17 94 Nasal Cannula 3 08/28/22 07:59 36.4 C L 74 18 85/55 L 91 Nasal Cannula 4 08/28/22 05:08 36.4 C L 81 20 105/51 L 92 Nasal Cannula 4 Laboratory Results 08/28/22 07:27 08/28/22 07:27 (1) Pneumonia Laterality: unspecified laterality Lung location: unspecified part of lung Pneumonia type: due to unspecified organism Qualified Code(s): J18.9 - Pneumonia, unspecified organism (11) Sepsis Sepsis acute organ dysfunction status: unspecified Sepsis type: sepsis due to unspecified organism Qualified Code(s): A41.9 - Sepsis, unspecified organism
[2022-08-28] MEDS ORDERED: cefTRIAXone SODIUM 1,000 MG in DEXTROSE 5% AD-VAN 50 ML IV SCH (16:00)
--- NOTE | 2022-08-28 19:22 | Billing Data ---
Date of Service August 27, 2022 Coding Level of Care Code 12586 INT INP/OBS CARE
[2022-08-28] MEDS ORDERED: AZITHROMYCIN 250 MG TAB PO SCH (21:00)
[2022-08-29 07:48] LABS: Hematocrit (blood only) 38.6 % (37.0-47.0); Hemoglobin 11.7 g/dl (12.0-16.0); Mean Corpuscular Hemoglobin 24.2 pg (25.0-34.0); Mean Corpuscular Hgb Conc 30.3 g/dL (32.0-36.0); Mean Corpuscular Volume 79.8 fL (80.0-100.0); Mean Platelet Volume 10.7 fL (9.4-12.4); Platelet Count 228 K/uL (130-400); RDW Coefficient of Variation 15.9 % (11.5-14.5); RDW Standard Deviation 45.6 fL (36.4-46.3); Red Blood Count 4.84 M/uL (4.20-5.40); White Blood Count 15.96 K/ul (4.8-10.8)
[2022-08-29 07:57] LABS: BUN Creatinine Ratio 30.4 (10-20); Calcium 8.7 mg/dl (8.6-10.3); Creatinine Clr Calc Pharmacy 95.3 ml/min; Est GFR (African American) 90.4 ml/min
[2022-08-29] MEDS: NYSTATIN 500,000 UNIT TAB PO SCH ×2 (08:09→13:49)
[2022-08-29] MEDS: EMPAGLIFLOZIN 25 MG TAB PO SCH (08:09)
[2022-08-29] MEDS: ATORVASTATIN 20 MG TAB PO SCH (08:09)
[2022-08-29] MEDS: DULoxetine HCL 60 MG CAP PO SCH (08:09)
[2022-08-29] MEDS: PANTOprazole 40 MG TAB PO SCH (08:10)
[2022-08-29] MEDS: OXYBUTYNIN CHLORIDE XL 5 MG TABCR PO SCH (08:10)
[2022-08-29] MEDS: PROPRANOLOL HCL 10 MG TAB PO SCH (08:10)
[2022-08-29] MEDS: DULoxetine HCL 30 MG CAP PO SCH (08:10)
[2022-08-29] MEDS: ENOXAPARIN INJ 40 MG/0.4 ML SYR SQ SCH (08:10)
[2022-08-29] MEDS: lamoTRIgine 100 MG TAB PO SCH (08:10)
[2022-08-29] MEDS: VALSARTAN 80 MG TAB PO SCH (08:10)
[2022-08-29] MEDS: INSULIN ASPART PER UNIT CHARGE SC SCH ×2 (08:39→13:40)
--- NOTE | 2022-08-29 13:12 | Discharge Summary ---
Date of Service August 29, 2022 Admission HPI Per Admitting Provider 66 yo female with PMHx of anxiety, depression, HLD, fibromyalgia, GERD, DM2, HTN, idiopathic elevated R diaphragm, BANDAR/OHS on bipap, and overactive bladder presents with shortness of breath. Last night patient started experiencing shortness of breath and cough with yellow sputum. Some associated headache and nausea. Denies fever, chest pain, dysuria, constipation, diarrhea, vomiting, abnormal fatigue. She does have a history of recurrent pneumonia with her last episode being back in May which did require hospitalization. She also does state that she was at [place] with her grandson few days ago for 1 to 2 hours. Unrelated, she does endorse posterior oropharynx pain which she states is due to the rash which she gets frequently and treats with nystatin at home. Admission Exam Per Admitting Provider Constitutional: in no acute distress, pleasant and normal affect, intact memory. AOx.3 Vitals as above. HEENT: No scleral injection or discharge. Moist mucous membranes. +yellow leukoplakia posterior tongue. Neck: Supple without lymphadenopathy or thyromegaly. Trachea midline. Lungs: +wheezes R>L. No rales/rhonchi. Good air flow. Cardiac: Regular rate and rhythm. No murmurs. No extremity edema. 2+distal peripheral pulses. Abdomen: Bowel sounds present. Soft, nontender, and nondistended.No guarding. No hepatosplenomegaly. MSK: No cyanosis or clubbing. Extremities motor strength 5/5. Skin: No rashes, warm, dry. Neurologic: no focal deficits Principal Diagnosis Community Acquired Pneumonia Discharge Exam Constitutional AOx3 afebrile Respiratory No crackles, no wheezing, rhonchus breath sounds, some hoarsness Cardiovascular Regular rhythmn and normal rate, S1 S2 no r/m/g, radial pulses equal b/l. Gastrointestinal (Abdomen) nd/nt/normoactive bowel sounds Skin no rashes apparent. skin was warm and dry Psychiatric mood and affect appropriate. good medical insight. Discharge Data Allergies Allergy/AdvReac Type Severity Reaction Status Date / Time adhesive Allergy Severe Blister Unverified 08/27/22 19:45 fosphenytoin Allergy Mild HIVES Verified 08/27/22 19:45 celecoxib Allergy Unknown ITCHINESS Verified 08/27/22 19:45 warfarin [From Coumadin] AdvReac Severe Hemorrhage Verified 08/27/22 19:45 Consultations 08/27/22 19:35 ED Decision to Admit Stat Ordered Studies 08/27/22 17:42 CT angio chest PE protocol Stat Hospital Course (1) Pneumonia: Patient presented with shortness of breath and productive cough. She did meet sepsis criteria for leukocytosis and tachycardia. CTA: no PE, mild patchy bilateral infiltrates She required 3 L of oxygen and was treated with broad spectrum antibiotics. Upon improvement, patient was transitioned to ceftriaxone and azithromycin; ceftriaxone was cefdinir upon discharge for a total of 7 day duration. She is advised to continue PO antibiotics for a total of 7 days of treatment. Patient had 2 step done and was not had no oxygen needs. Additionally, she had an episode of reoccurring oral thrush and was prescribed a ten day course of nystatin which she should continue after discharge. Her home medications for chronic conditions, DM2, BANDAR, HTN, anxiety, depression, fibromyalgia, GERD, HLD were continued. (2) Acute respiratory failure with hypoxia: (3) Oral thrush: (4) Diabetes mellitus: (5) Overactive bladder: (6) HLD (hyperlipidemia): (7) Depression: (8) Fibromyalgia: (9) Type 2 diabetes mellitus: (10) Hypertension: (11) Anxiety: Total Time Total Time Spent Total Time Spent (In Minutes): See attending attestation Discharge Plan Discharge Items Patient Disposition: Home - Self-Care Reason For Visit: SHORTNESS OF BREATH Discharge Diagnosis: Community acquired Pneumonia Activity: Resume your previous activity Non-emergency contact: Primary Care Provider Call non-emergency contact if: you have any medication questions and your symptoms worsen Follow-up/Referrals: Cassie Rojas PA-C [Primary Care Provider] - 09/09/22 1:45 pm (appt. is with Dr. Goodrich at [facility], [address].) Diet: Carb Consistent or DM2 and Heart Healthy Addtl Attending Provider Instructions: You were admitted to the hospital for pneumonia and low oxygen levels in your blood. You were treated with antibiotics and supplemental oxygen. You have recovered well and we feel it is safe for you to continue your recovery from home. A discharge summary will be sent to your primary care physician to ensure continuity of care. Please bring this discharge summary with you to your next office appointment so that your provider can review it at that time. Follow-up appointments: Make a follow-up appointment with your PCP within the next week. It is very important that you follow up with them shortly after discharge from the hospital. Keep all your follow-up appointments as already scheduled. If you cannot make an appointment, notify your provider. Medications: Your medication list has been reviewed and reconciled upon discharge to ensure accuracy and continuity of care. An updated list of all your medications is included with your hospital discharge paperwork. Please review this list closely, and make note of any changes. * We sent a new medication called cefdinir to your pharmacy. Take cefdinir (300mg) one tablet twice daily eight more days. * We sent a new medication called azithromycin to your pharmacy. Take azithromycin (250mg) one tablet daily for five more days. * We sent a new medication called nystatin to your pharmacy. This is to treat oral thrush. Take nystatin four times daily for eight more days. Take your medications as instructed; do not skip a dose of your medicines. Make sure all of your doctors know every medicine you are taking (including wogl-irz-ukhqawz medicines, vitamins, and supplements). Call your primary care provider before taking any new medicines (including ctdk-bld-vbrvgkk medicines, vitamins, and supplements), because some of these may interact with your current medications, or may make your symptoms worse. Tell your primary care provider if you cannot afford your medications. CONTACT YOUR PRIMARY CARE PROVIDER if you experience any of the following: Shortness of breath Fever Difficulty following your treatment plan, or difficulty taking medications CALL 911 OR GO TO THE EMERGENCY DEPARTMENT if you experience any of the following: Sudden, severe abdominal pain or nausea/vomiting Severe chest pain, or chest pain that radiates (moves) to your jaw or arm Sudden, severe shortness of breath or difficulty breathing Thank you for allowing us to participate in your care. Pending Studies at Discharge: No Stand-Alone Forms: [facility], Smoking Cessation Medications and DC Order Prescriptions: New azithromycin 250 mg Tablet 250 mg PO HS 5 Days Qty: 5 0RF cefdinir 300 mg Capsule 300 mg PO BID 8 Days Qty: 16 0RF nystatin 500,000 unit Tablet 500,000 unit PO QID 8 Days Qty: 32 0RF Continued atorvastatin 20 mg tablet 20 mg PO DAILY propranolol 20 mg tablet 10 mg PO BID Advanced Probiotic 625 mg (10 billion cell) Capsule 2 cap PO DAILY Qty: 10 0RF clonazepam 0.5 mg tablet 0.5 mg PO BID PRN (Reason: Anxiety) hydroxyzine HCl 10 mg tablet See Rx Instructions .ROUTE .COMPLEX PRN (Reason: Anxiety) Rx Instructions: Take 1 tablet by mouth twice daily (between clonazepam) as needed for anxiety lamotrigine 100 mg tablet 100 mg PO BID cyclobenzaprine 10 mg Tablet 10 mg PO TID PRN (Reason: Muscle Spasm) tolterodine 4 mg capsule,extended release 24hr 4 mg PO DAILY valsartan 80 mg tablet 80 mg PO DAILY omeprazole 40 mg capsule,delayed release(DR/EC) 40 mg PO QAM duloxetine 30 mg capsule,delayed release(DR/EC) 30 mg PO DAILY Rx Instructions: WITH 60 MG FOR 90 MG DAILY DOSE duloxetine 60 mg capsule,delayed release(DR/EC) 60 mg PO DAILY Rx Instructions: WITH 30 MG FOR 90 MG DAILY famotidine 20 mg tablet 20 mg PO HS Jardiance 25 mg Tablet 25 mg PO QAM Discharge Orders: Discharge Order (Routine); Ordered 08/29/22 Ordered By: Arsenio Pete Admission Data Admit Date/Time: 08/27/22 21:09 Attending Provider: Sabi Mendez Admit Provider: Matt Maki Primary Care Provider: Cassie Rojas Other Providers: Makenzie Montero Other Interventions: Discharge Summary Assessment (RN) Last Done: 08/29/22 13:14 DC Date/Time DO NOT enter until pt leaves facility: 08/29/22 17:23 Supervising Physician Co-Signing Physician Notes Medical student supervision note: I was present during Jaleesa Del Angelnis MS4s interview this afternoon with patient, verified patients history, and performed my own independent physical exam. I additionally reviewed patients diagnostics and agree with the students documented plan. Exam: General: well-appearing, no acute distress CV: regular rate, no murmur appreciated Resp: mild rhonchi more prominent in lower [place], breathing nonlabored Neuro: alert, oriented, no focal deficit appreciated Assessment: 66yo female who presented on 08/27 with sepsis and acute hypoxic respiratory failure secondary to community-acquired pneumonia. Patient has recovered well and is safe for discharge home without additional identified needs. Acute hypoxic respiratory failure, community-acquired pneumonia Acute hypoxic respiratory failure has resolved; additionally, patient passed her 2-step today and will not require home oxygen Blood cultures - NGTD after 24 hours; 48 hour results pending Continue azithromycin 250mg nightly for five more days Ceftriaxone transitioned to oral cefdinir; continue this for eight more days - the total duration of ten days is based on patients multiple comorbidities Continue flutter valve, incentive spirometry PCP follow-up recommended Obesity, OHS, suspected BANDAR Patient reports never having undergone a sleep study and has never used C/BiPAP at home Outpatient polysomnography recommended Oral thrush Continue nystatin four times daily for eight more days (total ten day dura tion) Arsenio Pete, PGY-3 Attending Physicain Medical Student Supervision Note: I independently interviewed and examined the patient and verified the abarca history and physical, reviewed labs and image studies, discussed the case with the medical student Jaleesa Donohue and the Resident physician Arsenio Pete and agree with the findings and care plan. Sabi Mendez. Resident Activity Tracking Resident Involvement: Resident Care Provided Care Provided: [facility]
[2022-08-29] MEDS ORDERED: CEFDINIR 300 MG CAP PO SCH (21:00)
== END 2022-08-29 17:23 | disposition home or self-care (01) | DRG 871 ==
LOC: ED 16:46 → 2N 21:09 → SUATTDRO 21:09 → 2N 22:53

== ENCOUNTER 2024-05-18 06:16 | Observation (INO) ==
--- NOTE | 2023-09-15 14:53 | PAT Medication Instructions ---
Medication Instructions Date of Service September 15, 2023 Home Medications atorvastatin 20 mg tablet 20 mg PO QAM propranolol 20 mg tablet 10 mg PO BID cyclobenzaprine 10 mg tablet 10 mg PO TID PRN Muscle Spasm duloxetine 30 mg capsule,delayed release 30 mg PO QAM duloxetine 60 mg capsule,delayed release 60 mg PO QAM omeprazole 40 mg capsule,delayed release 40 mg PO QAM valsartan 80 mg tablet 80 mg PO QAM empagliflozin 25 mg tablet (Jardiance) 25 mg PO QAM clonazepam 0.5 mg tablet 0.5 mg PO BID PRN Anxiety hydroxyzine HCl 10 mg tablet See Rx Instructions .Route .COMPLEX PRN Anxiety lamotrigine 100 mg tablet 100 mg PO BID mirabegron 25 mg tablet,extended release 24 hr (Myrbetriq) 25 mg PO QAM MEDICATION INSTRUCTIONS: DO NOT take the morning of surgery valsartan 80 mg tablet 80 mg PO QAM mirabegron 25 mg tablet,extended release 24 hr (Myrbetriq) 25 mg PO QAM hydroxyzine HCl 10 mg tablet See Rx Instructions .Route .COMPLEX PRN Anxiety Take morning of surgery With a small sip of water, OTHERWISE NOTHING TO EAT OR DRINK AFTER MIDNIGHT: duloxetine 30 mg capsule,delayed release 30 mg PO QAM duloxetine 60 mg capsule,delayed release 60 mg PO QAM omeprazole 40 mg capsule,delayed release 40 mg PO QAM atorvastatin 20 mg tablet 20 mg PO QAM propranolol 20 mg tablet 10 mg PO BID cyclobenzaprine 10 mg tablet 10 mg PO TID PRN Muscle Spasm lamotrigine 100 mg tablet 100 mg PO BID clonazepam 0.5 mg tablet 0.5 mg PO BID PRN Anxiety Take evening before surgery propranolol 20 mg tablet 10 mg PO BID cyclobenzaprine 10 mg tablet 10 mg PO TID PRN Muscle Spasm lamotrigine 100 mg tablet 100 mg PO BID clonazepam 0.5 mg tablet 0.5 mg PO BID PRN Anxiety hydroxyzine HCl 10 mg tablet See Rx Instructions .Route .COMPLEX PRN Anxiety Other Notes STOP TAKING 3 DAYS BEFORE SURGERY: empagliflozin 25 mg tablet (Jardiance) 25 mg PO QAM If you have any questions please call us at [phone] or [phone] or [phone] or [phone]
--- NOTE | 2023-09-30 11:15 | Anesthesiology Consultation ---
Date of Service September 30, 2023 Assessment & Plan (1) Encounter for pre-operative examination: - awaiting stress echo ordered by [facility] cardiology. - check BSG am DOS. - cardiology pre-operative evaluation 09/23/23: "...preop...total shoulder arthroplasty...morbid obesity with likely obesity hypoventilation syndrome and sleep apnea and with severe claustrophobia intolerant of any treatment. Hypertension now with mild orthostatic symptoms...questionable history of prolonged QTc, but remains on fluoxetine with a normal QTc on her EKG of 2017 and today...dyspnea on exertion...will have her complete a pharmacological stress echo and resting echo to further evaluate...blood pressure is low today and may be contributing to her dizziness. I will have her decrease her valsartan to 40 mg daily...should drink more water..." - Outpatient joint assessment: Patient is currently scheduled for inpatient pathway. If re-evaluated and patient/surgeon requests outpatient pathway, patient is not advised candidate for outpatient joint program from anesthesia standpoint. Chart Review Chart Review: Pending: Refer to Additional Notes / Consult section and Patient seen in Pre Admission Testing Teaching & Discussion Pre-Anesthesia Teaching/Discussion Notes: Instructed NPO after midnight before surgery, except medications with 15 cc of water. Medication instructions provided according to the PAT guidelines. History Surgery Operation Date: 10/21/23 07:00 Proposed Procedures p Right Total Shoulder Arthroplasty - Jorje Diaz MD Height/Weight Height: 5 ft 7 in Weight: 134 kg Allergies Allergy/AdvReac Type Severity Reaction Status Date / Time adhesive Allergy Severe Blister Verified 09/15/23 12:08 fosphenytoin Allergy Mild HIVES Verified 09/15/23 12:08 celecoxib Allergy Unknown ITCHINESS Verified 09/15/23 12:08 warfarin [From Coumadin] AdvReac Severe Hemorrhage Verified 09/15/23 12:08 Medications Home Medications Medication Instructions Recorded Confirmed Last Taken atorvastatin 20 mg tablet 20 mg PO QAM 03/21/19 09/15/23 08/27/22 propranolol 20 mg tablet 10 mg PO BID 03/21/19 09/15/23 08/27/22 cyclobenzaprine 10 mg tablet 10 mg PO TID PRN Muscle Spasm 03/06/21 09/15/23 Unknown duloxetine 30 mg capsule,delayed 30 mg PO QAM 03/06/21 09/15/23 08/27/22 release duloxetine 60 mg capsule,delayed 60 mg PO QAM 03/06/21 09/15/23 08/27/22 release omeprazole 40 mg capsule,delayed 40 mg PO QAM 03/06/21 09/15/23 08/27/22 release valsartan 80 mg tablet 80 mg PO QAM 03/06/21 09/15/23 08/27/22 empagliflozin 25 mg tablet 25 mg PO QAM 05/16/22 09/15/23 08/27/22 (Jardiance) clonazepam 0.5 mg tablet 0.5 mg PO BID PRN Anxiety 08/27/22 09/15/23 Unknown hydroxyzine HCl 10 mg tablet See Rx Instructions .Route 08/27/22 09/15/23 Unknown .COMPLEX PRN Anxiety lamotrigine 100 mg tablet 100 mg PO BID 08/27/22 09/15/23 08/27/22 mirabegron 25 mg tablet,extended 25 mg PO QAM 09/15/23 09/15/23 Unknown release 24 hr (Myrbetriq) Past Medical History Medical History Anxiety Depression Diabetic neuropathy feet Fibromyalgia GERD (gastroesophageal reflux disease) controlled, stable per pt History of blood transfusion 10 yrs ago-attributed to warfarin per patient History of COVID-19 (~05/2022) multiple episodes-residual impact on sense of taste Hx of recurrent pneumonia (~07/2023) last episode July 2023 -residual PADRON gradually improving per patient Hx of sepsis (~05/2022) Hyperlipidemia Hypertension controlled, stable per pt Migraine Obesity Overactive bladder Psoriasis PTSD (post-traumatic stress disorder) Type 2 diabetes mellitus NIDDM Patient denies h/o stroke, seizures, heart attack, heart failure, or blood clots/DVTs. Exercise / Class Metabolic Activity III < 4 Walking/Shop/Light housework (ambulates with cane, shortness of breath with usual activities ongoing since COVID illness 2022 and exacerbation with pneumonia 07/2023-notes gradual improvement; denies chest discomfort) Past Family History Family History Father Diabetes Stroke Grandmother (Paternal) Diabetes Mother Lung disease Past Surgical History Surgical History H/O hernia repair History of cholecystectomy History of colonoscopy History of dilatation and curettage History of repair of rotator cuff right History of tooth extraction History of tubal ligation Status post bilateral knee replacements Past Anesthesia History No Hx of Anesthesia Complications and Other (granddaughter slow to wake) History of PONV No Hx of PONV and No Hx of Motion Sickness Social History Smoking Status: Never smoker Do You Dip or Chew Tobacco: No Hx Alcohol Use: Yes alcohol intake frequency: holidays/special occasions only Hx Substance Use: No substance use type: does not use Review of Systems Occasional snoring, denies witnessed apneas. Patient denies chest pain, shortness of breath, dyspnea on exertion, fever, chills, change in chronic cough-occasional productive-clear sputum-denies blood tinged sputum or hemoptysis, wheezing, or palpitations. Physical Exam Vital Signs Vitals BP 102/70 P 74 TEMP 98.4 SP02 94% on RA RESP 18 Physical Patient resting comfortably in chair in no acute distress, alert and oriented, responding appropriately throughout visit Full cervical extension range of motion without pain TMD < 3 finger breadths Mallampati Score 3 Dentition: edentulous Lungs: normal respiratory effort. Good air movement, clear throughout to auscultation, no adventitious breath sounds Cardiac: regular rate and rhythm, no murmurs noted Carotid arteries: negative bruit bilat Lab Results Anesthesia Preop Results Results Anesthesia Widget: WBC 10.07 K/ul (4.8-10.8) 09/30/23 Hgb 12.7 g/dl (12.0-16.0) 09/30/23 Hct 42.4 % (37.0-47.0) 09/30/23 Plt 267 K/uL (130-400) 09/30/23 Na 137 mmol/L (136-145) 09/30/23 K 4.3 mmol/L (3.5-5.1) 09/30/23 Cl 104 mmol/L (98-107) 09/30/23 CO2 25 mmol/L (21-32) 09/30/23 BUN 16 mg/dl (6-23) 09/30/23 Creat 0.74 mg/dl (0.6-1.2) 09/30/23 Glucose Level 149 mg/dl (70-99(Fasting)) H 09/30/23 PT 10.9 Seconds (9.0-12.0) 09/30/23 PTT 25 Seconds (21-31) 09/30/23 INR 1.0 (0.9-1.1) 09/30/23 HA1c 8.2 % (4.5-5.6) H 09/30/23 Urine Color Yellow 09/30/23 Urine Appearance Cloudy (Clear) A 09/30/23 Urine pH 5.5 (4.5-7.5) 09/30/23 Urine Specific [place] 1.040 (1.000-1.030) H 09/30/23 Urine Protein Negative (Negative) 09/30/23 Urine Glucose (UA) 3+ (Negative) H 09/30/23 Urine Ketones Trace (Negative) H 09/30/23 Urine Blood Negative (Negative) 09/30/23 Urine Nitrite Positive (Negative) A 09/30/23 Urine Bilirubin Negative (Negative) 09/30/23 Urine Urobilinogen Negative (Negative) 09/30/23 Urine Leukocyte Esterase Negative (Negative) 09/30/23 Urine WBC (Auto) 11-20 /hpf (0-5) H 09/30/23 Urine RBC (Auto) >20 /hpf (0-2) H 09/30/23 Urine Hyaline Casts (Auto) 0-2 /lpf (0-2) 09/30/23 Urine Epithelial Cells (Auto) 11-20 /hpf (0-2) H 09/30/23 Urine Bacteria (Auto) 4+ (None Seen) H 09/30/23 Urine Yeast Present (None Prsent) A 09/30/23 Blood Type A Positive 09/30/23 Antibody Screen NEGATIVE 09/30/23 Testing Laboratory Results Surgeon's office made aware of abnormal UA and elevated A1c. Electrocardiogram Date: 09/23/23 NSR, rate 72 bpm Left axis deviation Low voltage QRS Nonspecific T wave abnormality Chest X-Ray Date: 09/30/23 No acute process.
--- NOTE | 2024-04-08 09:13 | PAT Medication Instructions ---
Medication Instructions Date of Service April 08, 2024 Home Medications atorvastatin 20 mg tablet 20 mg PO QAM propranolol 20 mg tablet 10 mg PO BID cyclobenzaprine 10 mg tablet 10 mg PO TID PRN Muscle Spasm duloxetine 30 mg capsule,delayed release 30 mg PO QAM duloxetine 60 mg capsule,delayed release 60 mg PO QAM omeprazole 40 mg capsule,delayed release 40 mg PO QAM valsartan 80 mg tablet 80 mg PO QAM empagliflozin 25 mg tablet (Jardiance) 25 mg PO QAM clonazepam 0.5 mg tablet 0.5 mg PO BID PRN Anxiety hydroxyzine HCl 10 mg tablet See Rx Instructions .Route .COMPLEX PRN Anxiety lamotrigine 100 mg tablet 100 mg PO BID mirabegron 25 mg tablet,extended release 24 hr (Myrbetriq) 25 mg PO QAM camphor-menthol topical ointment ([place] topical ointment) 1 applic topical BID PRN Pain naproxen sodium 220 mg tablet (Aleve) 220 mg PO BID PRN Pain ASK your surgeon for instructions naproxen sodium 220 mg tablet (Aleve) 220 mg PO BID PRN Pain STOP taking 3 days before surgery empagliflozin 25 mg tablet (Jardiance) 25 mg PO QAM STOP taking 24 hours before surgery camphor-menthol topical ointment ([place] topical ointment) 1 applic topical BID PRN Pain DO NOT take the morning of surgery valsartan 80 mg tablet 80 mg PO QAM hydroxyzine HCl 10 mg tablet See Rx Instructions .Route .COMPLEX PRN Anxiety mirabegron 25 mg tablet,extended release 24 hr (Myrbetriq) 25 mg PO QAM Take morning of surgery With a small sip of water, OTHERWISE NOTHING TO EAT OR DRINK AFTER MIDNIGHT: atorvastatin 20 mg tablet 20 mg PO QAM propranolol 20 mg tablet 10 mg PO BID cyclobenzaprine 10 mg tablet 10 mg PO TID PRN Muscle Spasm (if needed) duloxetine 30 mg capsule,delayed release 30 mg PO QAM duloxetine 60 mg capsule,delayed release 60 mg PO QAM omeprazole 40 mg capsule,delayed release 40 mg PO QAM clonazepam 0.5 mg tablet 0.5 mg PO BID PRN Anxiety (if needed) lamotrigine 100 mg tablet 100 mg PO BID Take evening before surgery propranolol 20 mg tablet 10 mg PO BID cyclobenzaprine 10 mg tablet 10 mg PO TID PRN Muscle Spasm (if needed) clonazepam 0.5 mg tablet 0.5 mg PO BID PRN Anxiety (if needed) hydroxyzine HCl 10 mg tablet See Rx Instructions .Route .COMPLEX PRN Anxiety (if needed) lamotrigine 100 mg tablet 100 mg PO BID Other Notes If you have any questions please call us at [phone] or [phone] or [phone] or [phone]
--- NOTE | 2024-04-28 08:36 | Anesthesiology Consultation ---
Date of Service April 28, 2024 Assessment & Plan (1) Encounter for pre-operative examination: Plan - awaiting: echocardiogram Dr. Wharton, 04/29/24. copy of PCP pre-operative note Cassie Rojas, 04/25/24. copy of cardiology pre-operative note Dr. Wharton, 04/26/24. Outpatient joint assessment: Patient is currently scheduled for inpatient pathway. If re-evaluated and patient/surgeon requests outpatient pathway, patient is not a candidate for outpatient joint program from anesthesia standpoint. Chart Review Chart Review: Pending: Refer to Additional Notes / Consult section and Patient seen in Pre Admission Testing Teaching & Discussion Pre-Anesthesia Teaching/Discussion Notes: Instructed NPO after midnight before surgery, except medications with 15 cc of water. Medication instructions provided according to the PAT guidelines. History Surgery Operation Date: 10/21/23 07:00 Proposed Procedures p Right Total Shoulder Arthroplasty - Jorje Diaz MD Operation Date: 05/18/24 09:00 Proposed Procedures p Right Total Shoulder Arthroplasty - Jorje Diaz MD Height/Weight Height: 5 ft 7 in Weight: 133.9 kg Allergies Allergy/AdvReac Type Severity Reaction Status Date / Time adhesive Allergy Severe Blister Verified 04/04/24 10:28 fosphenytoin Allergy Mild Hives Verified 04/05/24 16:00 celecoxib Allergy Unknown Itchiness Verified 04/05/24 16:00 warfarin [From Coumadin] AdvReac Severe Hemorrhage Verified 04/04/24 10:28 Medications Home Medications Medication Instructions Recorded Confirmed Last Taken atorvastatin 20 mg tablet 20 mg PO QAM 03/21/19 04/04/24 08/27/22 propranolol 20 mg tablet 10 mg PO BID 03/21/19 04/04/24 08/27/22 cyclobenzaprine 10 mg tablet 10 mg PO TID PRN Muscle Spasm 03/06/21 04/04/24 Unknown duloxetine 30 mg capsule,delayed 30 mg PO QAM 03/06/21 04/04/24 08/27/22 release duloxetine 60 mg capsule,delayed 60 mg PO QAM 03/06/21 04/04/24 08/27/22 release omeprazole 40 mg capsule,delayed 40 mg PO QAM 03/06/21 04/04/24 08/27/22 release valsartan 80 mg tablet 80 mg PO QAM 03/06/21 04/04/24 08/27/22 empagliflozin 25 mg tablet 25 mg PO QAM 05/16/22 04/04/24 08/27/22 (Jardiance) clonazepam 0.5 mg tablet 0.5 mg PO BID PRN Anxiety 08/27/22 04/04/24 Unknown lamotrigine 100 mg tablet 100 mg PO BID 08/27/22 04/04/24 08/27/22 mirabegron 25 mg tablet,extended 50 mg PO QAM 09/15/23 04/28/24 Unknown release 24 hr (Myrbetriq) camphor-menthol topical ointment 1 applic topical BID PRN Pain 04/04/24 04/04/24 Unknown ([place] topical ointment) naproxen sodium 220 mg tablet 220 mg PO BID PRN Pain 04/04/24 04/04/24 Unknown (Aleve) Past Medical History Medical History Anxiety Depression Diabetic neuropathy feet Elevated diaphragm Per records Fibromyalgia GERD (gastroesophageal reflux disease) controlled, stable per pt History of blood transfusion 10 years ago- attributed to warfarin per patient History of COVID-19 (~05/2022) Multiple episodes- residual impact on sense of taste Hyperlipidemia Hypertension controlled, stable per pt Migraine Morbid obesity Overactive bladder Psoriasis PTSD (post-traumatic stress disorder) Type 2 diabetes mellitus NIDDM Patient denies h/o stroke, seizures, heart attack, heart failure, or blood clots/DVTs. Exercise / Class Metabolic Activity III < 4 Walking/Shop/Light housework (ambulates with cane, shortness of breath with usual activities ongoing for several years without change or worsening- notes onset with first COVID infection; denies chest discomfort) Past Family History Family History Father Diabetes Stroke Grandmother (Paternal) Diabetes Mother Lung disease Past Surgical History Surgical History H/O hernia repair History of cholecystectomy History of colonoscopy History of dilatation and curettage History of repair of rotator cuff right History of tooth extraction History of tubal ligation Status post bilateral knee replacements Past Anesthesia History No Hx of Anesthesia Complications and Other (granddaughter slow to wake) History of PONV No Hx of PONV and Hx of Motion Sickness Social History Smoking Status: Never smoker Do You Dip or Chew Tobacco: No Hx Alcohol Use: No alcohol intake frequency: holidays/special occasions only Hx Substance Use: No substance use type: does not use Review of Systems Snoring, denies witnessed apneas. Patient states she had norovirus 1 month ago after being in contact with ill family members and has had persistent nasal congestion, post-nasal drip and productive cough-was recently prescribed doxycycline by her PCP. Denies recent chest x-ray. She was instructed to continue doxycycline as prescribed and to call PAT if symptoms do not resolve by surgery date. Patient denies chest pain, reflux, fever, chills, cough, wheezing, or palpitations. Physical Exam Vital Signs Vitals BP 137/84 P 94 TEMP 98.1 SP02 94% on RA RESP 18 Physical Patient resting comfortably in chair in no acute distress, alert and oriented, responding appropriately throughout visit Full cervical extension range of motion without pain TMD < 3 finger breadths Mallampati Score 3 Dentition: edentulous, full upper and lower dentures Lungs: normal respiratory effort. Good air movement, clear throughout to auscultation, no adventitious breath sounds Cardiac: regular rate and rhythm, no murmurs noted Carotid arteries: negative bruit bilat Lab Results Anesthesia Preop Results Results Anesthesia Widget: WBC 8.67 K/ul (4.8-10.8) 04/28/24 Hgb 12.2 g/dl (12.0-16.0) 04/28/24 Hct 40.4 % (37.0-47.0) 04/28/24 Plt 273 K/uL (130-400) 04/28/24 Na 139 mmol/L (136-145) 04/28/24 K 4.4 mmol/L (3.5-5.1) 04/28/24 Cl 104 mmol/L (98-107) 04/28/24 CO2 29 mmol/L (21-32) 04/28/24 BUN 16 mg/dl (6-23) 04/28/24 Creat 0.70 mg/dl (0.6-1.2) 04/28/24 Glucose Level 163 mg/dl (70-99(Fasting)) H 04/28/24 PT 10.4 Seconds (9.0-12.0) 04/28/24 PTT 25 Seconds (21-31) 04/28/24 INR 1.0 (0.9-1.1) 04/28/24 HA1c 7.8 % (4.5-5.6) H 04/28/24 Urine Color Yellow 04/28/24 Urine Appearance Clear (Clear) 04/28/24 Urine pH 5.5 (4.5-7.5) 04/28/24 Urine Specific [place] 1.043 (1.000-1.030) H 04/28/24 Urine Protein Negative (Negative) 04/28/24 Urine Glucose (UA) 3+ (Negative) H 04/28/24 Urine Ketones Trace (Negative) H 04/28/24 Urine Blood Negative (Negative) 04/28/24 Urine Nitrite Negative (Negative) 04/28/24 Urine Bilirubin Negative (Negative) 04/28/24 Urine Urobilinogen Negative (Negative) 04/28/24 Urine Leukocyte Esterase Negative (Negative) 04/28/24 Blood Type A Positive 04/28/24 Antibody Screen NEGATIVE 04/28/24 Testing Laboratory Results Surgeon's office made aware of A1c level. Electrocardiogram Date: 04/26/24 NSR, rate 86 bpm Left axis deviation Nonspecific T wave abnormality Low voltage in limb leads Chest X-Ray Date: 04/28/24 No acute findings. Stress Test Date: 10/09/23 MPHR 92% Image quality was suboptimal but enhanced with echocardiographic contrast Normal without evidence of inducible ischemia No significant valvular heart disease Grade I diastolic dysfunction EF 60-65%
--- NOTE | 2024-05-18 05:18 | History & Physical Bridge Note ---
Date of Service May 18, 2024 History & Physical Bridge Note I have examined the patient, reviewed the History & Physical and in the interval since the performance of the History & Physical I have noted the following changes of clinical significance: consent and site verified.no changes noted
[2024-05-18] MEDS ORDERED: BUPIVACAINE 0.5 % 5 MG/1 ML PF 10ML VIAL ONE (06:42)
[2024-05-18] MEDS: LR 15ML/HR IV SCH (07:03)
[2024-05-18] MEDS: LR 60ML/HR IV SCH (07:03)
--- OUTSIDE RECORDS SUMMARY | 2024-05-18 07:08 | External Medical Summary | Continuity of Care Document ---
Author Name Unknown Organization [address] Address [address] [place], [place] [id number] Care Team Providers Care Pipe Fitter Supervisor Name Role Phone WalterernestoEsteeCassie A Primary Care Physician [phone] [id number] Date(s): 05/11/24 - 05/11/[address] [address] [phone] Encounter Diagnosis Head pain(Discharge Diagnosis) - 05/12/24 Discharge Disposition: Home or Self Care Attending Physician: STEF Prajapati Danielle B Encounter Type: Clinic Allergies, Adverse Reactions, Alerts Substance Criticality Severity Reaction Reaction Severity Status albuterol thrush Active Coumadin increased INR Active flu vaccines gets sick, itch ing all over, prefers not getting Active CeleBREX rash Active Tape rash Active pneumococcal vaccines cough Active Assessment and Plan Extracted from: Title:Acute Visit Note Author:STEF Prajapati Dani elle B Date:05/11/24 1.Head pain Through shared decision making, patient will be evaluated in emergency room. -Follow up if symptoms worsen or fail to improve. - Patient verbalizes understanding regarding plan of care and all questions answered. Immunizations Given and Recorded Vaccine Date Status Refusal Reason pneumococcal 20-valent conjugate vaccine 1 05/27/22 Recorded SARS-CoV-2 (COVID-19) mRNA BNT-162b2 vax 2 04/17/21 Recorded SARS-CoV-2 (COVID-19) mRNA BNT-162b2 vax 3 08/08/20 Recorded SARS-CoV-2 (COVID-19) mRNA BNT-162b2 vax 4 07/18/20 Recorded tetanus toxoids-diphtheria, Td (Adult) 5 12/18/17 Recorded pneumococcal 23-valent vaccine 01/13/17 Recorded hepatitis B adult vaccine 12/29/16 Recorded hepatitis B adult vaccine 07/11/16 Recorded hepatitis B adult vaccine 06/12/16 Recorded pneumococcal 13-valent vaccine 03/11/16 Recorded tetanus/diphtheria/pertuss, acel (Tdap) 10/01/06 R ecorded tetanus/diphtheria/pertuss, acel (Tdap) 10/01/06 R ecorded 1Result Comment: 2022-09-09: Historical information-source unspecified 2Result Comment: 2022-09-09: Historical information-source unspecified 3Result Comment: 2022-09-09: Historical information-source unspecified 4Result Comment: 2022-09-09: Historical information-source unspecified 5Result Comment: 2022-09-09: Historical information-source unspecified Medications atorvastatin 20 mg oral tablet Start: 04/26/24 9:32:00 AM EST, 1 tab, PO, Daily, Disp# 90 tab, Refills: 3, Pharmacy: [facility]/pharmacy #[id number] Start Date: 04/26/24 Status: Ordered Quantity: 90.0 Unit: tab Repeat number: 4 BD needle Ultra-Fine Pen Edilma 32G x 4mm Start: 12/11/17 6:22:13 PM EDT, See Instructions, Disp# 100 each, Refills: 0, Use with Victoza injections. Dx : E11.9, Pharmacy: [address] Start Date: 12/11/17 Status: Ordered Quantity: 100.0 Unit: each Repeat number: 1 DULoxetine 30 mg oral delayed release capsule Start: 08/26/22 11:10:00 AM EDT, 1 cap, PO, Daily Start Date: 08/26/22 Status: Ordered Repeat number: 1 DULoxetine 60 mg oral delayed release capsule Start: 08/26/22 11:09:00 AM EDT, 1 cap, PO, Daily Start Date: 08/26/22 Status: Ordered Repeat number: 1 gabapentin 100 mg oral capsule Start: 01/20/23 8:17:00 AM EST, 2 cap, PO, bid Start Date: 01/20/23 Status: Ordered Repeat number: 1 Jardiance 25 mg oral tablet Start: 12/22/23 8:25:00 AM EDT, 1 tab, PO, qAM, Disp# 90 tab, Refills: 2, Pharmacy: [id number] Start Date: 12/22/23 Status: Ordered Quantity: 90.0 Unit: tab Repeat number: 1 KlonoPIN 0.5 mg oral tablet Start: 12/19/20 10:35:00 AM EDT, 0.5 tab, PO, qhs Start Date: 12/19/20 Status: Ordered Repeat number: 1 LaMICtal Start: 02/12/22 10:03:00 AM EST, 200 mg =, PO, bid Start Date: 02/12/22 Status: Ordered Repeat number: 1 Myrbetriq 50 mg oral tablet, extended release Start: 04/25/24 8:54:00 AM EST, 1 tab, PO, Daily, Disp# 90 tab, Refills: 3, [id number] Start Date: 04/25/24 Stop Date: 04/20/25 Status: Ordered Quantity: 90.0 Unit: tab Repeat number: 4 Nurtec ODT 75 mg oral tablet, disintegrating Start: 04/25/24 9:03:00 AM EST, See Instructions, Disp# 8 tab, Refills: 5, DISSOLVE 1 TABLET ON TONGUE ONCE, [id number] Start Date: 04/25/24 Status: Ordered Quantity: 8.0 Unit: tab Repeat number: 6 nystatin 100,000 units/mL oral suspension Start: 03/08/24 1:42:00 PM EST, 5 mL, PO, qid, Disp# 200 mL, Refills: 1, retain in mouth as long as possible before swallowing, [id number] Start Date: 03/08/24 Stop Date: 03/28/24 Status: Ordered Quantity: 200.0 Unit: mL Repeat number: 2 omeprazole 40 mg oral delayed release capsule Start: 12/21/23 7:15:00 AM EDT, 1 cap, PO, Daily, Disp# 90 cap, Refills: 3, Pharmacy: [facility] [id number] Start Date: 12/21/23 Status: Ordered Quantity: 90.0 Unit: cap Repeat number: 1 One Touch Delica Plus (30G) Lancets Start: 09/21/23 1:15:00 PM EDT, See Instructions, Disp# 100 each, Refills: 0, Use to test blood sugar once daily. E11.9, Pharmacy: [facility]/pharmacy #[id number] Start Date: 09/21/23 Status: Ordered Quantity: 100.0 Unit: each Repeat number: 1 One Touch Ultra 2 Glucose Monitor Start: 10/13/23 11:23:00 AM EDT, See Instructions, Disp# 1 each, test glucose daily, Pharmacy: [facility]/pharmacy #[id number] Start Date: 10/13/23 Status: Ordered Quantity: 1.0 Unit: each Repeat number: 1 Indication: Type 2 diabetes mellitus with diabetic polyneuropathy One Touch Ultra Blue Test Strips Start: 07/19/15 9:23:00 AM EDT, See Instructions, Disp# 1 box Start Date: 07/19/15 Status: Ordered Quantity: 1.0 Unit: box Repeat number: 1 One Touch Ultra Test Strips 100 ct Start: 09/18/23 2:50:00 PM EDT, See Instructions, Disp# 100 each, Refills: 1, Use to check glucose once daily, Note to Pharmacy: ICD-10: E11.9, Pharmacy: [facility]/pharmacy #[id number] Start Date: 09/18/23 Status: Ordered Quantity: 100.0 Unit: each Repeat number: 2 ONE TOUCH ULTRA2 GLUCOSE SYST Start: 12/28/23 7:18:00 AM EDT, ONE TOUCH ULTRA2 GLUCOSE SYST, See Instructions, Disp# 1 unknown unit, Refills: 0, TEST GLUCOSE DAILY, Pharmacy [id number] Start Date: 12/28/23 Status: Ordered Quantity: 1.0 Unit: unknown unit Repeat number: 1 propranolol 20 mg oral tablet Start: 08/11/23 9:37:00 AM EDT, 1 tab, PO, bid, Disp# 180 tab, Refills: 1, take 1/2 tablet by mouth every morning and 1/2 tablet BEFORE BEDTIME, Pharmacy: [facility]/pharmacy #[id number] Start Date: 08/11/23 Stop Date: 02/07/24 Status: Ordered Quantity: 180.0 Unit: tab Repeat number: 2 valACYclovir Start: 07/15/17 1:59:00 PM EDT, PO, 2 tabs PO every 12 hours for 1 day for cold sores. Start Date: 07/15/17 Status: Ordered Repeat number: 1 valsartan 40 mg oral tablet Start: 2/25/25 9:32:00 AM EST, 1 tab, PO, Daily, Disp# 90 tab, Refills: 3, Pharmacy: [facility]/pharmacy #[id number] Start Date: 04/26/24 Status: Ordered Quantity: 90.0 Unit: tab Repeat number: 4 Mental Status 05/11/24 Barriers to Learning one year None evide nt Mandatory Health Literacy Documentation Yes Health Literacy Communication Barriers N ever Primary Language Malian Problem List Condition Confirmation Course Effective Dates Status H ealth Status Informant Cyst of kidney, acquired Confirmed Active Anxiety Confirmed Active Benign hypertension without congestive heart failure Confirmed Active Brachial neuritis Confirmed Active Chronic pain syndrome Confirmed Active Generalized osteoarthritis Confirmed Active Depression Confirmed Active Dizziness Confirmed Active Shortness of breath Confirmed Active Dysuria Confirmed Active Change in vision Confirmed Active Fatigue Confirmed Active Stress incontinence, female Confirmed Active Fibromyalgia Confirmed Active Herpes simplex infection Confirmed Active H/O prolonged Q-T interval on ECG Confirmed Active Migraine Confirmed Active Anxious depression Confirmed Active Morbid obesity Confirmed Active Obesity Confirmed Active Osteoarthritis of right glenohumeral joint Confirmed Active DJD of right shoulder Confirmed Active Bilateral arm pain Confirmed Active Type 2 diabetes mellitus with peripheral neuropathy Confirmed Active Thoracic outlet syndrome Confirmed Active Diagnosis Diagnosis Type Effective Dates Health Status Clini medardo Service Informant Head pain Discharge Diagnosis 05/12/24 Non-Specified Procedures Procedure Date Related Diagnosis Body Site Status CT angiography of chest with contrast 1 06/09/22 Completed Bone density scan 2 10/14/21 Compl eted Eye examination 3 12/09/17 Complet ed Ultrasound abdomen 4 06/09/17 Comp leted EKG 5 07/17/16 Completed Colonoscopy normal 6, 7 03/02/09 C ompleted Cholecystectomy Completed H/O total knee replacement 8 Completed H/O tubal ligation Comple richi History of repair of umbilical hernia Completed Hx of repair of rotator cuff [address] [place] [address] Impression: 1. Streak and motion compromised exam 2. There is no evidence of central pulmonary embolus in the main, lobar, or proximal segmental pulmonary arteries 3. There is no airspace consolidation typical for pneumonia or pleural effusion 4. Hepatic steatosis and splenomegaly [facility] Impression: 1. Lumbar spine T-score: -0.4 2. Left femoral neck T-score: +0.5 3. Fracture risk is low/moderate 4. The quality of the examination is fair. L3-L4 has been deleted because of the significant variation in bone density from the rest of the lumbar spine. [facility]. [facility]- 2. Os- 3. No abnormalities 41. hepatic steatosis 2. status post cholecystectomy 5sinus rhythm with baseline artifact. left axis deviation abnormal ECG when compared with ECG for 11-oct-2015, no significant change 6next in 10 yrs 7normal [id number] Vital Signs Most recent to oldest [Reference Range]: 1 Patient Weight 131.5 kg (05/11/24 1:06 PM) Heart Rate 92 bpm (05/11/24 1:06 PM) Respiratory Rate 18 br/min (05/11/24 1:06 PM) Blood Pressure 116/72mmHg (05/11/24 1:06 PM) Cuff Pulse Pressure 44 mmHg (05/11/24 1:06 PM) Social History Social History Type Response Smoking Status Never smoked cigaret evaristo Sex Female Sex Representation Female (finding) FCM Outpt Note * STEF Prajapati Danielle B: PERFORM Event Display: FCM Outpt Note Authored Date: Chief Complaint thursday started with got sharp intense pop on right moravian. last a few minutes when blowing her nose. next time it was at same place and went down right moravian to ear. only happened twice. has not blown nose since. ears clogged. currently has a dull pain. History of Present Illness Patient is a 68 year old female here for head pain x 4 days. Patient reports she blew her nose on Thursday and felt very painful pop above right eye. Pain lasted about a minute and then improved but never resolved. 1-2 days later, patient blew nose again and felt very painful pop above right eye again. Painful for 1-2 minutes. Then, improved but never resolved. Pain at its worst was10/10. Now3/10. Denies vision changes, hearing changes, slurring words, memory difficulty. Reports difficulty with balance but no dizziness or lightheadedness. Review of Systems Negative unless stated in HPI. Physical Exam Vitals & Measurements HR:92(Monitored) RR:18 BP:116/72 SpO2:95% WT:131.5kg WT:131.500kg(Dosing) PHQ2 Data(Data Documented on:05/11/2024 13:06) Emotional health assessment NEGATIVE CONSTITUTIONAL: Well-developed, well nourished. No acute distress. NEUROLOGICAL: Patient alert, orientated, memory intact. Gait steady. Cranial nerves II-VII grossly intact. HEENT: Head is normocephalic. Eyes- symmetrical, no erythema or discharge. LUNGS: Respirations even and unlabored, chest expansion symmetrical. Lung sounds clear in all lobes, no wheezing, crackles, or adventitious breath sounds. HEART: Rate and rhythm regular. No cardiac murmur, click, or rub noted. INTEGUMENTARY: No rash, wounds, lesions noted on visible skin. PSYCHOSOCIAL: Calm and cooperative, interacts appropriately withstaff. Assessment/Plan 1.Head pain Through shared decision making, patient will be evaluated in emergency room. -Follow up if symptoms worsen or fail to improve. - Patient verbalizes understanding regarding plan of care and all questions answered. Problem List/Past Medical History Ongoing Anxiety Anxious depression Benign hypertension without congestive heart failure Bilateral arm pain Brachial neuritis Change in vision Chronic pain syndrome Cyst of kidney, acquired Depression Dizziness DJD of right shoulder Dysuria Fatigue Fibromyalgia Generalized osteoarthritis H/O prolonged Q-T interval on ECG Herpes simplex infection Migraine Morbid obesity Obesity Osteoarthritis of right glenohumeral joint Shortness of breath Stress incontinence, female Thoracic outlet syndrome Type 2 diabetes mellitus with peripheral neuropathy Procedure/Surgical History CT angiography of chest with contrast| Service Date: 06/09/2022one density scan| Service Date: 10/14/2021Eye examination| Service Date: 12/09/2017Ultrasound abdomen| Service Date: 06/09/2017EKG| Service Date: 07/17/2016Colonoscopy normal| Service Date: 03/02/2009Hx of repair of rotator cuffH/O tubal ligationCholecystectomyHistory of repair of umbilical herniaH/O total knee replacement Medications atorvastatin(atorvastatin 20 mg oral tablet), 20 mg= 1 tab, PO, Daily, 3 refills clonazePAM(KlonoPIN 0.5 mg oral tablet), 0.25 mg= 0.5 tab, PO, qhs diabetes supplies(One Touch Ultra 2 Glucose Monitor), See Instructions diabetes supplies(One Touch Ultra Test Strips 100 ct), See Instructions, 1 refills diabetes supplies(One Touch Delica Plus (30G) Lancets), See Instructions diabetic supplies(One Touch Ultra Blue Test Strips), See Instructions DULoxetine(DULoxetine 60 mg oral delayed release capsule), 60 mg= 1 cap, PO, Daily DULoxetine(DULoxetine 30 mg oral delayed release capsule), 30 mg= 1 cap, PO, Daily empagliflozin(Jardiance 25 mg oral tablet), 1 tab, PO, qAM gabapentin(gabapentin 100 mg oral capsule), 200 mg= 2 cap, PO, bid lamoTRIgine(LaMICtal), 200 mg, PO, bid mirabegron(Myrbetriq 50 mg oral tablet, extended release), 50 mg= 1 tab, PO, Daily, 3 refills nystatin(nystatin 100,000 units/mL oral suspension), 403301 unit= 5 mL, PO, qid, 1 refills omeprazole(omeprazole 40 mg oral delayed release capsule), 1 cap, PO, Daily propranolol(propranolol 20 mg oral tablet), 20 mg= 1 tab, PO, bid, 1 refills rimegepant(Nurtec ODT 75 mg oral tablet, disintegrating), See Instructions, 5 refills syringe needles(BD needle Ultra-Fine Pen Edilma 32G x 4mm), See Instructions unlisted medication(ONE TOUCH ULTRA2 GLUCOSE SYST), See Instructions valACYclovir, PO valsartan(valsartan 40 mg oral tablet), 40 mg= 1 tab, PO, Daily, 3 refills Allergies CeleBREXrash Coumadinincreased INR Taperash albuterolthrush flu vaccinesgets sick, itching all over, prefers not getting pneumococcal vaccinescough Social History Smoking Status Never smoked cigarettes Alcohol - Denies Alcohol Use Exercise Duration (average number of minutes):15 Times per week:3-4 times/week Exercise type:Walking Tobacco Use:Never smoker Intake (IView) Smoking History Cigarette smoker: Never smoked cigarettes Tobacco Product Use: Never used other tobacco products Family History COPD: Mother. Diabetes...: Father. Glaucoma: Mother. Hypertension: Father, Sister and PGM. Stroke: Father. Thyroid disease: Mother. Type II diabetes mellitus: Father and PGM. Health Status Family Member(s) Immunizations Vaccine Date Status pneumococcal 20-valent conjugate vaccine 05/27/2022 Recorded Comments : 2022-09-09: Historical information-source unspecified SARS-CoV-2 (COVID-19) mRNA BNT-162b2 vax 04/17/2021 Recorded Comments : 2022-09-09: Historical information-source unspecified SARS-CoV-2 (COVID-19) mRNA BNT-162b2 vax 08/08/2020 Recorded Comments : 2022-09-09: Historical information-source unspecified SARS-CoV-2 (COVID-19) mRNA BNT-162b2 vax 07/18/2020 Recorded Comments : 2022-09-09: Historical information-source unspecified tetanus toxoids-diphtheria, Td (Adult) 12/18/2017 Recorded Comments : 2022-09-09: Historical information-source unspecified pneumococcal 23-valent vaccine 01/13/2017 Recorded hepatitis B adult vaccine 12/29/2016 Recorded hepatitis B adult vaccine 07/11/2016 Recorded hepatitis B adult vaccine 06/12/2016 Recorded pneumococcal 13-valent vaccine 03/11/2016 Recorded tetanus/diphtheria/pertuss, acel (Tdap) 10/01/2006 Recorded tetanus/diphtheria/pertuss, acel (Tdap) 10/01/2006 Recorded Recommendations Health Maintenance Pending(in the next year) OverDue Breast Cancer Screening due09/11/17and every 731day Colorectal Cancer Screening due06/28/21and every 3year Adult Influenza Vaccine due08/31/23and every 1year Due Adult Social Determinants of Health Screening due05/12/24Unknown Frequency Medicare Annual Wellness Visit due05/12/24and every 1year Seasonal COVID 19 Vaccine due05/12/24Unknown Frequency Shingles Vaccine due05/12/24One-time only Due In Future Diabetes Management A1c not due until12/07/24and every 366day Kidney Health Evaluation not due until12/07/24and every 366day Satisfied(in the past 1 year) Satisfied Body Mass Index on04/22/24.Satisfied by EB Murphy Kennie L Diabetes Management A1c on12/07/23.Satisfied by Contributor_system, [email or web address] Diabetic Eye Exam on07/31/23.Satisfied by EB Guthrie Andrew E Kidney Health Evaluation on12/07/23.Satisfied by Contributor[employer]system, [email or web address] Lipid Screening on12/07/23.Satisfied by Contributor[employer]system, [email or web address] Electronic Signature on File Electronically Reviewed/Signed by: STEF Chavez Author Signature Dt/Tm:05/12/2024 09:16AM Family Medicine DBN Patient Care team information Care Team Personnel Name: MEGHA Rojas Jessica A Position: Physician Asst Junior - Family Med Member Role: Primary Care Provider Address: [address] [place] [address] Telecom: [phone] Care Team Related Persons Name: ALPHONSO LO Name: ALPHONSO LO Insurance Providers Guarantor name: KRISSY Moss [facility] Information #: 1 Payer: [employer] Member Number: [id number] Policy Number: NA Group Number: [id number] Health Plan Information #: 2 Payer: [facility] Member Number: [id number] Policy Number: NA Group Number: [id number] Health Plan Information #: 3 Payer: MEDICARE Member Number: NA Policy Number: NA Group Number: NA Health Plan Information #: 4 Payer: JOSÉ FOSTER Member Number: NA Policy Number: NA Group Number: NA"
--- OUTSIDE RECORDS SUMMARY | 2024-05-18 07:08 | External Medical Summary | Continuity of Care Document ---
Author Name Unknown Organization [facility] [address] [facility] Address [address] [place], [place] [id number] Care Team Providers Care Painter Helper Name Role Phone Cassie Rojas Primary Care Physician [phone] [id number] Date(s): 04/29/24 - 04/29/24 [facility] [address], [address] [place] [address] [phone] Discharge Disposition: Home or Self Care Attending Physician: STEF Marques Sarah A Encounter Type: Clinic Allergies, Adverse Reactions, Alerts Substance Criticality Severity Reaction Reaction Severity Status albuterol thrush Active Coumadin increased INR Active flu vaccines gets sick, itch ing all over, prefers not getting Active CeleBREX rash Active Tape rash Active pneumococcal vaccines cough Active Immunizations Given and Recorded Vaccine Date Status [...] Daily, Disp# 90 tab, Refills: 3, Pharmacy: [facility]/pharmacy #[id number] Start Date: 04/26/24 Status: Ordered Quantity: 90.0 Unit: tab Repeat number: 4 BD needle Ultra-Fine Pen Edilma 32G x 4mm Start: 12/11/17 6:22:13 PM EDT, See Instructions, Disp# 100 each, Refills: 0, Use with Victoza injections. Dx : E11.9, Pharmacy: [facility] [address] Start Date: 12/11/17 Status: Ordered Quantity: 100.0 Unit: each Repeat number: 1 diclofenac sodium 75 mg oral delayed release tablet Start: 01/25/24 7:27:00 AM EST, 1 tab, PO, bid, Disp# 60 tab, Refills: 3, PRN: NEEDED FOR PAIN, Pharmacy: [facility] STORE [id number] Start Date: 01/25/24 Status: Ordered Quantity: 60.0 Unit: tab Repeat number: 1 doxycycline monohydrate 100 mg oral tablet Start: 04/25/24 9:07:00 AM EST, 1 tab, PO, bid, Disp# 20 tab, X 10 day, may take with food to minimize abdominal discomfort, Stop: 05/05/24 9:07:00 AM EST, Pharmacy: [facility]/pharmacy #[id number] Start Date: 04/25/24 Stop Date: 05/05/24 Status: Ordered Quantity: 20.0 Unit: tab Repeat number: 1 DULoxetine 30 mg oral [...] Date: 01/20/23 Status: Ordered Repeat number: 1 hydrOXYzine hydrochloride 10 mg oral tablet Start: 11/14/22 1:31:00 PM EDT Start Date: 11/14/22 Status: Ordered Repeat number: 1 Jardiance 25 mg oral tablet Start: 12/22/23 8:25:00 AM EDT, 1 tab, PO, qAM, Disp# 90 tab, Refills: 2, Pharmacy: [id number] Start Date: 12/22/23 Status: Ordered Quantity: 90.0 [...] Daily, Disp# 90 tab, Refills: 3, [id number] Start Date: 04/25/24 Stop Date: 04/20/25 Status: Ordered Quantity: 90.0 Unit: tab Repeat number: 4 Nurtec ODT 75 mg oral tablet, disintegrating Start: 04/25/24 9:03:00 AM EST, See Instructions, Disp# 8 tab, Refills: 5, DISSOLVE 1 TABLET ON TONGUE ONCE, Pharmacy: [facility]/pharmacy #[id number] Start Date: 04/25/24 Status: Ordered Quantity: 8.0 Unit: tab Repeat number: 6 nystatin 100,000 units/mL oral suspension Start: 03/08/24 1:42:00 PM EST, 5 mL, PO, qid, Disp# 200 mL, Refills: 1, retain in mouth as long as possible before swallowing, [id number] Start Date: 03/08/24 Stop Date: 03/28/24 Status: Ordered Quantity: 200.0 Unit: mL Repeat number: 2 omeprazole 40 mg oral delayed release capsule Start: 12/21/23 7:15:00 AM EDT, 1 cap, PO, Daily, Disp# 90 cap, Refills: 3, Pharmacy: [id number] Start Date: 12/21/23 Status: Ordered Quantity: 90.0 Unit: cap Repeat number: 1 One Touch Delica Plus (30G) Lancets Start: 09/21/23 1:15:00 PM EDT, See Instructions, Disp# 100 each, Refills: 0, Use to test blood sugar once daily. E11.9, [id number] Start Date: 09/21/23 Status: Ordered Quantity: 100.0 Unit: each Repeat number: 1 One Touch Ultra 2 Glucose Monitor Start: 10/13/23 11:23:00 AM EDT, See Instructions, Disp# 1 each, test glucose daily, Pharmacy: [facility] #[id number] Start Date: 10/13/23 Status: Ordered Quantity: [...] daily, Note to Pharmacy: ICD-10: E11.9, [id number] Start Date: 09/18/23 Status: Ordered Quantity: 100.0 Unit: each Repeat number: 2 ONE TOUCH ULTRA2 GLUCOSE SYST Start: 12/28/23 7:18:00 AM EDT, ONE TOUCH ULTRA2 GLUCOSE SYST, See Instructions, Disp# 1 unknown unit, Refills: 0, TEST GLUCOSE DAILY, Pharmacy [id number] Start Date: 12/28/23 Status: Ordered Quantity: 1.0 Unit: unknown unit Repeat number: 1 propranolol 20 mg oral tablet Start: 08/11/23 9:37:00 AM EDT, 1 tab, PO, bid, Disp# 180 tab, Refills: 1, take 1/2 tablet by mouth every morning and 1/2 tablet BEFORE BEDTIME, [id number] Start Date: 08/11/23 Stop Date: 02/07/24 Status: Ordered Quantity: 180.0 Unit: tab Repeat number: 2 valACYclovir Start: 07/15/17 1:59:00 PM EDT, PO, 2 tabs PO every 12 hours for 1 day for cold sores. Start Date: 07/15/17 Status: Ordered Repeat number: 1 valsartan 40 mg oral tablet Start: 04/26/24 9:32:00 AM EST, 1 tab, PO, Daily, Disp# 90 tab, Refills: 3, [id number] Start Date: 04/26/24 Status: Ordered Quantity: 90.0 Unit: tab Repeat number: 4 Problem List Condition Confirmation Course Effective Dates [...] Confirmed Active Thoracic outlet syndrome Confirmed Active Procedures Procedure Date Related Diagnosis Body Site [...] of repair of rotator cuff [address] [place] [address] Impression: 1. Streak and motion compromised exam [...] [facility]- 2. Os- 3. No abnormalities 41. hepatic steatosis 2. status post cholecystectomy 5sinus rhythm with baseline artifact. left axis deviation abnormal ECG when compared with ECG for 11-oct-2015, no significant change 6next [facility] [id number] Results Radiology Reports * Exam Date Time Procedure Performing Provider Status 04/29/24 9:02 AM Echo TransTHORacic TTE Complete w/ Con Kenny Blankenship; Final Notes: (Echo TransTHORacic TTE Complete w/ Cont) Reason For Exam: ekg changes Echo TransTHORacic TTE Complete w/ Cont Report Signatures Finalized by Dr. Richard Wharton MD on 04/30/2024 11:44 AM [place] Act 112: No-No further action needed Summary 1. Very Technically difficult study enhanced with Definity contrast. 2. Normal left ventricular size and systolic function with no regional wall motion abnormalities. 3. Estimated Ejection Fraction 65-70%. 4. No evidence of left ventricular hypertrophy. 5. Grade I diastolic dysfunction of the left ventricle (impaired relaxation pattern). 6. Limited images of the RV suggest Normal RV size and function. 7. Normal biatrial size. 8. The aortic valve is not well seen without evidence of stenosis. 9. Mild aortic regurgitation. 10. Limited study due to body habitus. Patient Info Name: KRISSY THAKKAR Age: 68 years : 1955 Gender: Female Ht: 170 cm Wt: 134 kg BSA: 2.59 m2 HR: 73 bpm BP: 148 / 76 mmHg Heart Rhythm: Sinus Rhythm Technical Quality: Technically difficult study Exam Date: 04/29/2024 7:51 AM Exam Location: [facility] Patient Status: Outpatient Staff Ordering Physician: Arely Marques Behavioral Specialist: LYDIA Davenport Attending Physician: Arely Marques Study Info CPT 45202 - Indications R9431 - Abnormal electrocardiogram ECG EKG Procedure(s) * A complete two-dimensional, color flow and Doppler transthoracic echocardiogram was performed. Exam Type: Cardiac Basic Left Ventricle Normal left ventricular size and systolic function with no regional wall motion abnormalities. Estimated Ejection Fraction 65-70%. No evidence of left ventricular hypertrophy. Grade I diastolic dysfunction of the left ventricle (impaired relaxation pattern). Right Ventricle Limited images of the RV suggest Normal RV size and function. Left Atrium Normal left atrial size. Right Atrium Normal right atrial size. Aortic Valve Mild aortic regurgitation. The aortic valve is not well seen without evidence of stenosis. Pulmonic Valve The pulmonic valve is not well seen. Mitral Valve The mitral valve is not well seen without evidence of stenosis or regurgitation. Tricuspid Valve The tricuspid valve is not well seen. Pericardium/Pleural No significant pericardial effusion. Inferior Vena Cava Normal IVC size and inspiratory collapse. Estimated right atrial pressure is 3 mmHg. Aorta Normal aortic root. The ascending aorta is not well seen. Normal aortic arch. Left Ventricular Outflow Tract Name Value Normal LVOT 2D LVOT Diameter 2.0 cm LVOT Doppler LVOT Peak Velocity 1.35 m/s LVOT Peak Gradient 7 mmHg LVOT Mean Gradient 3 mmHg LVOT VTI 27.87 cm LVOT Stroke Volume 89.64 ml LVOT Stroke Volume Index 0.03 l/m2 LVOT Cardiac Output 6.54 l/min LVOT Cardiac Index 2.53 L/min/m2 Pulmonic Valve Name Value Normal PV 2D RVOT Diameter (2D) 2.0 cm 1.7-2.7 RVOT Doppler RVOT Peak Velocity 0.76 m/s RVOT Peak Gradient 2 mmHg PV Doppler PV Peak Gradient 3 mmHg Mitral Valve Name Value Normal MV Doppler MV PHT 51 ms MV Diastolic Function MV E Peak Velocity 1.18 m/s <=0.50 MV A Peak Velocity 1.07 m/s MV E/A 1.10 <=0.80 MV Decel Time 174 ms MV Annular TDI MV Septal s' Velocity 5.87 cm/s MV Septal e' Velocity 8.92 cm/s >=7.00 MV Septal a' Velocity 9.79 cm/s MV E/e' (Septal) 13.2 <=8.0 MV Lateral s' Velocity 6.96 cm/s MV Lateral e' Velocity 7.18 cm/s >=10.00 MV Lateral a' Velocity 11.10 cm/s MV E/e' (Lateral) 16.38 <=8.00 MV e' Average 8.05 MV E/e' (Average) 14.78 <=14.00 Tricuspid Valve Name Value Normal Estimated PAP/RSVP RA Pressure 3 mmHg <=5 TV Diastolic Function TV E Peak Velocity 0.72 m/s TV A Peak Velocity 0.67 m/s TV E/A 1.07 0.80-2.00 TV Decel Time 306 ms >=120 TV Annular TDI TV Lateral Fern s' Velocity 9.5 cm/s 9.5-18.7 TV Lateral Fern e' Velocity 8.9 cm/s <7.8 TV Lateral Fern a' Velocity 10.99 cm/s TV E/e' 8.10 2.00-6.00 TV A/a' 6.14 Aorta Name Value Normal Ascending Aorta Sinus of Valsalva Diameter 3.5 cm 2.7-3.3 Sinus of Valsalva Index 1.36 cm/m2 1.60-2.00 Thoracic Aorta Ao Arch Diameter 3.0 cm Venous Name Value Normal IVC/SVC IVC Diameter (Insp 2D) 0.9 cm IVC Diameter (Exp 2D) 2.1 cm <=2.1 IVC Diameter Percent Change (2D) 57 % >=50 Aortic Valve Name Value Normal AV Doppler AV Peak Velocity 1.49 m/s <2.00 AV Peak Gradient 9 mmHg AV Area (Cont Eq Terence) 2.9 cm2 AV Area Index (Cont Eq Terence) 1.12 cm2/m2 AV V1/V2 Ratio 0.90 AV Regurgitation 2D LVOT Area 3.2 cm2 AV Regurgitation Doppler AR Decel Time 401 ms AR PHT 116 ms Ventricles Name Value Normal LV Dimensions 2D/MM LVID Diastole (2D) 4.3 cm 3.3-5.1 LVID Systole (2D) 3.0 cm 2.2-3.5 LVOT Diameter 2.0 cm LV Mass (2D Cubed) 235.31 g 67.00-162.00 LV Mass Index (2D Cubed) 0.01 g/cm2 0.00-0.01 Relative Wall Thickness (2D) 0.70 LV Fractional Shortening/Ejection Fraction 2D/MM LV Fractional Shortening (2D) 30 % 27-45 LV Diastolic Volume (4C MOD) 145 ml LV Diastolic Volume (2C MOD) 101 ml LV Diastolic Volume (BP MOD) 123 ml 46-106 LV Diastolic Volume Index (BP MOD) 47.70 ml/m2 29.00-61.00 LV Systolic Volume (BP MOD) 39 ml 14-42 LV Systolic Volume Index (BP MOD) 14.93 ml/m2 8.00-24.00 LV EF (BP MOD) 69 % 58-69 LV SV (BP MOD) 84.80 ml LV End Diastolic Volume (BP A-L) 130.14 ml LV End Systolic Volume (BP A-L) 40.16 ml LV EF (BP A-L) 69 % RV Dimensions 2D/MM RV Basal Diastolic Dimension 3.2 cm 2.5-4.1 TAPSE 2.7 cm >=1.7 Atria Name Value Normal LA Dimensions LA Area (4C) 23.8 cm2 LA Length (4C) 5.9 cm LA Area (2C) 22.2 cm2 LA Length (2C) 5.9 cm LA Volume (4C A-L) 81.19 ml LA Volume (2C A-L) 71.28 ml LA Volume (BP A-L) 76 ml 22-52 LA Volume Index (BP A-L) 29.48 ml/m2 <=34.00 Final Signed by:DO Wharton Jason D Signed (Electronic Signature):04/29/2024 7:51 a Social History Social History Type Response Smoking Status Never smoked cigaret evaristo Sex Female Sex Representation Female (finding) Patient Care team information Care Team Personnel Name: MEGHA Rojas Jessica A Position: Physician Asst Ext - Family Med Member Role: Primary Care Provider Address: [address] [place] [address] Telecom: [phone] Care Team Related Persons Name: ALPHONSO LO Name: ALPHONSO LO Insurance Providers Guarantor name: KRISSY Moss [facility] Health Plan Information #: 2 Payer: [facility] Member Number: [id number] Policy Number: NA Group Number: [id number] Health Plan Information #: 1 Payer: [employer] Member Number: [id number] Policy Number: NA Group Number: [id number] Health Plan Information #: 3 Payer: MEDICARE Member Number: NA Policy Number: NA Group Number: NA Health Plan Information #: 4 Payer: [place] Member Number: NA Policy Number: NA Group Number: NA
--- OUTSIDE RECORDS SUMMARY | 2024-05-18 07:09 | External Medical Summary | Continuity of Care Document ---
Author Name Unknown Organization [facility] [address] [place], [place] [id number] Care Team Providers Care Sub Acute Care Nurse Name Role Phone Cassie Rojas Primary Care Physician [phone] [id number] Date(s): 04/26/24 - 04/26/24 [facility] [address], [address] [place] [address] [phone] Encounter Diagnosis Abnormal EKG(Discharge Diagnosis) - 04/26/24 Preop testing(Discharge Diagnosis) - 04/26/24 Discharge Disposition: Home or Self Care Attending Physician: STEF Marques Sarah A Encounter Type: Clinic Allergies, Adverse Reactions, Alerts Substance Criticality Severity Reaction Reaction Severity Status albuterol thrush Active Coumadin increased INR Active Tape rash Active pneumococcal vaccines cough Active flu vaccines gets sick, itch ing all over, prefers not getting Active CeleBREX rash Active Assessment and Plan Extracted from: Title:Cardiology Office Visit Note Author:STEF Ibanez rd, Sarah A Date:04/26/24 IMPRESSION: 1. Morbid obesity with likely obesity hypoventilation syndrome and sleep apnea and with severe claustrophobia intolerant of any treatment. 2. Hypertension, now with mild orthostatic symptoms. 3. Hyperlipidemia. 4. Questionable history of prolonged QTc, but remains on fluoxetine with a normal QTc on her EKG of 2018 and today. 6. 10/2023 - stress echo at [facility] without any s/s of ischemia Ms. Verma does have some subtle ST changes laterally on ekg. I will have her repeat an echo. Given that she is not having any new ischemic symptoms and she had a stress test within the last 6 months, if no new wall motion abnormalities on echo, she can proceed with her surgery at a moderate risk for cardiac complication. Her blood pressure is stable. If there are no changes on her echo, she can return to the cardiology clinic on an as needed basis. Immunizations Given and Recorded Vaccine Date Status [...] Daily, Disp# 90 tab, Refills: 3, Pharmacy: [facility]/pharm[facility] #[id number] Start Date: 04/26/24 Status: Ordered Quantity: 90.0 Unit: tab Repeat number: 4 BD needle Ultra-Fine Pen Edilma 32G x 4mm Start: 12/11/17 6:22:13 PM EDT, See Instructions, Disp# 100 each, Refills: 0, Use with Victoza injections. Dx : E11.9, Pharmacy: [facility] Start Date: 12/11/17 Status: Ordered Quantity: 100.0 Unit: each Repeat number: 1 diclofenac sodium 75 mg oral delayed release tablet Start: 01/25/24 7:27:00 AM EST, 1 tab, PO, bid, Disp# 60 tab, Refills: 3, PRN: NEEDED FOR PAIN, Pharmacy: [id number] Start Date: 01/25/24 Status: Ordered Quantity: 60.0 Unit: tab Repeat number: 1 doxycycline monohydrate 100 mg oral tablet Start: 04/25/24 9:07:00 AM EST, 1 tab, PO, bid, Disp# 20 tab, X 10 day, may take with food to minimize abdominal discomfort, Stop: 05/05/24 9:07:00 AM EST, Pharmacy: [facility]/pharmacy #[id number] Start Date: 04/25/24 Stop Date: 05/05/24 [...] qAM, Disp# 90 tab, Refills: 2, Pharmacy: [id number] Start Date: 12/22/23 Status: Ordered Quantity: 90.0 [...] Daily, Disp# 90 tab, Refills: 3, [id number] Start Date: 04/25/24 Stop Date: 04/20/25 Status: Ordered Quantity: 90.0 Unit: tab Repeat number: 4 Nurtec ODT 75 mg oral tablet, disintegrating Start: 04/25/24 9:03:00 AM EST, See Instructions, Disp# 8 tab, Refills: 5, DISSOLVE 1 TABLET ON TONGUE ONCE, [id number] Start Date: 04/25/24 Status: Ordered Quantity: 8.0 Unit: tab Repeat number: 6 nystatin 100,000 units/mL oral suspension Start: 03/08/24 1:42:00 PM EST, 5 mL, PO, qid, Disp# 200 mL, Refills: 1, retain in mouth as long as possible before swallowing, [id number] Start Date: 03/08/24 Stop Date: 03/28/24 Status: Ordered Quantity: 200.0 Unit: mL Repeat number: 2 omeprazole 40 mg oral delayed release capsule Start: 12/21/23 7:15:00 AM EDT, 1 cap, PO, Daily, Disp# 90 cap, Refills: 3, Pharmacy: [id number] Start Date: 12/21/23 Status: Ordered Quantity: 90.0 Unit: cap Repeat number: 1 One Touch Delica Plus (30G) Lancets Start: 09/21/23 1:15:00 PM EDT, See Instructions, Disp# 100 each, Refills: 0, Use to test blood sugar once daily. E11.9, Pharmacy: [facility]/pharmacy #[id number] Start Date: 09/21/23 Status: Ordered Quantity: 100.0 Unit: each Repeat number: 1 One Touch Ultra 2 Glucose Monitor Start: 10/13/23 11:23:00 AM EDT, See Instructions, Disp# 1 each, test glucose daily, [id number] Start Date: 10/13/23 Status: Ordered Quantity: [...] daily, Note to Pharmacy: ICD-10: E11.9, Pharmacy: [facility]/pharmacy #[id number] Start Date: 09/18/23 Status: Ordered Quantity: 100.0 Unit: each Repeat number: 2 ONE TOUCH ULTRA2 GLUCOSE SYST Start: 12/28/23 7:18:00 AM EDT, ONE TOUCH ULTRA2 GLUCOSE SYST, See Instructions, Disp# 1 unknown unit, Refills: 0, TEST GLUCOSE DAILY, Pharmacy [id number] Start Date: 12/28/23 Status: Ordered Quantity: 1.0 Unit: unknown unit Repeat number: 1 propranolol 20 mg oral tablet Start: 08/11/23 9:37:00 AM EDT, 1 tab, PO, bid, Disp# 180 tab, Refills: 1, take 1/2 tablet by mouth every morning and 1/2 tablet BEFORE BEDTIME, Pharmacy: [facility] #[id number] Start Date: 08/11/23 Stop Date: 02/07/24 Status: Ordered Quantity: 180.0 Unit: tab Repeat number: 2 valACYclovir Start: 07/15/17 1:59:00 PM EDT, PO, 2 tabs PO every 12 hours for 1 day for cold sores. Start Date: 07/15/17 Status: Ordered Repeat number: 1 valsartan 40 mg oral tablet Start: 04/26/24 9:32:00 AM EST, 1 tab, PO, Daily, Disp# 90 tab, Refills: 3, Pharmacy: [facility]/pharm[facility] #[id number] Start Date: 04/26/24 Status: Ordered Quantity: 90.0 Unit: tab Repeat number: 4 Mental Status 04/26/24 Barriers to Learning one year None evide nt Mandatory Health Literacy Documentation Yes Health Literacy Communication Barriers N ever Primary Language Macedonian Problem List Condition Confirmation Course Effective Dates [...] Diagnosis Diagnosis Type Effective Dates Health Status Cl inical Service Informant Abnormal EKG Discharge Diagnosis 04/26/24 Non-Specified Preop testing Discharge Diagnosis 04/26/24 Non-Specified Procedures Procedure Date Related Diagnosis Body [...] of repair of rotator cuff [address] [place] [address] Impression: 1. Streak and motion compromised exam [...] from the rest of [facility] lumbar spine. [facility] 1. OD- 2. Os- 3. No abnormalities 41. hepatic steatosis 2. status post cholecystectomy 5sinus rhythm with baseline artifact. left axis deviation abnormal ECG when compared with ECG for 11-oct-2015, no significant change 6next in 10 yrs 7normal [id number] Vital Signs Most recent to oldest [Reference Range]: 1 Heart Rate 84 bpm (04/26/24 9:27 AM) Respiratory Rate 18 br/min (04/26/24 9:27 AM) Blood Pressure 118/72mmHg (04/26/24 9:27 AM) Social History Social History Type Response Smoking Status Never smoked cigaret evaristo Sex Female Sex Representation Female (finding) EKG study * Contributor_system, MUSE01: VERIFY, PERFORM Event Display: EKG Authored Date: Please click on link to see image. Cardiology Outpatient Note * STEF Marques Sarah A: PERFORM, MODIFY, MODIFY Event Display: Cardiology Outpt Note Authored Date: [id number] Primary Care Provider MEGHA Rojas Jessica A Chief Complaint pre-op may 18 total right shoulder denies resent chest pain, heart racing or Palpations, dizziness or lightheadedness, no change w/SOB on exertion no edema no resent ER no falls or syncopalepisodes. History of Present Illness Ms. Verma presents for preop evaluation. She is planning for a right shoulder replacement for which I saw her in August but had to be pushed back for insurance reasons. She feels that things are about the same as far as her functional capacity as when I saw her in August. No exertional chest pain. She was diagnosed with costochondritis many years ago which she has occasionally and happens at random. She is short of breath on a flight of stairs but no worse than thissummer. She notes that she has had COVID twice and severe pneumonia twice and does not think her lungs ever recovered. She can walk around a store slowly but is slowed down by hip and back pain. No swelling No palpitations Review of Systems All other systems reviewed and negative except as discussed in the HPI Physical Exam Vitals & Measurements HR:84(Monitored) RR:18 BP:118/72 SpO2:94% Physical Examination General: Alert and oriented, No acute distress. Respiratory: Lungs are clear to auscultation, Respirations are non-labored. Cardiovascular: Normal rate, Regular rhythm, No murmur, No edema, no carotid bruits to auscultation bilaterally. Integumentary: Warm, Dry, [place] Neurologic: Alert, Oriented. Cognition and Speech: Speech clear and coherent. Psychiatric: Cooperative, Appropriate mood & affect. Assessment/Plan IMPRESSION: 1. Morbid obesity with likely obesity hypoventilation syndrome and sleep apnea and with severe claustrophobia intolerant of any treatment. 2. Hypertension, now with mild orthostatic symptoms. 3. Hyperlipidemia. 4. Questionable history of prolonged QTc, but remains on fluoxetine with a normal QTc on her EKG of 2017 and today. 6. 10/2023 - stress echo at [facility] without any s/s of ischemia Ms. Verma does have some subtle ST changes laterally on ekg. I will have her repeat an echo. Given that she is not having any new ischemic symptoms and she had a stress test within the last 6 months, if no new wall motion abnormalities on echo, she can proceed with her surgery at a moderate risk for cardiac complication. Her blood pressure is stable. If there are no changes on her echo, she can return to the cardiology clinic on an as needed basis. Problem List/Past Medical History Ongoing Anxiety Anxious [...] Touch Ultra Blue Test Strips), See Instructions diclofenac(diclofenac sodium 75 mg oral delayed release tablet), 1 tab, PO, bid, PRN doxycycline(doxycycline monohydrate 100 mg oral tablet), 100 mg= 1 tab, PO, bid DULoxetine(DULoxetine 60 mg oral delayed release capsule), 60 mg= 1 cap, PO, Daily DULoxetine(DULoxetine 30 mg oral delayed release capsule), 30 mg= 1 cap, PO, Daily empagliflozin(Jardiance 25 mg oral tablet), 1 tab, PO, qAM gabapentin(gabapentin 100 mg oral capsule), 200 mg= 2 cap, PO, bid hydrOXYzine(hydrOXYzine hydrochloride 10 mg oral tablet) lamoTRIgine(LaMICtal), 200 mg, PO, bid mirabegron(Myrbetriq 50 mg oral tablet, extended release), 50 mg= 1 tab, PO, Daily, 3 refills nystatin(nystatin 100,000 units/mL oral suspension), [id number] unit= 5 mL, PO, qid, 1 refills [...] week:3-4 times/week Exercise type:Walking Tobacco Use:Never smoker Family History COPD: Mother. Diabetes...: Father. Glaucoma: Mother. Hypertension: Father, Sister and PGM. Stroke: Father. Thyroid disease: Mother. Type II diabetes mellitus: Father and PGM. Health Status Family Member(s) Electronic Signature on File CC: Cassie Rojas PA-C,MPAS [address] [facility] [address] [facility] [address] Electronically Reviewed/Signed by: STEF Arreaga Author Signature Dt/Tm:04/26/2024 01:05 PM [facility] [place] [facility] Patient Care team information Care Team Personnel Name: MEGHA Rojas, Cassie Moss Position: Physician Asst Ext - Family Med Member Role: Primary Care Provider Address: [address] [place] [address] [address] Telecom: [phone] Care Team Related Persons Name: ALPHONSO LO Name: ALPHONSO LO Insurance Providers Guarantor name: KRISSY Moss [facility] Health Plan Information #: 2 Payer: [facility] Member Number: [id number] Policy Number: NA Group Number: [id number] Health Plan Information #: 1 Payer: [employer] Member Number: [id number] Policy Number: NA Group Number: [id number] Health Plan Information #: 3 Payer: MEDICARE Member Number: NA Policy Number: NA Group Number: NA Health Plan Information #: 4 Payer: [place] Member Number: NA Policy Number: NA Group Number: NA"
[2024-05-18] MEDS ORDERED: ROCURONIUM BROMIDE 10 MG/ML 5 ML VIAL IV ONE ×2 (08:06→10:57)
[2024-05-18] MEDS ORDERED: PROPOFOL IV EMULSION 10 MG/ML 20 ML VIAL IV ONE (08:06)
[2024-05-18] MEDS ORDERED: LIDOCAINE 2% 2 ML VIAL/AMP(20MG/ML) INFIL ONE (08:06)
[2024-05-18] MEDS ORDERED: MIDAZOLAM HCL 1 MG/ML 2ML VIAL ONE (08:21)
[2024-05-18] MEDS ORDERED: fentaNYL citrate PF 100 MCG/2 ML VIAL ONE ×2 (08:21→11:31)
[2024-05-18] MEDS ORDERED: ONDANSETRON INJ 2 MG/ML 2 ML VIAL IV PRN ×2 (08:36→14:06)
[2024-05-18] MEDS ORDERED: ATROPINE SULFATE 0.1 MG/ML 10ML SYR IV PRN (08:36)
[2024-05-18] MEDS ORDERED: ePHEDrine sulfate 50 MG/ML AMP IV PRN (08:36)
[2024-05-18] MEDS: TRANEXAMIC ACID 1,000 MG **IV Pre-op IV SCH (08:56)
[2024-05-18] MEDS: ceFAZolin 3000MG 3,000 MG/72.5 ML BAG IV SCH (09:14)
[2024-05-18] MEDS ORDERED: PHENYLEPHRINE 100MCG/ML 10ML SYR IV ONE (10:39)
[2024-05-18] MEDS ORDERED: ONDANSETRON INJ 2 MG/ML 2 ML VIAL ONE (10:39)
[2024-05-18] MEDS ORDERED: SUGAMMADEX SODIUM 200 MG/2 ML VIAL IV ONE (11:07)
[2024-05-18] MEDS: TRANEXAMIC ACID 1,000 MG **IV Intra-op IV SCH (11:07)
[2024-05-18] MEDS: THROMBIN FOR SOLN 20000 UNIT KIT ONE (11:15)
--- NOTE | 2024-05-18 11:38 | Post Operative Brief Note ---
Immediate Post Op Note Date of Surgery May 18, 2024 Pre & Post Diagnosis Operation Date: 05/18/24 08:50 <No data on this case meets the specified criteria> Osteoarthritis right shoulder pre and postop diagnosis same I identified the patient and participated in the time-out.: Yes Procedure Operation Date: 05/18/24 08:50 <No data on this case meets the specified criteria> Hybrid total shoulder replacement modifier 22 high BMI very sick patient Surgeon Jorje Diaz MD Blue Split Trimmer Tejas/Maksim Estimated Blood Loss 100 Findings Consistent with Post-Op Diagnosis Severe osteoarthritis very thick soft tissue envelope multiple loose bodies in the shoulder joint Fluids 1200 cc of fluid Complications None
--- NOTE | 2024-05-18 11:44 | Orthopedic Progress Note ---
Date of Service May 18, 2024 Orthopedic Progress Note Patient underwent total shoulder replacement hybrid of the right side that with no issues. Denies chest pain shortness breath fever chills nausea vomiting headache. Vital signs are stable. Neurovascular exam limited by block. X-rays pending. Family contacted.
--- NOTE | 2024-05-18 11:44 | Operative Report ---
Post Operative Report Pre & Post Diagnosis Operation Date: 05/18/24 08:50 <No data on this case meets the specified criteria> Pre and postop diagnosis osteoarthritis right shoulder history of rotator cuff tear in the past which healed on preoperative MRI scan here for total shoulder arthroplasty anatomic type. I identified the patient and participated in the time-out.: Yes Procedure Operation Date: 05/18/24 08:50 <No data on this case meets the specified criteria> Total shoulder replacement hybrid cemented glenoid press-fit numerous modifier 22 based on patient habitus Surgeon Jorje Diaz MD Storeroom Clerk Tejas/Maksim Estimated Blood Loss 100 Findings Consistent with Post-Op Diagnosis Severe osteoarthritis multiple loose bodies Fluids 1200 cc Specimens Bone pathology Drains None Complications General With block Indications Severe pain end-stage disease Description of Procedure After the patient was appropriate notified Cipro by concern provide antibodies confirms being given right upper extremity was prepped and draped as routine fashion with the patient in slight beachchair position. Deltopectoral interval was then made. The subcutaneous tissue was quite generous. Care was taken to retract the deltoid with the cephalic vein laterally pictorial fascia was then opened and the deep retractors placed the subscapularis was then mobilized off the tuberosity. The biceps was also mobilized off the glenoid and tagged. Capsular release was then performed. Humerus was then dissected cleanly around its osteophyte inferiorly with care taken to stay on bone to protect the axillary nerve humeral head could be dislocated through the wound. The humeral neck and head were then resected appropriately. Osteophytes were then removed a long the margin. Glenoid retractors in place complete capsular release performed serial reaming carried up on the glenoid to a 44 seating holes made centrally 1 proximately into distally. The trial fit well. The area was then irrigated with Betadine Pulsavac soaked in thrombin in the permanent 44 glenoid impacted and cemented into position. After 12 minutes this was cleaned out no spinal required and then the humerus delivered into the wound. Broaching was then carried up to a size 10 standard on the humerus. A trial reduction with a 48 x 21 eccentric head was excellent. Post posterior trends lability was about 50%. With the arm abducted 30 and rotated externally 30 the humerus was centered in the glenoid. Once this was verified the permanent stem and head were then seated prior to this the seating holes for the rotator cuff repair were placed through the humerus. Surgeon then placed there. Once the permanent implant was then impacted the sutures were placed around the stem to give extra pullout strength. Excellent positioning of the humerus was carried out and the permanent head impacted in position and the shoulder reduced. The subscapularis was then repaired back to the bone through these sutures and the additional suture tags were also incorporated the biceps was tenodesed to the anterior humerus and to the subscapularis capsule complex. Rotator interval was closed with the repair. Wound was irrigated with pain Betadine Pulsavac and wound dried up no additional bleeding following there was a small area around the cephalic vein that was coagulated. 2-0 plain was used for the subcutaneous tissue and stable steel clips for skin appropriate dressing plan patient transferred recovery in satisfactory addition having tolerated the surgery well. EBL was 100 cc crystalloid 1200 cc. Family contacted granddaughter. Summary of implants size 44 anchor peg glenoid primary none. 135 slice 10 body 10 standard stem 48 x 21 eccentric head. These are all DePuy J&J implants. Humeral head stem implant was performed coated the glenoid was cemented. DVT prophylaxis with mobilization. I attest to the content of the Intraoperative Record and any orders documented therein. Any exceptions are noted below.
--- NOTE | 2024-05-18 11:45 | Discharge Summary ---
Date of Service May 19, 2024 Admission HPI Per Admitting Provider Admitted overnight for total shoulder replacement hybrid on the right side. Admission Exam Per Admitting Provider left eye irritation Principal Diagnosis Osteoarthritis right shoulder Discharge Data Allergies Allergy/AdvReac Type Severity Reaction Status Date / Time adhesive Allergy Severe Blister Verified 05/18/24 07:02 fosphenytoin Allergy Mild Hives Verified 05/18/24 07:02 celecoxib Allergy Unknown Itchiness Verified 05/18/24 07:02 warfarin [From Coumadin] AdvReac Severe Hemorrhage Verified 05/18/24 07:02 Vaccinations None Consultations None Procedures Performed Operation Date: 05/18/24 08:50 <No data on this case meets the specified criteria> Hybrid total shoulder replacement cemented glenoid press-fit humerus removal of multiple loose bodies Ordered Studies 05/18/24 05:00 US - OR guided needle placemen Routine Hospital Course (1) Status post replacement of right shoulder joint: Total Time Total Time Spent Total Time Spent (In Minutes): 10 minutes Discharge Plan Discharge Items Reason For Visit: Right Shoulder Osteoarthritis Discharge Diagnosis: Status post right total shoulder replacement Follow-up/Referrals: Cassie Rojas PA-C [Primary Care Provider] - Add Attending Provider Instructions: DIET: * Resume previous diet. MEDICATIONS: * Please take your prescriptions as instructed at your pre-op appointment and/or see medication discharge instructions listed above. * If concerns develop, call your physician's office at . SPECIAL CARE INSTRUCTIONS: * Ice/Elevate as instructed. * Keep dressing clean, dry, intact. * Your surgical extremity may be discolored due to prepping agents used on the skin. A bluish-green tint is a normal variant and should not cause alarm. Call your doctor at [phone] if: * Temperature above 101 degrees * Pain not relieved by pain medicine ordered * There is increased drainage or redness from any incision * You have any unanswered questions, problems or concerns. FOLLOW UP VISIT: * If not already scheduled, please call the office at to schedule a follow-up appointment. Stand-Alone Forms: My [facility] [employer] Medications and DC Order Prescriptions: No Action atorvastatin 20 mg tablet 20 mg PO QAM propranolol 20 mg tablet 10 mg PO BID clonazepam 0.5 mg tablet 0.5 mg PO BID PRN (Reason: Anxiety) lamotrigine 100 mg tablet 100 mg PO BID cyclobenzaprine 10 mg Tablet 10 mg PO TID PRN (Reason: Muscle Spasm) valsartan 80 mg tablet 80 mg PO QAM omeprazole 40 mg capsule,delayed release(DR/EC) 40 mg PO QAM duloxetine 30 mg capsule,delayed release(DR/EC) 30 mg PO QAM Rx Instructions: WITH 60 MG FOR 90 MG DAILY DOSE duloxetine 60 mg capsule,delayed release(DR/EC) 60 mg PO QAM Rx Instructions: WITH 30 MG FOR 90 MG DAILY Jardiance 25 mg Tablet 25 mg PO QAM mirabegron [Myrbetriq] 25 mg Tablet Extended Release 24 Hr 50 mg PO QAM naproxen sodium [Aleve] 220 mg Tablet 220 mg PO BID PRN (Reason: Pain) [place] Ointment 1 applic TOPICAL BID PRN (Reason: Pain) Admission Data Admit Date/Time: 05/18/24 11:59 Attending Provider: Jorje Diaz Admit Provider: Jorje Diaz Primary Care Provider: Cassie Rojas
--- NOTE | 2024-05-18 11:51 | Operative Report ---
Post Operative Report Pre & Post Diagnosis Operation Date: 05/18/24 08:50 Pre-Op Diagnosis: Right Shoulder End-Stage Degenerative Joint Disease Post-Op Diagnosis: Right Shoulder End-Stage Degenerative Joint Disease I identified the patient and participated in the time-out.: Yes Procedure Operation Date: 05/18/24 08:50 Actual Procedures p Right Total Shoulder Arthroplasty(Right) - Jorje Diaz MD Surgeon Jorje Diaz MD Immunology Specialist Tejas/Maksim Estimated Blood Loss 100 Findings Consistent with Post-Op Diagnosis Specimens Right humeral head Description of Procedure Patient was brought to the operative suite where she underwent anesthesia. The right upper extremity was prepped and draped in the usual sterile fashion. A surgical timeout was performed. The patient underwent a right total shoulder arthroplasty. Please see Dr. Diaz's operative report for full details. I was present and assisted with patient positioning, limb positioning, soft tissue retraction, hemostasis, hardware placement, wound closure, postoperative dressing placement. The patient was awakened and taken to the recovery room in stable condition. I attest to the content of the Intraoperative Record and any orders documented therein. Any exceptions are noted below.
[2024-05-18] MEDS ORDERED: PHARMACY GLYCEMIC MGMT CONSULT PRN (12:00)
--- NOTE | 2024-05-18 12:03 | Operative Report ---
Post Operative Report Pre & Post Diagnosis Operation Date: 05/18/24 08:50 Pre-Op Diagnosis: Right Shoulder End-Stage Degenerative Joint Disease Post-Op Diagnosis: Right Shoulder End-Stage Degenerative Joint Disease I identified the patient and participated in the time-out.: Yes Procedure Operation Date: 05/18/24 08:50 Actual Procedures p Right Total Shoulder Arthroplasty(Right) - Jorje Diaz MD Surgeon TOM Diaz MD [employer] [id number] Technical Lead Tejas/Maksim [place] Estimated Blood Loss 100 Findings Consistent with Post-Op Diagnosis see operative report Specimens see operative report Drains none Complications none Disposition Accompanied Patient To Recovery: Yes Indications This 68 year old female presented to the office with complaints of persisting right shoulder pain. She had tried conservative care measures without improvement. She elected to proceed with surgical intervention after being educated about potential risks and outcomes. Preoperative imaging was obtained. Description of Procedure The patient was administered a regional block and then taken to the operating room where she was given general anesthesia. She was prepped and draped in the usual sterile fashion. Please see Dr. Diaz's operative report for specifics of the procedure. I was present for the entire case from initial patient positioning through final wound closure. Assistance was provided in tissue retraction, hemostasis, trial implant placement, final implant placement, and final wound closure. The patient was taken to the recovery room in satisfactory condition. I attest to the content of the Intraoperative Record and any orders documented therein. Any exceptions are noted below.
[2024-05-18] MEDS: fentaNYL citrate PF 100 MCG/2 ML VIAL IV PRN (12:15)
--- NOTE | 2024-05-18 12:23 | Orthopedic Progress Note ---
Date of Service May 18, 2024 Orthopedic Progress Note Postop check in recovery room. Patient is arousable was lucid is alert and oriented x 3. Denies chest pain shortness with a fever chills nausea vomiting or headache. Wound dressing clean dry and intact. Block does have intact motor function in the median radial and ulnar nerves. Shoulder is comfortable. The block is working proximally. X-rays are pending. Family contacted.
--- NOTE | 2024-05-18 12:45 | XRay Report ---
XR shoulder RT 1V CLINICAL HISTORY: post op, in PACU COMPARISON: 04/22/2024 FINDINGS: Right shoulder prosthesis shows no hardware complication. There is expected soft tissue ga s. Skin renate are present. There is mild atelectasis at the right lung base. IMPRESSION: 1. Mild atelectasis at the right lung base. 2. Otherwise unremarkable postoperative exam. ACT 112: Negative or not required by law. Electronically signed by: Brad Jameson M.D. 05/18/2024 12:44 PM
--- NOTE | 2024-05-18 13:52 | Pharmacy Report ---
Pharmacy Glycemic Short Note 2 - Date of Service May 18, 2024 - Glycemic Short BSG Results (Last 24 hours): 05/18/24 05/18/24 07:12 11:55 POC Glucose 192 H 194 H OUTPATIENT ANTIDIABETIC REGIMEN: * Jardiance 25 mg daily * A1c 7.8% 04/28/24 ASSESSMENT: * Patient admitted POD #0 s/p right shoulder arthroplasty * BSGs have been steady in the 190s pre/post operatively * Will utilize basal/bolus post operatively, weight stress 2 with more conservative basal * Overnight checks PLAN FOR INPATIENT GLYCEMIC CONTROL: * Hold outpatient oral diabetes medications * Basal insulin * Lantus 10 units x1, additional to be given per scale if BSGs trend upward * Bolus insulin * NovoLog per scale ACHS or Q6hrs while NPO * Goal Range: Low 110 mg/dL - High 140 mg/dL * Correction Factor: 25 mg/dL/unit * Nutritional / Prandial insulin per carb ratio of 1 unit per 10 grams CHO consumed
[2024-05-18] MEDS ORDERED: VANCOMYCIN CONSULT ACTIVE PRN (14:06)
[2024-05-18] MEDS ORDERED: ALUMINUM/MAGNESIUM SUSP 30 ML UDC PO PRN (14:06)
[2024-05-18] MEDS ORDERED: HYDROmorphone INJ 0.5 MG/0.5 ML SYR IV PRN (14:06)
[2024-05-18] MEDS ORDERED: MAGNESIUM HYDROXIDE SUSP 30 ML UDC PO PRN (14:06)
[2024-05-18] MEDS ORDERED: bisacodyL 10 MG SUPP PR PRN (14:06)
[2024-05-18] MEDS ORDERED: diphenhydrAMINE 50 MG/ML VIAL IV PRN (14:06)
[2024-05-18] MEDS ORDERED: NALOXONE HCL 0.4 MG/1 ML VIAL/CARP IV PRN (14:06)
[2024-05-18] MEDS ORDERED: clonazePAM 0.5 MG TAB PO PRN (14:06)
[2024-05-18] MEDS ORDERED: oxyCODONE HCL IR 5 MG TAB (IMMEDIATE RELEASE) PO PRN (14:06)
[2024-05-18] MEDS ORDERED: METOCLOPRAMIDE HCL INJ 5 MG/ML 2 ML VIAL IV PRN (14:06)
[2024-05-18] MEDS: BUPIVACAINE LIPOSOME 1.3% 133 MG/10 ML VIAL ONE (14:24)
[2024-05-18] MEDS: ERYTHROMYCIN OP OINT 5 MG/GM 3.5 GM TUBE OP SCH (14:27)
[2024-05-18] MEDS: LANTUS PER UNIT CHARGE SC ONE (14:30)
[2024-05-18] MEDS: INSULIN ASPART PER UNIT CHARGE SC SCH (14:31)
[2024-05-18] MEDS: ACETAMINOPHEN 500 MG TAB PO SCH (14:36)
[2024-05-18] MEDS: KETOROLAC TROMETHAMINE 15 MG/ML VIAL IV SCH (14:36)
[2024-05-18] MEDS: VANCOMYCIN HCL 2,000 MG in SODIUM CHLORIDE 0.9% 500 ML IV ONE (15:28)
--- NOTE | 2024-05-18 15:40 | Anesthesiology Progress Note ---
Date of Service May 18, 2024 Anesthesia Post Procedure Vital Signs Vital Signs: Temp Pulse Pulse Resp BP Pulse Ox O2 Del Method 05/18/24 14:54 36.6 C 82 18 112/69 95 Nasal Cannula 05/18/24 14:22 36.9 C 83 18 120/72 93 Nasal Cannula 05/18/24 14:10 Nasal Cannula 05/18/24 13:50 36.8 C 88 18 135/76 92 Nasal Cannula 05/18/24 13:30 84 16 123/65 93 Nasal Cannula 05/18/24 13:15 86 16 135/74 93 Nasal Cannula 05/18/24 12:55 85 17 121/68 93 Nasal Cannula 05/18/24 12:40 36.5 C 87 18 143/76 H 93 Nasal Cannula 05/18/24 12:30 91 H 18 125/95 93 Nasal Cannula 05/18/24 12:20 92 H 16 140/72 94 Oxymask 05/18/24 12:10 89 16 153/65 H 94 Oxymask 05/18/24 12:00 87 18 138/77 94 Oxymask 05/18/24 11:50 36.4 C L 82 16 121/79 93 Oxymask 05/18/24 07:00 36.8 C 98 H 22 160/85 H 94 Room Air O2 Flow Rate 05/18/24 14:54 2 05/18/24 14:22 2 05/18/24 14:10 2 05/18/24 13:50 2 05/18/24 13:30 3 05/18/24 13:15 3 05/18/24 12:55 3 05/18/24 12:40 3 05/18/24 12:30 3 05/18/24 12:20 6 05/18/24 12:10 6 05/18/24 12:00 6 05/18/24 11:50 10 05/18/24 07:00 Pain Intensity Right Shoulder: Pain Intensity: 5 Transfer of Care Handoff Completed per policy Notes Mental Status: alert / awake / arousable and participated in evaluation Patient Amnestic to Procedure: Yes Nausea / Vomiting: adequately controlled Pain: adequately controlled Airway Patency, RR, SpO2: stable & adequate BP & HR: stable & adequate Hydration State: stable & adequate Anesthetic Complications: no major complications apparent and Pt Satisfied with anesthetic care Notes: Pt complained of left eye discomfort in pacu. no foreign body noted. likely corneal abrasion/drying injury. advised pt to use refresh eye drops and wrote for tid erythromycin ointment for five days to affected eye. if she has worsening pain or vision difficulties she should then be seen by primary care or optho.
[2024-05-18] MEDS: PROPARACAINE 0.5% 225 DROPS/15 ML BTL OP STA (16:53)
[2024-05-18] MEDS: ASCORBIC ACID 500 MG TAB PO SCH (16:54)
[2024-05-18] MEDS: FERROUS GLUCONATE 324 MG TAB PO SCH (16:54)
[2024-05-18] MEDS: ceFAZolin 2000MG 2,000 MG/15 ML SYR IV SCH (18:37)
[2024-05-18 19:17] VITALS: RESP 18
[2024-05-18] MEDS: PROPRANOLOL HCL 10 MG TAB PO SCH (21:03)
[2024-05-18] MEDS: lamoTRIgine 100 MG TAB PO SCH (21:03)
[2024-05-18] MEDS: SENNA 8.6 MG TAB PO SCH (21:04)
[2024-05-18] MEDS: DOCUSATE SODIUM 100 MG CAP PO SCH (21:04)
[2024-05-18] MEDS: PROPARACAINE 0.5% 225 DROPS/15 ML BTL OPL PRN (21:54)
[2024-05-19] MEDS: INSULIN ASPART PER UNIT CHARGE SC SCH (00:03)
[2024-05-19 03:28] VITALS: PULSE 85
--- NOTE | 2024-05-19 06:27 | Orthopedic Progress Note ---
Date of Service May 19, 2024 Assessment & Plan Admission and Anticipated Discharge Date Admission Date: May 18, 2024 Orthopedic Progress Note Postop day #1 status post right total shoulder replacement. She is doing reasonably well. She did not get much sleep. Otherwise she is doing fine denies chest pain shortness. Fever chills nausea vomiting headache. Vital signs are stable she is afebrile. Wound dressing clean dry and intact. Neurovascular check reveals intact median radial ulnar suprascapular and axillary nerves. Assessment doing well discharged home today. Will have outpatient PT and dr summers change in the outpatient setting. Advised her to potentially use a cane in the opposite hand if she feels like she has little bit of balance and/or confidence issue. Advised that her granddaughter who is giving her transportation bring it in today. She states she understands.
[2024-05-19 06:47] LABS: Basophils # (auto) 0.04 K/uL (0.00-0.20); Basophils % (auto) 0.3 %; Eosinophils # (auto) 0.27 K/uL (0.00-0.50); Eosinophils % (auto) 2.1 %; Hemoglobin 10.5 g/dl (12.0-16.0); Immature Granulocytes # (auto) 0.05 K/uL (0.01-0.20); Immature Granulocytes % (auto) 0.4 %; Lymphocytes # (auto) 3.51 K/uL (1.20-3.40); Lymphocytes % (auto) 26.8 %; Mean Corpuscular Hemoglobin 22.2 pg (25.0-34.0); Mean Corpuscular Volume 74.2 fL (80.0-100.0); Mean Platelet Volume 9.9 fL (9.4-12.4); Monocytes % (auto) 10.7 %; Neutrophils # (auto) 7.84 K/uL (1.40-6.50); Neutrophils % (auto) 59.7 %; Platelet Count 222 K/uL (130-400); RDW Coefficient of Variation 17.2 % (11.5-14.5); RDW Standard Deviation 45.9 fL (36.4-46.3); Red Blood Count 4.72 M/uL (4.20-5.40); White Blood Count 13.11 K/ul (4.8-10.8)
[2024-05-19 07:25] VITALS: BP 103/62; TEMP 98.1; O2SAT 90
[2024-05-19 07:25] LABS: BUN Creatinine Ratio 22.7 (10-20); Calcium 8.7 mg/dl (8.6-10.3); Creatinine Clr Calc Pharmacy 101.3 ml/min; Potassium 4.1 mmol/L (3.5-5.1)
[2024-05-19] MEDS: VIBEGRON 75 MG TAB PO SCH (08:18)
[2024-05-19] MEDS: MULTIVITAMIN TAB PO SCH (08:18)
[2024-05-19] MEDS: DULoxetine HCL 30 MG CAP PO SCH (08:18)
[2024-05-19] MEDS: ATORVASTATIN 20 MG TAB PO SCH (08:18)
[2024-05-19] MEDS: VALSARTAN 80 MG TAB PO SCH (08:18)
[2024-05-19] MEDS: DULoxetine HCL 60 MG CAP PO SCH (08:23)
[2024-05-19] MEDS: PANTOprazole 40 MG TAB PO SCH (08:23)
--- NOTE | 2024-05-19 08:30 | Orthopedic Progress Note ---
Date of Service May 19, 2024 Assessment & Plan (1) Status post replacement of right shoulder joint: Plan: The patient was educated regarding today's findings. She will be discharged this morning and attend outpatient PT at the office at 1030. She is aware. Leave the arm in the sling at all times other than therapy. Prescription for Percocet was sent to her [facility] pharmacy. Written discharge instructions were provided. Continue with ice, elevation, and immobilization for pain control. Admission and Anticipated Discharge Date Admission Date: May 18, 2024 Subjective This 68-year-old female is seen today in her room. She is 1 day status post right total shoulder arthroplasty. She states her block is wearing off. She is starting to get some pain. She has been moving her wrist and digits without discomfort. She ate a fair amount of her breakfast this morning. Denies any chest pain, shortness of breath, nausea, vomiting, or abdominal pain. She states she did not sleep well. She feels ready for discharge. She is scheduled to be at the office this morning at 10:30. Review of Systems Review of Systems: Unchanged from yesterday. Physical Exam Physical Exam: General: Well-developed, well-nourished, middle-aged female, in no acute distress. Laying in bed. Alert and oriented. Conversive. Skin: Warm dry with good turgor. Postsurgical dressing is in place on her right shoulder. It is dry. No ecchymosis of her arm yet. Musculoskeletal: The patient has intact motor function of her wrist and digits. No motion of the shoulder or elbow was attempted. This will be done in physical therapy later this morning. Neurologic: Gross sensation is intact across the hand, wrist, and forearm. Peripheral pulses are 2+. Results & Data Vital Signs (Past 12 Hours) Vital Signs Temp Pulse Resp BP Pulse Ox O2 Del Method O2 Flow Rate 05/19/24 07:39 Nasal Cannula 2 05/19/24 07:25 36.7 C 85 18 103/62 90 Nasal Cannula 2.0 05/19/24 03:27 37.3 C 85 18 136/79 92 Nasal Cannula 2 05/18/24 23:02 36.9 C 86 18 115/67 91 Nasal Cannula 2 Laboratory Results CBC obtained this morning shows a white count of 13.1. H&H of 10.5 and 35.0. Platelets 222,000. PRP this morning shows normal sodium, potassium, chloride, and CO2. BUN of 17 with creatinine 0.75. Glucose this morning is 158.
== END 2024-05-19 09:52 | disposition home or self-care (01) ==
LOC: ASU 06:16 → 3E 06:16

== ENCOUNTER 2024-05-19 19:02 | Inpatient (IN) ==
[2024-05-19 19:40] LABS: Basophils # (auto) 0.03 K/uL (0.00-0.20); Basophils % (auto) 0.2 %; Eosinophils # (auto) 0.31 K/uL (0.00-0.50); Eosinophils % (auto) 2.2 %; Hematocrit (blood only) 37.2 % (37.0-47.0); Hemoglobin 11.2 g/dl (12.0-16.0); Immature Granulocytes # (auto) 0.05 K/uL (0.01-0.20); Immature Granulocytes % (auto) 0.4 %; Lymphocytes # (auto) 2.47 K/uL (1.20-3.40); Lymphocytes % (auto) 17.6 %; Mean Corpuscular Hemoglobin 22.2 pg (25.0-34.0); Mean Corpuscular Hgb Conc 30.1 g/dL (32.0-36.0); Mean Corpuscular Volume 73.8 fL (80.0-100.0); Mean Platelet Volume 10.1 fL (9.4-12.4); Monocytes # (auto) 1.07 K/uL (0.11-0.59); Monocytes % (auto) 7.6 %; Neutrophils # (auto) 10.12 K/uL (1.40-6.50); Platelet Count 248 K/uL (130-400); RDW Coefficient of Variation 17.6 % (11.5-14.5); RDW Standard Deviation 46.3 fL (36.4-46.3); Red Blood Count 5.04 M/uL (4.20-5.40); White Blood Count 14.05 K/ul (4.8-10.8)
--- NOTE | 2024-05-19 19:40 | Emergency Department Note ---
History of Present Illness General Chief complaint: Shortness of Breath/Dyspnea Stated complaint: SOB, Abdominal Pain, Weakness Time Seen by Provider: 05/19/24 19:05 Source: patient Mode of arrival: EMS Limitations: no limitations History of Present Illness Maximum Pain Intensity: 4 Patient is a 68-year-old female who arrives via EMS for increased shortness of breath. Symptoms started this morning as she was discharged from the hospital after total replacement of her right shoulder. Per EMS on their arrival she was 84% on room air. She was placed on 6 L of nasal cannula and remained at 88%. Patient reports increased shortness of breath at rest that started getting worse when she arrived home today. She denies any chest pain or pleuritic pain. No fevers, chills, cough, lower extremity swelling, dizziness, lightheadedness, palpitations. No history of DVT/PE. No underlying lung disease reported. Home Medications Medication Instructions Recorded Confirmed Type atorvastatin 20 mg tablet 20 mg PO QAM 03/21/19 05/19/24 History propranolol 20 mg tablet 10 mg PO BID 03/21/19 05/19/24 History cyclobenzaprine 10 mg tablet 10 mg PO TID PRN Muscle Spasm 03/06/21 05/19/24 History duloxetine 30 mg capsule,delayed 30 mg PO QAM 03/06/21 05/19/24 History release duloxetine 60 mg capsule,delayed 60 mg PO QAM 03/06/21 05/19/24 History release omeprazole 40 mg capsule,delayed 40 mg PO QAM 03/06/21 05/19/24 History release valsartan 80 mg tablet 80 mg PO QAM 03/06/21 05/19/24 History empagliflozin 25 mg tablet 25 mg PO QAM 05/16/22 05/19/24 History (Jardiance) clonazepam 0.5 mg tablet 0.5 mg PO BID PRN Anxiety 08/27/22 05/19/24 History lamotrigine 100 mg tablet 100 mg PO BID 08/27/22 05/19/24 History mirabegron 25 mg tablet,extended 50 mg PO QAM 09/15/23 05/19/24 History release 24 hr (Myrbetriq) camphor-menthol topical ointment 1 applic topical BID PRN Pain 04/04/24 05/18/24 History ([place] topical ointment) naproxen sodium 220 mg tablet 220 mg PO BID PRN Pain 04/04/24 05/19/24 History (Aleve) oxycodone-acetaminophen 5 mg-325 2 tab PO Q6H PRN pain #20 tabs 05/19/24 05/19/24 Rx mg tablet (Percocet) Allergies Allergy/AdvReac Type Severity Reaction Status Date / Time adhesive Allergy Severe Blister Verified 05/18/24 07:02 fosphenytoin Allergy Mild Hives Verified 05/18/24 07:02 celecoxib Allergy Unknown Itchiness Verified 05/18/24 07:02 warfarin [From Coumadin] AdvReac Severe Hemorrhage Verified 05/18/24 07:02 Past Med/Surg History Problem List (Updated 05/19/24 @ 22:31 by Doe Diaz MD) Hypoxia (Acute) Pneumonia (Acute) Status post replacement of right shoulder joint Diabetes mellitus (Acute) GERD (gastroesophageal reflux disease) Overactive bladder HLD (hyperlipidemia) Reflex sympathetic dystrophy Fibromyalgia (Acute) Depression Type 2 diabetes mellitus Hypertension Anxiety Medical History Anxiety Depression Diabetic neuropathy feet Elevated diaphragm Per records Fibromyalgia GERD (gastroesophageal reflux disease) controlled, stable per pt History of blood transfusion 10 years ago- attributed to warfarin per patient History of COVID-19 (~05/2022) Multiple episodes- residual impact on sense of taste Hyperlipidemia Hypertension controlled, stable per pt Migraine Morbid obesity Overactive bladder Psoriasis PTSD (post-traumatic stress disorder) Type 2 diabetes mellitus NIDDM Surgical History H/O hernia repair History of cholecystectomy History of colonoscopy History of dilatation and curettage History of repair of rotator cuff right History of tooth extraction History of tubal ligation Status post bilateral knee replacements Family History Father Diabetes Stroke Grandmother (Paternal) Diabetes Mother Lung disease Social History Smoking Status: Never smoker Second Hand Exposure: Yes (childhood); Do You Dip or Chew Tobacco: No; Hx Alcohol Use: No Hx Substance Use: No Preferred Language: Samoan Communication Ability: Effective Visual Impairment: No Limitations Hearing Ability: Normal Bullet Maker Required: No Beliefs That Will Affect Care: None Current Living Situation: Family Current Living Situation Comment: Daughter Feels Safe at Home: Yes Assistive Devices: Cane, Denture - Upper, Denture - Lower and Glasses Review of Systems See HPI for pertinent positives & negatives. Physical Exam Vital Signs Vital Signs - 24 hr 05/19/24 19:03 05/19/24 19:03 05/19/24 19:10 Temperature 37.0 C Temperature Source Oral Pulse Rate 113 H 112 H Pulse Rate from SpO2 Sensor Respiratory Rate 29 H Blood Pressure 144/86 H Blood Pressure Mean 105 Blood Pressure Position Semi-fowlers Pulse Oximetry 91 Oxygen Delivery Method Oxymask Oxymask Oxygen Flow Rate 6 6 Sepsis Recent Fever Within 48 Hours No Sepsis New/Unexplained Change in Mental Status No Sepsis Action Taken by Nursing Physician Notified 05/19/24 19:15 05/19/24 19:22 05/19/24 19:22 Temperature Temperature Source Pulse Rate 112 H 113 H Pulse Rate from SpO2 Sensor 113 H Respiratory Rate 36 H 29 H Blood Pressure Blood Pressure Mean Blood Pressure Position Pulse Oximetry 92 80 L Oxygen Delivery Method Oxymask Room Air Oxymask Oxygen Flow Rate 8 6 Sepsis Recent Fever Within 48 Hours Sepsis New/Unexplained Change in Mental Status Sepsis Action Taken by Nursing 05/19/24 19:30 05/19/24 19:30 05/19/24 20:00 Temperature Temperature Source Pulse Rate 109 H 108 H Pulse Rate from SpO2 Sensor 110 H 108 H Respiratory Rate 31 H 30 H Blood Pressure 144/63 H Blood Pressure Mean 92 Blood Pressure Position Pulse Oximetry 92 92 Oxygen Delivery Method Oxymask Oxymask Oxygen Flow Rate 8 8 Sepsis Recent Fever Within 48 Hours Sepsis New/Unexplained Change in Mental Status Sepsis Action Taken by Nursing 05/19/24 20:45 05/19/24 20:51 05/19/24 21:01 Temperature Temperature Source Pulse Rate 105 H 104 H Pulse Rate from SpO2 Sensor 105 H 104 H Respiratory Rate 33 H 33 H Blood Pressure 169/81 H 169/81 H Blood Pressure Mean 110 95 Blood Pressure Position Pulse Oximetry 93 92 Oxygen Delivery Method Oxymask Oxygen Flow Rate 8 Sepsis Recent Fever Within 48 Hours Sepsis New/Unexplained Change in Mental Status Sepsis Action Taken by Nursing 05/19/24 21:01 05/19/24 21:30 Temperature Temperature Source Pulse Rate 108 H Pulse Rate from SpO2 Sensor 108 H Respiratory Rate 29 H Blood Pressure 169/81 H Blood Pressure Mean 95 Blood Pressure Position Pulse Oximetry 93 Oxygen Delivery Method Oxymask Oxygen Flow Rate 8 Sepsis Recent Fever Within 48 Hours Sepsis New/Unexplained Change in Mental Status Sepsis Action Taken by Nursing See below Constitutional WD/WN, vitals as above Respiratory + labored breathing and + tachypneic Auscultation: + rhonchi Cardiovascular Rate/Rhythm: + tachycardic Heart Sounds: normal S1 and normal S2 Vessels: dorsalis pedis pulses present and radial pulses present; no JVD Extremities: normal capillary refill; no calf tenderness and no edema Musculoskeletal no cyanosis or clubbing, extremities motor strength 5/5 Surgical site appropriately dressed. Right shoulder is in a sling. Normal peripheral perfusion to the right upper extremity, range of motion intact in the digits of the right hand with normal sensation. Course Administered Medications Discontinued Medications Cefepime HCl (Maxipime 2000mg) 2,000 mg in 20 mls @ 5 mls/min IV NOW STA; Protocol Stop: 05/19/24 21:57 Last Admin: 05/19/24 22:08 Dose: 5 mls/min Documented By: CEF Ioversol (Optiray 320 125ml) 115 ml IV ONCE ONE Stop: 05/19/24 20:37 Last Admin: 05/19/24 20:36 Dose: 115 ml Documented By: TEJAL Ondansetron HCl (Ondansetron Inj 2 Mg/Ml 2 Ml Vial) 4 mg IV NOW STA Stop: 05/19/24 20:24 Last Admin: 05/19/24 20:54 Dose: 4 mg Documented By: CEF Critical Care Time Critical Care Time: Yes Total Critical Care Time: 35 Medical Decision Making Differential Diagnosis Pneumonia, PE, pneumothorax, ACS, flash pulmonary edema Medical Records Attestation: I reviewed the patient's medical records. Home Medications Current Medication List: was personally reviewed by me Laboratory Data Attestation: I reviewed the patient's lab results. 05/19/24 19:10 05/19/24 19:10 Lab Results 05/19/24 05/19/24 05/19/24 Range/Units 19:10 19:49 21:34 WBC 14.05 H (4.8-10.8) K/ul RBC 5.04 (4.20-5.40) M/uL Hgb 11.2 L (12.0-16.0) g/dl Hct 37.2 (37.0-47.0) % MCV 73.8 L (80.0-100.0) fL MCH 22.2 L (25.0-34.0) pg MCHC 30.1 L (32.0-36.0) g/dL RDW Std Deviation 46.3 (36.4-46.3) fL RDW Coeff of Maria Elena 17.6 H (11.5-14.5) % Plt Count 248 (130-400) K/uL MPV 10.1 (9.4-12.4) fL Immature Gran % (Auto) 0.4 % Neut % (Auto) 72.0 % Lymph % (Auto) 17.6 % [place] % (Auto) 7.6 % Eos % (Auto) 2.2 % Baso % (Auto) 0.2 % Neut # (Auto) 10.12 H (1.40-6.50) K/uL Lymph # (Auto) 2.47 (1.20-3.40) K/uL [place] # (Auto) 1.07 H (0.11-0.59) K/uL Eos # (Auto) 0.31 (0.00-0.50) K/uL Baso # (Auto) 0.03 (0.00-0.20) K/uL Immature Gran # (Auto) 0.05 (0.01-0.20) K/uL VBG pH 7.37 (7.36-7.41) VBG pCO2 43 (38-50) mmHg VBG pO2 46 mmHg VBG HCO3 25 mmol/L VBG O2 Saturation 78.7 % VBG Base Excess -0.6 mEq/L Sodium 136 (136-145) mmol/L Potassium 4.2 (3.5-5.1) mmol/L Chloride 104 (98-107) mmol/L Carbon Dioxide 25 (21-32) mmol/L Anion Gap 7 (3-11) BUN 19 (6-23) mg/dl Creatinine 0.69 (0.6-1.2) mg/dl Est Cr Clr Drug Dosing 115.1 ml/min eGFR 94.47 BUN/Creatinine Ratio 27.5 H (10-20) Glucose 214 H (70-99(Fasting)) mg/dl Lactate 1.3 (0.4-2.0) mmol/L Calcium 8.8 (8.6-10.3) mg/dl Total Bilirubin 0.7 (0.2-1.0) mg/dl AST 16 (13-39) U/L ALT 12 (7-52) U/L Alkaline Phosphatase 111 H (34-104) U/L Troponin I High Sens 7.3 (0-14) pg/ml Total Protein 6.8 (6.0-8.3) gm/dl Albumin 3.6 (3.4-5.0) gm/dl Globulin 3.2 (2.5-4.0) gm/dl Albumin/Globulin Ratio 1.1 (0.9-2) Lipase 12 (11-82) U/L Imaging Data Radiologist's Impression: Chest X-Ray 05/19/24 19:09 EXAM: XR chest 1V portable CLINICAL HISTORY: Chest pain, nonspecific TECHNIQUE: An X-ray image of the chest is obtained in AP projection. COMPARISON: Compared to prior chest x-ray dated 04/28/2024, 09/30/2023, and 08/27/2022. FINDINGS: Pulmonary Parenchyma: Lungs are clear bilaterally. No evidence of consolidation, collapse, or focal opacities. No pulmonary nodules are identified. Right, hemidiaphragm elevated. Bilateral basal atelectatic bands No evidence of pleural effusion or pleural thickening. Heart and Mediastinum: Heart size and shape are normal. No mediastinal widening or masses. No hilar or mediastinal lymphadenopathy. Bony Thorax: Thoracic spondylosis with right shoulder replacement device and left shoulder osteoarthritic changes. Soft Tissues: Soft tissues overlying the chest wall are unremarkable. IMPRESSION: 1. Right hemidiaphragm elevated likely positional otherwise right lung loss of volume couldn`t be excluded Suggest clinical co-relation (Full inspiration chest x-ray to exclude lung collapse) (new) 2. Bilateral basal atelectatic bands 3. No acute cardiopulmonary abnormalities are identified. Electronically signed by Raji Cooley 05-19-2024 8:32 PM Chest CTA 05/19/24 19:11 Exam(s): CTA CHEST IV Amt: 115 l optiray 320 EXAM: CT Angiography Chest With Intravenous Contrast CLINICAL HISTORY: Reason for exam: Chest Pain, eval for PE. TECHNIQUE: Axial computed tomographic angiography images of the chest with intravenous contrast. CTDI is 37.81 mGy and DLP is 1200.5 mGy-cm. Automated exposure control was utilized for the study. A dose lowering technique was utilized adhering to the principles of ALARA. MIP reconstructed images were created and reviewed. COMPARISON: 08/27/22 FINDINGS: Pulmonary arteries: Enlarged main pulmonary consistent with pulmonary arterial hypertension. No evidence of acute pulmonary embolism as visualized. Respiratory motion degrades evaluation of the distal pulmonary branches. Aorta: No acute findings. No aortic aneurysm or dissection. Lungs: Elevated right hemidiaphragm with atelectasis in the right middle and right lower lobes. Subsegmental atelectasis left lower lobe. Lungs appear otherwise clear. No visible mass. Pleural space: Unremarkable. No significant effusion. No pneumothorax. Heart: No RV strain. Coronary artery atherosclerosis. No cardiomegaly or pericardial effusion. Bones/joints: No acute fracture. No dislocation. Soft tissues: Unremarkable. Lymph nodes: Unremarkable. No enlarged lymph nodes. Gallbladder and bile ducts: Cholecystectomy. Spleen: Splenomegaly. IMPRESSION: 1. No evidence of acute pulmonary embolism as visualized. Respiratory motion degrades evaluation of the distal pulmonary branches. 2. No RV strain. 3. Elevated right hemidiaphragm with atelectasis in the right middle and right lower lobes. Intercurrent pneumonia cannot be completely excluded. 4. Enlarged main pulmonary consistent with pulmonary arterial hypertension. Electronically signed by: Radha Zavala M.D. 05/19/24 21:57 PM ECG Data Attestation: I personally reviewed and interpreted this ECG as follows: Indication: + SOB/dyspnea Rate (beats per minute): 114 Rhythm: + sinus tachycardia ECG Intervals/blocks: + Normal QRS, + Normal QT and + Normal VA ECG [place]: + Left axis deviation ECG ST segments: + Normal ST segments Blood Pressure Blood Pressure Findings: Elevated blood pressure Blood Pressure Disposition: elevated BP felt to be situational MDM Narrative Patient is a 68-year-old female who presents with shortness of breath and hypoxia that started today. Recent total replacement of her right shoulder joint within the past 24 hours. Patient hypoxic to 88% on 6 L of nasal cannula on arrival. Lung sounds are equal bilaterally. Mild tachypnea however patient is able to carry on a full conversation. No indication for noninvasive positive pressure ventilation or intubation at this stage. Abnormal right lower lobe lung sounds on my examination. Labwork shows a leukocytosis possibly due to stress reaction from recent surgery versus infection. Sepsis workup was initiated. Blood cultures and lactate were ordered. Lactate within normal limits. Patient was started on broad-spectrum antibiotics with cefepime and vancomycin to cover for hospital-acquired pneumonia. Chest x-ray is independently reviewed. Elevation of the right hemidiaphragm noted. Follow-up CTA was ordered which showed no evidence of pulmonary embolism. Lower lobe atelectasis versus interposed pneumonia cannot be excluded. Patient was able to be stabilized on humidified nasal cannula at 5 L. Will admit to hospitalist service for pneumonia with acute respiratory failure secondary to hypoxia. No indication for 30 mL/kg of IV fluids due to absence of septic shock or lactate greater than 4. Impression & Plan Pneumonia, Hypoxia Admit Discharge Plan Visit Data Chief Complaint: Shortness of Breath/Dyspnea Stated Complaint: SOB, Abdominal Pain, Weakness ED Provider: Doe Diaz Discharge Problem: Pneumonia, Hypoxia Forms Stand Alone Forms: My [facility] Prescriptions Prescriptions: No Action atorvastatin 20 mg tablet 20 mg PO QAM propranolol 20 mg tablet 10 mg PO BID clonazepam 0.5 mg tablet 0.5 mg PO BID PRN (Reason: Anxiety) lamotrigine 100 mg tablet 100 mg PO BID cyclobenzaprine 10 mg Tablet 10 mg PO TID PRN (Reason: Muscle Spasm) valsartan 80 mg tablet 80 mg PO QAM omeprazole 40 mg capsule,delayed release(DR/EC) 40 mg PO QAM duloxetine 30 mg capsule,delayed release(DR/EC) 30 mg PO QAM Rx Instructions: WITH 60 MG FOR 90 MG DAILY DOSE duloxetine 60 mg capsule,delayed release(DR/EC) 60 mg PO QAM Rx Instructions: WITH 30 MG FOR 90 MG DAILY Jardiance 25 mg Tablet 25 mg PO QAM mirabegron [Myrbetriq] 25 mg Tablet Extended Release 24 Hr 50 mg PO QAM naproxen sodium [Aleve] 220 mg Tablet 220 mg PO BID PRN (Reason: Pain) [place] Ointment 1 applic TOPICAL BID PRN (Reason: Pain) oxycodone-acetaminophen [Percocet] 5-325 mg tablet 2 tab PO Q6H PRN (Reason: pain) Qty: 20 0RF Rx Instructions: initial script Referrals Referrals: Cassie Rojas PA-C [Primary Care Provider] -
[2024-05-19 19:56] LABS: Albumin Globulin Ratio 1.1 (0.9-2); Albumin Level 3.6 gm/dl (3.4-5.0); BUN Creatinine Ratio 27.5 (10-20); Bilirubin,Total 0.7 mg/dl (0.2-1.0); Calcium 8.8 mg/dl (8.6-10.3); Creatinine Clr Calc Pharmacy 115.1 ml/min; Globulin 3.2 gm/dl (2.5-4.0); Potassium 4.2 mmol/L (3.5-5.1); Total Protein 6.8 gm/dl (6.0-8.3)
[2024-05-19 20:03] LABS: Troponin I High Sensitivity 7.3 pg/ml (0-14)
--- NOTE | 2024-05-19 20:32 | XRay Report ---
EXAM: XR chest 1V portable CLINICAL HISTORY: Chest pain, nonspecific TECHNIQUE: An X-ray image of the chest is obtained in AP projection. COMPARISON: Compared to prior chest x-ray dated 04/28/2024, 09/30/2023, and 08/27/2022. FINDINGS: Pulmonary Parenchyma: Lungs are clear bilaterally. No evidence of consolidation, collapse, or focal opacities. No pulmonary nodules are identified. Right, hemidiaphragm elevated. Bilateral basal atelectatic bands No evidence of pleural effusion or pleural thickening. Heart and Mediastinum: Heart size and shape are normal. No mediastinal widening or masses. No hilar or mediastinal lymphadenopathy. Bony Thorax: Thoracic spondylosis with right shoulder replacement device and left shoulder osteoarthritic changes. Soft Tissues: Soft tissues overlying the chest wall are unremarkable. IMPRESSION: 1. Right hemidiaphragm elevated likely positional otherwise right lung loss of volume couldn`t be excluded Suggest clinical co-relation (Full inspiration chest x-ray to exclude lung collapse) (new) 2. Bilateral basal atelectatic bands 3. No acute cardiopulmonary abnormalities are identified. Electronically signed by Raji Cooley 05-19-2024 8:32 PM
[2024-05-19] MEDS: OPTIRAY 320 125ml IV ONE (20:36)
[2024-05-19] MEDS: ONDANSETRON INJ 2 MG/ML 2 ML VIAL IV STA (20:54)
[2024-05-19 21:46] LABS: Base Excess VBG -0.6 mEq/L; HCO3 VBG 25 mmol/L; Oxygen Saturation VBG 78.7 %; PCO2 VBG 43 mmHg (38-50); PO2 VBG 46 mmHg; pH VBG 7.37 (7.36-7.41)
[2024-05-19] MEDS ORDERED: VANCOMYCIN CONSULT ACTIVE PRN (21:55)
--- NOTE | 2024-05-19 21:58 | CT Scan Report ---
Exam(s): CTA CHEST IV Amt: 115 l optiray 320 EXAM: CT Angiography Chest With Intravenous Contrast CLINICAL HISTORY: Reason for exam: Chest Pain, eval for PE. TECHNIQUE: Axial computed tomographic angiography images of the chest with intravenous contrast. CTDI is 37.81 mGy and DLP is 1200.5 mGy-cm. Automated exposure control was utilized for the study. A dose lowering technique was utilized adhering to the principles of ALARA. MIP reconstructed images were created and reviewed. COMPARISON: 08/27/22 FINDINGS: Pulmonary arteries: Enlarged main pulmonary consistent with pulmonary arterial hypertension. No evidence of acute pulmonary embolism as visualized. Respiratory motion degrades evaluation of the distal pulmonary branches. Aorta: No acute findings. No aortic aneurysm or dissection. Lungs: Elevated right hemidiaphragm with atelectasis in the right middle and right lower lobes. Subsegmental atelectasis left lower lobe. Lungs appear otherwise clear. No visible mass. Pleural space: Unremarkable. No significant effusion. No pneumothorax. Heart: No RV strain. Coronary artery atherosclerosis. No cardiomegaly or pericardial effusion. Bones/joints: No acute fracture. No dislocation. Soft tissues: Unremarkable. Lymph nodes: Unremarkable. No enlarged lymph nodes. Gallbladder and bile ducts: Cholecystectomy. Spleen: Splenomegaly. IMPRESSION: 1. No evidence of acute pulmonary embolism as visualized. Respiratory motion degrades evaluation of the distal pulmonary branches. 2. No RV strain. 3. Elevated right hemidiaphragm with atelectasis in the right middle and right lower lobes. Intercurrent pneumonia cannot be completely excluded. 4. Enlarged main pulmonary consistent with pulmonary arterial hypertension. Electronically signed by: Radha Zavala M.D. 05/19/24 21:57 PM
[2024-05-19] MEDS: CEFEPIME 2000MG 2,000 MG/20 ML SYR IV STA (22:08)
[2024-05-19] MEDS: VANCOMYCIN HCL 2,750 MG in SODIUM CHLORIDE 0.9% 500 ML IV ONE (22:49)
[2024-05-19] MEDS: oxyCODONE HCL IR 5 MG TAB (IMMEDIATE RELEASE) PO STA (22:53)
[2024-05-19] MEDS: ACETAMINOPHEN 500 MG TAB PO STA (22:53)
--- NOTE | 2024-05-19 22:55 | History & Physical Report ---
Date of Service May 19, 2024 Assessment & Plan (1) Hypoxia: (2) Pneumonia: (3) Status post replacement of right shoulder joint: (4) Diabetes mellitus: (5) GERD (gastroesophageal reflux disease): (6) HLD (hyperlipidemia): (7) Hypertension: Plan 68yo female with history of DM, HTN, HLP and GERD, s/p right total shoulder arthroplasty performed by Dr. Coleman on 05/18/24 presenting with shortness of breath and hypoxic respiratory failure requiring supplemental O2. Patient had general anesthesia as well as nerve block performed. Her CXR shows elevation of the right hemidiaphragm - suspect temporary effect of recent right shoulder surgery and nerve block. Possible component of infection as well. Patient reports productive cough, mild leukocytosis, several days of URI symptoms preceding this. #Hypoxia - patient presently on 5L NC saturating 90%. As above, suspect temporary right diaphragm paralysis secondary to recent shoulder surgery as well as possible PNA -Admit to medical with telemetry -Supplemental O2 as needed with humidity -Incentive spirometry q hourly -Flutter valve -Repeat CXR in AM -Anticipate elevation of right hemidiaphragm to improve as anesthetic wears off. #PNA - suspect PNA as well. Patient with productive cough, possible RLL infiltrate -Follow cultures sent from ER -Check MRSA nares -Ceftriaxone 2gm IV daily -Azithromycin #Status post replacement of right shoulder joint - Patient is POD#1. Surgery went well with no complications -Maintain sling -Tylenol PRN -Oxycodone PRN -Flexeril PRN #Diabetes - last Hgb A1C on 04/28/24=7.8 -ISS #GERD -Continue Protonix 40mg po daily #Mental Health -Continue Duloxetine, Lamictal, Clonazepam #Hyperlipidemia -Continue Atorvastatin #Hypertension -Continue Diovan 80mg po qAM History of Present Illness Chief Complaint: Shortness of breath Primary Care Provider: Cassie Rojas PA-C Obdulia Verma is a 68-year-old female with history of hypertension, diabetes, hyperlipidemia, fibromyalgia, GERD and PTSD presenting with shortness of breath. Patient had a total right shoulder arthroplasty performed on by Dr. Diaz. The surgery was well-tolerated with no complications identified. Patient was discharged home yesterday. She reports that on the day of discharge she was feeling a little short of breath with some chest tightness. Earlier today she was seen in the office for a dressing change. She had ongoing shortness of breath. She went home and called EMS. They found her to be 84% on room air. She was placed on 6 L nasal cannula with improvement to only 88%. She reports she has a cough that is occasionally productive for green sputum. Upon arrival to the ER patient tachycardic at 108 bpm, tachypneic at 32 breaths/min, initially on 8 L oxy mask now saturating at 93% on 5 L nasal cannula. She reports some discomfort in her right shoulder as well as feeling short of breath. States that she does not feel she can take a full deep breath and she has some congestion in her chest. Otherwise she denies fevers, chills, edema, orthopnea, chest pain, palpitations, leg cramping/pain. No underlying pulmonary disease. No home oxygen use. Patient does report that she had some mild URI symptoms several days prior to her surgery With cough and congestion. ER course: Zofran 4 mg IV Cefepime 2 g IV Vancomycin 2750 mg IV Tylenol 1 g p.o. Oxycodone 5 mg p.o. Propranolol 10 mg p.o. Lamictal 100 mg p.o. Allergies Allergy/AdvReac Type Severity Reaction Status Date / Time adhesive Allergy Severe Blister Verified 05/18/24 07:02 fosphenytoin Allergy Mild Hives Verified 05/18/24 07:02 celecoxib Allergy Unknown Itchiness Verified 05/18/24 07:02 warfarin [From Coumadin] AdvReac Severe Hemorrhage Verified 05/18/24 07:02 Home Medications Medication Instructions Recorded Confirmed Type atorvastatin 20 mg tablet 20 mg PO QAM 03/21/19 05/19/24 History propranolol 20 mg tablet 10 mg PO BID 03/21/19 05/19/24 History cyclobenzaprine 10 mg tablet 10 mg PO TID PRN Muscle Spasm 03/06/21 05/19/24 History duloxetine 30 mg capsule,delayed 30 mg PO QAM 03/06/21 05/19/24 History release duloxetine 60 mg capsule,delayed 60 mg PO QAM 03/06/21 05/19/24 History release omeprazole 40 mg capsule,delayed 40 mg PO QAM 03/06/21 05/19/24 History release valsartan 80 mg tablet 80 mg PO QAM 03/06/21 05/19/24 History empagliflozin 25 mg tablet 25 mg PO QAM 05/16/22 05/19/24 History (Jardiance) clonazepam 0.5 mg tablet 0.5 mg PO BID PRN Anxiety 08/27/22 05/19/24 History lamotrigine 100 mg tablet 100 mg PO BID 08/27/22 05/19/24 History mirabegron 25 mg tablet,extended 50 mg PO QAM 09/15/23 05/19/24 History release 24 hr (Myrbetriq) camphor-menthol topical ointment 1 applic topical BID PRN Pain 04/04/24 05/18/24 History ([place] topical ointment) naproxen sodium 220 mg tablet 220 mg PO BID PRN Pain 04/04/24 05/19/24 History (Aleve) oxycodone-acetaminophen 5 mg-325 2 tab PO Q6H PRN pain #20 tabs 05/19/24 05/19/24 Rx mg tablet (Percocet) Past Med/Surg History Problem List Hypoxia (Acute) Pneumonia (Acute) Status post replacement of right shoulder joint Diabetes mellitus (Acute) GERD (gastroesophageal reflux disease) Overactive bladder HLD (hyperlipidemia) Reflex sympathetic dystrophy Fibromyalgia (Acute) Depression Type 2 diabetes mellitus Hypertension Anxiety Medical History Elevated diaphragm Per records Morbid obesity History of blood transfusion 10 years ago- attributed to warfarin per patient PTSD (post-traumatic stress disorder) Hyperlipidemia Anxiety Hypertension controlled, stable per pt Fibromyalgia Depression GERD (gastroesophageal reflux disease) controlled, stable per pt History of COVID-19 (~05/2022) Multiple episodes- residual impact on sense of taste Overactive bladder Type 2 diabetes mellitus NIDDM Migraine Psoriasis Diabetic neuropathy feet Surgical History History of colonoscopy History of dilatation and curettage History of tubal ligation History of tooth extraction History of cholecystectomy Status post bilateral knee replacements H/O hernia repair History of repair of rotator cuff right Family History Father Diabetes Stroke Grandmother (Paternal) Diabetes Mother Lung disease Social History Smoking Status: Never smoker Second Hand Exposure: Yes (childhood); Do You Dip or Chew Tobacco: No; Hx Alcohol Use: No Hx Substance Use: No Preferred Language: American Communication Ability: Effective Visual Impairment: No Limitations Hearing Ability: Normal Clinical Physician Assistant Required: No Beliefs That Will Affect Care: None Current Living Situation: Family Current Living Situation Comment: Daughter Feels Safe at Home: Yes Assistive Devices: Cane, Denture - Upper, Denture - Lower and Glasses Review of Systems Review of Systems: All systems reviewed & are unremarkable except as noted in HPI & below Physical Exam Physical Exam: General: patient resting comfortably, NAD, non-toxic in appearance, AA&O x 4 Skin: surgical site on right shoulder with dressing in place, clean, dry, intact with no erythema HEENT: NC/AT, PERRL, EOMI, anicteric sclera, conjunctiva without injection, external ear normal to inspection and nontender, nares patent, moist mucus membranes, dentition intact, no oropharyngeal lesions, neck supple, trachea midline, no LAD, no thyromegaly, no JVD Heart: +S1/S2, regular, tachycardic,no m/r/g Lungs: diminished breath sounds in right base with scattered rhonchi in the right lung, no rales or wheezes Abd: +BS, soft, NT/ND, no masses/organomegaly/ascites Ext: warm, 2+ pulses in UE/LE bilaterally, no clubbing/cyanosis or edema, right upper extremity in sling Neuro: nonfocal, patient AA&O x 4, speech intact, no facial droop, moving all extremities on command with equal strength 5/5 Results & Data Results & Data Vital Signs (Past 12 Hours) Vital Signs Temp Pulse Resp BP Pulse Ox O2 Del Method O2 Flow Rate 05/19/24 22:03 106 H 26 H 93 Nasal Cannula 5 05/19/24 22:00 130/80 05/19/24 21:54 105 H 28 H 93 Oxymask 6 05/19/24 21:50 117/79 05/19/24 21:42 103 H 32 H 93 Oxymask 6 05/19/24 21:30 108 H 29 H 93 Oxymask 8 05/19/24 21:01 169/81 H 05/19/24 21:01 169/81 H 05/19/24 20:51 104 H 33 H 92 05/19/24 20:45 105 H 33 H 169/81 H 93 Oxymask 8 05/19/24 20:00 108 H 30 H 92 Oxymask 8 05/19/24 19:30 109 H 31 H 92 Oxymask 8 05/19/24 19:30 144/63 H 05/19/24 19:22 Oxymask 6 05/19/24 19:22 113 H 29 H 80 L Room Air 05/19/24 19:15 112 H 36 H 92 Oxymask 8 05/19/24 19:10 112 H 05/19/24 19:03 37.0 C 113 H 29 H 144/86 H 91 Oxymask 6 05/19/24 19:03 Oxymask 6 Laboratory Results Laboratory Results WBC 14.05 K/ul (4.8-10.8) H 05/19/24 19:10 RBC 5.04 M/uL (4.20-5.40) 05/19/24 19:10 Hgb 11.2 g/dl (12.0-16.0) L 05/19/24 19:10 Hct 37.2 % (37.0-47.0) 05/19/24 19:10 MCV 73.8 fL (80.0-100.0) L 05/19/24 19:10 MCH 22.2 pg (25.0-34.0) L 05/19/24 19:10 MCHC 30.1 g/dL (32.0-36.0) L 05/19/24 19:10 RDW Std Deviation 46.3 fL (36.4-46.3) 05/19/24 19:10 RDW Coeff of Maria Elena 17.6 % (11.5-14.5) H 05/19/24 19:10 Plt Count 248 K/uL (130-400) 05/19/24 19:10 MPV 10.1 fL (9.4-12.4) 05/19/24 19:10 Immature Gran % (Auto) 0.4 % 05/19/24 19:10 Neut % (Auto) 72.0 % 05/19/24 19:10 Lymph % (Auto) 17.6 % 05/19/24 19:10 [place] % (Auto) 7.6 % 05/19/24 19:10 Eos % (Auto) 2.2 % 05/19/24 19:10 Baso % (Auto) 0.2 % 05/19/24 19:10 Neut # (Auto) 10.12 K/uL (1.40-6.50) H 05/19/24 19:10 Lymph # (Auto) 2.47 K/uL (1.20-3.40) 05/19/24 19:10 [place] # (Auto) 1.07 K/uL (0.11-0.59) H 05/19/24 19:10 Eos # (Auto) 0.31 K/uL (0.00-0.50) 05/19/24 19:10 Baso # (Auto) 0.03 K/uL (0.00-0.20) 05/19/24 19:10 Immature Gran # (Auto) 0.05 K/uL (0.01-0.20) 05/19/24 19:10 VBG pH 7.37 (7.36-7.41) 05/19/24 21:34 VBG pCO2 43 mmHg (38-50) 05/19/24 21:34 VBG pO2 46 mmHg 05/19/24 21:34 VBG HCO3 25 mmol/L 05/19/24 21:34 VBG O2 Saturation 78.7 % 05/19/24 21:34 VBG Base Excess -0.6 mEq/L 05/19/24 21:34 Sodium 136 mmol/L (136-145) 05/19/24 19:10 Potassium 4.2 mmol/L (3.5-5.1) 05/19/24 19:10 Chloride 104 mmol/L (98-107) 05/19/24 19:10 Carbon Dioxide 25 mmol/L (21-32) 05/19/24 19:10 Anion Gap 7 (3-11) 05/19/24 19:10 BUN 19 mg/dl (6-23) 05/19/24 19:10 Creatinine 0.69 mg/dl (0.6-1.2) 05/19/24 19:10 Est Cr Clr Drug Dosing 115.1 ml/min 05/19/24 19:10 eGFR 94.47 05/19/24 19:10 BUN/Creatinine Ratio 27.5 (10-20) H 05/19/24 19:10 Glucose 214 mg/dl (70-99(Fasting)) H 05/19/24 19:10 Lactate 1.3 mmol/L (0.4-2.0) 05/19/24 19:49 Calcium 8.8 mg/dl (8.6-10.3) 05/19/24 19:10 Total Bilirubin 0.7 mg/dl (0.2-1.0) 05/19/24 19:10 AST 16 U/L (13-39) 05/19/24 19:10 ALT 12 U/L (7-52) 05/19/24 19:10 Alkaline Phosphatase 111 U/L (34-104) H 05/19/24 19:10 Troponin I High Sens 7.3 pg/ml (0-14) 05/19/24 19:10 Total Protein 6.8 gm/dl (6.0-8.3) 05/19/24 19:10 Albumin 3.6 gm/dl (3.4-5.0) 05/19/24 19:10 Globulin 3.2 gm/dl (2.5-4.0) 05/19/24 19:10 Albumin/Globulin Ratio 1.1 (0.9-2) 05/19/24 19:10 Lipase 12 U/L (11-82) 05/19/24 19:10 Impressions Chest X-Ray 05/19/24 19:09 EXAM: XR chest 1V portable CLINICAL HISTORY: Chest pain, nonspecific TECHNIQUE: An X-ray image of the chest is obtained in AP projection. COMPARISON: Compared to prior chest x-ray dated 04/28/2024, 09/30/2023, and 08/27/2022. FINDINGS: Pulmonary Parenchyma: Lungs are clear bilaterally. No evidence of consolidation, collapse, or focal opacities. No pulmonary nodules are identified. Right, hemidiaphragm elevated. Bilateral basal atelectatic bands No evidence of pleural effusion or pleural thickening. Heart and Mediastinum: Heart size and shape are normal. No mediastinal widening or masses. No hilar or mediastinal lymphadenopathy. Bony Thorax: Thoracic spondylosis with right shoulder replacement device and left shoulder osteoarthritic changes. Soft Tissues: Soft tissues overlying the chest wall are unremarkable. IMPRESSION: 1. Right hemidiaphragm elevated likely positional otherwise right lung loss of volume couldn`t be excluded Suggest clinical co-relation (Full inspiration chest x-ray to exclude lung collapse) (new) 2. Bilateral basal atelectatic bands 3. No acute cardiopulmonary abnormalities are identified. Electronically signed by Raji Cooley 05-19-2024 8:32 PM Chest CTA 05/19/24 19:11 Exam(s): CTA CHEST IV Amt: 115 l optiray 320 EXAM: CT Angiography Chest With Intravenous Contrast CLINICAL HISTORY: Reason for exam: Chest Pain, eval for PE. TECHNIQUE: Axial computed tomographic angiography images of the chest with intravenous contrast. CTDI is 37.81 mGy and DLP is 1200.5 mGy-cm. Automated exposure control was utilized for the study. A dose lowering technique was utilized adhering to the principles of ALARA. MIP reconstructed images were created and reviewed. COMPARISON: 08/27/22 FINDINGS: Pulmonary arteries: Enlarged main pulmonary consistent with pulmonary arterial hypertension. No evidence of acute pulmonary embolism as visualized. Respiratory motion degrades evaluation of the distal pulmonary branches. Aorta: No acute findings. No aortic aneurysm or dissection. Lungs: Elevated right hemidiaphragm with atelectasis in the right middle and right lower lobes. Subsegmental atelectasis left lower lobe. Lungs appear otherwise clear. No visible mass. Pleural space: Unremarkable. No significant effusion. No pneumothorax. Heart: No RV strain. Coronary artery atherosclerosis. No cardiomegaly or pericardial effusion. Bones/joints: No acute fracture. No dislocation. Soft tissues: Unremarkable. Lymph nodes: Unremarkable. No enlarged lymph nodes. Gallbladder and bile ducts: Cholecystectomy. Spleen: Splenomegaly. IMPRESSION: 1. No evidence of acute pulmonary embolism as visualized. Respiratory motion degrades evaluation of the distal pulmonary branches. 2. No RV strain. 3. Elevated right hemidiaphragm with atelectasis in the right middle and right lower lobes. Intercurrent pneumonia cannot be completely excluded. 4. Enlarged main pulmonary consistent with pulmonary arterial hypertension. Electronically signed by: Radha Zavala M.D. 05/19/24 21:57 PM Code Status & VTE Plan VTE Prophylaxis Plan VTE Prophylaxis will be ordered: No PG Care Time/CCT Total # of Minutes Spent Total Time Spent with Patient: Total time spent is greater than 50% in coordination of care (as documented) at patient's floor/unit and/or counseling patient: Coding Level of Care Code 65696 INT INP/OBS CARE MIN Diagnoses Hypoxia R09.02 Pneumonia J18.9 Status post replacement of right shoulder joint Z96.611 Diabetes mellitus E11.9 GERD (gastroesophageal reflux disease) K21.9 HLD (hyperlipidemia) E78.5 Hypertension I10
[2024-05-19] MEDS: PROPRANOLOL HCL 10 MG TAB PO STA (23:09)
[2024-05-19] MEDS: lamoTRIgine 100 MG TAB PO STA (23:10)
[2024-05-20] MEDS ORDERED: GLUCAGON FOR INJ 1 MG VIAL SQ PRN (02:21)
[2024-05-20] MEDS ORDERED: ONDANSETRON INJ 2 MG/ML 2 ML VIAL IV PRN (02:21)
[2024-05-20] MEDS ORDERED: DOCUSATE SODIUM 100 MG CAP PO PRN (02:21)
[2024-05-20] MEDS ORDERED: GLUCOSE 10 TAB/TUBE PO PRN (02:21)
[2024-05-20] MEDS ORDERED: DEXTROSE 50% 50 ML SYRINGE IV PRN (02:21)
[2024-05-20] MEDS ORDERED: CARBOHYDRATES FOR HYPOGLYCEMIA PO PRN (02:21)
[2024-05-20] MEDS ORDERED: GLUCOSE 40% GEL 15 GM TUBE PO PRN (02:21)
[2024-05-20] MEDS: AZITHROMYCIN 250 MG TAB PO ONE (03:13)
[2024-05-20] MEDS: cefTRIAXone SODIUM 2,000 MG/50 ML BAG IV SCH (05:59)
[2024-05-20] MEDS: POLYETHYLENE (MIRALAX) 17 GM PACK PO PRN (05:59)
[2024-05-20 06:35] LABS: Hematocrit (blood only) 37.9 % (37.0-47.0); Hemoglobin 11.2 g/dl (12.0-16.0); Mean Corpuscular Hemoglobin 22.1 pg (25.0-34.0); Mean Corpuscular Hgb Conc 29.6 g/dL (32.0-36.0); Mean Corpuscular Volume 74.9 fL (80.0-100.0); Mean Platelet Volume 10.3 fL (9.4-12.4); Platelet Count 162 K/uL (130-400); RDW Coefficient of Variation 17.6 % (11.5-14.5); Red Blood Count 5.06 M/uL (4.20-5.40); White Blood Count 7.12 K/ul (4.8-10.8)
[2024-05-20 06:57] LABS: BUN Creatinine Ratio 23.6 (10-20); Calcium 8.4 mg/dl (8.6-10.3); Creatinine Clr Calc Pharmacy 99.5 ml/min; Potassium 4.1 mmol/L (3.5-5.1)
--- NOTE | 2024-05-20 07:55 | XRay Report ---
EXAM: XR chest 1V portable CLINICAL HISTORY: assess right hemidiaphragm TECHNIQUE: An X-ray image of the chest is obtained in AP projection. COMPARISON: 05/19/2024. FINDINGS: Pulmonary Parenchyma: Elevated right hemidiaphragm with blunting of right costophrenic recess. Bilateral prominent bronchovascular markings. right basal thickened parenchymal bands. No lung consolidation/pulmonary nodule seen. Heart and Mediastinum: Possible cardiomegaly. No mediastinal widening or masses. No hilar or mediastinal lymphadenopathy. Bony Thorax: Bony thorax appears intact without fractures or deformities. Soft Tissues: Soft tissues overlying the chest wall are unremarkable. IMPRESSION: 1. Unchanged elevated right hemidiaphragm with blunting of right costophrenic recess. 2. Bilateral prominent bronchovascular markings and asha suggesting pulmonary congestion. Electronically signed by Raji Cooley 05-20-2024 07:55 AM
[2024-05-20] MEDS: DULoxetine HCL 60 MG CAP PO SCH (08:30)
[2024-05-20] MEDS: ATORVASTATIN 20 MG TAB PO SCH (08:30)
[2024-05-20] MEDS: DULoxetine HCL 30 MG CAP PO SCH (08:31)
[2024-05-20] MEDS: VALSARTAN 80 MG TAB PO SCH (08:31)
[2024-05-20] MEDS: PANTOprazole 40 MG TAB PO SCH (08:31)
[2024-05-20] MEDS: lamoTRIgine 100 MG TAB PO SCH (08:31)
[2024-05-20] MEDS ORDERED: clonazePAM 0.5 MG TAB PO PRN (09:00)
[2024-05-20] MEDS ORDERED: CYCLOBENZAPRINE HCL 10 MG TAB PO PRN (09:00)
[2024-05-20] MEDS: INSULIN ASPART PER UNIT CHARGE SC SCH (09:32)
[2024-05-20] MEDS: oxyCODONE HCL IR 5 MG TAB (IMMEDIATE RELEASE) PO PRN (14:05)
--- NOTE | 2024-05-20 20:27 | Electrocardiogram Report ---
Test Reason : Blood Pressure : */* mmHG Vent. Rate : 114 BPM Atrial Rate : 114 BPM P-R Int : 146 ms QRS Dur : 86 ms QT Int : 304 ms P-R-T Axes : 18 -40 48 degrees QTcB Int : 419 ms Sinus tachycardia Left axis deviation Abnormal ECG When compared with ECG of 27-Aug-2022 17:08, Nonspecific T wave abnormality, worse in Lateral leads Confirmed by nAtony Maki ([id number]) on 05/20/2024 8:27:12 PM Referred By: REFERRED SELF Confirmed By: Antony Maki
[2024-05-20] MEDS: ACETAMINOPHEN 325 MG TAB PO PRN (20:37)
[2024-05-20] MEDS: AZITHROMYCIN 250 MG TAB PO SCH (20:38)
--- NOTE | 2024-05-20 22:52 | Hospitalist Progress Note ---
Date of Service May 20, 2024 Assessment & Plan (1) Hypoxia: (2) Pneumonia: (3) Status post replacement of right shoulder joint: (4) Diabetes mellitus: (5) GERD (gastroesophageal reflux disease): (6) HLD (hyperlipidemia): (7) Hypertension: Plan 68yo female with history of DM, HTN, HLP and GERD, s/p right total shoulder arthroplasty performed by Dr. Coleman on 05/18/24 presenting with shortness of breath and hypoxic respiratory failure requiring supplemental O2. Patient had general anesthesia as well as nerve block performed. Her CXR shows elevation of the right hemidiaphragm - suspect temporary effect of recent right shoulder surgery and nerve block. Possible component of infection as well. Patient reports productive cough, mild leukocytosis, several days of URI symptoms preceding this. #Hypoxia - patient presently on 5L NC saturating 90%. As above, suspect temporary right diaphragm paralysis secondary to recent shoulder surgery as well as possible PNA -Admit to medical with telemetry -Supplemental O2 as needed with humidity -Incentive spirometry q hourly -Flutter valve -Anticipate elevation of right hemidiaphragm to improve as anesthetic wears off. -continue to require oxygenation. will monitor. #PNA - suspect PNA as well. Patient with productive cough, possible RLL infiltrate -Follow cultures sent from ER -Check MRSA nares -Ceftriaxone 2gm IV daily -Azithromycin continue antibiotics, vital sigsn stable, WBC is at goal #Status post replacement of right shoulder joint - Patient is POD#2. Surgery went well with no complications -Maintain sling -Tylenol PRN -Oxycodone PRN -Flexeril PRN #Diabetes - last Hgb A1C on 04/28/24=7.8 -ISS #GERD -Continue Protonix 40mg po daily #Mental Health -Continue Duloxetine, Lamictal, Clonazepam #Hyperlipidemia -Continue Atorvastatin #Hypertension -Continue Diovan 80mg po qAM Admission and Anticipated Discharge Date Admission Date: May 20, 2024 Subjective 68 yo female reports no new symptoms. She continues to require oxygen Physical Exam Physical Exam: General: patient resting comfortably, NAD, non-toxic in appearance, AA&O x 4 Skin: surgical site on right shoulder with dressing in place, clean, dry, intact with no erythema HEENT: NC/AT, PERRL, EOMI Heart: +S1/S2, regular, tachycardic,no m/r/g Lungs: diminished breath sounds in right base, no rales or wheezes Abd: +BS, soft, NT/ND, no masses/organomegaly/ascites Ext: warm, 2+ pulses in UE/LE bilaterally, no clubbing/cyanosis or edema, right upper extremity in sling Neuro: nonfocal, patient AA&O x 4 Results & Data Results & Data Vital Signs (Past 12 Hours) Vital Signs Temp Pulse Pulse Pulse Resp BP Pulse Ox 05/20/24 20:08 36.5 C 101 H 20 125/59 L 94 05/20/24 15:40 96 H 05/20/24 15:11 36.9 C 91 H 18 131/70 94 05/20/24 12:08 36.9 C 88 15 124/76 94 05/20/24 10:55 O2 Del Method O2 Flow Rate 05/20/24 20:08 Nasal Cannula 5 05/20/24 15:40 05/20/24 15:11 Nasal Cannula 5 05/20/24 12:08 Nasal Cannula 5 05/20/24 10:55 Nasal Cannula 5 PG Care Time/CCT Total # of Minutes Spent Total Time Spent with Patient: Total time spent is greater than 50% in coordination of care (as documented) at patient's floor/unit and/or counseling patient: Coding Level of Care Code 87463 SUB INP/OBS CARE 3/50MIN Diagnoses Hypoxia R09.02 Pneumonia J18.9 Status post replacement of right shoulder joint Z96.611 Diabetes mellitus E11.9 GERD (gastroesophageal reflux disease) K21.9 HLD (hyperlipidemia) E78.5 Hypertension I10
[2024-05-21] MEDS ORDERED: MICONAZOLE NITRATE POWDER 85 GM EXT PRN (03:50)
--- NOTE | 2024-05-21 09:45 | XRay Report ---
XR chest 2V PA/lateral CLINICAL HISTORY: Hypoxia. COMPARISON STUDY: Chest CT May 19, 2024. Chest radiograph May 20, 2024. FINDINGS: Right shoulder arthroplasty is partially imaged. There are skin renate. There is no pneumo thorax. Moderate elevation of the right hemidiaphragm is unchanged. Right basilar airspace opacity is again noted. Right lower lung aeration has slightly improved. Cardiomediastinal silhouette is stable . There is no evidence for pulmonary edema. IMPRESSION: 1. Persistent moderate elevation of the right hemidiaphragm which may be related to nerve block given recent right shoulder arthroplasty. Associated right basilar opacity, slightly improved. This favors atelectasis. 2. Cardiomegaly. No evidence for pulmonary edema. ACT 112: Negative or not required by law. Electronically signed by: Dom Nunes M.D. 05/21/2024 9:44 AM
[2024-05-21 09:51] LABS: Hematocrit (blood only) 36.1 % (37.0-47.0); Hemoglobin 10.6 g/dl (12.0-16.0); Mean Corpuscular Hemoglobin 22.4 pg (25.0-34.0); Mean Corpuscular Hgb Conc 29.4 g/dL (32.0-36.0); Mean Corpuscular Volume 76.2 fL (80.0-100.0); Mean Platelet Volume 9.9 fL (9.4-12.4); Platelet Count 269 K/uL (130-400); RDW Coefficient of Variation 17.7 % (11.5-14.5); RDW Standard Deviation 47.8 fL (36.4-46.3); Red Blood Count 4.74 M/uL (4.20-5.40)
[2024-05-21 10:05] LABS: BUN Creatinine Ratio 14.7 (10-20); Calcium 8.5 mg/dl (8.6-10.3); Creatinine Clr Calc Pharmacy 94.8 ml/min; Potassium 3.5 mmol/L (3.5-5.1)
[2024-05-21] MEDS: ACETAMINOPHEN 325 MG TAB PO SCH (17:35)
--- NOTE | 2024-05-21 23:24 | Hospitalist Progress Note ---
Date of Service May 21, 2024 Assessment & Plan (1) Hypoxia: (2) Pneumonia: (3) Status post replacement of right shoulder joint: (4) Diabetes mellitus: (5) GERD (gastroesophageal reflux disease): (6) HLD (hyperlipidemia): (7) Hypertension: Plan 68yo female with history of DM, HTN, HLP and GERD, s/p right total shoulder arthroplasty performed by Dr. Coleman on 05/18/24 presenting with shortness of breath and hypoxic respiratory failure requiring supplemental O2. Patient had general anesthesia as well as nerve block performed. Her CXR shows elevation of the right hemidiaphragm - suspect temporary effect of recent right shoulder surgery and nerve block. Possible component of infection as well. Patient reports productive cough, mild leukocytosis, several days of URI symptoms preceding this. #Hypoxia - patient presently on 3L NC saturating 90%. As above, suspect temporary right diaphragm paralysis secondary to recent shoulder surgery as well as possible PNA -Admit to medical with telemetry -Supplemental O2 as needed with humidity -Incentive spirometry q hourly -Flutter valve -Anticipate elevation of right hemidiaphragm to improve as anesthetic wears off. -continue to require oxygenation but showing improvement reviewed chest x ray. #PNA - suspect PNA as well. Patient with productive cough, possible RLL infiltrate -Follow cultures sent from ER -Check MRSA nares -Ceftriaxone 2gm IV daily -Azithromycin continue antibiotics, vital sigsn stable, WBC is at goal #Status post replacement of right shoulder joint - Patient is POD#2. Surgery went well with no complications -Maintain sling -Tylenol PRN -Oxycodone PRN -Flexeril PRN #Diabetes - last Hgb A1C on 04/28/24=7.8 -ISS #GERD -Continue Protonix 40mg po daily #Mental Health -Continue Duloxetine, Lamictal, Clonazepam #Hyperlipidemia -Continue Atorvastatin #Hypertension -Continue Diovan 80mg po qAM Admission and Anticipated Discharge Date Admission Date: May 20, 2024 Subjective Patient reports her pain is not controlled yet. She is breathing better. Physical Exam Physical Exam: General: patient resting comfortably, NAD, non-toxic in appearance, AA&O x 4 Skin: surgical site on right shoulder with dressing in place, clean, dry, intact with no erythema HEENT: NC/AT, PERRL, EOMI Heart: +S1/S2, regular, tachycardic,no m/r/g Lungs: diminished breath sounds in right base, no rales or wheezes Abd: +BS, soft, NT/ND, no masses/organomegaly/ascites Ext: warm, 2+ pulses in UE/LE bilaterally, no clubbing/cyanosis or edema, right upper extremity in sling Neuro: nonfocal, patient AA&O x 4 Results & Data Results & Data Vital Signs (Past 12 Hours) Vital Signs Temp Pulse Pulse Resp BP Pulse Ox O2 Del Method 05/21/24 23:19 36.6 C 98 H 18 133/72 93 Nasal Cannula 05/21/24 20:05 36.6 C 99 H 18 108/66 94 Nasal Cannula 05/21/24 16:43 36.8 C 101 H 16 114/66 90 Nasal Cannula 05/21/24 14:26 99 H O2 Flow Rate 05/21/24 23:19 3 05/21/24 20:05 3 05/21/24 16:43 3 05/21/24 14:26 PG Care Time/CCT Total # of Minutes Spent Total Time Spent with Patient: Total time spent is greater than 50% in coordination of care (as documented) at patient's floor/unit and/or counseling patient: Coding Level of Care Code 17011 SUB INP/OBS CARE 3/50MIN Diagnoses Hypoxia R09.02 Pneumonia J18.9 Status post replacement of right shoulder joint Z96.611 Diabetes mellitus E11.9 GERD (gastroesophageal reflux disease) K21.9 HLD (hyperlipidemia) E78.5 Hypertension I10
[2024-05-22] MEDS: ENOXAPARIN INJ 40 MG/0.4 ML SYR SQ ONE (18:25)
--- NOTE | 2024-05-22 22:54 | Hospitalist Progress Note ---
Date of Service May 22, 2024 Assessment & Plan (1) Hypoxia: (2) Pneumonia: (3) Status post replacement of right shoulder joint: (4) Diabetes mellitus: (5) GERD (gastroesophageal reflux disease): (6) HLD (hyperlipidemia): (7) Hypertension: Plan 68yo female with history of DM, HTN, HLP and GERD, s/p right total shoulder arthroplasty performed by Dr. Coleman on 05/18/24 presenting with shortness of breath and hypoxic respiratory failure requiring supplemental O2. Patient had general anesthesia as well as nerve block performed. Her CXR shows elevation of the right hemidiaphragm - suspect temporary effect of recent right shoulder surgery and nerve block. Possible component of infection as well. Patient reports productive cough, mild leukocytosis, several days of URI symptoms preceding this. #Hypoxia - patient presently on 3L NC saturating 90%. As above, suspect temporary right diaphragm paralysis secondary to recent shoulder surgery as well as possible PNA -Admit to medical with telemetry -Supplemental O2 as needed with humidity -Incentive spirometry q hourly -Flutter valve -Anticipate elevation of right hemidiaphragm to improve as anesthetic wears off. -continue to require oxygenation but showing improvement, now on 3 liters, making sure she gets out of bed to chair. repeat x ray in AM. vitals stable. #PNA - suspect PNA as well. Patient with productive cough, possible RLL infiltrate -Follow cultures sent from ER -Check MRSA nares -Ceftriaxone 2gm IV daily -Azithromycin continue antibiotics, vital sigsn stable, WBC is at goal #Status post replacement of right shoulder joint - Patient is POD#2. Surgery went well with no complications -Maintain sling -Tylenol PRN -Oxycodone PRN -Flexeril PRN #Diabetes - last Hgb A1C on 04/28/24=7.8 -ISS #GERD -Continue Protonix 40mg po daily #Mental Health -Continue Duloxetine, Lamictal, Clonazepam #Hyperlipidemia -Continue Atorvastatin #Hypertension -Continue Diovan 80mg po qAM Admission and Anticipated Discharge Date Admission Date: May 20, 2024 Subjective 68 yo female reports no new symptoms. Physical Exam Physical Exam: General: patient resting comfortably, NAD, non-toxic in appearance, AA&O x 4 Skin: surgical site on right shoulder with dressing in place, clean, dry, intact with no erythema HEENT: NC/AT, PERRL, EOMI Heart: +S1/S2, regular, tachycardic,no m/r/g Lungs: diminished breath sounds in right base, no rales or wheezes Abd: +BS, soft, NT/ND, no masses/organomegaly/ascites Ext: warm, 2+ pulses in UE/LE bilaterally, no clubbing/cyanosis or edema, right upper extremity in sling Neuro: nonfocal, patient AA&O x 4 Results & Data Results & Data Vital Signs (Past 12 Hours) Vital Signs Temp Pulse Pulse Resp BP Pulse Ox O2 Del Method 05/22/24 19:39 36.7 C 103 H 20 108/49 L 93 Nasal Cannula 05/22/24 19:30 Nasal Cannula 05/22/24 15:14 36.6 C 102 H 18 93/53 L 95 Nasal Cannula 05/22/24 14:08 98 H 05/22/24 12:47 36.6 C 68 20 100/58 L 99 Nasal Cannula O2 Flow Rate 05/22/24 19:39 2 05/22/24 19:30 2 05/22/24 15:14 3 05/22/24 14:08 05/22/24 12:47 3 PG Care Time/CCT Total # of Minutes Spent Total Time Spent with Patient: Total time spent is greater than 50% in coordination of care (as documented) at patient's floor/unit and/or counseling patient: Coding Level of Care Code 78690 SUB INP/OBS CARE 3/50MIN Diagnoses Hypoxia R09.02 Pneumonia J18.9 Status post replacement of right shoulder joint Z96.611 Diabetes mellitus E11.9 GERD (gastroesophageal reflux disease) K21.9 HLD (hyperlipidemia) E78.5 Hypertension I10
[2024-05-23] MEDS: ENOXAPARIN INJ 40 MG/0.4 ML SYR SQ SCH (09:15)
--- NOTE | 2024-05-23 22:45 | Hospitalist Progress Note ---
Date of Service May 23, 2024 Assessment & Plan (1) Hypoxia: (2) Pneumonia: (3) Status post replacement of right shoulder joint: (4) Diabetes mellitus: (5) GERD (gastroesophageal reflux disease): (6) HLD (hyperlipidemia): (7) Hypertension: Plan 68yo female with history of DM, HTN, HLP and GERD, s/p right total shoulder arthroplasty performed by Dr. Coleman on 05/18/24 presenting with shortness of breath and hypoxic respiratory failure requiring supplemental O2. Patient had general anesthesia as well as nerve block performed. Her CXR shows elevation of the right hemidiaphragm - suspect temporary effect of recent right shoulder surgery and nerve block. Possible component of infection as well. Patient reports productive cough, mild leukocytosis, several days of URI symptoms preceding this. #Hypoxia - As above, suspect temporary right diaphragm paralysis secondary to recent shoulder surgery as well as possible PNA -Admit to medical with telemetry -Supplemental O2 as needed with humidity -Incentive spirometry q hourly -Flutter valve -Anticipate elevation of right hemidiaphragm to improve as anesthetic wears off. -continue to require oxygenation but showing improvement, now on 2 liters, making sure she gets out of bed to chair. COnsistently showing improvement. vitals stable. #PNA - suspect PNA as well. Patient with productive cough, possible RLL infiltrate -Follow cultures sent from ER -Check MRSA nares -Ceftriaxone 2gm IV daily -Azithromycin continue antibiotics, vital sigsn stable, WBC is at goal #Status post replacement of right shoulder joint - Patient is POD#2. Surgery went well with no complications -Maintain sling -Tylenol PRN -Oxycodone PRN -Flexeril PRN #Diabetes - last Hgb A1C on 04/28/24=7.8 -ISS #GERD -Continue Protonix 40mg po daily #Mental Health -Continue Duloxetine, Lamictal, Clonazepam #Hyperlipidemia -Continue Atorvastatin #Hypertension -Continue Diovan 80mg po qAM Admission and Anticipated Discharge Date Admission Date: May 20, 2024 Subjective 68 yo female reports breathing slightly better today. Physical Exam Physical Exam: General: patient resting comfortably, NAD, non-toxic in appearance, AA&O x 4 Skin: surgical site on right shoulder with dressing in place, clean, dry, intact with no erythema HEENT: NC/AT, PERRL, EOMI Heart: +S1/S2, regular, tachycardic,no m/r/g Lungs: diminished breath sounds in right base, no rales or wheezes Abd: +BS, soft, NT/ND, no masses/organomegaly/ascites Ext: warm, 2+ pulses in UE/LE bilaterally, no clubbing/cyanosis or edema, right upper extremity in sling Neuro: nonfocal, patient AA&O x 4 Results & Data Results & Data Vital Signs (Past 12 Hours) Vital Signs Temp Pulse Resp BP Pulse Ox O2 Del Method O2 Flow Rate 05/23/24 15:28 36.7 C 96 H 18 110/70 95 Nasal Cannula 2 05/23/24 11:04 36.8 C 69 18 104/51 L 93 Nasal Cannula 2 PG Care Time/CCT Total # of Minutes Spent Total Time Spent with Patient: Total time spent is greater than 50% in coordination of care (as documented) at patient's floor/unit and/or counseling patient: Coding Level of Care Code 06013 SUB INP/OBS CARE 3/50MIN Diagnoses Hypoxia R09.02 Pneumonia J18.9 Status post replacement of right shoulder joint Z96.611 Diabetes mellitus E11.9 GERD (gastroesophageal reflux disease) K21.9 HLD (hyperlipidemia) E78.5 Hypertension I10
[2024-05-24 07:26] VITALS: BP 98/50; RESP 18; TEMP 99.1
[2024-05-24 12:19] VITALS: PULSE 86; O2SAT 93
--- NOTE | 2024-05-29 23:59 | Discharge Summary ---
Discharge Summary Date of Service May 24, 2024 Principal Dx & Hospital Course #1 = Principal Diagnosis (1) Hypoxia: (2) Pneumonia: (3) Status post replacement of right shoulder joint: (4) Diabetes mellitus: (5) GERD (gastroesophageal reflux disease): (6) HLD (hyperlipidemia): (7) Hypertension: Plan 68yo female with history of DM, HTN, HLP and GERD, s/p right total shoulder arthroplasty performed by Dr. Coleman on 05/18/24 presenting with shortness of breath and hypoxic respiratory failure requiring supplemental O2. Patient had general anesthesia as well as nerve block performed. Her CXR shows elevation of the right hemidiaphragm - suspect temporary effect of recent right shoulder surgery and nerve block. Possible component of infection as well. Patient reports productive cough, mild leukocytosis, several days of URI symptoms preceding this. #Hypoxia - As above, temporary right diaphragm paralysis secondary to recent shoulder surgery as well as possible PNA -Admit to medical with telemetry -Supplemental O2 as needed with humidity -Incentive spirometry q hourly -Flutter valve -Anticipate elevation of right hemidiaphragm to improve as anesthetic wears off. -patient improved from over 5 liters of oxygen back to room air. will discharge. #PNA - suspect PNA as well. Patient with productive cough, possible RLL infiltrate -Follow cultures sent from ER -Check MRSA nares -Ceftriaxone 2gm IV daily completed 5 days of azithromycin, vital sigsn stable, WBC is at goal #Status post replacement of right shoulder joint - Patient is POD#2. Surgery went well with no complications -Maintain sling -Tylenol PRN -Oxycodone PRN -Flexeril PRN #Diabetes - last Hgb A1C on 04/28/24=7.8 -ISS #GERD -Continue Protonix 40mg po daily #Mental Health -Continue Duloxetine, Lamictal, Clonazepam #Hyperlipidemia -Continue Atorvastatin #Hypertension -Continue Diovan 80mg po qAM Admission HPI Per Admitting Provider Obdulia Verma is a 68-year-old female with history of hypertension, diabetes, hyperlipidemia, fibromyalgia, GERD and PTSD presenting with shortness of breath. Patient had a total right shoulder arthroplasty performed on by Dr. Diaz. The surgery was well-tolerated with no complications identified. Patient was discharged home yesterday. She reports that on the day of discharge she was feeling a little short of breath with some chest tightness. Earlier today she was seen in the office for a dressing change. She had ongoing shortness of breath. She went home and called EMS. They found her to be 84% on room air. She was placed on 6 L nasal cannula with improvement to only 88%. She reports she has a cough that is occasionally productive for green sputum. Upon arrival to the ER patient tachycardic at 108 bpm, tachypneic at 32 breaths/min, initially on 8 L oxy mask now saturating at 93% on 5 L nasal cannula. She reports some discomfort in her right shoulder as well as feeling short of breath. States that she does not feel she can take a full deep breath and she has some congestion in her chest. Otherwise she denies fevers, chills, edema, orthopnea, chest pain, palpitations, leg cramping/pain. No underlying pulmonary disease. No home oxygen use. Patient does report that she had some mild URI symptoms several days prior to her surgery With cough and congestion. ER course: Zofran 4 mg IV Cefepime 2 g IV Vancomycin 2750 mg IV Tylenol 1 g p.o. Oxycodone 5 mg p.o. Propranolol 10 mg p.o. Lamictal 100 mg p.o. Discharge Exam General: patient resting comfortably, NAD, non-toxic in appearance, AA&O x 4 Skin: surgical site on right shoulder with dressing in place, clean, dry, intact with no erythema HEENT: NC/AT, PERRL, EOMI Heart: +S1/S2, regular, tachycardic,no m/r/g Lungs: diminished breath sounds in right base, no rales or wheezes Abd: +BS, soft, NT/ND, no masses/organomegaly/ascites Ext: warm, 2+ pulses in UE/LE bilaterally, no clubbing/cyanosis or edema, right upper extremity in sling Neuro: nonfocal, patient AA&O x 4 Discharge Plan Discharge Items Patient Disposition: Home - Self-Care Reason For Visit: SOB Discharge Diagnosis: SOB Activity: Resume your previous activity Non-emergency contact: Primary Care Provider Call non-emergency contact if: you have any medication questions Follow-up/Referrals: Cassie Rojas PA-C [Primary Care Provider] - 05/30/24 9:45 am (THIS APPOINTMENT WILL BE WITH DR BLACK AT THE [address] [place] [address]) Diet: Carb Consistent or DM2 Addtl Attending Provider Instructions: You were found to have hypoxia from an elevated right diaphragm. Likely a side effect of the nerve block. Thankfully this was temporary and improved over time. Now you are back on room air. Please continue your regular post op instructions. Pending Studies at Discharge: No Stand-Alone Forms: My [facility], Smoking Cessation Medications and DC Order Prescriptions: New oxycodone 5 mg tablet 5 mg PO Q8H PRN (Reason: breakthrough pain, moderate) Qty: 14 0RF Continued atorvastatin 20 mg tablet 20 mg PO QAM propranolol 20 mg tablet 10 mg PO BID clonazepam 0.5 mg tablet 0.5 mg PO BID PRN (Reason: Anxiety) lamotrigine 100 mg tablet 100 mg PO BID cyclobenzaprine 10 mg Tablet 10 mg PO TID PRN (Reason: Muscle Spasm) valsartan 80 mg tablet 80 mg PO QAM omeprazole 40 mg capsule,delayed release(DR/EC) 40 mg PO QAM duloxetine 30 mg capsule,delayed release(DR/EC) 30 mg PO QAM Rx Instructions: WITH 60 MG FOR 90 MG DAILY DOSE duloxetine 60 mg capsule,delayed release(DR/EC) 60 mg PO QAM Rx Instructions: WITH 30 MG FOR 90 MG DAILY Jardiance 25 mg Tablet 25 mg PO QAM mirabegron [Myrbetriq] 25 mg Tablet Extended Release 24 Hr 50 mg PO QAM naproxen sodium [Aleve] 220 mg Tablet 220 mg PO BID PRN (Reason: Pain) [place] Ointment 1 applic TOPICAL BID PRN (Reason: Pain) oxycodone-acetaminophen [Percocet] 5-325 mg tablet 2 tab PO Q6H PRN (Reason: pain) Qty: 20 0RF Rx Instructions: initial script Discharge Orders: Discharge Order (Routine); Ordered 05/24/24 Ordered By: Stan Melton Admission Data Admit Date/Time: 05/20/24 00:52 Attending Provider: Stan Melton Admit Provider: Makenzie Montero Primary Care Provider: Cassie Rojas Other Interventions: Discharge Summary Assessment (RN) Last Done: 05/24/24 12:17 Hospital Stay Data Consultations 05/19/24 22:21 ED Decision to Admit Stat Diagnostic Imagining Performed 05/19/24 19:11 CT angio chest PE protocol Stat Pending Results Patient Have Any Pending Studies at Discharge: No Discharge Instructions Given to Patient (Per Discharging Provider) You were found to have hypoxia from an elevated right diaphragm. Likely a side effect of the nerve block. Thankfully this was temporary and improved over time. Now you are back on room air. Please continue your regular post op instructions. Total Time Total Time Spent Total Time Spent (In Minutes): 32 Coding Level of Care Code 41879 INP/OBS DISCH >30 MIN Diagnoses Hypoxia R09.02 Pneumonia J18.9 Status post replacement of right shoulder joint Z96.611 Diabetes mellitus E11.9 GERD (gastroesophageal reflux disease) K21.9 HLD (hyperlipidemia) E78.5 Hypertension I10
== END 2024-05-24 16:51 | disposition home or self-care (01) | DRG 982 ==
LOC: ED 19:02 → 2N 22:54 → SUATTDRO 05-20 00:52 → 2N 05-20 00:52

== ENCOUNTER 2024-12-05 15:17 | Observation (INO) ==
--- NOTE | 2024-12-05 15:59 | Emergency Department Note ---
Impression & Plan Sinus tachycardia, Hypoxia, Acute dyspnea, Acute UTI (urinary tract infection) ED Provider Note HISTORY OF PRESENT ILLNESS: Patient is a 69-year-old female presenting with shortness of breath. Patient reports she was referred by her primary care provider due to concern for potential pulmonary embolism. Patient reports that yesterday she started a new medication called Ajdevante. States that this morning she started having shortness of breath with exertion. She states that she had contacted her primary care provider and was referred to the emergency department due to concern for potential blood clot. Patient denies any chest pain. Denies any nausea, vomiting or abdominal pain. Denies any fevers or chills. She was seen at the [facility] clinic and an EKG reportedly showed "sinus tachycardia and a new left bundle branch block." On arrival to the emergency department, the patient reports her shortness of breath is with exertion, though while seated in the bed she is feeling slightly short of breath. Denies any chest pain. Denies any lightheadedness or dizziness. Denies any DVT or PE history. Denies any history of cardiac stents. Patient is not on any anticoagulation or antiplatelet therapies. ROS: as above PHYSICAL EXAM: Constitutional: Patient appears in no acute distress. HENT: Head: Normocephalic and atraumatic. Eyes: EOMI, PERRL Mouth/Throat: Mucous membranes moist. Neck: Trachea midline. Neck supple. Cardiovascular: Tachycardic with regular rhythm. No murmurs, rubs or gallops. Intact distal pulses. Pulmonary/Chest: No respiratory distress. Breath sounds clear and equal bilaterally. No wheezes or rales. Abdominal: Abdomen soft, no tenderness, rebound or guarding. Musculoskeletal: No edema, tenderness or deformity noted. Skin: Warm and dry. No rash, erythema, pallor or cyanosis Psychiatric: Appropriate mood and affect for situation. Neurological: Alert and keenly responsive. CN II-XII grossly intact, moving all extremities equally and fully. MDM: - Vitals signs showed hypertension and tachycardia. - History obtained via patient. History as above. - Chronic conditions affecting care: DM-2; HTN; HLD; GERD - Differential diagnoses include, but are not limited to: Congestive heart failure; acute coronary syndrome; COPD/asthma exacerbation; pulmonary edema; pulmonary embolism; pneumonia; pneumothorax; viral syndrome - Order placed for continuous cardiac monitoring. At this time, monitor showed rate of 105 bpm with normal sinus rhythm, per my interpretation. - External medical records reviewed. Discharge summary dated 05/29/2024 was reviewed. Patient was admitted that time secondary to shortness of breath and hypoxic respiratory failure requiring supplemental oxygen. - EKG image interpreted by myself showed normal sinus rhythm. Rate tachycardic at 108 bpm. QT 310. No acute ischemic changes. - Laboratory workup interpreted by myself showed leukocytosis (WBC 14.07) with neutrophil predominance; normal PT/INR; elevated D-dimer (1000); slight hyponatremia (Na 135); normal AST/ALT; normal troponin - TSH and BNP added to workup - Viral respiratory panel negative. - CXR image reviewed by myself is any for pneumonia, per my interpretation. - CT PE negative. Noted to have mild bilateral lung base atelectasis and mild splenomegaly. - Patient given 1L NS in ER. - She evaluated in the emergency department and became profoundly tachycardic with a heart rate in 130s. She also did desaturate down to 88% and was started on 2 L nasal cannula. - UA showed evidence of infection. 2g IV rocephin ordered. - Discussion was had with casework manager about patient's case and need for admission - Hospitalist consulted for admission - [facility] ASSESSMENT AND PLAN: Diagnosis: Sinus tachycardia; acute dyspnea; hypoxia; acute UTI Plan: Admit Past Med/Surg History Problem List (Updated 12/05/24 @ 19:55 by Meseret Kathleen MD) Acute UTI (urinary tract infection) (Acute) Acute dyspnea (Acute) Hypoxia (Acute) Sinus tachycardia (Acute) Hypoxia (Acute) Diabetes mellitus (Acute) GERD (gastroesophageal reflux disease) Overactive bladder HLD (hyperlipidemia) Reflex sympathetic dystrophy Fibromyalgia (Acute) Depression Type 2 diabetes mellitus Hypertension Anxiety Medical History Anxiety Depression Diabetic neuropathy feet Elevated diaphragm Per records Fibromyalgia GERD (gastroesophageal reflux disease) controlled, stable per pt History of anesthesia reaction following sx 05/18/24, [facility], for total shoulder replacement, pt had to return to hospital next day following unsure if it was a reaction to her regional block or anesthesia itself, was having breathing difficulties. admitted to [facility] for 5 days. History of blood transfusion 10 years ago- attributed to warfarin per patient History of COVID-19 (~05/2022) Multiple episodes- residual impact on sense of taste Hyperlipidemia Hypertension controlled, stable per pt Migraine Morbid obesity Overactive bladder Psoriasis PTSD (post-traumatic stress disorder) Type 2 diabetes mellitus NIDDM Surgical History H/O hernia repair History of cholecystectomy History of colonoscopy History of dilatation and curettage History of repair of rotator cuff right History of tooth extraction History of total replacement of right shoulder joint (04/2024) unable to currently lift RUE on her own without help from left hand, due to muscles and nerves after surgery. History of tubal ligation Status post bilateral knee replacements Family History Father Diabetes Stroke Grandmother (Paternal) Diabetes Mother Lung disease Social History Smoking Status: Never smoker Second Hand Exposure: No; Do You Dip or Chew Tobacco: No; Hx Alcohol Use: No Hx Substance Use: No Preferred Language: Gibralt[place] Communication Ability: Effective Visual Impairment: No Limitations Hearing Ability: Normal Cable Placer Required: No Beliefs That Will Affect Care: None Current Living Situation: Family Current Living Situation Comment: Daughter Feels Safe at Home: Yes Assistive Devices: Denture - Upper, Denture - Lower and Glasses Allergies Allergies Allergy/AdvReac Type Severity Reaction Status Date / Time adhesive Allergy Severe Blister Verified 10/25/24 16:05 fosphenytoin Allergy Mild Hives Verified 10/25/24 16:05 celecoxib Allergy Unknown Itchiness Verified 10/25/24 16:05 warfarin [From Coumadin] AdvReac Severe Hemorrhage Verified 10/25/24 16:05 Home Meds Home Medications Medication Instructions Recorded Confirmed atorvastatin 20 mg tablet 20 mg PO QAM 03/21/19 10/25/24 propranolol 20 mg tablet 10 mg PO BID 03/21/19 10/25/24 cyclobenzaprine 10 mg tablet 10 mg PO TID PRN Muscle Spasm 03/06/21 10/25/24 duloxetine 30 mg capsule,delayed 30 mg PO QAM 03/06/21 10/25/24 release duloxetine 60 mg capsule,delayed 60 mg PO QAM 03/06/21 10/25/24 release omeprazole 40 mg capsule,delayed 40 mg PO QAM 03/06/21 10/25/24 release valsartan 80 mg tablet 80 mg PO QAM 03/06/21 10/25/24 empagliflozin 25 mg tablet 25 mg PO QAM 05/16/22 10/25/24 (Jardiance) clonazepam 0.5 mg tablet 0.5 mg PO BID PRN Anxiety 08/27/22 10/25/24 lamotrigine 100 mg tablet 100 mg PO BID 08/27/22 10/25/24 mirabegron 25 mg tablet,extended 50 mg PO QAM 09/15/23 10/25/24 release 24 hr (Myrbetriq) camphor-menthol topical ointment 1 applic topical BID PRN Pain 04/04/24 10/25/24 ([place] topical ointment) naproxen sodium 220 mg tablet 220 mg PO BID PRN Pain 04/04/24 10/25/24 (Aleve) gabapentin 100 mg capsule 100 mg PO UD 10/25/24 10/25/24 gabapentin 300 mg capsule 300 mg PO TID 10/25/24 10/25/24 Previous Rx's Medication Instructions Recorded oxycodone-acetaminophen 5 mg-325 2 tab PO Q6H PRN pain #20 tabs 03/20/25 mg tablet (Percocet) Results & Data (ED) Vital Signs Vital Signs - 24 hr 12/05/24 15:24 12/05/24 15:57 12/05/24 16:11 Temperature 36.4 C L Temperature Source Oral Pulse Rate - Lying Pulse Rate - Sitting Pulse Rate - Standing Pulse Rate 120 H 107 H Pulse Rate [Apical] Pulse Rate [Exercises] Pulse Rate [Resting] Respiratory Rate 18 Respiratory Rate [Exercises] Respiratory Rate [Resting] Blood Pressure - Lying Blood Pressure - Sitting Blood Pressure- Standing Blood Pressure 149/102 H Blood Pressure [Right Arm] Blood Pressure Mean 117 Blood Pressure Mean [Right Arm] Blood Pressure Position [Right Arm] Pulse Oximetry 95 93 Pulse Oximetry [Exercises] Pulse Oximetry [Resting] Oxygen Delivery Method Room Air Room Air Oxygen Flow Rate Sepsis Recent Fever Within 48 Hours No Sepsis New/Unexplained Change in Mental Status N/A Sepsis Action Taken by Nursing No Action Required 12/05/24 17:17 12/05/24 18:28 12/05/24 18:31 Temperature Temperature Source Pulse Rate - Lying Pulse Rate - Sitting Pulse Rate - Standing Pulse Rate 97 H Pulse Rate [Apical] 103 H 97 H Pulse Rate [Exercises] Pulse Rate [Resting] Respiratory Rate 16 20 18 Respiratory Rate [Exercises] Respiratory Rate [Resting] Blood Pressure - Lying Blood Pressure - Sitting Blood Pressure- Standing Blood Pressure 149/77 H Blood Pressure [Right Arm] 149/77 H Blood Pressure Mean 89 Blood Pressure Mean [Right Arm] 101 Blood Pressure Position [Right Arm] Semi-fowlers Pulse Oximetry 96 97 95 Pulse Oximetry [Exercises] Pulse Oximetry [Resting] Oxygen Delivery Method Nasal Cannula Nasal Cannula Room Air Oxygen Flow Rate 2 2 Sepsis Recent Fever Within 48 Hours Sepsis New/Unexplained Change in Mental Status Sepsis Action Taken by Nursing 12/05/24 19:10 12/05/24 19:24 Temperature Temperature Source Pulse Rate - Lying 102 H Pulse Rate - Sitting 105 H Pulse Rate - Standing 115 H Pulse Rate Pulse Rate [Apical] Pulse Rate [Exercises] 134 H Pulse Rate [Resting] 109 H Respiratory Rate Respiratory Rate [Exercises] 22 Respiratory Rate [Resting] 20 Blood Pressure - Lying 135/66 Blood Pressure - Sitting 153/79 H Blood Pressure- Standing 98/75 L Blood Pressure Blood Pressure [Right Arm] Blood Pressure Mean Blood Pressure Mean [Right Arm] Blood Pressure Position [Right Arm] Pulse Oximetry Pulse Oximetry [Exercises] 94 Pulse Oximetry [Resting] 96 Oxygen Delivery Method Room Air Oxygen Flow Rate Sepsis Recent Fever Within 48 Hours Sepsis New/Unexplained Change in Mental Status Sepsis Action Taken by Nursing Laboratory Data 12/05/24 15:53 12/05/24 15:53 Lab Results 12/05/24 12/05/24 Range/Units 15:53 Unknown WBC 14.07 H (4.8-10.8) K/ul RBC 5.99 H (4.20-5.40) M/uL Hgb 11.9 L (12.0-16.0) g/dl Hct 41.0 (37.0-47.0) % MCV 68.4 L (80.0-100.0) fL MCH 19.9 L (25.0-34.0) pg MCHC 29.0 L (32.0-36.0) g/dL RDW Std Deviation 45.4 (36.4-46.3) fL RDW Coeff of Maria Elena 20.0 H (11.5-14.5) % Plt Count 324 (130-400) K/uL MPV 9.7 (9.4-12.4) fL Immature Gran % (Auto) 0.3 % Neut % (Auto) 48.6 % Lymph % (Auto) 39.5 % [place] % (Auto) 7.8 % Eos % (Auto) 3.4 % Baso % (Auto) 0.4 % Neut # (Auto) 6.84 H (1.40-6.50) K/uL Lymph # (Auto) 5.56 H (1.20-3.40) K/uL [place] # (Auto) 1.10 H (0.11-0.59) K/uL Eos # (Auto) 0.48 (0.00-0.50) K/uL Baso # (Auto) 0.05 (0.00-0.20) K/uL Immature Gran # (Auto) 0.04 (0.01-0.20) K/uL Polychromasia 2+ Microcytosis Present Tear Drop Cells 1+ PT 10.9 (9.0-12.0) Seconds INR 1.0 (0.9-1.1) D-Dimer 1000 H* (0-500) ug/L FEU Sodium 135 L (136-145) mmol/L Potassium 4.1 (3.5-5.1) mmol/L Chloride 101 (98-107) mmol/L Carbon Dioxide 23 (21-32) mmol/L Anion Gap 11 (3-11) BUN 20 (6-23) mg/dl Creatinine 0.80 (0.6-1.2) mg/dl Est Cr Clr Drug Dosing Not Reportable eGFR 79.71 BUN/Creatinine Ratio 25.0 H (10-20) Glucose 160 H (70-99(Fasting)) mg/dl Calcium 10.0 (8.6-10.3) mg/dl Magnesium 2.1 (1.7-2.4) mg/dl Total Bilirubin 0.4 (0.2-1.0) mg/dl AST 20 (13-39) U/L ALT 20 (7-52) U/L Alkaline Phosphatase 113 H (34-104) U/L Troponin I High Sens 7.5 (0-14) pg/ml Total Protein 8.1 (6.0-8.3) gm/dl Albumin 3.9 (3.4-5.0) gm/dl Globulin 4.2 H (2.5-4.0) gm/dl Albumin/Globulin Ratio 0.9 (0.9-2) Urine Color Yellow Urine Appearance Clear (Clear) Urine pH 5.5 (4.5-7.5) Ur Specific [place] > 1.045 H (1.000-1.030) Urine Protein Negative (Negative) Urine Glucose (UA) 3+ H (Negative) Urine Ketones Trace H (Negative) Urine Blood Trace H (Negative) Urine Nitrite Positive A (Negative) Urine Bilirubin Negative (Negative) Urine Urobilinogen Negative (Negative) Ur Leukocyte Esterase Negative (Negative) Urine WBC (Auto) 0-5 (0-5) /hpf Urine RBC (Auto) 0-2 (0-2) /hpf U Hyaline Cast (Auto) 0-2 (0-2) /lpf U Epithel Cells (Auto) 3-5 H (0-2) /hpf Urine Bacteria (Auto) 4+ H (None Seen) Urine Comment Adenovirus (PCR) Not Detected (NotDetected) B. pertussis DNA (PCR) Not Detected (NotDetected) B.parapertussis DNA PCR Not Detected (NotDetected) C. pneumoniae DNA (PCR) Not Detected (NotDetected) Coronavirus OC43 (PCR) Not Detected (NotDetected) Coronavirus HKU1 (PCR) Not Detected (NotDetected) Coronavirus 229E (PCR) Not Detected (NotDetected) SARS-CoV-2 (PCR) Not Detected (NotDetected) Coronavirus NL63 (PCR) Not Detected (NotDetected) Human Metapneumovir PCR Not Detected (NotDetected) Influenza Type A (PCR) Not Detected (NotDetected) Influenza Type B (PCR) Not Detected (NotDetected) M. pneumoniae (PCR) Not Detected (NotDetected) Parainfluenza 1 (PCR) Not Detected (NotDetected) Parainfluenza 2 (PCR) Not Detected (NotDetected) Parainfluenza 3 (PCR) Not Detected (NotDetected) Parainfluenza 4 (PCR) Not Detected (NotDetected) RSV (PCR) Not Detected (NotDetected) Entero/Rhino (PCR) Not Detected (NotDetected) Administered Medications Sodium Chloride (Nss) 1,000 mls @ 999 mls/hr IV .Q1H1M ONE Stop: 12/05/24 20:21 Last Admin: 12/05/24 19:30 Dose: 999 mls/hr Documented By: dhiraj Discontinued Medications Ioversol (Optiray 320 125ml) 115 ml IV ONCE ONE Stop: 12/05/24 17:06 Last Admin: 12/05/24 17:06 Dose: 115 ml Documented By: TEJAL Imaging Data Radiologist's Impression: Chest X-Ray 12/05/24 15:30 Technique: A frontal view of the chest was obtained Findings: There are no confluent pulmonary infiltrates. The heart size is within normal limits. No pleural effusion or pneumothorax is seen. There is no definite pulmonary nodule. No fracture is noted. There is a right shoulder arthroplasty Impression: No active disease Electronically signed by Bashir Fatima 12-05-2024 4:33 PM Chest CTA 12/05/24 16:37 Technique: Axial computed tomography images were obtained of the chest after the administration of intravenous contrast according to the CT angiogram protocol Comparison is made to the prior CT dated 05/19/2024 Findings: There is no definite sign of pulmonary embolism. There is mild subsegmental atelectasis in both lower lobes and the lingula. The lungs otherwise appear clear without infiltrate or mass. There is no pleural effusion or pneumothorax. There is no sign of pulmonary fibrosis or other diffuse interstitial process. No endobronchial lesion is seen There are small subcentimeter mediastinal and hilar lymph nodes. There is no overt mediastinal, hilar, or axillary adenopathy. The thoracic aorta appears unremarkable with no sign of aneurysm or dissection. There is no pericardial effusion. There is coronary atherosclerosis The spleen is mildly enlarged measuring 14.1 cm. No fracture is seen. No focal osseous lesion is evident. There is a right glenohumeral arthroplasty Impression: 1. No definite sign of pulmonary embolism 2. Mild bilateral lung base atelectasis 3. Mild splenomegaly Electronically signed by Bashir Fatima 12-05-2024 5:26 PM Discharge Plan Visit Data Chief Complaint: Referred by Doctor Stated Complaint: POSSIBLE BLOOD CLOT IN LUNG ED Provider: Meseret Kathleen Discharge Problem: Sinus tachycardia, Hypoxia, Acute dyspnea, Acute UTI (urinary tract infection) Condition: Fair Forms Stand Alone Forms: My [facility] Prescriptions Prescriptions: No Action atorvastatin 20 mg tablet 20 mg PO QAM propranolol 20 mg tablet 10 mg PO BID clonazepam 0.5 mg tablet 0.5 mg PO BID PRN (Reason: Anxiety) lamotrigine 100 mg tablet 100 mg PO BID cyclobenzaprine 10 mg Tablet 10 mg PO TID PRN (Reason: Muscle Spasm) valsartan 80 mg tablet 80 mg PO QAM omeprazole 40 mg capsule,delayed release(DR/EC) 40 mg PO QAM duloxetine 30 mg capsule,delayed release(DR/EC) 30 mg PO QAM Rx Instructions: WITH 60 MG FOR 90 MG DAILY DOSE duloxetine 60 mg capsule,delayed release(DR/EC) 60 mg PO QAM Rx Instructions: WITH 30 MG FOR 90 MG DAILY Jardiance 25 mg Tablet 25 mg PO QAM mirabegron [Myrbetriq] 25 mg Tablet Extended Release 24 Hr 50 mg PO QAM naproxen sodium [Aleve] 220 mg Tablet 220 mg PO BID PRN (Reason: Pain) [place] Ointment 1 applic TOPICAL BID PRN (Reason: Pain) oxycodone-acetaminophen [Percocet] 5-325 mg tablet 2 tab PO Q6H PRN (Reason: pain) Qty: 20 0RF Rx Instructions: initial script gabapentin 300 mg Capsule 300 mg PO TID Patient Comments: 10/25/24-will begin this dose after completing 6 days of the 100mg capsules as directed. gabapentin 100 mg Capsule 100 mg PO UD Patient Comments: 10/25/24-will begin 10/26/24, she thinks? Rx Instructions: 100mg TID for 3 days, 200mg TID for 3 days. Referrals Referrals: Cassie Rojas PA-C [Primary Care Provider] -
[2024-12-05 16:07] LABS: Hematocrit (blood only) 41.0 % (37.0-47.0); Hemoglobin 11.9 g/dl (12.0-16.0); Mean Corpuscular Hemoglobin 19.9 pg (25.0-34.0); Mean Corpuscular Volume 68.4 fL (80.0-100.0); RDW Standard Deviation 45.4 fL (36.4-46.3); Red Blood Count 5.99 M/uL (4.20-5.40); White Blood Count 14.07 K/ul (4.8-10.8)
[2024-12-05 16:28] LABS: Alanine Aminotransferase 20 U/L (7-52); Albumin Globulin Ratio 0.9 (0.9-2); Albumin Level 3.9 gm/dl (3.4-5.0); Alkaline Phosphatase 113 U/L (34-104); Anion Gap 11 (3-11); Bilirubin,Total 0.4 mg/dl (0.2-1.0); Blood Urea Nitrogen 20 mg/dl (6-23); Calcium 10.0 mg/dl (8.6-10.3); Carbon Dioxide 23 mmol/L (21-32); Chloride 101 mmol/L (98-107); Globulin 4.2 gm/dl (2.5-4.0); Glucose 160 mg/dl (70-99(Fasting)); Magnesium 2.1 mg/dl (1.7-2.4); Potassium 4.1 mmol/L (3.5-5.1); Sodium 135 mmol/L (136-145); Total Protein 8.1 gm/dl (6.0-8.3)
[2024-12-05 16:30] LABS: Immature Granulocytes # (auto) 0.04 K/uL (0.01-0.20); Immature Granulocytes % (auto) 0.3 %; Microcytosis Present; Platelet Count 324 K/uL (130-400); Polychromasia 2+; Tear Drop Cells 1+
--- NOTE | 2024-12-05 16:33 | XRay Report ---
Technique: A frontal view of the chest was obtained Findings: There are no confluent pulmonary infiltrates. The heart size is within normal limits. No pleural effusion or pneumothorax is seen. There is no definite pulmonary nodule. No fracture is noted. There is a right shoulder arthroplasty Impression: No active disease Electronically signed by Bashir Fatima 12-05-2024 4:33 PM
[2024-12-05 16:34] LABS: INR 1.0 (0.9-1.1); Prothrombin Time 10.9 Seconds (9.0-12.0)
[2024-12-05 17:00] LABS: Chlamydia pneumoniae PCR Not Detected (NotDetected); Coronavirus 229E PCR Not Detected (NotDetected); Coronavirus CoV-2 (COVID19)PCR Not Detected (NotDetected); Coronavirus HKU1 PCR Not Detected (NotDetected); Coronavirus NL63 PCR Not Detected (NotDetected); Coronavirus OC43PCR Not Detected (NotDetected); Human Metapneumovirus PCR Not Detected (NotDetected); Parainfluenza Virus 1 PCR Not Detected (NotDetected); Parainfluenza Virus 2 PCR Not Detected (NotDetected); Parainfluenza Virus 3 PCR Not Detected (NotDetected); Parainfluenza Virus 4 PCR Not Detected (NotDetected); Respiratory Syncytial VirusPCR Not Detected (NotDetected); Rhinovirus/Enterovirus PCR Not Detected (NotDetected)
[2024-12-05] MEDS: OPTIRAY 320 125ml IV ONE (17:06)
--- NOTE | 2024-12-05 17:27 | CT Scan Report ---
Technique: Axial computed tomography images were obtained of the chest after the administration of intravenous contrast according to the CT angiogram protocol Comparison is made to the prior CT dated 05/19/2024 Findings: There is no definite sign of pulmonary embolism. There is mild subsegmental atelectasis in both lower lobes and the lingula. The lungs otherwise appear clear without infiltrate or mass. There is no pleural effusion or pneumothorax. There is no sign of pulmonary fibrosis or other diffuse interstitial process. No endobronchial lesion is seen There are small subcentimeter mediastinal and hilar lymph nodes. There is no overt mediastinal, hilar, or axillary adenopathy. The thoracic aorta appears unremarkable with no sign of aneurysm or dissection. There is no pericardial effusion. There is coronary atherosclerosis The spleen is mildly enlarged measuring 14.1 cm. No fracture is seen. No focal osseous lesion is evident. There is a right glenohumeral arthroplasty Impression: 1. No definite sign of pulmonary embolism 2. Mild bilateral lung base atelectasis 3. Mild splenomegaly Electronically signed by Bashir Fatima 12-05-2024 5:26 PM
[2024-12-05] MEDS: SODIUM CHLORIDE 0.9% 1,000 ML IV ONE (19:30)
[2024-12-05 19:38] LABS: Appearance Urine Clear (Clear); Bacteria Urine Automated 4+ (None Seen); Cast Urine Automated 0-2 /lpf (0-2); Glucose Urine UA 3+ (Negative); RBC Urine Automated 0-2 /hpf (0-2); WBC Urine Automated 0-5 /hpf (0-5)
[2024-12-05] MEDS: cefTRIAXone SODIUM 2,000 MG/50 ML BAG IV STA (20:21)
[2024-12-05 20:31] LABS: Thyroid Stimulating Hormone 3.187 uIu/ml (0.300-4.500)
--- NOTE | 2024-12-05 20:42 | History & Physical Report ---
Date of Service December 05, 2024 Assessment & Plan (1) Acute UTI (urinary tract infection): (2) Acute dyspnea: (3) Sinus tachycardia: (4) Decreased right shoulder range of motion: Plan The patient is a 69-year-old female with a past medical history including diabetes mellitus, GERD, overactive bladder, hyperlipidemia, RSD, fibromyalgia, depression, hypertension, and anxiety. The patient was referred to the emergency department from her outpatient PCPs office, due to concerns regarding an EKG performed due to worsening shortness of breath, which showed a possible left bundle branch block. The outpatient EKG was not available for evaluation. The patient reports that she has had shortness of breath for number of weeks, reports that she took Mounjaro for the first time yesterday, and when she woke up this morning, she was unusually short of breath. She feels that the wors ening shortness of breath in the morning, was due to a side effect of Mounjaro. She denies any recent travels or sick exposures. She also has chronic right shoulder pain since shoulder replacement surgery performed on May 16, 2024, with decreased range of motion. For her right shoulder she got a second opinion, and reports that an MRI was performed that she does not know the results of yet, and there is concern about need for possible redo of surgery. She also reports feeling generally weak, and more painful than usual. Workup in the emergency department included an elevated WBC of 14.07, elevated blood sugar at 160, negative BioFire test, elevated D-dimer of 1000 with negative CTA chest for PE, and EKG with sinus tachycardia at 108, with no acute ST-T changes. Urinalysis was positive for probable infection, with her most recent UTI on 09/30/2023 revealing a pansensitive E. coli. The patient was then referred for further evaluation and treatment to the [facility]. Acute urinary tract infection- Follow urine culture and sensitivity Likely a contributing reason for leukocytosis and generalized fatigue and weakness Continue ceftriaxone 2 g IV every 24 hours begun in the ED Sinus tachycardia/question of left bundle branch block/hypertension- The patient will be admitted to telemetry for serial cardiac enzymes, serial EKG's, cardiac rhythm monitoring and a 2-D echocardiogram with Dopplers. Status post 1 L normal saline bolus in ED Continue IV fluid resuscitation with normal saline plus KCl 20 mEq at 100 mL/h x 1 L Outside EKG not available for review, and has not been uploaded into the [facility] system yet. EKG in the ED shows sinus tach at [address]-T changes Give patient her evening dose, which is a little later this time, including propranolol 10 mg p.o. twice daily Continue valsartan 1080 mg every morning Troponin is normal at 7.5, will recheck in the a.m. CTA chest negative for PE Worsening generalized fatigue and myalgias/reflex sympathetic dystrophy/fibromyalgia- Likely being aggravated by UTI Of note, respiratory BioFire test negative Continue cyclobenzaprine as needed, duloxetine, lamotrigine Diabetes mellitus- Hold Jardiance Leukos 160 on admission Patient Accu-Cheks with NovoLog SSI Bladder spasms- Continue solifenacin History of Present Illness Chief Complaint: The patient was referred to the emergency department from her outpatient PCPs office, due to concerns regarding an EKG performed due to worsening shortness of breath, which showed concerns regarding a possible left bundle branch block. The patient reports that she has had shortness of breath for number of weeks, reports that she took Mounjaro for the first time yesterday, and when she woke up this morning, she was unusually short of breath. She has chronic right shoulder pain since surgery performed on May 16, 2024, with decreased range of motion. For her right shoulder she got a second opinion, and reports that an MRI was performed that she does not know the results of yet, and there is concern about need for possible redo of surgery. Primary Care Provider: Cassie Rojas PA-C The patient is a 69-year-old female with a past medical history including diabetes mellitus, GERD, overactive bladder, hyperlipidemia, RSD, fibromyalgia, depression, hypertension, and anxiety. The patient was referred to the emergency department from her outpatient PCPs office, due to concerns regarding an EKG performed due to worsening shortness of breath, which showed a possible left bundle branch block. The outpatient EKG was not available for evaluation. The patient reports that she has had shortness of breath for number of weeks, reports that she took Mounjaro for the first time yesterday, and when she woke up this morning, she was unusually short of breath. She feels that the worsening shortness of breath in the morning, was due to a side effect of Mounjaro. She denies any recent travels or sick exposures. She also has chronic right shoulder pain since shoulder replacement surgery performed on May 16, 2024, with decreased range of motion. For her right shoulder she got a second opinion, and reports that an MRI was performed that she does not know the results of yet, and there is concern about need for possible redo of surgery. Workup in the emergency department included an elevated WBC of 14.07, elevated blood sugar at 160, negative BioFire test, elevated D-dimer of 1000 with negative CTA chest for PE, and EKG with sinus tachycardia at 108, with no acute ST-T changes. Urinalysis was positive for probable infection, with her most recent UTI on 09/30/2023 revealing a pansensitive E. coli. The patient was then referred for further evaluation and treatment to the [facility]. Allergies Allergy/AdvReac Type Severity Reaction Status Date / Time adhesive Allergy Severe Blister Verified 12/05/24 20:16 fosphenytoin Allergy Mild Hives Verified 12/05/24 20:16 celecoxib Allergy Unknown Itchiness Verified 12/05/24 20:16 warfarin [From Coumadin] AdvReac Severe Hemorrhage Verified 12/05/24 20:16 Home Medications Medication Instructions Recorded Confirmed Type atorvastatin 20 mg tablet 20 mg PO QAM 03/21/19 12/05/24 History propranolol 20 mg tablet 10 mg PO BID 03/21/19 12/05/24 History cyclobenzaprine 10 mg tablet 10 mg PO TID PRN Muscle Spasm 03/06/21 12/05/24 History duloxetine 30 mg capsule,delayed 30 mg PO QAM 03/06/21 12/05/24 History release duloxetine 60 mg capsule,delayed 60 mg PO QAM 03/06/21 12/05/24 History release omeprazole 40 mg capsule,delayed 40 mg PO QAM 03/06/21 12/05/24 History release valsartan 80 mg tablet 80 mg PO QAM 03/06/21 12/05/24 History empagliflozin 25 mg tablet 25 mg PO QAM 05/16/22 12/05/24 History (Jardiance) clonazepam 0.5 mg tablet 0.5 mg PO BID PRN Anxiety 08/27/22 12/05/24 History lamotrigine 100 mg tablet 100 mg PO BID 08/27/22 12/05/24 History camphor-menthol topical ointment 1 applic topical BID PRN Pain 04/04/24 12/05/24 History ([place]man topical ointment) solifenacin 5 mg tablet 5 mg PO DAILY 12/05/24 12/05/24 History Past Med/Surg History Problem List (Updated 12/05/24 @ 23:17 by Ramon Espitia MD) Decreased right shoulder range of motion Acute UTI (urinary tract infection) (Acute) Acute dyspnea (Acute) Hypoxia (Acute) Sinus tachycardia (Acute) Hypoxia (Acute) Diabetes mellitus (Acute) GERD (gastroesophageal reflux disease) Overactive bladder HLD (hyperlipidemia) Reflex sympathetic dystrophy Fibromyalgia (Acute) Depression Type 2 diabetes mellitus Hypertension Anxiety Medical History Anxiety Depression Diabetic neuropathy feet Elevated diaphragm Per records Fibromyalgia GERD (gastroesophageal reflux disease) controlled, stable per pt History of anesthesia reaction following sx 05/18/24, [facility], for total shoulder replacement, pt had to return to hospital next day following unsure if it was a reaction to her regional block or anesthesia itself, was having breathing difficulties. admitted to [facility] for 5 days. History of blood transfusion 10 years ago- attributed to warfarin per patient History of COVID-19 (~05/2022) Multiple episodes- residual impact on sense of taste Hyperlipidemia Hypertension controlled, stable per pt Migraine Morbid obesity Overactive bladder Psoriasis PTSD (post-traumatic stress disorder) Type 2 diabetes mellitus NIDDM Surgical History H/O hernia repair History of cholecystectomy History of colonoscopy History of dilatation and curettage History of repair of rotator cuff right History of tooth extraction History of total replacement of right shoulder joint (04/2024) unable to currently lift RUE on her own without help from left hand, due to muscles and nerves after surgery. History of tubal ligation Status post bilateral knee replacements Family History Father Diabetes Stroke Grandmother (Paternal) Diabetes Mother Lung disease Social History Smoking Status: Never smoker Second Hand Exposure: No; Do You Dip or Chew Tobacco: No; Hx Alcohol Use: No Hx Substance Use: No Preferred Language: Finnish Communication Ability: Effective Visual Impairment: No Limitations Hearing Ability: Normal Assembly Hand Required: No Beliefs That Will Affect Care: None Current Living Situation: Family Current Living Situation Comment: Daughter Feels Safe at Home: Yes Assistive Devices: Cane, Denture - Upper and Denture - Lower Review of Systems Review of Systems: The patient denies chest pain, palpitations, cough, lower extremity swelling, sore throat, fevers, chills, sweats, nausea, vomiting, diarrhea , constipation, abdominal pain, pelvic pain, blood in urine or stool, dysuria, urinary frequency or urgency, lightheadedness, dizziness, headache, memory loss, loss of consciousness, rash, abnormal bruising or bleeding, imbalance, focal weakness, numbness or tingling in left arms or bilateral legs, back or neck pain, or night sweats. The review of systems is otherwise negative other than for that already noted above, and at least 10 systems have been reviewed. Physical Exam Physical Exam: The patient is awake, alert and oriented 3, well developed and well nourished, normocephalic and atraumatic, lying in bed and in no acute distress. HEENT--PERRL, EOMI, mucous membranes and oropharynx mildly dry. Neck--supple. No JVD. No bruits. Thyroid normal, trachea midline, no adenopathy. Heart--normal S1 and S2. No murmurs, rubs or gallops. Lungs--clear bilaterally, no respiratory distress, no accessory muscle use. Abdomen--normal bowel sounds and soft. Nontender. Nondistended, no hernias or masses, no organomegaly. Extremities--no cyanosis or clubbing. No edema. There are good distal pulses b/l. Dermatologic--normal skin turgor, normal color, no abnormal lymph nodes, no rash. Neurologic--cranial nerves II through XII grossly intact. Rheumatologic--normal range of motion. Psychiatric--normal affect. Results & Data Results & Data Vital Signs (Past 12 Hours) Vital Signs Temp Pulse Pulse Pulse Pulse Resp Resp 12/05/24 20:09 104 H 12/05/24 19:31 110 H 23 12/05/24 19:10 134 H 109 H 22 12/05/24 18:31 97 H 18 12/05/24 18:28 97 H 20 12/05/24 17:17 103 H 16 12/05/24 16:11 107 H 12/05/24 15:57 12/05/24 15:24 36.4 C L 120 H 18 Resp BP BP Pulse Ox Pulse Ox Pulse Ox O2 Del Method 12/05/24 20:09 12/05/24 19:31 157/62 H 95 Room Air 12/05/24 19:10 20 94 96 Room Air 12/05/24 18:31 149/77 H 95 Room Air 12/05/24 18:28 149/77 H 97 Nasal Cannula 12/05/24 17:17 96 Nasal Cannula 12/05/24 16:11 12/05/24 15:57 93 Room Air 12/05/24 15:24 149/102 H 95 Room Air O2 Flow Rate 12/05/24 20:09 12/05/24 19:31 12/05/24 19:10 12/05/24 18:31 12/05/24 18:28 2 12/05/24 17:17 2 12/05/24 16:11 12/05/24 15:57 12/05/24 15:24 Laboratory Results Laboratory Results WBC 14.07 K/ul (4.8-10.8) H 12/05/24 15:53 RBC 5.99 M/uL (4.20-5.40) H 12/05/24 15:53 Hgb 11.9 g/dl (12.0-16.0) L 12/05/24 15:53 Hct 41.0 % (37.0-47.0) 12/05/24 15:53 MCV 68.4 fL (80.0-100.0) L 12/05/24 15:53 MCH 19.9 pg (25.0-34.0) L 12/05/24 15:53 MCHC 29.0 g/dL (32.0-36.0) L 12/05/24 15:53 RDW Std Deviation 45.4 fL (36.4-46.3) 12/05/24 15:53 RDW Coeff of Maria Elena 20.0 % (11.5-14.5) H 12/05/24 15:53 Plt Count 324 K/uL (130-400) 12/05/24 15:53 MPV 9.7 fL (9.4-12.4) 12/05/24 15:53 Immature Gran % (Auto) 0.3 % 12/05/24 15:53 Neut % (Auto) 48.6 % 12/05/24 15:53 Lymph % (Auto) 39.5 % 12/05/24 15:53 [place] % (Auto) 7.8 % 12/05/24 15:53 Eos % (Auto) 3.4 % 12/05/24 15:53 Baso % (Auto) 0.4 % 12/05/24 15:53 Neut # (Auto) 6.84 K/uL (1.40-6.50) H 12/05/24 15:53 Lymph # (Auto) 5.56 K/uL (1.20-3.40) H 12/05/24 15:53 [place] # (Auto) 1.10 K/uL (0.11-0.59) H 12/05/24 15:53 Eos # (Auto) 0.48 K/uL (0.00-0.50) 12/05/24 15:53 Baso # (Auto) 0.05 K/uL (0.00-0.20) 12/05/24 15:53 Immature Gran # (Auto) 0.04 K/uL (0.01-0.20) 12/05/24 15:53 Polychromasia 2+ 12/05/24 15:53 Microcytosis Present 12/05/24 15:53 Tear Drop Cells 1+ 12/05/24 15:53 PT 10.9 Seconds (9.0-12.0) 12/05/24 15:53 INR 1.0 (0.9-1.1) 12/05/24 15:53 D-Dimer 1000 ug/L FEU (0-500) H* 12/05/24 15:53 Sodium 135 mmol/L (136-145) L 12/05/24 15:53 Potassium 4.1 mmol/L (3.5-5.1) 12/05/24 15:53 Chloride 101 mmol/L (98-107) 12/05/24 15:53 Carbon Dioxide 23 mmol/L (21-32) 12/05/24 15:53 Anion Gap 11 (3-11) 12/05/24 15:53 BUN 20 mg/dl (6-23) 12/05/24 15:53 Creatinine 0.80 mg/dl (0.6-1.2) 12/05/24 15:53 Est Cr Clr Drug Dosing Not Reportable 12/05/24 15:53 eGFR 79.71 12/05/24 15:53 BUN/Creatinine Ratio 25.0 (10-20) H 12/05/24 15:53 Glucose 160 mg/dl (70-99(Fasting)) H 12/05/24 15:53 POC Glucose 164 mg/dl (70-99) H 12/05/24 22:05 Calcium 10.0 mg/dl (8.6-10.3) 12/05/24 15:53 Magnesium 2.1 mg/dl (1.7-2.4) 12/05/24 15:53 Total Bilirubin 0.4 mg/dl (0.2-1.0) 12/05/24 15:53 AST 20 U/L (13-39) 12/05/24 15:53 ALT 20 U/L (7-52) 12/05/24 15:53 Alkaline Phosphatase 113 U/L (34-104) H 12/05/24 15:53 Troponin I High Sens 7.5 pg/ml (0-14) 12/05/24 15:53 B-Natriuretic Peptide 13 pg/ml (0-100) 12/05/24 20:00 Total Protein 8.1 gm/dl (6.0-8.3) 12/05/24 15:53 Albumin 3.9 gm/dl (3.4-5.0) 12/05/24 15:53 Globulin 4.2 gm/dl (2.5-4.0) H 12/05/24 15:53 Albumin/Globulin Ratio 0.9 (0.9-2) 12/05/24 15:53 TSH 3.187 uIu/ml (0.300-4.500) 12/05/24 15:53 Urine Color Yellow 12/05/24 Unknown Urine Appearance Clear (Clear) 12/05/24 Unknown Urine pH 5.5 (4.5-7.5) 12/05/24 Unknown Ur Specific [place] > 1.045 (1.000-1.030) H 12/05/24 Unknown Urine Protein Negative (Negative) 12/05/24 Unknown Urine Glucose (UA) 3+ (Negative) H 12/05/24 Unknown Urine Ketones Trace (Negative) H 12/05/24 Unknown Urine Blood Trace (Negative) H 12/05/24 Unknown Urine Nitrite Positive (Negative) A 12/05/24 Unknown Urine Bilirubin Negative (Negative) 12/05/24 Unknown Urine Urobilinogen Negative (Negative) 12/05/24 Unknown Ur Leukocyte Esterase Negative (Negative) 12/05/24 Unknown Urine WBC (Auto) 0-5 /hpf (0-5) 12/05/24 Unknown Urine RBC (Auto) 0-2 /hpf (0-2) 12/05/24 Unknown U Hyaline Cast (Auto) 0-2 /lpf (0-2) 12/05/24 Unknown U Epithel Cells (Auto) 3-5 /hpf (0-2) H 12/05/24 Unknown Urine Bacteria (Auto) 4+ (None Seen) H 12/05/24 Unknown Urine Comment 12/05/24 Unknown Adenovirus (PCR) Not Detected (NotDetected) 12/05/24 15:53 B. pertussis DNA (PCR) Not Detected (NotDetected) 12/05/24 15:53 B.parapertussis DNA PCR Not Detected (NotDetected) 12/05/24 15:53 C. pneumoniae DNA (PCR) Not Detected (NotDetected) 12/05/24 15:53 Coronavirus OC43 (PCR) Not Detected (NotDetected) 12/05/24 15:53 Coronavirus HKU1 (PCR) Not Detected (NotDetected) 12/05/24 15:53 Coronavirus 229E (PCR) Not Detected (NotDetected) 12/05/24 15:53 SARS-CoV-2 (PCR) Not Detected (NotDetected) 12/05/24 15:53 Coronavirus NL63 (PCR) Not Detected (NotDetected) 12/05/24 15:53 Human Metapneumovir PCR Not Detected (NotDetected) 12/05/24 15:53 Influenza Type A (PCR) Not Detected (NotDetected) 12/05/24 15:53 Influenza Type B (PCR) Not Detected (NotDetected) 12/05/24 15:53 M. pneumoniae (PCR) Not Detected (NotDetected) 12/05/24 15:53 Parainfluenza 1 (PCR) Not Detected (NotDetected) 12/05/24 15:53 Parainfluenza 2 (PCR) Not Detected (NotDetected) 12/05/24 15:53 Parainfluenza 3 (PCR) Not Detected (NotDetected) 12/05/24 15:53 Parainfluenza 4 (PCR) Not Detected (NotDetected) 12/05/24 15:53 RSV (PCR) Not Detected (NotDetected) 12/05/24 15:53 Entero/Rhino (PCR) Not Detected (NotDetected) 12/05/24 15:53 Impressions Chest X-Ray 12/05/24 15:30 Technique: A frontal view of the chest was obtained Findings: There are no confluent pulmonary infiltrates. The heart size is within normal limits. No pleural effusion or pneumothorax is seen. There is no definite pulmonary nodule. No fracture is noted. There is a right shoulder arthroplasty Impression: No active disease Electronically signed by Bashir Fatima 12-05-2024 4:33 PM Chest CTA 12/05/24 16:37 Technique: Axial computed tomography images were obtained of the chest after the administration of intravenous contrast according to the CT angiogram protocol Comparison is made to the prior CT dated 05/19/2024 Findings: There is no definite sign of pulmonary embolism. There is mild subsegmental atelectasis in both lower lobes and the lingula. The lungs otherwise appear clear without infiltrate or mass. There is no pleural effusion or pneumothorax. There is no sign of pulmonary fibrosis or other diffuse interstitial process. No endobronchial lesion is seen There are small subcentimeter mediastinal and hilar lymph nodes. There is no overt mediastinal, hilar, or axillary adenopathy. The thoracic aorta appears unremarkable with no sign of aneurysm or dissection. There is no pericardial effusion. There is coronary atherosclerosis The spleen is mildly enlarged measuring 14.1 cm. No fracture is seen. No focal osseous lesion is evident. There is a right glenohumeral arthroplasty Impression: 1. No definite sign of pulmonary embolism 2. Mild bilateral lung base atelectasis 3. Mild splenomegaly Electronically signed by Bashir Fatima 12-05-2024 5:26 PM Code Status & VTE Plan Code Status Full code VTE Prophylaxis Plan VTE Prophylaxis will be ordered: Yes PG Care Time/CCT Total # of Minutes Spent Total Time Spent with Patient: Total time spent is greater than 50% in coordination of care (as documented) at patient's floor/unit and/or counseling patient: Coding Level of Care Code 67722 INT INP/OBS CARE 3/75MIN Diagnoses Acute UTI (urinary tract infection) N39.0 Acute dyspnea R06.00 Sinus tachycardia R00.0 Decreased right shoulder range of motion M25.611
[2024-12-05] MEDS: NSS + 20MEQ KCL 20 MEQ/1,000 ML BAG IV SCH (21:04)
[2024-12-05] MEDS ORDERED: CYCLOBENZAPRINE HCL 10 MG TAB PO PRN (21:53)
[2024-12-05] MEDS ORDERED: clonazePAM 0.5 MG TAB PO PRN (21:53)
[2024-12-05] MEDS ORDERED: CARBOHYDRATES FOR HYPOGLYCEMIA PO PRN (21:59)
[2024-12-05] MEDS ORDERED: ACETAMINOPHEN 325 MG TAB PO PRN (21:59)
[2024-12-05] MEDS ORDERED: GLUCOSE 10 TAB/TUBE PO PRN (21:59)
[2024-12-05] MEDS ORDERED: ONDANSETRON INJ 2 MG/ML 2 ML VIAL IV PRN (21:59)
[2024-12-05] MEDS ORDERED: GLUCOSE 40% GEL 15 GM TUBE PO PRN (21:59)
[2024-12-05] MEDS ORDERED: GLUCAGON FOR INJ 1 MG VIAL SQ PRN (21:59)
[2024-12-05] MEDS ORDERED: DEXTROSE 50% 50 ML SYRINGE IV PRN (21:59)
[2024-12-05] MEDS: lamoTRIgine 100 MG TAB PO SCH (22:30)
[2024-12-05] MEDS: PROPRANOLOL HCL 10 MG TAB PO SCH (22:30)
[2024-12-05] MEDS: INSULIN ASPART PER UNIT CHARGE SC SCH (22:31)
[2024-12-06 06:17] LABS: Hematocrit (blood only) 36.8 % (37.0-47.0); Hemoglobin 10.6 g/dl (12.0-16.0); Immature Granulocytes # (auto) 0.03 K/uL (0.01-0.20); Immature Granulocytes % (auto) 0.3 %; Mean Corpuscular Hemoglobin 19.5 pg (25.0-34.0); Mean Corpuscular Volume 67.8 fL (80.0-100.0); RDW Standard Deviation 44.8 fL (36.4-46.3); Red Blood Count 5.43 M/uL (4.20-5.40); White Blood Count 10.24 K/ul (4.8-10.8)
[2024-12-06 06:31] LABS: Platelet Count 243 K/uL (130-400)
[2024-12-06 06:43] LABS: Anisocytosis Present; Microcytosis Present; Ovalocytes 1+; Polychromasia 1+; Tear Drop Cells 1+
[2024-12-06 06:52] LABS: Albumin Level 3.5 gm/dl (3.4-5.0); Anion Gap 7.0 (3-11); Blood Urea Nitrogen 17.0 mg/dl (6-23); Calcium 8.9 mg/dl (8.6-10.3); Carbon Dioxide 24.0 mmol/L (21-32); Chloride 105.0 mmol/L (98-107); Creatinine Clr Calc Pharmacy 121.4 ml/min; Glucose 126.0 mg/dl (70-99(Fasting)); Magnesium 1.9 mg/dl (1.7-2.4); Potassium 4.1 mmol/L (3.5-5.1); Sodium 136.0 mmol/L (136-145)
[2024-12-06] MEDS: ATORVASTATIN 20 MG TAB PO SCH (08:40)
[2024-12-06] MEDS: OXYBUTYNIN CHLORIDE XL 5 MG TABCR PO SCH (08:40)
[2024-12-06] MEDS: VALSARTAN 80 MG TAB PO SCH (08:41)
[2024-12-06 09:17] LABS: Hemoglobin A1C 8.4 % (4.5-5.6)
--- NOTE | 2024-12-06 09:52 | Electrocardiogram Report ---
Test Reason : Blood Pressure : */* mmHG Vent. Rate : 108 BPM Atrial Rate : 108 BPM P-R Int : 132 ms QRS Dur : 82 ms QT Int : 310 ms P-R-T Axes : * 223 180 degrees QTcB Int : 415 ms Suspect arm lead reversal, interpretation assumes no reversal Sinus tachycardia Right superior axis deviation Abnormal ECG When compared with ECG of 12-Sep-2024 14:51, QRS axis Shifted left T wave inversion now evident in Lateral leads Confirmed by Yosvany Sawyer ([id number]) on 12/06/2024 9:52:32 AM Referred By: REFERRED SELF Confirmed By: Yosvany Sawyer
--- NOTE | 2024-12-06 10:32 | XCELERA ---
[id number]
--- NOTE | 2024-12-06 10:54 | Electrocardiogram Report ---
Test Reason : Blood Pressure : */* mmHG Vent. Rate : 80 BPM Atrial Rate : 80 BPM P-R Int : 144 ms QRS Dur : 86 ms QT Int : 380 ms P-R-T Axes : * -28 -34 degrees QTcB Int : 438 ms Normal sinus rhythm T wave abnormality, consider anterior ischemia Abnormal ECG When compared with ECG of 05-Dec-2024 15:33, (unconfirmed) QRS axis Shifted right T wave inversion now evident in Anterior leads T wave inversion no longer evident in Lateral leads Confirmed by Yosvany Sawyer ([id number]) on 12/06/2024 10:53:35 AM Referred By: REFERRED SELF Confirmed By: Yosvany Sawyer
[2024-12-06 11:10] VITALS: BP 124/74; PULSE 86; RESP 21; TEMP 98.1; O2SAT 94
--- NOTE | 2024-12-06 11:49 | Communication Note ---
*Morbid obesity with BMI 48 The medical record reflects the following clinical evidence: Clinical Indicators: BMI 48 Risk Factor(s): DM, GERD, HTN, SOB Treatment: Weight, I&O
--- NOTE | 2024-12-06 11:50 | Discharge Summary ---
Discharge Summary Date of Service December 06, 2024 Principal Dx & Hospital Course #1 = Principal Diagnosis (1) Acute UTI (urinary tract infection): (2) Acute dyspnea: (3) Sinus tachycardia: (4) Decreased right shoulder range of motion: Plan The patient is a 69-year-old female with a past medical history including diabetes mellitus, GERD, overactive bladder, hyperlipidemia, RSD, fibromyalgia, depression, hypertension, and anxiety. The patient was referred to the emergency department from her outpatient PCPs office, due to concerns regarding an EKG performed due to worsening shortness of breath, which showed a possible left bundle branch block. The outpatient EKG was not available for evaluation. The patient reports that she has had shortness of breath for number of weeks, reports that she took Mounjaro for the first time yesterday, and when she woke up this morning, she was unusually short of breath. She feels that the worsening shortness of breath in the morning, was due to a side effect of Mounjaro. She denies any recent travels or sick exposures. She also has chronic right shoulder pain since shoulder replacement surgery performed on May 16, 2024, with decreased range of motion. For her right shoulder she got a second opinion, and reports that an MRI was performed that she does not know the results of yet, and there is concern about need for possible redo of surgery. She also reports feeling generally weak, and more painful than usual. Workup in the emergency department included an elevated WBC of 14.07, elevated blood sugar at 160, negative BioFire test, elevated D-dimer of 1000 with negat velasquez CTA chest for PE, and EKG with sinus tachycardia at 108, with no acute ST-T changes. Urinalysis was positive for probable infection, with her most recent UTI on 09/30/2023 revealing a pansensitive E. coli. [facility]. [facility] infection- Follow urine culture and sensitivity Likely a contributing reason for leukocytosis and generalized fatigue and weakness Continue ceftriaxone 2 g IV every 24 hours begun in the ED/ Patient clinically improved and was transitioned to oral antibiotics at discharge Sinus tachycardia/question of left bundle branch block/hypertension- Outside EKG not available for review, and has not been uploaded into the [facility] system yet. EKG in the ED shows sinus tach at [address]-T changes Give patient her evening dose, which is a little later this time, including propranolol 10 mg p.o. twice daily Continue valsartan 1080 mg every morning Troponin is normal at 7.5, vitals improved after IVF CTA chest negative for PE Worsening generalized fatigue and myalgias/reflex sympathetic dystrophy/fibromyalgia- Likely being aggravated by UTI Of note, respiratory BioFire test negative Continue cyclobenzaprine as needed, duloxetine, lamotrigine Diabetes mellitus- Hold Jardiance Leukos 160 on admission Patient Accu-Cheks with NovoLog SSI Bladder spasms- Continue solifenacin *Morbid obesity with BMI 48 BMI 48 Risk Factor(s): DM, GERD, HTN, SOB Treatment: Weight, I&O Admission HPI Per Admitting Provider The patient is a 69-year-old female with a past medical history including diabetes mellitus, GERD, overactive bladder, hyperlipidemia, RSD, fibromyalgia, depression, hypertension, and anxiety. The patient was referred to the emergency department from her outpatient PCPs office, due to concerns regarding an EKG performed due to worsening shortness of breath, which showed a possible left bundle branch block. The outpatient EKG was not available for evaluation. The patient reports that she has had shortness of breath for number of weeks, reports that she took Mounjaro for the first time yesterday, and when she woke up this morning, she was unusually short of breath. She feels that the worsening shortness of breath in the morning, was due to a side effect of Mounjaro. She denies any recent travels or sick exposures. She also has chronic right shoulder pain since shoulder replacement surgery performed on May 16, 2024, with decreased range of motion. For her right shoulder she got a second opinion, and reports that an MRI was performed that she does not know the results of yet, and there is concern about need for possible redo of surgery . Workup in the emergency department included an elevated WBC of 14.07, elevated blood sugar at 160, negative BioFire test, elevated D-dimer of 1000 with negative CTA chest for PE, and EKG with sinus tachycardia at 108, with no acute ST-T changes. Urinalysis was positive for probable infection, with her most recent UTI on 09/30/2023 revealing a pansensitive E. coli. The patient was then referred for further evaluation and treatment to the [place] hospitalist service. Discharge Exam The patient is awake, alert and oriented 3, well developed and well nourished, normocephalic and atraumatic, lying in bed and in no acute distress. HEENT--PERRL, EOMI, mucous membranes and oropharynx mildly dry. Neck--supple. No JVD. No bruits. Thyroid normal, trachea midline, no adenopathy. Heart--normal S1 and S2. No murmurs, rubs or gallops. Lungs--clear bilaterally, no respiratory distress, no accessory muscle use. Abdomen--normal bowel sounds and soft. Nontender. Nondistended, no hernias or masses, no organomegaly. Extremities--no cyanosis or clubbing. No edema. There are good distal pulses b/l. Dermatologic--normal skin turgor, normal color, no abnormal lymph nodes, no rash. Neurologic--cranial nerves II through XII grossly intact. Rheumatologic--normal range of motion. Psychiatric--normal affect Discharge Plan Discharge Items Patient Disposition: Home - Self-Care Reason For Visit: LBBB, TACHYCARDIA, UTI, R SHOULDER PAIN Discharge Diagnosis: UTI Condition on Discharge: Fair Activity: Resume your previous activity Non-emergency contact: Primary Care Provider Call non-emergency contact if: you have any medication questions Follow-up/Referrals: Cassie Rojas PA-C [Primary Care Provider] - 12/13/24 9:45 am (Hospital follow up scheduled for December 13, 2024 at 9:45am. This appointment will be at [address] [place] [address], [address] in [place].) Diet: Regular Addtl Attending Provider Instructions: Recommend continue taking antibiotics with your first dose tonight. Please hold omeprazole until antibiotics have been completed as this may affect how this is abscorbed. Pending Studies at Discharge: No Stand-Alone Forms: [facility], Smoking Cessation Medications and DC Order Prescriptions: New cefpodoxime 200 mg tablet 200 mg PO BID Qty: 20 0RF Rx Instructions: must administer with a meal/food First dose tonight Continued atorvastatin 20 mg tablet 20 mg PO QAM propranolol 20 mg tablet 10 mg PO BID clonazepam 0.5 mg tablet 0.5 mg PO BID PRN (Reason: Anxiety) lamotrigine 100 mg tablet 100 mg PO BID cyclobenzaprine 10 mg Tablet 10 mg PO TID PRN (Reason: Muscle Spasm) valsartan 80 mg tablet 80 mg PO QAM omeprazole 40 mg capsule,delayed release(DR/EC) 40 mg PO QAM duloxetine 30 mg capsule,delayed release(DR/EC) 30 mg PO QAM Rx Instructions: WITH 60 MG FOR 90 MG DAILY DOSE duloxetine 60 mg capsule,delayed release(DR/EC) 60 mg PO QAM Rx Instructions: WITH 30 MG FOR 90 MG DAILY Jardiance 25 mg Tablet 25 mg PO QAM [place] Ointment 1 applic TOPICAL BID PRN (Reason: Pain) solifenacin 5 mg tablet 5 mg PO DAILY Discharge Orders: Discharge Order (Routine); Ordered 12/06/24 Ordered By: Stan Melton Admission Data Admit Date/Time: 12/05/24 20:41 Attending Provider: Stan Melton Admit Provider: Ramon Espitia Primary Care Provider: Cassie Rojas Other Providers: Ramon Espitia Other Interventions: Discharge Summary Assessment (RN) Last Done: 12/06/24 11:53 Hospital Stay Data Consultations 12/05/24 19:28 ED Decision to Admit Stat Diagnostic Imagining Performed 12/05/24 16:37 CT for pulmonary embolism PE [CT angio chest PE protocol] Stat Pending Results Patient Have Any Pending Studies at Discharge: No Discharge Instructions Given to Patient (Per Discharging Provider) Recommend continue taking antibiotics with your first dose tonight. Please hold omeprazole until antibiotics have been completed as this may affect how this is abscorbed. Total Time Total Time Spent Total Time Spent (In Minutes): 35 Coding Level of Care Code 03146 INP/OBS DISCH >30 MIN Diagnoses Acute UTI (urinary tract infection) N39.0 Acute dyspnea R06.00 Sinus tachycardia R00.0 Decreased right shoulder range of motion M25.611
[2024-12-06] MEDS ORDERED: cefTRIAXone SODIUM 2,000 MG/50 ML BAG IV SCH (20:00)
--- NOTE | 2024-12-08 09:19 | Pharmacy Report ---
ED Pharmacist Culture FollowUP - Culture Follow Up Note Date of Service: December 08, 2024 Notes:: Received urine culture results for pyle-sensitive E. coli. Patient was admitted and discharged per hospitalist service on cefpodoxime which should cover this bacteria. No ED pharmacist action.
== END 2024-12-06 13:02 | disposition home or self-care (01) ==
LOC: ED 15:17 → INTOOBSV 20:41 → SUATTDRO 20:41 → 4W 20:41